=== PATIENT | female | born 1955 | race Caucasian/White ===

== ENCOUNTER → 2017-11-27 11:25 | Outpatient (CLI) | payer MEDICARE, SELFPAY ==
[2017-11-27 13:17] LABS: Absolute Lymphocyte Count 1.69 X10^3/ul (0.83-4.51); Absolute Neutrophil Count 2.4 X10^3/uL (2.0-7.7); Basophil# 0.02 X10^3/uL; Basophil% 0.4 % (0-1); Eosinophil# 0.06 X10^3/uL; Eosinophils% 1.2 % (0-5); Hematocrit 41.3 % (37-47); Hemoglobin 13.3 g/dl (12.0-15.0); Lymphocyte # 1.69 X10^3/ul (4.0); Lymphocyte % 33.7 % (19-41); Mean Corp Hgb Conc 32.2 g/gl (32-36); Mean Corpuscular Hgb 31.9 pg (27.0-32.0); Monocyte# 0.84 X10^3/uL; Monocyte% 16.7 % (0-10); Neutrophil # 2.41 X10^3/uL (2.7-7.7); Platelet Count 119 K/mm3 (150-450); RBC Distribution Width CV 13.4 % (11.6-14.6); RBC Distribution Width SD 48.3 fl (35.1-43.9); Red Blood Count 4.17 M/mm3 (4.2-5.4)
[2017-11-27 13:18] LABS: POSITIVE COUNT NO; POSITIVE DIFFERENTIAL NO; POSITIVE MORPHOLOGY NO
[2017-11-27 13:33] LABS: ALB/GLOB Ratio 0.9 RATIO (0.9-2.4); AST(SGOT) 22 U/L (15-37); Alanine Aminotransfer ALT/SGPT 28 U/L (13-56); Albumin, Serum 3.5 g/dL (3.2-5.0); Alkaline Phosphatase 82 U/L (45-117); Anion Gap 5 (5-15); BUN 20 mg/dL (7-18); BUN/Creat Ratio 24.2 RATIO (10-20); Calcium,Total 8.5 mg/dL (8.5-10.1); Chloride 105 mmol/L (98-107); Cholesterol 139 mg/dL (200); Creatinine, Serum 0.83 mg/dL (0.55-1.02); EST Glomerular Filtration Rate 74 mL/min (>60); Est Glom Filt Rate - Afr Amer 90 mL/min (>60); Globulin 3.9 g/dL (2.2-4.2); Glucose 84 mg/dL (74-106); High Density Lipoprotein 55 mg/dL; Potassium 4.6 mmol/L (3.5-5.1); Protein, Total 7.4 g/dL (6.4-8.2); Sodium Level 142 mmol/L (136-145); Thyroid Stim Hormone (TSH) 0.43 uIU/mL (0.358-3.74); Triglycerides 100 mg/dL; Very Low Density Lipoprotein 20 mg/dL (5-40)
[2017-11-28 09:36] LABS: Hep C Antibodies >11.0 s/co ratio (0.0-0.9)
== END ==
PROVIDERS: Family Provider Family Medicine Geriatric Medicine; PCP Family Medicine Geriatric Medicine; Visit Provider Family Medicine Geriatric Medicine
DX: E78.4 Other hyperlipidemia (principal); I10 Essential (primary) hypertension; Z13.89 Encounter for screening for other disorder
CPT/HCPCS: 36415; 80053; 80061; 84443; 85025; 86803

== ENCOUNTER → 2017-12-11 14:32 | Outpatient (CLI) | payer MEDICARE, SELFPAY ==
--- NOTE | 2017-12-11 14:36 | BI_ITS ---
MAMMOGRAPHY - BILATERAL SCREENING REASON FOR EXAM: Female, 62 years old. Routine annual screening examination. PERTINENT HISTORY: Non-contributory. TECHNIQUE: Digital bilateral breast da (3D mammographic acquisition) in the CC and MLO projections. 2-D mediolateral oblique (MLO) and craniocaudad (CC) views of both breasts were obtained. CAD: Full Field Digital Mammography with Computer Added Detection was performed. COMPARISON: Comparison is made with prior study dated December 02, 2015 and November 04, 2013. FINDINGS: Breast Composition: There are scattered areas of fibroglandular density. There are no dominant masses or suspicious calcifications. There is a 4.6 mm well-defined nodular density in the inferior midportion of the right breast. There is also evidence of a focal 4.1 mm nodular density with central calcification in the inferior anterior medial portion of the right breast. Correlation with ultrasound is recommended. No other significant abnormalities are identified. BI/SCREENING MAMM (CAD), BILAT IMPRESSION: 2 small nodular densities in the right breast as described. Correlation with ultrasound is recommended. ASSESSMENT CATEGORY: BIRADS Category 0: Incomplete. Need additional imaging evaluation. A letter regarding these results will be sent to the patient by the facility within 30 days. Approximately 10% of breast cancers are not detected by mammography. A normal mammogram should not delay biopsy of a clinically suspicious abnormality. [id number] Electronically Signed: Daniel Goodman MD at 16:07 EDT Tel [phone], Service support ,
== END ==
PROVIDERS: Family Provider Family Medicine Geriatric Medicine; PCP Family Medicine Geriatric Medicine; Visit Provider Family Medicine Geriatric Medicine
DX: Z12.31 Encounter for screening mammogram for malignant neoplasm of breast (principal)
CPT/HCPCS: 77063; 77067

== ENCOUNTER → 2017-12-16 10:47 | Outpatient (CLI) | payer MEDICARE, SELFPAY ==
--- NOTE | 2017-12-16 10:48 | US_ITS ---
STUDY: ULTRASOUND BREAST - RIGHT REASON FOR EXAM: Female, 62 years old. Right breast nodules. TECHNIQUE: Axial and longitudinal images of the RIGHT breast were performed with a high resolution ultrasound transducer. COMPARISON: No prior breast ultrasound imaging available. Correlation mammograms 12/11/2017 through 09/12/2011. FINDINGS: RIGHT Breast: There is a lesion in the lower inner quadrant middle third. The lesion measures 3.0 x 3.0 x 4.0 mm. Clock notation: 5:30-6:00 o'clock position. Distance from nipple: 4 cm. Posterior Enhancement: Mild Posterior Shadowing: None Margins: Some margins are indistinct and irregular Echogenicity: Heterogeneous with probably hypoechoic. Lesion appears oblong, possibly dumbbell shaped but appears taller than wide and shows no internal color Doppler signal. There is a second lesion just inferior and lateral to the nipple in the subareolar region. The lesion measures approximately 0.5 x 0.5 x 0.3 cm and shows heterogeneous predominant hypoechoic echogenicity with indistinct margins without internal color Doppler signal identified. US/Breast Limited Unilateral IMPRESSION: Right breast nodules with suspicious ultrasound findings as described, cannot exclude neoplasm. Recommend further evaluation with ultrasound-guided biopsy of each nodule to exclude neoplasm. ASSESSMENT CATEGORY: BIRADS Category 4: Suspicious - Biopsy Should Be Considered. A letter regarding these results will be sent to the patient by the facility within 30 days. Electronically Signed: Timmy Lagos, at 17:22 EDT Tel , Service support ,
== END ==
PROVIDERS: Family Provider Family Medicine Geriatric Medicine; PCP Family Medicine Geriatric Medicine; Visit Provider Family Medicine Geriatric Medicine
DX: N63.10 Unspecified lump in the right breast, unspecified quadrant (principal); R92.8 Other abnormal and inconclusive findings on diagnostic imaging of breast
CPT/HCPCS: 76642

== ENCOUNTER → 2018-05-28 11:50 | Outpatient (CLI) | payer MEDICARE, SELFPAY ==
[2018-05-28 17:27] LABS: Absolute Lymphocyte Count 1.66 X10^3/ul (0.83-4.51); Absolute Neutrophil Count 2.6 X10^3/uL (2.0-7.7); Basophil# 0.04 X10^3/uL; Basophil% 0.8 % (0-1); Eosinophil# 0.06 X10^3/uL; Eosinophils% 1.1 % (0-5); Hematocrit 44.2 % (37-47); Hemoglobin 14.2 g/dl (12.0-15.0); Lymphocyte # 1.66 X10^3/ul (4.0); Lymphocyte % 31.4 % (19-41); Mean Corp Hgb Conc 32.1 g/gl (32-36); Mean Corpuscular Hgb 32.8 pg (27.0-32.0); Mean Corpuscular Volume 102.1 fL (81-99); Mean Platelet Vol. 11.3 fl (6.2-12.0); Monocyte# 0.95 X10^3/uL; Neutrophil # 2.57 X10^3/uL (2.7-7.7); Neutrophil % 48.5 % (47-70); Platelet Count 150 K/mm3 (150-450); RBC Distribution Width CV 13.4 % (11.6-14.6); RBC Distribution Width SD 49.9 fl (35.1-43.9); Red Blood Count 4.33 M/mm3 (4.2-5.4); White Blood Count 5.3 K/mm3 (4.4-11.0)
[2018-05-28 17:40] LABS: ALB/GLOB Ratio 0.9 RATIO (0.9-2.4); AST(SGOT) 30 U/L (15-37); Alanine Aminotransfer ALT/SGPT 41 U/L (13-56); Albumin, Serum 3.7 g/dL (3.2-5.0); Alkaline Phosphatase 74 U/L (45-117); Anion Gap 7 (5-15); BUN 14 mg/dL (7-18); BUN/Creat Ratio 15.3 RATIO (10-20); Calcium,Total 8.8 mg/dL (8.5-10.1); Chloride 105 mmol/L (98-107); Cholesterol 147 mg/dL (200); Creatinine, Serum 0.92 mg/dL (0.55-1.02); EST Glomerular Filtration Rate 66 mL/min (>60); Est Glom Filt Rate - Afr Amer 80 mL/min (>60); Glucose 77 mg/dL (74-106); High Density Lipoprotein 52 mg/dL; Protein, Total 7.7 g/dL (6.4-8.2); Sodium Level 141 mmol/L (136-145); Thyroid Stim Hormone (TSH) 7.92 uIU/mL (0.358-3.74); Triglycerides 63 mg/dL; Very Low Density Lipoprotein 13 mg/dL (5-40)
[2018-05-28 17:46] LABS: POSITIVE COUNT NO; POSITIVE DIFFERENTIAL NO; POSITIVE MORPHOLOGY NO
--- OUTSIDE RECORDS SUMMARY | 2018-08-02 07:56 | XMS RPT_ITS ---
:1955 Author Organization OHIP Care Team Providers Name Role Phone Tim, Campbell Chi Attending Unavailable Tim, Campbell Chi Primary Care Unavailable Tim, Campbell Chi Attending Unavailable Tim, Campbell Chi Referring Unavailable Tim, Campbell Chi Primary Care Unavailable Tim, Campbell Chi Attending Unavailable Tim, Campbell Chi Primary Care Unavailable Tim, Campbell Chi Attending Unavailable Tim, Campbell Chi Primary Care Unavailable Tim, Campbell Chi Attending Unavailable Tim, Campbell Chi Primary Care Unavailable Tim, Campbell Chi Attending Unavailable Tim, Campbell Chi Referring Unavailable Tim, Campbell Chi Primary Care Unavailable PROBLEMS PROBLEMS DATE TYPE CONDITION / CODE ATTENDING STATUS SOURCE 06/05/2018 Unknown R06.02 - Shortness Tim, Campbell Chi Active [place] of breath / Community R06.02(ICD-10) Hospital Repository 06/07/2017 Unknown E87.1 - Tim, Campbell Chi Active [place] [facility]o-osmol[facility] and hyponatremia / Hospital E87.1(ICD-10) Repository PROCEDURES PROCEDURES No Procedure Records FoundRESULTS RESULTS ECHOCARDIOGRAM COMPLETE Observed: 06/05/2018 Status: F Source: HEATERS 4:56 PM [facility] REPOSITORY [facility] [place] [address] Echo Complete 06/05/18 1359 MR#: [id number] Acct: [id number] Name: JANETTE PIZARRO Rep #: [id number] : 1955 62 From: Benoit Roach MD Attending Dr: Campbell Dumont MD, Chi Status: REG CLI Ordering Dr: Campbell Dumont MD Date: 06/05/18 Location: [facility] Sex: F C Admitted: Reason For Study: SOB Procedure This was a 2D Doppler, Color Flow transthoracic echocardiogram. Exam performed in department. Left Ventricle Normal LV size. Left ventricular systolic function is normal. The estimated ejection fraction is 65 %. Stage 1 diastolic dysfunction. No regional wall motion abnormalities noted. Right Ventricle Normal RV size. Normal systolic function. Atria The left atrium is mildly enlarged. Normal right atrium. Mitral Valve There is mild to moderate mitral annular calcification. Trivial eccentric mitral valve insufficiency. Tricuspid Valve Normal tricuspid valve. Mild tricuspid valve insufficiency. Pulmonary artery systolic pressure is 30 mmHg. MMode/2D Measurements AND Calculations LVIDd: 4.8 cm IVSd: 1.1 cm LVOT diam: 1.9 cm LVIDs: 3.1 cm LVPWd: 1.1 cm RVDd: 2.9 cm FS: 35.1 % LVOT area: 2.9 cm2 Ao root diam: 3.4 cm LAV(MOD-bp): 73.7 ml LA A4 area: 22.0 cm2 LAV(MOD-bp) Indexed: 41.3 ml/m2 LAV(MOD-sp2): 72.5 ml LAV(MOD-sp4): 70.5 ml LA dimension(2D): 4.6 cm RA A4 area: 16.9 cm2 Doppler Measurements AND Calculations MV E max taras: 102.6 cm/sec Lat Peak E' Taras: 7.0 cm/sec Med Peak E' Taras: 6.5 cm/sec MV A max taras: 114.0 cm/sec E/E' lat: 14.7 E/E' med: 15.9 MV E/A: 0.90 Ao V2 max: 193.0 cm/sec LV V1 max: 125.8 cm/sec SV(LVOT): 93.8 ml Ao max P.9 mmHg LV V1 max P.3 mmHg Ao V2 mean: 126.4 cm/sec LV V1 mean P.4 mmHg Ao mean P.2 mmHg LV V1 mean: 87.8 cm/sec Ao V2 VTI: 40.1 cm LV V1 VTI: 32.7 cm ANYI(I,D): 2.3 cm2 ANYI(V,D): 1.9 cm2 PA V2 max: 98.4 cm/sec TR max taras: 252.3 cm/sec TR max P.5 mmHg Interpretation Summary Normal LV size. Left ventricular systolic function is normal. The estimated ejection fraction is 65 %. Stage 1 diastolic dysfunction. Structurally normal valves. Ordering Physician: Campbell Dumont Referring Physician: Campbell Dumont Chi Performed By: Chelsea Cam, HOOD, RVT 06/05/181655 Date Benoit Roach MD CC: Campbell Dumont MD Date Dictated: 06/05/18 1359 Date Transcribed: 06/05/181655 Application Programmer Analyst: Signed Observed: 05/28/2018 Status: F Source: HEATERS CULTURE, URINE 3:32 PM [facility] REPOSITORY Urine Culture ORGANISM 1: Presumptive E. coli Kirkman Count >100,000 Presumptive E. coli: REACTION Ampicillin $ <=2 S Ampicillin/Sulbactam $ <=2 S Cefazolin $ <=4 S Cefepime $ <=0.12 S Ceftazidime *NF <=1 S Ceftriaxone $ <=0.25 S Ciprofloxacin $ <=0.25 S Ertapenim $$$ <=0.12 S ESBL NEG Gentamicin $ <=1 S Imipenem *NF <=0.25 S Levofloxacin $ <=0.12 S Nitrofurantoin $ <=16 S Piperacillin/Tazobactam $$ <=4 S Tobramycin $ <=1 S Trimethoprim/Sulfametho $ <=20 S (NF) indicates non-formulary drug at [facility]. Approval by Infectious Disease Specialist required before non-formulary drugs may be ordered and/or dispensed. Performed By: #### M100.0650 #### [facility] [place], [address] COMPREHENSIVE METABOLIC Collected: 05/28/2018 Status: F Source: TEO RODRÍGUEZ 11:52 AM [facility] REPOSITORY TYPE CODE TESTS RESULT OUT OF RANGE REFERENCE UNITS LAB L501.0100 74-106 mg/dL Normal GLU 77 Result Comment: Please note revised GLUCOSE reference range effective 2017. LAB L501.1000 7-18 mg/dL Normal BUN 14 LAB L501.1100 0.55-1.02 mg/dL Normal CREAT,SERUM 0.92 Result Comment: The validity of the calculated GFR AND GFRAA in patients over 70 years has not been determined. Clinical correlation is essential. LAB L501.1110 >60 mL/min Normal EST GFR 66 Result Comment: Non- GFR Calc LAB L501.1115 >60 mL/min Normal EST GFR - AA 80 Result Comment: GFR Calc LAB L501.1300 10-20 RATIO Normal BUN/CRE 15.3 LAB L501.1500 6.4-8.2 g/dL T Normal PROT 7.7 LAB L501.1800 3.2-5.0 g/dL Normal ALB 3.7 LAB L501.1950 2.2-4.2 g/dL Normal GLOB 4.0 LAB L501.2000 0.9-2.4 RATIO Normal A/G 0.9 LAB L501.2200 8.5-10.1 mg/dL CA Normal 8.8 LAB L501.4100 15-37 U/L Normal AST 30 LAB L501.4305 45-117 U/L Normal ALK P 74 LAB L501.4405 13-56 U/L Normal ALT 41 LAB L501.4600 0.20-1.00 mg/dL T Normal BILI 0.90 LAB L501.5300 136-145 mmol/L NA Normal 141 LAB L501.5600 3.5-5.1 mmol/L K Normal 4.0 LAB L501.5900 98-107 mmol/L CL Normal 105 LAB L501.6100 21.0-32.0 mmol/L Normal CO2 29.0 LAB L501.6200 5-15 Normal GAP 7 Performed By: #### L500.4050, L500.4100, L501.9520 #### [facility] [address] [place], [place], [address] LIPID PROFILE Collected: 05/28/2018 Status: F Source: TEO 11:52 AM [facility] REPOSITORY TYPE CODE TESTS RESULT OUT OF RANGE REFERENCE UNITS LAB L501.4900 200 mg/dL Normal CHOL 147 Result Comment: <200 mg/dL Desirable 200-240 mg/dL Borderline >240 mg/dL High Risk LAB L501.5000 mg/dL Normal TRIG 63 Result Comment: The drugs N-Acetylcysteine and Metamizole may falsely depress this assay. Serum Triglycerides Reference Interval Normal <150 mg/dL Borderline high 150 - 199 mg/dL High 200 - 499 mg/dL Very High > or = 500 mg/dL LAB L501.6400 mg/dL Normal HDL 52 Result Comment: The drugs N-Acetylcysteine and Metamizole may falsely depress this assay. Reference Range HDL <40 mg/dL Low HDL Cholesterol HDL >or= 60 mg/dL High HDL Cholesterol LAB L501.6500 0-130 mg/dL Normal LDL 82 LAB L501.6600 5-40 mg/dL Normal VLDL 13 Performed By: #### L500.4050, L500.4100, L501.9520 #### [facility] [address] [place], [place], [id number] THYROID STIM HORMONE Collected: 05/28/2018 Status: F Source: TEO (TSH) 11:52 AM [facility] REPOSITORY TYPE CODE TESTS RESULT OUT OF RANGE REFERENCE UNITS LAB L501.9520 0.358-3.74 uIU/mL High TSH 7.92 Performed By: #### L500.4050, L500.4100, L501.9520 #### [facility] [address] [place], [address] CBC W/DIFF, AUTOMATED Collected: 05/28/2018 Status: F Source: TEO 11:52 AM [facility] REPOSITORY TYPE CODE TESTS RESULT OUT OF RANGE REFERENCE UNITS LAB L100.1000 4.4-11.0 K/mm3 Normal WBC 5.3 LAB L100.1200 4.2-5.4 M/mm3 Normal RBC 4.33 LAB L100.1300 12.0-15.0 g/dl Normal HGB 14.2 LAB L100.1400 37-47 % Normal HCT 44.2 LAB L100.1500 81-99 fL High MCV 102.1 LAB L100.1600 27.0-32.0 pg High MCH 32.8 LAB L100.1700 32-36 g/gl Normal MCHC 32.1 LAB L100.1810 11.6-14.6 % Normal RDW CV 13.4 LAB L100.1820 35.1-43.9 fl High RDW SD 49.9 LAB L100.1900 150-450 K/mm3 Normal PLT 150 LAB L100.2000 6.2-12.0 fl Normal MPV 11.3 LAB L100.2100 47-70 % Normal NEUT% 48.5 LAB L100.2200 19-41 % Normal LY% 31.4 LAB L100.2300 0-10 % High MONO% 18.0 LAB L100.2400 0-5 % Normal EO% 1.1 LAB L100.2500 0-1 % Normal BASO% 0.8 LAB L100.2550 0.0-0.9 % Normal IM GRAN % 0.200 Result Comment: IG% - Immature Granulocytes (promyelocytes, myelocytes and metamyelocytes) > 1% indicates that a LEFT SHIFT is Present. LAB L100.2620 2.0-7.7 X10 3/uL Normal Absolute Neut 2.6 LAB L100.2720 0.83-4.51 X10 3/ul Normal Absolute Lymph 1.66 Performed By: #### L100.0100 #### [facility] [address] [facility] [place], [address] BREAST LIMITED Observed: 12/16/2017 Status: F Source: HEATERS UNILATERAL 10:49 AM [facility] REPOSITORY [facility] Imaging Services [address] [place] [address] Breast Limited Unilateral MR#: [id number] Acct: [id number] Name: JANETTE PIZARRO Rep #: [id number] : 1955 F 62 From: Timmy Lagos MD PCP: Campbell Dumont MD, Chi Status: REG CLI Study: Breast Limited Unilateral Date of Exam: 12/16/17 Exam# [id number] Ordering Dr: Campbell Dumont MD STUDY: ULTRASOUND BREAST - RIGHT REASON FOR EXAM: Female, 62 years old. Right breast nodules. TECHNIQUE: Axial and longitudinal images of the RIGHT breast were performed with a high resolution ultrasound transducer. COMPARISON: No prior breast ultrasound imaging available. Correlation mammograms 12/11/2017 through 09/12/2011. FINDINGS: RIGHT Breast: There is a lesion in the lower inner quadrant middle third. The lesion measures 3.0 x 3.0 x 4.0 mm. Clock notation: 5:30-6:00 o'clock position. Distance from nipple: 4 cm. Posterior Enhancement: Mild Posterior Shadowing: None Margins: Some margins are indistinct and irregular Echogenicity: Heterogeneous with probably hypoechoic. Lesion appears oblong, possibly dumbbell shaped but appears taller than wide and shows no internal color Doppler signal. There is a second lesion just inferior and lateral to the nipple in the subareolar region. The lesion measures approximately 0.5 x 0.5 x 0.3 cm and shows heterogeneous predominant hypoechoic echogenicity with indistinct margins without internal color Doppler signal identified. US/Breast Limited Unilateral IMPRESSION: Right breast nodules with suspicious ultrasound findings as described, cannot exclude neoplasm. Recommend further evaluation with ultrasound-guided biopsy of each nodule to exclude neoplasm. ASSESSMENT CATEGORY: BIRADS Category 4: Suspicious - Biopsy Should Be Considered. A letter regarding these results will be sent to the patient by the facility within 30 days. Electronically Signed: Timmy Lagos, at 17:22 EDT Tel , Service support , CC: Campbell Dumont MD Application Programmer Analyst: Signed SCREENING MAMM (CAD), Observed: 12/11/2017 Status: F Source: HEATERS BIL 2:37 PM [facility] REPOSITORY [facility] Imaging Services [address] [place] [address] SCREENING MAMM (CAD), BILAT MR#: [id number] Acct: [id number] Name: JANETTE PIZARRO Rep #: [id number] : 1955 F 62 From: Daniel Goodman MD PCP: Campbell Dumont MD, Chi Status: REG CLI Study: SCREENING MAMM (CAD), BILAT Date of Exam: 12/11/17 Exam# [id number] Ordering Dr: Campbell Dumont MD MAMMOGRAPHY - BILATERAL SCREENING REASON FOR EXAM: Female, 62 years old. Routine annual screening examination. PERTINENT HISTORY: Non-contributory. TECHNIQUE: Digital bilateral breast da (3D mammographic acquisition) in the CC and MLO projections. 2-D mediolateral oblique (MLO) and craniocaudad (CC) views of both breasts were obtained. CAD: Full Field Digital Mammography with Computer Added Detection was performed. COMPARISON: Comparison is made with prior study dated December 02, 2015 and November 04, 2013. FINDINGS: Breast Composition: There are scattered areas of fibroglandular density. There are no dominant masses or suspicious calcifications. There is a 4.6 mm well-defined nodular density in the inferior midportion of the right breast. There is also evidence of a focal 4.1 mm nodular density with central calcification in the inferior anterior medial portion of the right breast. Correlation with ultrasound is recommended. No other significant abnormalities are identified. BI/SCREENING MAMM (CAD), BILAT IMPRESSION: 2 small nodular densities in the right breast as described. Correlation with ultrasound is recommended. ASSESSMENT CATEGORY: BIRADS Category 0: Incomplete. Need additional imaging evaluation. A letter regarding these results will be sent to the patient by the facility within 30 days. Approximately 10% of breast cancers are not detected by mammography. A normal mammogram should not delay biopsy of a clinically suspicious abnormality. [id number] Electronically Signed: Daniel Goodman MD at 16:07 EDT Tel [phone], Service support , CC: Campbell Dumont MD Application Programmer Analyst: Signed CBC W/DIFF, AUTOMATED Collected: 11/27/2017 Status: F Source: TEO 11:26 AM [facility] REPOSITORY TYPE CODE TESTS RESULT OUT OF RANGE REFERENCE UNITS LAB L100.1000 4.4-11.0 K/mm3 Normal WBC 5.0 LAB L100.1200 4.2-5.4 M/mm3 Low RBC 4.17 LAB L100.1300 12.0-15.0 g/dl Normal HGB 13.3 LAB L100.1400 37-47 % Normal HCT 41.3 LAB L100.1500 81-99 fL Normal MCV 99.0 LAB L100.1600 27.0-32.0 pg Normal MCH 31.9 LAB L100.1700 32-36 g/gl Normal MCHC 32.2 LAB L100.1810 11.6-14.6 % Normal RDW CV 13.4 LAB L100.1820 35.1-43.9 fl High RDW SD 48.3 LAB L100.1900 150-450 K/mm3 Low PLT 119 LAB L100.2000 6.2-12.0 fl Normal MPV 11.0 LAB L100.2100 47-70 % Normal NEUT% 48.0 LAB L100.2200 19-41 % Normal LY% 33.7 LAB L100.2300 0-10 % High MONO% 16.7 LAB L100.2400 0-5 % Normal EO% 1.2 LAB L100.2500 0-1 % Normal BASO% 0.4 LAB L100.2550 0.0-0.9 % Normal IM GRAN % 0.000 Result Comment: IG% - Immature Granulocytes (promyelocytes, myelocytes and metamyelocytes) > 1% indicates that a LEFT SHIFT is Present. LAB L100.2620 2.0-7.7 X10 3/uL Normal Absolute Neut 2.4 LAB L100.2720 0.83-4.51 X10 3/ul Normal Absolute Lymph 1.69 Performed By: #### L100.0100 #### [facility] [address] [place], [address] COMPREHENSIVE METABOLIC Collected: 11/27/2017 Status: F Source: TEO RODRÍGUEZ 11:26 AM [facility] REPOSITORY TYPE CODE TESTS RESULT OUT OF RANGE REFERENCE UNITS LAB L501.0100 74-106 mg/dL Normal GLU 84 Result Comment: Please note revised GLUCOSE reference range effective 2017. LAB L501.1000 7-18 mg/dL High BUN 20 LAB L501.1100 0.55-1.02 mg/dL Normal CREAT,SERUM 0.83 Result Comment: The validity of the calculated GFR AND GFRAA in patients over 70 years has not been determined. Clinical correlation is essential. LAB L501.1110 >60 mL/min Normal EST GFR 74 Result Comment: Non- GFR Calc LAB L501.1115 >60 mL/min Normal EST GFR - AA 90 Result Comment: GFR Calc LAB L501.1300 10-20 RATIO High BUN/CRE 24.2 LAB L501.1500 6.4-8.2 g/dL T Normal PROT 7.4 LAB L501.1800 3.2-5.0 g/dL Normal ALB 3.5 LAB L501.1950 2.2-4.2 g/dL Normal GLOB 3.9 LAB L501.2000 0.9-2.4 RATIO Normal A/G 0.9 LAB L501.2200 8.5-10.1 mg/dL CA Normal 8.5 LAB L501.4100 15-37 U/L Normal AST 22 LAB L501.4305 45-117 U/L Normal ALK P 82 LAB L501.4405 13-56 U/L Normal ALT 28 LAB L501.4600 0.20-1.00 mg/dL T Normal BILI 0.50 LAB L501.5300 136-145 mmol/L NA Normal 142 LAB L501.5600 3.5-5.1 mmol/L K Normal 4.6 LAB L501.5900 98-107 mmol/L CL Normal 105 LAB L501.6100 21.0-32.0 mmol/L Normal CO2 32.0 LAB L501.6200 5-15 Normal GAP 5 Performed By: #### L500.4050, L500.4100, L501.9520 #### [facility] [address] [place], [place], [address] LIPID PROFILE Collected: 11/27/2017 Status: F Source: TEO 11:26 AM [facility] REPOSITORY TYPE CODE TESTS RESULT OUT OF RANGE REFERENCE UNITS LAB L501.4900 200 mg/dL Normal CHOL 139 Result Comment: <200 mg/dL Desirable 200-240 mg/dL Borderline >240 mg/dL High Risk LAB L501.5000 mg/dL Normal TRIG 100 Result Comment: The drugs N-Acetylcysteine and Metamizole may falsely depress this assay. Serum Triglycerides Reference Interval Normal <150 mg/dL Borderline high 150 - 199 mg/dL High 200 - 499 mg/dL Very High > or = 500 mg/dL LAB L501.6400 mg/dL Normal HDL 55 Result Comment: The drugs N-Acetylcysteine and Metamizole may falsely depress this assay. Reference Range HDL <40 mg/dL Low HDL Cholesterol HDL >or= 60 mg/dL High HDL Cholesterol LAB L501.6500 0-130 mg/dL Normal LDL 64 LAB L501.6600 5-40 mg/dL Normal VLDL 20 Performed By: #### L500.4050, L500.4100, L501.9520 #### [facility] [address] [facility]. [place], [place], [address] THYROID STIM HORMONE Collected: 11/27/2017 Status: F Source: TEO (TSH) 11:26 AM [facility] REPOSITORY TYPE CODE TESTS RESULT OUT OF RANGE REFERENCE UNITS LAB L501.9520 0.358-3.74 uIU/mL Normal TSH 0.43 Performed By: #### L500.4050, L500.4100, L501.9520 #### [facility] [address] [place], [place], [address] HEPATITIS C ANTIBODIES Collected: 11/27/2017 Status: F Source: TEO 11:26 AM [facility] REPOSITORY TYPE CODE TESTS RESULT OUT OF RANGE REFERENCE UNITS LAB L3100.0650 0.0-0.9 s/co ratio High HEP C AB >11.0 Result Comment: Negative: < 0.8 Indeterminate: 0.8 - 0.9 Positive: > 0.9 The CDC recommends that a positive HCV antibody result be followed up with a HCV Nucleic Acid Amplification test (023027). Performed at: [facility] [id number] Aerodynamics Engineer: Maxime Ramírez PhD, Phone: [phone] Performed By: #### L3100.0625 #### [facility] (refer to report for specific site) refer to report for address and phone number ALLERGIES ALLERGIES DATE TYPE / CODE NAME / CODE REACTION SEVERITY SOURCE 07/06/2014 Drug No Known Unknown [facility] Allergy/4160 Allergies/F00 Hospital 91817(SNOMED [id number](RXNOR Repository CT) M) ENCOUNTERS ENCOUNTERS ADMIT/DISCHARGE ACCOUNT ADMITTING ENCOUNTER LOCATION SOURCE NUMBER CLASS 06/05/2018 [id number] Ambulatory [place] 6 [facility] ing:[facility] Repository 05/28/2018 [id number] Ambulatory [place] 2 [facility] ing:POLAB3 Repository 12/16/2017 [id number] Ambulatory [place] 9 [facility] ing:OPUS Repository 12/11/2017 [id number] Ambulatory [place] 8 [facility] ing:OPBI Repository 11/27/2017 [id number] Ambulatory [place] 6 [facility] ing:POLAB3 Repository 06/21/2017 [id number] Ambulatory [place] 0 [facility] ing:LAB.FUTUR Repository E PAYERS PAYERS ENCOUNTER GUARANTOR PAYER SUBSCRIBER SOURCE 06/05/2018 JANETTE TUCKER7 Primary JANETTE A [place] 1/2 [address] [place] Insurance:HUMANA [place]OB[place] PPOPolicy [id number] Hospital [address]Waa: [phone]) Number: Repository [phone] ) [id number] Date:[id number] [address]XM: 06/05/2018 Secondary NOT GIVENUNK [place] Insurance:SELF PAY [facility] Number: Effective Repository Date:2018-05-28 05/28/2018 Janette A [id number] Primary Janette A [place] 1/[address] Insurance:HUMANA AngleDOB: [place] PPOPolicy [id number] Hospital [address]Ayy: [phone]) Number: Repository [phone] () [id number] Date:[id number] [place] [address]WP: 05/28/2018 Secondary NOT GIVENUNK [place] Insurance:SELF PAY [facility] Hospital Number: Effective Repository Date:2018-05-28 12/16/2017 Janette A [id number] Primary Janette A [place] 1/2 [address] Insurance:HUMANA AngleDOB: [place] PPOPolicy [id number] Hospital [address]Vuc: [phone] Number: Repository [phone] () [id number] Date:0196-09-23PA [place] [address]WP: 12/16/2017 Secondary NOT GIVENUNK [place] Insurance:SELF PAY [facility] Hospital Number: Effective Repository Date:2017-12-12 12/11/2017 Janette A [id number] Primary Janette A [place] 1/[address] Insurance:HUMANA AngleDOB: [place], [place] MEDICARE [facility] [id number] Hospital [address]Qyt: [phone]) Number: Repository [phone] () [id number] Date:8601-07-10TI [address]WP: 12/11/2017 Secondary NOT GIVENUNK [place] Insurance:SELF PAY [facility] Hospital Number: Effective Repository Date:2017-11-28 11/27/2017 Janette A [id number] Primary Janette A [place] [address] Insurance:HUMANA AngleDOB: [address] [facility] [id number] [facility] [address]Whz: [phone]) Number: Repository [phone] () [id number] Date:[id number] [address] [place] [address]VP: 11/27/2017 Secondary NOT GIVENUNK [place] Insurance:SELF PAY [facility] Number: Effective Repository Date:2017-11-27 06/21/2017 Janette [id number] Primary Janette Mullins [address] Insurance:HUMANA AngleDOB: [facility] [place] MEDIC[place] PPOPolicy [id number] Hospital [address]Iii: [phone]) Number: Repository [phone] () [id number] Date:[id number] [address] [address]PL: 06/21/2017 Secondary NOT GIVENUNK [place] Insurance:SELF PAY [facility] Number: Effective Repository Date:2017-06-07
== END ==
PROVIDERS: Family Provider Family Medicine Geriatric Medicine; PCP Family Medicine Geriatric Medicine; Visit Provider Family Medicine Geriatric Medicine
DX: I10 Essential (primary) hypertension (principal); E78.5 Hyperlipidemia, unspecified; N39.0 Urinary tract infection, site not specified
CPT/HCPCS: 36415; 80053; 80061; 84443; 85025; 87086; 87088; 87186

== ENCOUNTER → 2018-06-05 13:41 | Outpatient (CLI) | payer MEDICARE, SELFPAY ==
--- NOTE | 2018-06-05 13:47 | ECHOD_ITS ---
Reason For Study: SOB Procedure This was a 2D Doppler, Color Flow transthoracic echocardiogram. Exam performed in department. Left Ventricle Normal LV size. Left ventricular systolic function is normal. The estimated ejection fraction is 65 %. Stage 1 diastolic dysfunction. No regional wall motion abnormalities noted. Right Ventricle Normal RV size. Normal systolic function. Atria The left atrium is mildly enlarged. Normal right atrium. Mitral Valve There is mild to moderate mitral annular calcification. Trivial eccentric mitral valve insufficiency. Tricuspid Valve Normal tricuspid valve. Mild tricuspid valve insufficiency. Pulmonary artery systolic pressure is 30 mmHg. MMode/2D Measurements & Calculations LVIDd: 4.8 cm IVSd: 1.1 cm LVOT diam: 1.9 cm LVIDs: 3.1 cm LVPWd: 1.1 cm RVDd: 2.9 cm FS: 35.1 % LVOT area: 2.9 cm2 Ao root diam: 3.4 cm LAV(MOD-bp): 73.7 ml LA A4 area: 22.0 cm2 LAV(MOD-bp) Indexed: 41.3 ml/m2 LAV(MOD-sp2): 72.5 ml LAV(MOD-sp4): 70.5 ml LA dimension(2D): 4.6 cm RA A4 area: 16.9 cm2 Doppler Measurements & Calculations MV E max taras: 102.6 cm/sec Lat Peak E' Taras: 7.0 cm/sec Med Peak E' Taras: 6.5 cm/sec MV A max taras: 114.0 cm/sec E/E' lat: 14.7 E/E' med: 15.9 MV E/A: 0.90 Ao V2 max: 193.0 cm/sec LV V1 max: 125.8 cm/sec SV(LVOT): 93.8 ml Ao max P.9 mmHg LV V1 max P.3 mmHg Ao V2 mean: 126.4 cm/sec LV V1 mean P.4 mmHg Ao mean P.2 mmHg LV V1 mean: 87.8 cm/sec Ao V2 VTI: 40.1 cm LV V1 VTI: 32.7 cm ANYI(I,D): 2.3 cm2 ANYI(V,D): 1.9 cm2 PA V2 max: 98.4 cm/sec TR max taras: 252.3 cm/sec TR max P.5 mmHg Interpretation Summary Normal LV size. Left ventricular systolic function is normal. The estimated ejection fraction is 65 %. Stage 1 diastolic dysfunction. Structurally normal valves. Ordering Physician: Campbell Dumont Referring Physician: Campbell Dumont Chi Performed By: Chelsea Cam RDCS, RVT
== END ==
PROVIDERS: Family Provider Family Medicine Geriatric Medicine; PCP Family Medicine Geriatric Medicine; Referring Provider Family Medicine Geriatric Medicine; Visit Provider Family Medicine Geriatric Medicine
DX: R06.02 Shortness of breath (principal)
CPT/HCPCS: 93306

== ENCOUNTER → 2018-07-31 09:56 | Outpatient (CLI) | payer MEDICARE, SELFPAY ==
[2018-07-31 12:51] LABS: Thyroid Stim Hormone (TSH) 4.73 uIU/mL (0.358-3.74)
== END ==
PROVIDERS: Family Provider Family Medicine Geriatric Medicine; PCP Family Medicine Geriatric Medicine; Visit Provider Family Medicine Geriatric Medicine
DX: E03.9 Hypothyroidism, unspecified (principal)
CPT/HCPCS: 36415; 84443

== ENCOUNTER → 2018-10-10 11:53 | Outpatient (CLI) | payer MEDICARE, SELFPAY ==
[2018-10-10 13:19] LABS: Absolute Lymphocyte Count 1.62 X10^3/ul (0.83-4.51); Absolute Neutrophil Count 2.5 X10^3/uL (2.0-7.7); Basophil# 0.03 X10^3/uL; Basophil% 0.6 % (0-1); Eosinophil# 0.09 X10^3/uL; Eosinophils% 1.7 % (0-5); Hemoglobin 13.2 g/dl (12.0-15.0); Lymphocyte # 1.62 X10^3/ul (4.0); Lymphocyte % 31.2 % (19-41); Mean Corpuscular Volume 97.1 fL (81-99); Monocyte# 0.95 X10^3/uL; Monocyte% 18.3 % (0-10); Neutrophil # 2.49 X10^3/uL (2.7-7.7); Platelet Count 112 K/mm3 (150-450); RBC Distribution Width CV 13.2 % (11.6-14.6); RBC Distribution Width SD 46.8 fl (35.1-43.9); Red Blood Count 4.12 M/mm3 (4.2-5.4); White Blood Count 5.2 K/mm3 (4.4-11.0)
[2018-10-10 13:26] LABS: POSITIVE COUNT NO; POSITIVE DIFFERENTIAL NO; POSITIVE MORPHOLOGY NO
[2018-10-10 13:43] LABS: Anion Gap 4 (5-15); BUN 17 mg/dL (7-18); BUN/Creat Ratio 20.2 RATIO (10-20); Calcium,Total 8.4 mg/dL (8.5-10.1); Chloride 107 mmol/L (98-107); Creatinine, Serum 0.84 mg/dL (0.55-1.02); EST Glomerular Filtration Rate 73 mL/min (>60); Est Glom Filt Rate - Afr Amer 88 mL/min (>60); Glucose 86 mg/dL (74-106); Sodium Level 142 mmol/L (136-145)
--- NOTE | 2018-10-10 13:57 | VDLE_ITS ---
Reason For Study: Edema RIGHT LEFT GSV is normal. GSV is normal. CFV is compressible, spontaneous, phasic, CFV is compressible, spontaneous, phasic, competent and demonstrates normal competent, and demonstrates normal augmentation. augmentation. FV is compressible, spontaneous, phasic, FV is compressible, spontaneous, phasic, competent and demonstrates normal competent and demonstrates normal augmentation. augmentation. POP V is compressible, spontaneous, phasic, POP V is compressible, spontaneous, phasic, competent and demonstrates normal competent and demonstrates normal augmentation. augmentation. T/P Trunk is compressible. T/P Trunk is compressible. PTV is compressible. PTV is compressible. RT PerV is compressible. LT PerV is compressible. Procedure Exam performed in department. A preliminary report was called and/or faxed to Tim. Interpretation Summary No evidence for acute deep venous thrombosis bilateral lower extremities with patent and compressible bilateral great saphenous veins. Ordering Physician: Campbell Dumont Referring Physician: Campbell Dumont Chi Performed By: Milagro Lewis RVT
== END ==
PROVIDERS: Family Provider Family Medicine Geriatric Medicine; PCP Family Medicine Geriatric Medicine; Referring Provider Family Medicine Geriatric Medicine; Visit Provider Family Medicine Geriatric Medicine
DX: I10 Essential (primary) hypertension (principal); R60.0 Localized edema
CPT/HCPCS: 36415; 80048; 85025; 93970

== ENCOUNTER → 2018-12-01 08:54 | Outpatient (CLI) | payer MEDICARE, SELFPAY ==
[2018-12-01 12:25] LABS: Absolute Lymphocyte Count 1.56 X10^3/uL (0.83-4.51); Absolute Neutrophil Count 3.5 X10^3/uL (2.0-7.7); Basophil# 0.04 X10^3/uL; Basophil% 0.7 % (0-1); Eosinophil# 0.07 X10^3/uL; Eosinophils% 1.2 % (0-5); Hemoglobin 13.8 g/dL (12.0-15.0); Lymphocyte # 1.56 X10^3/ul (4.0); Lymphocyte % 26.1 % (19-41); Mean Corp Hgb Conc 32.9 g/dL (32-36); Mean Corpuscular Hgb 32.5 pg (27.0-32.0); Mean Corpuscular Volume 99.1 fL (81-99); Mean Platelet Vol. 11.4 fl (6.2-12.0); Monocyte# 0.77 X10^3/uL; Monocyte% 12.9 % (0-10); NRBC Flagged by Analyzer 0 % (0-5); Neutrophil # 3.52 X10^3/uL (2.7-7.7); Neutrophil % 58.8 % (47-70); Platelet Count 138 K/mm3 (150-450); RBC Distribution Width CV 12.9 % (11.6-14.6); RBC Distribution Width SD 46.7 fl (35.1-43.9); Red Blood Count 4.24 M/mm3 (4.2-5.4)
[2018-12-01 13:30] LABS: ALB/GLOB Ratio 0.8 RATIO (0.9-2.4); AST(SGOT) 24 U/L (15-37); Alanine Aminotransfer ALT/SGPT 22 U/L (13-56); Albumin, Serum 3.4 g/dL (3.2-5.0); Alkaline Phosphatase 73 U/L (45-117); Anion Gap 9 (5-15); BUN 14 mg/dL (7-18); BUN/Creat Ratio 15.6 RATIO (10-20); Chloride 104 mmol/L (98-107); Cholesterol 129 mg/dL (200); EST Glomerular Filtration Rate 67 mL/min (>60); Est Glom Filt Rate - Afr Amer 82 mL/min (>60); Globulin 4.2 g/dL (2.2-4.2); Glucose 102 mg/dL (74-106); High Density Lipoprotein 42 mg/dL; Potassium 3.9 mmol/L (3.5-5.1); Protein, Total 7.6 g/dL (6.4-8.2); Sodium Level 141 mmol/L (136-145); Thyroid Stim Hormone (TSH) 1.32 uIU/mL (0.358-3.74); Triglycerides 75 mg/dL; Very Low Density Lipoprotein 15 mg/dL (5-40)
== END ==
PROVIDERS: Family Provider Family Medicine Geriatric Medicine; PCP Family Medicine Geriatric Medicine; Visit Provider Family Medicine Geriatric Medicine
DX: E78.5 Hyperlipidemia, unspecified (principal); I10 Essential (primary) hypertension
CPT/HCPCS: 36415; 80053; 80061; 84443; 85025

== ENCOUNTER → 2019-06-01 12:24 | Outpatient (CLI) | payer MEDICARE, SELFPAY ==
[2019-06-01 14:04] LABS: Absolute Lymphocyte Count 1.23 X10^3/uL (0.83-4.51); Absolute Neutrophil Count 1.3 X10^3/uL (2.0-7.7); Basophil# 0.03 X10^3/uL; Basophil% 0.9 % (0-1); Eosinophil# 0.04 X10^3/uL; Eosinophils% 1.2 % (0-5); Hematocrit 42.5 % (37-47); Hemoglobin 13.6 g/dL (12.0-15.0); Lymphocyte # 1.23 X10^3/ul (4.0); Lymphocyte % 36.5 % (19-41); Mean Corpuscular Hgb 31.6 pg (27.0-32.0); Mean Corpuscular Volume 98.6 fL (81-99); Mean Platelet Vol. 11.7 fl (6.2-12.0); Monocyte# 0.73 X10^3/uL; Monocyte% 21.7 % (0-10); NRBC Flagged by Analyzer 0 % (0-5); Neutrophil # 1.33 X10^3/uL (2.7-7.7); Neutrophil % 39.4 % (47-70); Platelet Count 117 K/mm3 (150-450); RBC Distribution Width CV 13.2 % (11.6-14.6); Red Blood Count 4.31 M/mm3 (4.2-5.4); White Blood Count 3.4 K/mm3 (4.4-11.0)
[2019-06-01 14:37] LABS: ALB/GLOB Ratio 0.8 RATIO (0.9-2.4); AST(SGOT) 28 U/L (15-37); Alanine Aminotransfer ALT/SGPT 32 U/L (13-56); Albumin, Serum 3.4 g/dL (3.2-5.0); Alkaline Phosphatase 71 U/L (45-117); Anion Gap 6 (5-15); BUN 15 mg/dL (7-18); BUN/Creat Ratio 18.1 RATIO (10-20); Calcium,Total 8.8 mg/dL (8.5-10.1); Chloride 105 mmol/L (98-107); Cholesterol 135 mg/dL (200); Creatinine, Serum 0.83 mg/dL (0.55-1.02); EST Glomerular Filtration Rate 74 mL/min (>60); Est Glom Filt Rate - Afr Amer 90 mL/min (>60); Glucose 120 mg/dL (74-106); High Density Lipoprotein 39 mg/dL; Potassium 3.3 mmol/L (3.5-5.1); Protein, Total 7.4 g/dL (6.4-8.2); Sodium Level 141 mmol/L (136-145); Thyroid Stim Hormone (TSH) 0.18 uIU/mL (0.358-3.74); Triglycerides 96 mg/dL; Very Low Density Lipoprotein 19 mg/dL (5-40)
== END ==
PROVIDERS: PCP Family Medicine Geriatric Medicine; Visit Provider Family Medicine Geriatric Medicine
DX: E78.5 Hyperlipidemia, unspecified (principal); I10 Essential (primary) hypertension
CPT/HCPCS: 36415; 80053; 80061; 84443; 85025

== ENCOUNTER → 2019-06-15 09:38 | Outpatient (CLI) | payer MEDICARE, SELFPAY ==
[2019-06-15 12:41] LABS: Anion Gap 3 (5-15); BUN 17 mg/dL (7-18); BUN/Creat Ratio 21.3 RATIO (10-20); Calcium,Total 8.9 mg/dL (8.5-10.1); Chloride 108 mmol/L (98-107); EST Glomerular Filtration Rate 77 mL/min (>60); Est Glom Filt Rate - Afr Amer 93 mL/min (>60); Glucose 89 mg/dL (74-106); Sodium Level 141 mmol/L (136-145)
== END ==
PROVIDERS: PCP Family Medicine Geriatric Medicine; Visit Provider Family Medicine Geriatric Medicine
DX: I10 Essential (primary) hypertension (principal)
CPT/HCPCS: 36415; 80048

== ENCOUNTER → 2019-07-15 10:45 | Outpatient (CLI) | payer MEDICARE, SELFPAY ==
[2019-07-15 13:28] LABS: Thyroid Stim Hormone (TSH) 0.28 uIU/mL (0.358-3.74)
== END ==
PROVIDERS: PCP Family Medicine Geriatric Medicine; Visit Provider Family Medicine Geriatric Medicine
DX: E03.9 Hypothyroidism, unspecified (principal)
CPT/HCPCS: 36415; 84443

== ENCOUNTER → 2019-08-28 10:55 | Outpatient (CLI) | payer MEDICARE, SELFPAY ==
[2019-08-28 12:15] LABS: Thyroid Stim Hormone (TSH) 1.27 uIU/mL (0.358-3.74)
== END ==
PROVIDERS: PCP Family Medicine Geriatric Medicine; Visit Provider Family Medicine Geriatric Medicine
DX: E03.9 Hypothyroidism, unspecified (principal)
CPT/HCPCS: 36415; 84443

== ENCOUNTER → 2019-12-03 10:53 | Outpatient (CLI) | payer MEDICARE, SELFPAY ==
[2019-12-03 12:33] LABS: Absolute Lymphocyte Count 1.63 X10^3/uL (0.83-4.51); Absolute Neutrophil Count 1.9 X10^3/uL (2.0-7.7); Basophil# 0.03 X10^3/uL; Basophil% 0.7 % (0-1); Eosinophil# 0.05 X10^3/uL; Eosinophils% 1.1 % (0-5); Hematocrit 43.7 % (37-47); Hemoglobin 14.1 g/dL (12.0-15.0); Lymphocyte # 1.63 X10^3/ul (4.0); Lymphocyte % 37.3 % (19-41); Mean Corp Hgb Conc 32.3 g/dL (32-36); Mean Corpuscular Hgb 32.2 pg (27.0-32.0); Mean Corpuscular Volume 99.8 fL (81-99); Mean Platelet Vol. 11.1 fl (6.2-12.0); Monocyte# 0.79 X10^3/uL; Monocyte% 18.1 % (0-10); NRBC Flagged by Analyzer 0 % (0-5); Neutrophil # 1.86 X10^3/uL (2.7-7.7); Neutrophil % 42.6 % (47-70); Platelet Count 150 K/mm3 (150-450); RBC Distribution Width CV 12.8 % (11.6-14.6); Red Blood Count 4.38 M/mm3 (4.2-5.4); White Blood Count 4.4 K/mm3 (4.4-11.0)
[2019-12-03 13:04] LABS: ALB/GLOB Ratio 0.8 RATIO (0.9-2.4); AST(SGOT) 21 U/L (15-37); Alanine Aminotransfer ALT/SGPT 23 U/L (13-56); Albumin, Serum 3.4 g/dL (3.2-5.0); Alkaline Phosphatase 72 U/L (45-117); Anion Gap 0 (5-15); BUN 13 mg/dL (7-18); BUN/Creat Ratio 15.9 RATIO (10-20); Calcium,Total 8.9 mg/dL (8.5-10.1); Chloride 107 mmol/L (98-107); Cholesterol 143 mg/dL (200); Creatinine, Serum 0.82 mg/dL (0.55-1.02); EST Glomerular Filtration Rate 75 mL/min (>60); Est Glom Filt Rate - Afr Amer 91 mL/min (>60); Glucose 76 mg/dL (74-106); High Density Lipoprotein 49 mg/dL; Potassium 4.1 mmol/L (3.5-5.1); Protein, Total 7.4 g/dL (6.4-8.2); Sodium Level 139 mmol/L (136-145); Thyroid Stim Hormone (TSH) 3.23 uIU/mL (0.358-3.74); Triglycerides 70 mg/dL; Very Low Density Lipoprotein 14 mg/dL (5-40)
== END ==
PROVIDERS: PCP Family Medicine Geriatric Medicine; Visit Provider Family Medicine Geriatric Medicine
DX: E78.5 Hyperlipidemia, unspecified (principal); I10 Essential (primary) hypertension
CPT/HCPCS: 36415; 80053; 80061; 84443; 85025

== ENCOUNTER 2019-12-10 10:47 | Emergency (ER) | payer MEDICARE, SELFPAY ==
[2019-12-10 10:49] VITALS: BP 93/69; PULSE 61; RESP 15; TEMP 36.4; O2SAT 94; BMI 35.7
--- NOTE | 2019-12-10 11:13 | RAD_ITS ---
STUDY: X-RAY - LEFT KNEE REASON FOR EXAM: Female, 64 years old. FALL, PAIN DISTAL KNEE TECHNIQUE: 3 view(s) of the knee. COMPARISON: None. FINDINGS: Normal visualized distal femur. There is evidence of a comminuted nondisplaced fracture of the lateral tibial plateau. Nondisplaced, fracture of the proximal fibula. Normal medial femorotibial compartment. Normal lateral femorotibial compartment. Normal patellofemoral articulation. Joint effusion with a fat fluid level. RAD/Knee 1 or 2 Views IMPRESSION: Comminuted nondisplaced fracture of the lateral tibial plateau as well as a nondisplaced fracture of the proximal fibula with evidence of a knee joint effusion. Electronically Signed: Daniel Goodman, at 12:18 EDT , Service support ,
--- NOTE | 2019-12-10 11:17 | ED.DCSUM_ITS ---
- ER Visit Summary Date of Service: 12/10/19 Chief Complaint: Fall History of Present Illness: The patient is a 64 F who presents after a fall that occurred today. Patient states she lost her balance while she was taking out the garbage. Patient states she injured her left knee. Patient states she is having difficulty ambulating due to the pain. Patient admits to hitting her head but denies any loss of consciousness. Patient denies any headaches. Patient denies any paresthesias or weakness. Patient states her pain is sharp and is worse with any movement. Physical Examination: Vital signs are stable. Patient is afebrile. Patient is in no acute distress. Musculoskeletal exam reveals tenderness over the left knee. There is no effusion. There is no bony crepitance or step-off. There is no ecchymosis noted. Range of motion was limited in all motions of the left kne e secondary to pain. Extensor mechanism is intact. Pedal pulses are equal bilaterally. Sensation was intact light touch in all digits. Capillary refill was less than 2 seconds in all digits. Patient was guarding on examination but there was no ligamentous laxity noted. Test Results: X-rays of the left knee were obtained. There is a nondisplaced lateral tibial plateau fracture along with a nondisplaced fracture of the proximal fibula. This was interpreted by the radiologist and reviewed by myself. Emergency Department Course and Treatment: Patient was given a dose of [place] here. Patient was placed in a knee immobilizer. Case was discussed with Dr. Weston. He agrees with knee immobilizer and nonweightbearing. He will follow- up with the patient in his office. Patient was given a prescription for [place]. Patient was instructed to ice and elevate the left knee. She states she has a walker and crutches at home. Patient was instructed to remain nonweightbearing. Patient was instructed to follow-up with Dr. Weston in 3-5 days. Patient understood and was agreeable with the plan. All questions were answered. Disposition: Discharge home Impression: 1. Left tibial plateau fracture 2. Left proximal fibula fracture This note was generated with [employer]ation software. It may contain incorrect words, spelling, and punctuation that were not noted in review of the chart prior to signing ED Disposition - Plan for ED Patient: Disposition: Home or Assisted Living Diagnosis: Closed nondisplaced fracture of left tibial plateau, Fracture of left proximal fibula Instructions: ED Fracture Lower Extremity Prescriptions: Hydrocodone Bitart/Apap 5-325 [[place] 5MG-325MG] 1 tab PO Q6H PRN PRN 3 Days #10 tab PRN Reason: Pain Prescription Printed Referrals: Jesus Weston DO [STAFF PHYSICIAN] - 3-5 Days Campbell Dumont Chi, MD [Primary Care Provider] - 3-5 Days Additional Instructions: Do not bear any weight on your left leg
[2019-12-10] MEDS: HYDROcodone Bitartrate/Apap 5/325 Tablet PO (11:51)
--- NOTE | 2019-12-10 13:11 | ED.RN ---
DR JOE PAGED FOR DR KELLEY
[2019-12-10 15:53] VITALS: BP 148/82; PULSE 65; RESP 17; O2SAT 95
== END 2019-12-10 15:54 | disposition home or self-care (01) ==
PROVIDERS: Emergency Provider Emergency Medicine; PCP Family Medicine Geriatric Medicine
DX: S82.145A Nondisplaced bicondylar fracture of left tibia, initial encounter for closed fracture (principal); S82.832A Other fracture of upper and lower end of left fibula, initial encounter for closed fracture; W19.XXXA Unspecified fall, initial encounter; F17.210 Nicotine dependence, cigarettes, uncomplicated; E66.9 Obesity, unspecified; Z85.850 Personal history of malignant neoplasm of thyroid; Z86.19 Personal history of other infectious and parasitic diseases
CPT/HCPCS: 73560; 99285

== ENCOUNTER → 2020-04-26 15:01 | Outpatient (CLI) | payer MEDICARE, SELFPAY ==
--- NOTE | 2020-04-26 15:03 | BI_ITS ---
MAMMOGRAPHY - BILATERAL SCREENING REASON FOR EXAM: Female, 64 years old. Routine annual screening examination. PERTINENT HISTORY: Non-contributory. TECHNIQUE: Digital bilateral breast chi (3D mammographic acquisition) in the CC and MLO projections. 2-D mediolateral oblique (MLO) and craniocaudad (CC) views of both breasts were obtained. CAD: Full Field Digital Mammography with Computer Added Detection was performed. COMPARISON: Comparison is made with prior study dated 12/11/2017 and 12/02/2015. FINDINGS: Breast Composition: There are scattered areas of fibroglandular density. There are no dominant masses or suspicious calcifications. Stable scattered small well-defined nodules in the right breast. A calcification is seen within a 5 mm nodule in the inferior medial portion of the breast. No other significant abnormalities are identified. There has been no significant change since the prior study. BI/SCREEN MAMM (CAD) W/CHI BILAT IMPRESSION: Stable bilateral screening mammogram. Yearly follow-up mammogram recommended. (A) ASSESSMENT CATEGORY: BIRADS Category 2: Benign. A letter regarding these results will be sent to the patient by the facility within 30 days. Approximately 10% of breast cancers are not detected by mammography. A normal mammogram should not delay biopsy of a clinically suspicious abnormality. [id number] Electronically Signed: Daniel Goodman, at 15:45 EST , Service support ,
== END ==
PROVIDERS: PCP Family Medicine Geriatric Medicine; Referring Provider Family Medicine Geriatric Medicine; Visit Provider Family Medicine Geriatric Medicine
DX: Z12.31 Encounter for screening mammogram for malignant neoplasm of breast (principal)
CPT/HCPCS: 77063; 77067

== ENCOUNTER → 2020-06-07 09:40 | Outpatient (CLI) | payer MEDICARE, SELFPAY ==
[2020-06-07 12:15] LABS: Absolute Lymphocyte Count 2.01 X10^3/uL (0.83-4.51); Absolute Neutrophil Count 2.5 X10^3/uL (2.0-7.7); Basophil# 0.04 X10^3/uL; Basophil% 0.7 % (0-1); Eosinophil# 0.07 X10^3/uL; Eosinophils% 1.3 % (0-5); Hematocrit 44.3 % (37-47); Hemoglobin 14.1 g/dL (12.0-15.0); Lymphocyte # 2.01 X10^3/ul (4.0); Lymphocyte % 36.8 % (19-41); Mean Corp Hgb Conc 31.8 g/dL (32-36); Mean Corpuscular Hgb 31.5 pg (27.0-32.0); Mean Corpuscular Volume 98.9 fL (81-99); Mean Platelet Vol. 11.4 fl (6.2-12.0); Monocyte# 0.82 X10^3/uL; NRBC Flagged by Analyzer 0 % (0-5); Neutrophil # 2.51 X10^3/uL (2.7-7.7); Platelet Count 154 K/mm3 (150-450); RBC Distribution Width SD 47.4 fl (35.1-43.9); Red Blood Count 4.48 M/mm3 (4.2-5.4); White Blood Count 5.5 K/mm3 (4.4-11.0)
[2020-06-07 12:54] LABS: ALB/GLOB Ratio 0.8 RATIO (0.9-2.4); AST(SGOT) 29 U/L (15-37); Alanine Aminotransfer ALT/SGPT 29 U/L (13-56); Albumin, Serum 3.1 g/dL (3.2-5.0); Alkaline Phosphatase 103 U/L (45-117); Anion Gap 4 (5-15); BUN 11 mg/dL (7-18); BUN/Creat Ratio 15.1 RATIO (10-20); Calcium,Total 8.7 mg/dL (8.5-10.1); Chloride 103 mmol/L (98-107); Cholesterol 120 mg/dL (200); Creatinine, Serum 0.73 mg/dL (0.55-1.02); EST Glomerular Filtration Rate 86 mL/min (>60); Est Glom Filt Rate - Afr Amer 104 mL/min (>60); Globulin 3.9 g/dL (2.2-4.2); Glucose 77 mg/dL (74-106); High Density Lipoprotein 41 mg/dL; Potassium 4.6 mmol/L (3.5-5.1); Sodium Level 138 mmol/L (136-145); Thyroid Stim Hormone (TSH) 7.89 uIU/mL (0.358-3.74); Triglycerides 89 mg/dL; Very Low Density Lipoprotein 18 mg/dL (5-40)
== END ==
PROVIDERS: PCP Family Medicine Geriatric Medicine; Visit Provider Family Medicine Geriatric Medicine
DX: E78.5 Hyperlipidemia, unspecified (principal); I10 Essential (primary) hypertension
CPT/HCPCS: 36415; 80053; 80061; 84443; 85025

== ENCOUNTER → 2020-07-21 09:35 | Outpatient (CLI) | payer MEDICARE, SELFPAY ==
[2020-07-21 13:23] LABS: Thyroid Stim Hormone (TSH) 0.35 uIU/mL (0.358-3.74)
== END ==
PROVIDERS: PCP Family Medicine Geriatric Medicine; Visit Provider Family Medicine Geriatric Medicine
DX: E03.9 Hypothyroidism, unspecified (principal)
CPT/HCPCS: 36415; 84443

== ENCOUNTER → 2020-08-25 11:39 | Outpatient (CLI) | payer MEDICARE, SELFPAY ==
[2020-08-25 15:46] LABS: Absolute Lymphocyte Count 1.37 X10^3/uL (0.83-4.51); Absolute Neutrophil Count 2.7 X10^3/uL (2.0-7.7); Basophil# 0.03 X10^3/uL; Basophil% 0.6 % (0-1); Eosinophil# 0.09 X10^3/uL; Eosinophils% 1.8 % (0-5); Hematocrit 42.6 % (37-47); Hemoglobin 13.6 g/dL (12.0-15.0); Lymphocyte # 1.37 X10^3/ul (0.83-4.51); Lymphocyte % 27.1 % (19-41); Mean Corp Hgb Conc 31.9 g/dL (32-36); Mean Corpuscular Hgb 31.9 pg (27.0-32.0); Mean Corpuscular Volume 99.8 fL (81-99); Mean Platelet Vol. 11.5 fl (6.2-12.0); Monocyte# 0.91 X10^3/uL; NRBC Flagged by Analyzer 0 % (0-5); Neutrophil # 2.65 X10^3/uL (2.7-7.7); Neutrophil % 52.5 % (47-70); Platelet Count 141 K/mm3 (150-450); RBC Distribution Width CV 12.3 % (11.6-14.6); RBC Distribution Width SD 45.5 fl (35.1-43.9); Red Blood Count 4.27 M/mm3 (4.2-5.4); White Blood Count 5.1 K/mm3 (4.4-11.0)
[2020-08-25 16:19] LABS: ALB/GLOB Ratio 0.8 RATIO (0.9-2.4); AST(SGOT) 24 U/L (15-37); Alanine Aminotransfer ALT/SGPT 21 U/L (13-56); Alkaline Phosphatase 82 U/L (45-117); Anion Gap 0 (5-15); BUN 12 mg/dL (7-18); BUN/Creat Ratio 16.9 RATIO (10-20); Calcium,Total 8.7 mg/dL (8.5-10.1); Chloride 105 mmol/L (98-107); Creatinine, Serum 0.71 mg/dL (0.55-1.02); EST Glomerular Filtration Rate 88 mL/min (>60); Est Glom Filt Rate - Afr Amer 106 mL/min (>60); Globulin 3.9 g/dL (2.2-4.2); Glucose 90 mg/dL (74-106); Potassium 4.4 mmol/L (3.5-5.1); Protein, Total 6.9 g/dL (6.4-8.2); Sodium Level 137 mmol/L (136-145); Thyroid Stim Hormone (TSH) 0.08 uIU/mL (0.358-3.74)
== END ==
PROVIDERS: PCP Family Medicine Geriatric Medicine; Visit Provider Family Medicine Geriatric Medicine
DX: R60.9 Edema, unspecified (principal)
CPT/HCPCS: 36415; 80053; 84443; 85025

== ENCOUNTER → 2020-08-25 14:20 | Outpatient (CLI) | payer MEDICARE, SELFPAY ==
--- NOTE | 2020-08-25 14:26 | VDLE_ITS ---
Reason For Study: Localized edema RIGHT LEFT GSV is normal. GSV is normal. CFV is compressible, spontaneous, phasic, CFV is compressible, spontaneous, phasic, competent and demonstrates normal competent, and demonstrates normal augmentation. augmentation. FV is compressible, spontaneous, phasic, FV is compressible, spontaneous, phasic, competent and demonstrates normal competent and demonstrates normal augmentation. augmentation. POP V is compressible, spontaneous, phasic, POP V is compressible, spontaneous, phasic, competent and demonstrates normal competent and demonstrates normal augmentation. augmentation. T/P Trunk is compressible. T/P Trunk is compressible. PTV is compressible. PTV is compressible. RT PerV is compressible. LT PerV is compressible. Procedure This is a venous duplex using B-mode, color flow and spectral Doppler. Exam performed in department. A preliminary report was called and/or faxed to Tim. VL/Venous Duplex US - Will Extrem Interpretation Summary Deep veins of the lower extremities are bilaterally patent and compressible seg mentally. There is no evidence of deep vein thrombosis on either side. Valvular competence appears in tact within the proximal deep venous systems bilaterally. The great saphenous veins appear bila terally patent and compressible segmentally. Ordering Physician: Campbell Dumont Referring Physician: Campbell Dumont Chi Performed By: Milagro Lewis RVT
== END ==
PROVIDERS: PCP Family Medicine Geriatric Medicine; Referring Provider Family Medicine Geriatric Medicine; Visit Provider Family Medicine Geriatric Medicine
DX: R60.0 Localized edema (principal)
CPT/HCPCS: 36415; 80053; 84443; 85025; 93970

== ENCOUNTER → 2020-08-26 12:15 | Outpatient (CLI) | payer MEDICARE, SELFPAY ==
--- NOTE | 2020-08-26 12:19 | US_ITS ---
STUDY: SUPERFICIAL ULTRASOUND - POPLITEAL REGION AND UPPER LEFT LEG REASON FOR EXAM: Female, 65 years old. NODULE TECHNIQUE: A superficial ultrasound was performed with real-time and static perdomo-scale imaging. COMPARISON: None. FINDINGS: The region of the popliteal fossa and proximal left leg was examined by ultrasound. No sonographic abnormality is seen. US/Ext Non Vasc Limited/Soft Tiss IMPRESSION: No sonographic abnormality is seen. Electronically Signed: Daniel Goodman MD at 14:07 EDT , Service support , Fax
== END ==
PROVIDERS: PCP Family Medicine Geriatric Medicine; Referring Provider Family Medicine Geriatric Medicine; Visit Provider Family Medicine Geriatric Medicine
DX: R22.9 Localized swelling, mass and lump, unspecified (principal)
CPT/HCPCS: 76882

== ENCOUNTER → 2020-09-12 09:51 | Outpatient (CLI) | payer MEDICARE, SELFPAY ==
[2020-09-12 11:55] LABS: Anion Gap 5 (5-15); BUN 23 mg/dL (7-18); BUN/Creat Ratio 23.2 RATIO (10-20); Calcium,Total 8.6 mg/dL (8.5-10.1); Chloride 103 mmol/L (98-107); Creatinine, Serum 0.99 mg/dL (0.55-1.02); EST Glomerular Filtration Rate 60 mL/min (>60); Est Glom Filt Rate - Afr Amer 72 mL/min (>60); Glucose 132 mg/dL (74-106); Potassium 4.3 mmol/L (3.5-5.1); Sodium Level 140 mmol/L (136-145)
== END ==
PROVIDERS: PCP Family Medicine Geriatric Medicine; Visit Provider Family Medicine Geriatric Medicine
DX: E87.6 Hypokalemia (principal)
CPT/HCPCS: 36415; 80048

== ENCOUNTER → 2020-12-08 09:58 | Outpatient (CLI) | payer MEDICARE, SELFPAY ==
[2020-12-08 10:50] LABS: Absolute Lymphocyte Count 1.67 X10^3/uL (0.83-4.51); Absolute Neutrophil Count 2.6 X10^3/uL (2.0-7.7); Basophil# 0.04 X10^3/uL; Basophil% 0.7 % (0-1); Eosinophil# 0.08 X10^3/uL; Eosinophils% 1.5 % (0-5); Hematocrit 44.5 % (37-47); Hemoglobin 14.9 g/dL (12.0-15.0); Lymphocyte # 1.67 X10^3/ul (0.83-4.51); Lymphocyte % 31.2 % (19-41); Mean Corp Hgb Conc 33.5 g/dL (32-36); Mean Corpuscular Hgb 32.3 pg (27.0-32.0); Mean Corpuscular Volume 96.3 fL (81-99); Mean Platelet Vol. 10.8 fl (6.2-12.0); Monocyte% 18.7 % (0-10); NRBC Flagged by Analyzer 0 % (0-5); Neutrophil # 2.55 X10^3/uL (2.7-7.7); Neutrophil % 47.7 % (47-70); Platelet Count 154 K/mm3 (150-450); RBC Distribution Width CV 13.6 % (11.6-14.6); RBC Distribution Width SD 48.5 fl (35.1-43.9); Red Blood Count 4.62 M/mm3 (4.2-5.4); White Blood Count 5.4 K/mm3 (4.4-11.0)
[2020-12-08 11:25] LABS: Vitamin D,25 Hydroxy 38.6 ng/mL
[2020-12-08 11:28] LABS: ALB/GLOB Ratio 0.7 RATIO (0.9-2.4); AST(SGOT) 25 U/L (15-37); Alanine Aminotransfer ALT/SGPT 24 U/L (13-56); Albumin, Serum 3.1 g/dL (3.2-5.0); Alkaline Phosphatase 78 U/L (45-117); Anion Gap 7 (5-15); BUN 12 mg/dL (7-18); BUN/Creat Ratio 19.2 RATIO (10-20); Calcium,Total 8.6 mg/dL (8.5-10.1); Chloride 105 mmol/L (98-107); Cholesterol 136 mg/dL (200); Creatinine, Serum 0.62 mg/dL (0.55-1.02); EST Glomerular Filtration Rate 102 mL/min (>60); Est Glom Filt Rate - Afr Amer 123 mL/min (>60); Globulin 4.4 g/dL (2.2-4.2); Glucose 115 mg/dL (74-106); High Density Lipoprotein 44 mg/dL; Potassium 3.8 mmol/L (3.5-5.1); Protein, Total 7.5 g/dL (6.4-8.2); Sodium Level 138 mmol/L (136-145); Thyroid Stim Hormone (TSH) 4.27 uIU/mL (0.358-3.74); Triglycerides 98 mg/dL; Very Low Density Lipoprotein 20 mg/dL (5-40)
== END ==
PROVIDERS: PCP Family Medicine Geriatric Medicine; Visit Provider Family Medicine Geriatric Medicine
DX: E78.5 Hyperlipidemia, unspecified (principal); E55.9 Vitamin D deficiency, unspecified; I10 Essential (primary) hypertension
CPT/HCPCS: 36415; 80053; 80061; 82306; 84443; 85025

== ENCOUNTER → 2021-01-26 09:18 | Outpatient (CLI) | payer MEDICARE, SELFPAY ==
[2021-01-26 11:47] LABS: Thyroid Stim Hormone (TSH) 3.12 uIU/mL (0.358-3.74)
== END ==
PROVIDERS: PCP Family Medicine Geriatric Medicine; Visit Provider Family Medicine Geriatric Medicine
DX: E03.9 Hypothyroidism, unspecified (principal)
CPT/HCPCS: 36415; 84443

== ENCOUNTER 2021-06-08 10:31 | Outpatient (CLI) | payer MEDICARE, SELFPAY ==
[2021-06-08 12:18] LABS: Absolute Neutrophil Count 2.3 X10^3/uL (2.0-7.7); Basophil# 0.04 X10^3/uL; Basophil% 0.9 % (0-1); Eosinophil# 0.05 X10^3/uL; Eosinophils% 1.1 % (0-5); Hematocrit 43.4 % (37-47); Hemoglobin 14.5 g/dL (12.0-15.0); Lymphocyte % 32.1 % (19-41); Mean Corp Hgb Conc 33.4 g/dL (32-36); Mean Corpuscular Hgb 32.4 pg (27.0-32.0); Mean Corpuscular Volume 97.1 fL (81-99); Mean Platelet Vol. 11.5 fl (6.2-12.0); Monocyte# 0.55 X10^3/uL; Monocyte% 12.6 % (0-10); NRBC Flagged by Analyzer 0 % (0-5); Neutrophil # 2.32 X10^3/uL (2.7-7.7); Neutrophil % 53.3 % (47-70); Platelet Count 159 K/mm3 (150-450); RBC Distribution Width CV 13.2 % (11.6-14.6); RBC Distribution Width SD 46.8 fl (35.1-43.9); Red Blood Count 4.47 M/mm3 (4.2-5.4); White Blood Count 4.4 K/mm3 (4.4-11.0)
[2021-06-08 12:49] LABS: Vitamin D,25 Hydroxy 48.9 ng/mL
[2021-06-08 12:57] LABS: ALB/GLOB Ratio 0.7 RATIO (0.9-2.4); AST(SGOT) 24 U/L (15-37); Alanine Aminotransfer ALT/SGPT 26 U/L (13-56); Alkaline Phosphatase 74 U/L (45-117); Anion Gap 7 (5-15); BUN 12 mg/dL (7-18); BUN/Creat Ratio 15.8 RATIO (10-20); Calcium,Total 8.6 mg/dL (8.5-10.1); Chloride 105 mmol/L (98-107); Cholesterol 130 mg/dL (200); Creatinine, Serum 0.76 mg/dL (0.55-1.02); EST Glomerular Filtration Rate 81 mL/min (>60); Est Glom Filt Rate - Afr Amer 99 mL/min (>60); Globulin 4.1 g/dL (2.2-4.2); Glucose 169 mg/dL (74-106); High Density Lipoprotein 42 mg/dL; Protein, Total 7.1 g/dL (6.4-8.2); Sodium Level 138 mmol/L (136-145); Thyroid Stim Hormone (TSH) 3.66 uIU/mL (0.358-3.74); Triglycerides 60 mg/dL; Very Low Density Lipoprotein 12 mg/dL (5-40)
== END 2021-06-08 23:59 | disposition short-term general hospital (02) ==
LOC: POLAB3 10:33
PROVIDERS: PCP Family Medicine Geriatric Medicine; Visit Provider Family Medicine Geriatric Medicine
DX: E55.9 Vitamin D deficiency, unspecified (principal); E78.5 Hyperlipidemia, unspecified; I10 Essential (primary) hypertension
CPT/HCPCS: 36415; 80053; 80061; 82306; 84443; 85025

== ENCOUNTER 2021-08-08 11:13 | Outpatient (CLI) | payer MEDICARE, SELFPAY | END 2021-08-08 23:59 | disposition home or self-care (01) | PROVIDERS: PCP Family Medicine Geriatric Medicine; Referring Provider Family Medicine Geriatric Medicine; Visit Provider Family Medicine Geriatric Medicine | DX: R68.83 Chills (without fever) (principal) | CPT/HCPCS: 87635; 87804; 87807; C9803; U0003; U0005 ==

== ENCOUNTER 2021-12-11 09:12 | Outpatient (CLI) | payer MEDICARE, SELFPAY ==
[2021-12-11 10:31] LABS: Absolute Lymphocyte Count 1.64 X10^3/uL (0.83-4.51); Absolute Neutrophil Count 3.1 X10^3/uL (2.0-7.7); Basophil# 0.04 X10^3/uL; Basophil% 0.7 % (0-1); Eosinophil# 0.08 X10^3/uL; Eosinophils% 1.4 % (0-5); Hematocrit 43.4 % (37-47); Hemoglobin 13.9 g/dL (12.0-15.0); Lymphocyte # 1.64 X10^3/ul (0.83-4.51); Lymphocyte % 29.2 % (19-41); Mean Corpuscular Hgb 31.7 pg (27.0-32.0); Mean Corpuscular Volume 98.9 fL (81-99); Mean Platelet Vol. 10.7 fl (6.2-12.0); Monocyte# 0.73 X10^3/uL; NRBC Flagged by Analyzer 0 % (0-5); Neutrophil # 3.11 X10^3/uL (2.7-7.7); Neutrophil % 55.5 % (47-70); Platelet Count 158 K/mm3 (150-450); RBC Distribution Width CV 13.2 % (11.6-14.6); RBC Distribution Width SD 47.5 fl (35.1-43.9); Red Blood Count 4.39 M/mm3 (4.2-5.4); White Blood Count 5.6 K/mm3 (4.4-11.0)
[2021-12-11 10:48] LABS: Vitamin D,25 Hydroxy 46.9 ng/mL
[2021-12-11 10:54] LABS: ALB/GLOB Ratio 0.7 RATIO (0.9-2.4); AST(SGOT) 23 U/L (15-37); Alanine Aminotransfer ALT/SGPT 28 U/L (13-56); Albumin, Serum 2.8 g/dL (3.2-5.0); Alkaline Phosphatase 84 U/L (45-117); Anion Gap 3 (5-15); BUN 13 mg/dL (7-18); BUN/Creat Ratio 17.5 RATIO (10-20); Calcium,Total 8.8 mg/dL (8.5-10.1); Chloride 102 mmol/L (98-107); Creatinine, Serum 0.74 mg/dL (0.55-1.02); EST Glomerular Filtration Rate 83 mL/min (>60); Est Glom Filt Rate - Afr Amer 101 mL/min (>60); Globulin 3.9 g/dL (2.2-4.2); Glucose 162 mg/dL (74-106); Potassium 3.9 mmol/L (3.5-5.1); Protein, Total 6.7 g/dL (6.4-8.2); Sodium Level 136 mmol/L (136-145); Thyroid Stim Hormone (TSH) 2.46 uIU/mL (0.358-3.74)
== END 2021-12-11 23:59 | disposition home or self-care (01) ==
LOC: POLAB3 09:12
PROVIDERS: PCP Family Medicine Geriatric Medicine; Visit Provider Family Medicine Geriatric Medicine
DX: E11.9 Type 2 diabetes mellitus without complications (principal); I10 Essential (primary) hypertension; E55.9 Vitamin D deficiency, unspecified; E78.5 Hyperlipidemia, unspecified
CPT/HCPCS: 36415; 80053; 82306; 83036; 84443; 85025

== ENCOUNTER → 2022-03-12 | Outpatient (CLI) | payer MEDICARE, SELFPAY ==
--- NOTE | 2022-03-12 15:00 | RAD_ITS ---
INDICATION: SOB EXAMINATION: Frontal and lateral views of the chest. COMPARISON: CTA of the chest from the same day. FINDINGS: Frontal and lateral views of the chest were obtained. The cardiac silhouette is not enlarged. No confluent airspace disease. Bilateral pulmonary nodules are better demonstrated on the CT from the same day. No pleural effusion or pneumothorax. RAD/Chest PA and Lateral IMPRESSION: No confluent airspace disease. Bilateral pulmonary nodules are better demonstrated on the CTA from same day. Electronically Signed: Elio Barney MD at 5:38 EDT ,
[2022-03-12 15:15] LABS: Absolute Lymphocyte Count 1.81 X10^3/uL (0.83-4.51); Absolute Neutrophil Count 1.9 X10^3/uL (2.0-7.7); Basophil# 0.03 X10^3/uL; Basophil% 0.6 % (0-1); Eosinophils% 2.1 % (0-5); Hematocrit 42.9 % (37-47); Hemoglobin 14.2 g/dL (12.0-15.0); Lymphocyte # 1.81 X10^3/ul (0.83-4.51); Lymphocyte % 38.4 % (19-41); Mean Corp Hgb Conc 33.1 g/dL (32-36); Mean Corpuscular Hgb 32.5 pg (27.0-32.0); Mean Corpuscular Volume 98.2 fL (81-99); Monocyte# 0.87 X10^3/uL; Monocyte% 18.5 % (0-10); NRBC Flagged by Analyzer 0 % (0-5); Neutrophil # 1.89 X10^3/uL (2.7-7.7); Neutrophil % 40.2 % (47-70); Platelet Count 137 K/mm3 (150-450); RBC Distribution Width CV 13.6 % (11.6-14.6); RBC Distribution Width SD 49.9 fl (35.1-43.9); Red Blood Count 4.37 M/mm3 (4.2-5.4); White Blood Count 4.7 K/mm3 (4.4-11.0)
[2022-03-12 15:29] LABS: ALB/GLOB Ratio 0.7 RATIO (0.9-2.4); AST(SGOT) 28 U/L (15-37); Alanine Aminotransfer ALT/SGPT 25 U/L (13-56); Albumin, Serum 2.9 g/dL (3.2-5.0); Alkaline Phosphatase 92 U/L (45-117); Anion Gap 4 (5-15); BUN 12 mg/dL (7-18); BUN/Creat Ratio 18.1 RATIO (10-20); CPK Total, Creatine Kinase 87 U/L (26-192); Chloride 105 mmol/L (98-107); Creatinine, Serum 0.66 mg/dL (0.55-1.02); EST Glomerular Filtration Rate 95 mL/min (>60); Est Glom Filt Rate - Afr Amer 115 mL/min (>60); Globulin 3.9 g/dL (2.2-4.2); Glucose 88 mg/dL (74-106); Protein, Total 6.8 g/dL (6.4-8.2); Sodium Level 140 mmol/L (136-145); Troponin-I HS 8 pg/mL (3.0-54.0)
[2022-03-12 15:52] LABS: D-Dimer Quantitative (DVT/PE) 2.02 FEU/ug/m (0.27-0.49)
--- NOTE | 2022-03-12 17:02 | CT_ITS ---
STUDY: CTA CHEST REASON FOR EXAM: Female, 66 years old. SOB RADIATION DOSAGE (If Supplied By Facility): CTDIvol = ( 12.65 ) mGy, DLP = ( 393.88 ) mGycm TECHNIQUE: The examination was performed with the intravenous administration of IV 100mL Isovue-370. Post-processing of the angiographic images was performed, with multiplanar reformation and 3D reconstruction. Individualized dose optimization techniques were used for this CT. COMPARISON: None. FINDINGS: Normal enhancement of the main pulmonary artery and right and left pulmonary arteries. Normal enhancement of the bilateral peripheral pulmonary arteries. There is no demonstrated pulmonary embolism. Normal thoracic aorta and visualized great vessels. There is no demonstrated aortic dissection. Heart size is normal. There is dense calcification of mitral annulus.. There are enlarged nodes in the anterior superior mediastinum largest measuring 2.9 x 2.2 and 2.1 x 1.8 cm Smaller nodes in the mediastinum. Normal visualized trachea and bronchi. The lungs are well expanded. Noncalcified nodule in left upper lobe measuring approximately 1.25 x 1.5. There is a larger left suprahilar mass measuring approximately 2.7 x 1.5 cm which appears to be extending into the left hilum and encasing the proximal pulmonary arteries to the left upper lobe There are multiple tiny subcentimeter nodules in the upper and lower lobes bilaterally. Minor subsegmental atelectasis in right lower lobe Normal pleura. Normal chest wall structures. Dorsal spine demonstrates degenerative change. Normal visualized upper abdomen. CT/CTA Chest W/WO Contrast IMPRESSION: Infiltrating left suprahilar mass extending into the hilum encasing vessels to the left upper lobe possibly representing primary lung neoplasm. There are scattered bilateral nodules likely metastatic and mediastinal adenopathy. No evidence for pulmonary embolus Electronically Signed: Thee Faria MD at 18:23 EDT ,
[2022-03-12 19:47] LABS: BNP,B-Type NATRIURETIC PEPTIDE 58.8 pg/mL (0-100)
[2022-03-15 15:56] LABS: Myoglobin, Serum < 21 ng/mL (25-58)
== END | disposition home or self-care (01) ==
LOC: POLAB3 14:33 → RAD 14:51
PROVIDERS: PCP Family Medicine Geriatric Medicine; Referring Provider Family Medicine Geriatric Medicine; Visit Provider Family Medicine Geriatric Medicine
DX: R06.02 Shortness of breath (principal); R07.9 Chest pain, unspecified
CPT/HCPCS: 36415; 71046; 71275; 80053; 82550; 83874; 83880; 84484; 85025; 85379; Q9967

== ENCOUNTER → 2022-04-19 | Outpatient (CLI) | payer MEDICARE, SELFPAY ==
--- NOTE | 2022-04-19 06:31 | MRI_ITS ---
EXAM: MR HEAD WITHOUT AND WITH INTRAVENOUS CONTRAST CLINICAL INDICATION: ABNORMAL PET SCAN TECHNIQUE: Multiplanar and multisequence MR images of the brain were obtained without and with intravenous contrast. This report was created using [employer] report generation technology. CONTRAST: 24ML IV CLARISCAN COMPARISON: None. FINDINGS: BRAIN AND EXTRA-AXIAL SPACES: Normal. No intra- or extra-axial hemorrhage. No evidence of acute infarct. No intracranial mass or mass effect. There is preservation of the perdomo/white matter interface. Posterior fossa structures are unremarkable. Ventricles are appropriate for age. No hydrocephalus. Basal cisterns are patent. No abnormal contrast enhancement. SELLA: Normal. Normal sella turcica, pituitary gland, infundibular stalk, optic chiasm and hypothalamus. AUDITORY SYSTEM: Normal. The internal auditory canals are patent. BONES/JOINTS: Intact calvarium. SINUSES: Prominent mucosal thickening of the left maxillary sinus. MASTOID AIR CELLS: Unremarkable as visualized. Clear. ORBITS: Unremarkable as visualized. Both globes, extraocular muscles, optic nerves and retrobulbar fat appear unremarkable. VASCULATURE: Unremarkable as visualized. Normal flow voids in the major intracranial circulation. MRI/Brain W/WO Contrast IMPRESSION: 1. No intracranial abnormality. 2. Left maxillary sinusitis. Electronically Signed: Ernesto Quijano MD at 10:41 EST ,
== END | disposition home or self-care (01) ==
PROVIDERS: PCP Family Medicine Geriatric Medicine; Referring Provider Internal Medicine Medical Oncology; Visit Provider Internal Medicine Medical Oncology
DX: R91.8 Other nonspecific abnormal finding of lung field (principal)
CPT/HCPCS: 70553; A9575; A4216

== ENCOUNTER → 2022-05-15 | Outpatient (CLI) | payer MEDICARE, SELFPAY ==
--- NOTE | 2022-05-15 09:26 | BI_ITS ---
MAMMOGRAPHY - BILATERAL DIAGNOSTIC REASON FOR EXAM: Female, 66 years old. History of left breast nodules on recent CT scan of the thorax. PERTINENT HISTORY: Non-contributory. History of lung cancer and thyroid cancer. TECHNIQUE: Digital bilateral breast da (3D mammographic acquisition) in the CC and MLO projections. 2-D mediolateral oblique (MLO) and craniocaudad (CC) views of both breasts were obtained. CAD: Full Field Digital Mammography with Computer Added Detection was performed. COMPARISON: Comparison is made with prior study 04/26/2020 and 12/11/2017. FINDINGS: Breast Composition: There are scattered areas of fibroglandular density. There are no dominant masses or suspicious calcifications. Stable scattered small well-defined nodules in the right breast. No other significant abnormalities are identified. There has been no significant change since the prior study. BI/DIAG MAMM W/CAD, BILAT IMPRESSION: Stable bilateral diagnostic mammogram. Correlation with ultrasound of the left breast is recommended. ASSESSMENT CATEGORY: BIRADS Category 0: Incomplete. Need additional imaging evaluation. A letter regarding these results will be sent to the patient by the facility within 30 days. Approximately 10% of breast cancers are not detected by mammography. A normal mammogram should not delay biopsy of a clinically suspicious abnormality. Electronically Signed: Daniel Goodman MD at 12:32 EST ,
== END | disposition home or self-care (01) ==
LOC: OPBI 09:24
PROVIDERS: PCP Family Medicine Geriatric Medicine; Referring Provider Internal Medicine Endocrinology, Diabetes & Metabolism; Visit Provider Internal Medicine Endocrinology, Diabetes & Metabolism
DX: R92.2 Inconclusive mammogram (principal); N63.20 Unspecified lump in the left breast, unspecified quadrant
CPT/HCPCS: 77062; 77066; G0279

== ENCOUNTER → 2022-05-16 | Outpatient (CLI) | payer MEDICARE, SELFPAY | END | disposition home or self-care (01) | PROVIDERS: PCP Family Medicine Geriatric Medicine; Referring Provider Internal Medicine Endocrinology, Diabetes & Metabolism; Visit Provider Internal Medicine Endocrinology, Diabetes & Metabolism | DX: I20.9 Angina pectoris, unspecified (principal) ==

== ENCOUNTER 2022-06-08 15:12 | Outpatient (CLI) | payer MEDICARE, SELFPAY ==
--- NOTE | 2022-06-08 15:22 | US_ITS ---
STUDY: ULTRASOUND BREAST - LEFT REASON FOR EXAM: Female, 67 years old. Palpable lump left breast. TECHNIQUE: Axial and longitudinal images of the LEFT breast were performed with a high resolution ultrasound transducer. # OF IMAGES: 26 COMPARISON: Comparison is made with prior mammogram dated 05/15/2022. FINDINGS: LEFT Breast: The lateral half of the left breast was examined with ultrasound. There is evidence of fibroglandular tissue. No sonographic abnormality is seen. US/Breast Limited Unilateral IMPRESSION: No sonographic abnormality is seen. ASSESSMENT CATEGORY: BIRADS Category 1: Negative. A letter regarding these results will be sent to the patient by the facility within 30 days. Electronically Signed: Daniel Goodman MD at 8:27 EST ,
== END 2022-06-08 23:59 | disposition home or self-care (01) ==
LOC: OPUS 15:21
PROVIDERS: PCP Family Medicine Geriatric Medicine; Visit Provider Internal Medicine Endocrinology, Diabetes & Metabolism
DX: N63.20 Unspecified lump in the left breast, unspecified quadrant (principal)
CPT/HCPCS: 76642

== ENCOUNTER → 2022-06-18 | Outpatient (CLI) | payer MEDICARE, SELFPAY ==
--- NOTE | 2022-06-18 10:42 | NM_ITS ---
CLINICAL: 67-year-old female with history of thyroid carcinoma status post total thyroidectomy presenting for diagnostic dose I-131 whole body scintigraphy. I-131 WHOLE BODY SCINTIGRAPHY COMPARISON: None available FINDINGS: Following the oral administration of 4.1 mCi of I-131, whole body images obtained at 48 hours post radiopharmaceutical administration reveal: 1. There is no scintigraphic evidence of abnormal radiopharmaceutical concentration defined in the anterior-lateral neck, thyroid bed, distant viscera. 2. Normal physiologic distribution of the radiopharmaceutical is identified in the oral cavity, right submandibular region, stomach and gastrointestinal tract, the urinary bladder and both knee articulations. NM/Thyroid Whole Body I-131 Scan IMPRESSION: 1. NEGATIVE EXAMINATION. There is no scintigraphic evidence of IODINE avid local regional and/or distant metastatic disease on the current evaluation. Electronically Signed: Hilario Skelton, at 22:14 EST ,
== END | disposition home or self-care (01) ==
LOC: NM 10:39
PROVIDERS: PCP Family Medicine Geriatric Medicine; Visit Provider Internal Medicine Endocrinology, Diabetes & Metabolism
DX: C73 Malignant neoplasm of thyroid gland (principal)
CPT/HCPCS: 78018; A9528

== ENCOUNTER → 2022-06-20 | Outpatient (CLI) | payer MEDICARE, SELFPAY ==
--- NOTE | 2022-06-20 16:00 | RAD_ITS ---
STUDY: X-RAY - LUMBAR SPINE REASON FOR EXAM: Female, 67 years old. Lower back pain. TECHNIQUE: 5 view(s) of the lumbar spine were obtained. COMPARISON: None FINDINGS: Normal lumbar lordosis. There is no substantial scoliosis. There is a normal alignment of the vertebrae. There is multilevel endplate spondylosis of the lumbar vertebrae. There is multi-level degenerative disc disease with multi-level disc space narrowing. There is no evidence of acute fracture or loss of vertebral axial height. There is no demonstrated spondylolysis of the pars interarticulares. There is atherosclerotic calcification of the abdominal aorta without a demonstrated aneurysm. RAD/L/S Spine Min 4 Views IMPRESSION: Degenerative changes of the spine, as detailed above. Electronically Signed: Enzo House DO at 20:15 EST ,
[2022-06-20 17:17] LABS: Absolute Lymphocyte Count 1.67 X10^3/uL (0.83-4.51); Absolute Neutrophil Count 3.5 X10^3/uL (2.0-7.7); Basophil# 0.05 X10^3/uL; Basophil% 0.8 % (0-1); Eosinophil# 0.08 X10^3/uL; Eosinophils% 1.3 % (0-5); Hematocrit 49.5 % (37-47); Hemoglobin 16.2 g/dL (12.0-15.0); Lymphocyte # 1.67 X10^3/ul (0.83-4.51); Mean Corp Hgb Conc 32.7 g/dL (32-36); Mean Corpuscular Hgb 31.5 pg (27.0-32.0); Mean Corpuscular Volume 96.1 fL (81-99); Mean Platelet Vol. 12.8 fl (6.2-12.0); Monocyte# 0.88 X10^3/uL; Monocyte% 14.2 % (0-10); NRBC Flagged by Analyzer 0 % (0-5); Neutrophil # 3.47 X10^3/uL (2.7-7.7); Neutrophil % 56.1 % (47-70); POSITIVE COUNT YES; Platelet Count 94 K/mm3 (150-450); RBC Distribution Width CV 15.2 % (11.6-14.6); RBC Distribution Width SD 53.1 fl (35.1-43.9); Red Blood Count 5.15 M/mm3 (4.2-5.4); White Blood Count 6.2 K/mm3 (4.4-11.0)
[2022-06-20 17:30] LABS: Vitamin D,25 Hydroxy 49.9 ng/mL
[2022-06-20 17:42] LABS: ALB/GLOB Ratio 0.6 RATIO (0.9-2.4); AST(SGOT) 151 U/L (15-37); Alanine Aminotransfer ALT/SGPT 65 U/L (13-56); Albumin, Serum 2.6 g/dL (3.2-5.0); Alkaline Phosphatase 237 U/L (45-117); Anion Gap 8 (5-15); BUN 19 mg/dL (7-18); BUN/Creat Ratio 18.8 RATIO (10-20); Calcium,Total 9.4 mg/dL (8.5-10.1); Chloride 99 mmol/L (98-107); Cholesterol 234 mg/dL (200); Creatinine, Serum 1.01 mg/dL (0.55-1.02); EST Glomerular Filtration Rate 58 mL/min (>60); Est Glom Filt Rate - Afr Amer 71 mL/min (>60); Globulin 4.6 g/dL (2.2-4.2); Glucose 70 mg/dL (74-106); High Density Lipoprotein 25 mg/dL; Potassium 4.3 mmol/L (3.5-5.1); Protein, Total 7.2 g/dL (6.4-8.2); Sodium Level 139 mmol/L (136-145); Triglycerides 101 mg/dL; Very Low Density Lipoprotein 20 mg/dL (5-40)
[2022-06-20 18:01] LABS: Differential Indicated SCAN CRITERIA MET
[2022-06-20 18:20] LABS: Differential Comment SCANNED
== END | disposition home or self-care (01) ==
PROVIDERS: PCP Family Medicine Geriatric Medicine; Referring Provider Family Medicine Geriatric Medicine; Visit Provider Family Medicine Geriatric Medicine
DX: M54.50 Low back pain, unspecified (principal); E55.9 Vitamin D deficiency, unspecified; I10 Essential (primary) hypertension
CPT/HCPCS: 36415; 72110; 80053; 80061; 82306; 84443; 85025

== ENCOUNTER 2022-06-21 19:19 | Inpatient (IN) | payer MEDICARE, SELFPAY ==
[2022-06-21 19:23] VITALS: BP 129/119; PULSE 58; RESP 18; TEMP 36; O2SAT 97; BMI 41.5
[2022-06-21 19:42] VITALS: BP 95/58; PULSE 58; RESP 14; O2SAT 94
--- NOTE | 2022-06-21 20:04 | CT_ITS ---
STUDY: CT BRAIN WITHOUT CONTRAST REASON FOR EXAM: Female, 67 years old. Confusion. Question metastases. RADIATION DOSAGE (If Supplied By Facility): CTDIvol = ( 44.99 ) mGy, DLP = ( 779.24 ) mGycm TECHNIQUE: Transaxial CT imaging of the brain was performed without administration of intravenous contrast material. Individualized dose optimization techniques were used for this CT. COMPARISON: MRI of the brain, April 19, 2022. FINDINGS: Normal soft tissue structures. Normal calvarium. Normal size ventricles and extra-axial spaces for the patient''s age. Normal white matter tracts of the cerebral hemispheres. There are small punctate calcifications of the basal ganglia which are seen in the aging brain as a normal variant. Normal brainstem. Normal cerebellum. There is no intracranial hemorrhage. There are no findings of an acute ischemic infarction. Stable left maxillary sinusitis. CT/Brain/Head without Contrast IMPRESSION: No acute intracranial or calvarial abnormality. There is no major interval change. If there is continued concern for metastatic disease, MRI is offered. Electronically Signed: Enzo House DO at 21:31 EST Reading Location ID and State: [address] [place] [address] Tel [phone], Service support ,
--- NOTE | 2022-06-21 20:05 | EKG12_ITS ---
Test Reason : DYSRHYTHMIA Blood Pressure : / mmHG Vent. Rate : 056 BPM Atrial Rate : 056 BPM P-R Int : 146 ms QRS Dur : 088 ms QT Int : 476 ms P-R-T Axes : 018 009 030 degrees QTc Int : 459 ms Sinus bradycardia Nonspecific T wave abnormality Abnormal ECG Confirmed by KAYODE BORJAS, SHO ([id number]), features editor TJ ONEAL ([id number]) on 06/22/2022 10:02:46 AM Referred By: MARBELLA Confirmed By:SHO HEADLEY MD
--- NOTE | 2022-06-21 20:18 | EX.ED.DYSGE1 ---
HPI History of Present Illness Chief Complaint: Confusion Informant: patient and family Narrative Narrative: Most of the history is through the patient's daughter. Patient does not always answer questions clearly. It sometimes hard to tell if she is hard of hearing or just does not answer correctly. Her daughter states normally she would hear fine and answer fine. This patient does have a history of metastatic thyroid cancer. She had partial thyroidectomy about 16 years ago. This was cancer. She had recurrence that was found in February or March 2022. She has spread to the lungs known. Patient is on radioactive iodine therapy. Daughter states for the last 2 or 3 weeks she has just been getting weaker and weaker. This week she is not eating or drinking much at all. The daughter can get her to grab a few bites of food only. She was brought in today because she was too weak to get up or walk around and she does live alone at home even though the family checks on her frequently. Daughter states that she did not know what day it was recently and that is not typical. No reported fevers. Patient has been complaining of back pain but that is not new. She did just have x-rays of that. She saw her private physician and her oncologist this week already. I reviewed prior outpatient MRI from April 2022 that showed no intracranial lesions. [facility] Medical History Thyroid cancer Home Medications calcium polycarbophil 625 mg tablet (Fiber Therapy (ca polycarbophil)) 625 mg PO DAILY 07/06/14 [History Last Taken 12/10/19] furosemide 40 mg tablet 40 mg PO DAILY 07/06/14 [History Last Taken 12/10/19] multivitamin,zu-fzdw-djrzterc 27 mg-0.4 mg tablet (Therems-M) 1 tab PO DAILY 07/06/14 [History Last Taken 12/10/19] nadolol 40 mg tablet 40 mg PO DAILY 07/06/14 [History Last Taken 12/10/19] pantoprazole 40 mg tablet,delayed release 40 mg PO DAILY 07/06/14 [History Last Taken 12/10/19] spironolactone 50 mg tablet 50 mg PO BID 07/06/14 [History Last Taken 12/10/19] calcium carbonate 600 mg calcium (1,500 mg) tablet (Calcium) 600 mg PO DAILY 03/20/22 [History Last Taken Unknown] cyanocobalamin (vitamin B-12) 500 mcg chewable tablet 500 mcg PO DAILY 03/20/22 [History Last Taken Unknown] Allergy/AdvReac Type Severity Reaction Status Date / Time No Known Allergies Allergy Verified 06/21/22 19:23 Family History Grandfather Cancer unknow Daughter Diabetes Hypertension Thyroid disorder Grandmother Diabetes Father Myocardial infarction Mother Hypertension Sister Hypertension Other Heart disease Surgical History S/P removal of thyroid nodule Social History Smoking Status: Current every day smoker tobacco type: cigarettes ROS ROS ED Constitutional Constitutional ED: Denies chills or fever(s) ENT ENT ED: Denies rhinorrhea Cardiovascular Cardiovascular: Denies chest pain or palpitations Respiratory/Chest Respiratory/Chest: Denies cough Gastrointestinal Gastrointestinal: Reports other Details: Creased p.o. intake but denies nausea vomiting diarrhea or pain. ; Denies abdominal pain, diarrhea, nausea or vomiting Genitourinary Genitourinary ED: Denies dysuria Musculoskeletal Musculoskeletal: Reports back pain Integumentary Denies rash Neurologic Neurologic: Denies headache(s) Endocrine Endocrinology: Denies polydipsia or polyuria Hematologic/Lymphatic Hematologic/Lymphatic: Denies easy bleeding or easy bruising Allergic/Immunologic Allergic/Immunologic ED: Denies urticaria EXAM Physical Exam Narrative Exam Narrative: Patient is sitting quietly in bed. She does not appear to be in any distress. However, she does not really pay attention much to the conversation in the room. She does not volunteer any information. HEENT: No sign of trauma. She does have very dry mucous membranes. Eyes show normal pupillary response. I am suspicious there may be a little bit of icterus although my eyes do not usually see this color easily. No JVD in the neck Lungs are clear bilaterally. Her saturations are normal at 96 to 97% on room air. Heart is regular but bradycardic at about 55. I do note that she is on nadolol. Abdomen is soft nontender and does appear to have normal bowel sounds. Extremities are not small but do not have pitting. Neurologically the patient is awake and alert to name. She states she is at the doctor's office. She cannot answer what year it is or who the president is. I cannot get her to even give an attempt at an answer. Const Vital Signs: 06/21/22 19:23 06/21/22 19:42 06/21/22 19:49 Temperature 96.8 F L Temperature Source Temporal Pulse Rate 58 L 58 L Respiratory Rate 18 14 Respiratory Effort Normal Blood Pressure 129/119 H 95/58 L Blood Pressure Mean 122 70 Pulse Ox 97 94 Oxygen Delivery Method Room Air Room Air 06/21/22 20:25 06/21/22 20:49 06/21/22 22:50 Temperature 96.8 F L 97.0 F L Temperature Source Temporal Temporal Pulse Rate 53 L 55 L 56 L Respiratory Rate 14 18 15 Respiratory Effort Blood Pressure 95/71 95/61 93/67 Blood Pressure Mean 79 72 75 Pulse Ox 92 92 93 Oxygen Delivery Method Room Air Room Air Room Air MDM MDM MDM Narrative Medical decision making narrative: After some IV fluids the patient was little bit more alert. She knew she was in [facility] but cannot tell me the year. Her blood pressures been hanging with a mean of about 75. She has been given IV fluids with her dehydration and slightly lower blood pressure. Blood work shows white count of 13.3. Although this is not significantly high her normal runs about 4-6 of this is arise for her. She is a rise of her creatinine from a baseline of about 1.6 or 0.7 up to one-point 3/6 showing an acute kidney injury. Lactate is 3.4. She is given IV fluids. She has a rise of her liver function test. They are not significantly changed from yesterday but they are slowly increasing over the last months. IV iodine therapy could contribute to this. Metastatic disease could also contribute. But the patient is not having vomiting or abdominal pain. A CT scan was not done at this time. It certainly possible she have metastatic disease and there may be further studies added. Urine did not show sign of infection. My independent interpretation of her chest x-ray does show a left-sided either infiltrate or effusion that is a change from a prior chest x-ray that I reviewed from April 12, 2022. Similar reading by radiology but they also noted mild cardiomegaly. CT scan of the head showed no acute process. With the patient living at home, confusion, she will be admitted. I did initiate antibiotics with her white count, saturations about 92%, lactate and chest x-ray findings. I have also added ammonia level now that her liver function tests are up to make sure hormone he is not not elevated causing further symptoms. I discussed case with hospitalist and she will be admitted. Lab Data Attestation: I reviewed the patient's lab results. Labs: Laboratory Results - last 24 hr 06/21/22 06/21/22 06/21/22 20:30 20:30 20:30 WBC 13.3 H RBC 4.88 Hgb 15.7 H Hct 47.6 H MCV 97.5 MCH 32.2 H MCHC 33.0 RDW Std Deviation 53.1 H RDW Coeff of Anyi 15.0 H Plt Count 94 L MPV 12.1 H Immature Gran % (Auto) 0.400 Neut % (Auto) 83.3 H Lymph % (Auto) 10.5 L [place] % (Auto) 5.6 Eos % (Auto) 0.0 Baso % (Auto) 0.2 Absolute Neuts (auto) 11.1 H Absolute Lymphs (auto) 1.40 Nucleated RBC % 0 Sodium 140 Potassium 4.7 Chloride 102 Carbon Dioxide 29.0 Anion Gap 9 BUN 22 H Creatinine 1.36 H Estim Creat Clear Calc 36.61 Est GFR (MDRD) Af Amer 50 L Est GFR (MDRD) Non-Af 41 L BUN/Creatinine Ratio 16.2 Glucose 99 Lactic Acid 3.4 H* Calcium 10.1 Total Bilirubin 3.20 H AST 148 H ALT 64 H Alkaline Phosphatase 233 H Ammonia Total Protein 7.0 Albumin 2.6 L Globulin 4.4 H Albumin/Globulin Ratio 0.6 L Urine Color Urine Clarity Urine pH Ur Specific Henry Urine Protein Urine Glucose (UA) Urine Ketones Urine Occult Blood Urine Nitrite Urine Bilirubin Urine Urobilinogen Ur Leukocyte Esterase Urine RBC Urine WBC Ur Squamous Epith Cells Calcium Oxalate Crystal Urine Bacteria Urine Mucus 06/21/22 06/22/22 22:10 00:10 WBC RBC Hgb Hct MCV MCH MCHC RDW Std Deviation RDW Coeff of Anyi Plt Count MPV Immature Gran % (Auto) Neut % (Auto) Lymph % (Auto) [place] % (Auto) Eos % (Auto) Baso % (Auto) Absolute Neuts (auto) Absolute Lymphs (auto) Nucleated RBC % Sodium Potassium Chloride Carbon Dioxide Anion Gap BUN Creatinine Estim Creat Clear Calc Est GFR (MDRD) Af Amer Est GFR (MDRD) Non-Af BUN/Creatinine Ratio Glucose Lactic Acid Calcium Total Bilirubin AST ALT Alkaline Phosphatase Ammonia 65.0 H Total Protein Albumin Globulin Albumin/Globulin Ratio Urine Color Yellow Urine Clarity Sl. Cloudy Urine pH 6.0 Ur Specific Henry 1.015 Urine Protein 15 H Urine Glucose (UA) Normal Urine Ketones 5 H Urine Occult Blood Negative Urine Nitrite Negative Urine Bilirubin 1 H Urine Urobilinogen 8 H Ur Leukocyte Esterase Negative Urine RBC 0 SEEN Urine WBC 0 SEEN Ur Squamous Epith Cells 5-10 SEEN Calcium Oxalate Crystal RARE Urine Bacteria RARE Urine Mucus 0 SEEN Radiography Diagnostic Testing: Clinical Impression(s) from Imaging Studies Brain CT 06/21/22 20:04 IMPRESSION: No acute intracranial or calvarial abnormality. There is no major interval change. If there is continued concern for metastatic disease, MRI is offered. Electronically Signed: Enzo House DO at 21:31 EST Reading Location ID and State: [address] [place] [address] Tel [phone], Service support , Chest X-Ray 06/21/22 21:00 IMPRESSION: 1. Left pleural effusion versus left basilar infiltrate. 2. Mild cardiomegaly. Electronically Signed: Enzo House DO at 21:20 EST Reading Location ID and State: [employer] / [place] Tel [phone], Service support , Discharge Plan Triage Chief Complaint: Confusion Other Complaint: Constipation Weakness ED Provider: Karsten Gardner Dx/Rx/DC Orders Clinical Impression: Acute alteration in mental status, Pneumonia, Acute kidney injury, Dehydration, Bradycardia Prescriptions: No Action calcium carbonate [Calcium 600] 600 mg calcium (1,500 mg) tablet 600 mg PO DAILY cyanocobalamin (vitamin B-12) 500 mcg tablet,chewable 500 mcg PO DAILY furosemide 40 MG tablet 40 mg PO DAILY levothyroxine 88 MCG tablet 88 mcg PO DAILY pantoprazole 40 MG tablet 40 mg PO DAILY calcium polycarbophil [Fiber Therapy (ca polycarboph)] 625 MG tablet 625 mg PO DAILY nadolol 40 MG tablet 40 mg PO DAILY spironolactone 50 MG tablet 50 mg PO BID multivitamin,sj-irby-uqewdnlb [Therems-M] 1 TABLET tablet 1 tab PO DAILY Primary Care Provider: Campbell Dumont Chi Referrals: Campbell Dumont Chi, MD [Primary Care Provider] - Disposition Disposition: Acute Care Hospital [facility]
[2022-06-21 20:25] VITALS: BP 95/71; PULSE 53; RESP 14; O2SAT 92
[2022-06-21] MEDS: 0.9% Normal Saline 1,000 ML 1000 ML IV (20:26)
[2022-06-21 20:49] VITALS: BP 95/61; PULSE 55; RESP 18; TEMP 36; O2SAT 92
[2022-06-21 20:50] LABS: Absolute Neutrophil Count 11.1 X10^3/uL (2.0-7.7); Basophil# 0.02 X10^3/uL; Basophil% 0.2 % (0-1); Hematocrit 47.6 % (37-47); Hemoglobin 15.7 g/dL (12.0-15.0); Lymphocyte % 10.5 % (19-41); Mean Corpuscular Hgb 32.2 pg (27.0-32.0); Mean Corpuscular Volume 97.5 fL (81-99); Mean Platelet Vol. 12.1 fl (6.2-12.0); Monocyte# 0.75 X10^3/uL; Monocyte% 5.6 % (0-10); NRBC Flagged by Analyzer 0 % (0-5); Neutrophil # 11.06 X10^3/uL (2.7-7.7); Neutrophil % 83.3 % (47-70); POSITIVE COUNT YES; Platelet Count 94 K/mm3 (150-450); RBC Distribution Width SD 53.1 fl (35.1-43.9); Red Blood Count 4.88 M/mm3 (4.2-5.4); White Blood Count 13.3 K/mm3 (4.4-11.0)
--- NOTE | 2022-06-21 21:00 | RAD_ITS ---
STUDY: X-RAY CHEST REASON FOR EXAM: Female, 67 years old. Metastases. TECHNIQUE: Single AP portable view of the chest. COMPARISON: CT of the chest, March 12, 2022. At CT scan, March 28, 2020. FINDINGS: Soft tissue density at the left lung base suggesting pleural effusion. The lungs are clear. Mild cardiomegaly. Normal mediastinum and edith. Normal visualized pulmonary arteries. There is atherosclerotic calcification of the aortic arch with tortuosity. Normal visualized thoracic spine. Normal visualized ribs, clavicles, and shoulders. There is no demonstrated abnormality of the visualized soft tissue structures of the upper abdomen. RAD/Chest 1 View (Portable) IMPRESSION: 1. Left pleural effusion versus left basilar infiltrate. 2. Mild cardiomegaly. Electronically Signed: Enzo House DO at 21:20 EST ,
[2022-06-21 21:07] LABS: ALB/GLOB Ratio 0.6 RATIO (0.9-2.4); AST(SGOT) 148 U/L (15-37); Alanine Aminotransfer ALT/SGPT 64 U/L (13-56); Albumin, Serum 2.6 g/dL (3.2-5.0); Alkaline Phosphatase 233 U/L (45-117); Anion Gap 9 (5-15); BUN 22 mg/dL (7-18); BUN/Creat Ratio 16.2 RATIO (10-20); Calcium,Total 10.1 mg/dL (8.5-10.1); Chloride 102 mmol/L (98-107); Creatinine, Serum 1.36 mg/dL (0.55-1.02); EST Glomerular Filtration Rate 41 mL/min (>60); Est Glom Filt Rate - Afr Amer 50 mL/min (>60); Estimated Creatinine Clearance 36.61 ml/min; Globulin 4.4 g/dL (2.2-4.2); Glucose 99 mg/dL (74-106); Potassium 4.7 mmol/L (3.5-5.1); Sodium Level 140 mmol/L (136-145)
[2022-06-21 21:30] LABS: Lactic Acid 3.4 mmol/L (0.4-1.9)
[2022-06-21 22:19] LABS: Mucous, Urine 0 SEEN /hpf (<or=2+); Red Blood Cells-Urine 0 SEEN /hpf (0-5); White Blood Cells 0 SEEN /hpf (0-5)
[2022-06-21 22:29] LABS: Color, Urine Yellow (Yellow); Glucose, Dipstick Normal (Normal); Ketone-Dipstick 5 mg/dl (Negative); Leukocyte Esterase-Dipstick Negative /ul (Negative); Nitrite-Dipstick Negative (Negative); Occult Blood-Urine Negative /ul (Negative); Protein-Dipstick 15 mg/dl (Negative); Specific Gravity, Urine 1.015 (1.002-1.030); Urine Clarity Sl. Cloudy (Clear); Urine Urobilinogen 8 mg/dl (Normal)
[2022-06-21 22:34] LABS: Urine Bilirubin Dipstick 1 mg/dL (Negative)
[2022-06-21] MEDS: 0.9% Normal Saline 1,000 ML 999 ML IV (22:42)
[2022-06-21 22:43] LABS: Bacteria RARE /hpf (None Seen); Calcium Oxalate Crystals Ur RARE /hpf (<or=2+); Squamous Epithelial Cells - UA 5-10 SEEN /hpf (5-10)
[2022-06-21 22:50] VITALS: BP 93/67; PULSE 56; RESP 15; TEMP 36.1; O2SAT 93
[2022-06-21] MEDS: Ceftriaxone 1 GM/50 ML BAG IV (23:21)
--- NOTE | 2022-06-22 00:11 | HP.PCM.HOS_ITS ---
HPI - General General Date of Admission: 06/22/22 Date of Service: 06/22/22 Chief Complaint: lethargy HPI Narrative CHARMAINE GOEL, is a 67 F with a significant history of thyroid cancer status post partial resection who presented to the emergency department with lethargy. Reportedly 16 years ago patient had partial thyroidectomy. Total thyroidectomy could not be done since her thyroid was wrapped around her vocal cord. In February 2022 patient was diagnosed with metastatic thyroid cancer to the lungs. Two weeks before presentation patient has been progressively weak. Previously she could drive but now she is unable to drive. Now her family has to help her to bed. Also patient is not eating or drinking. PCP thinks that patient's may be depressed. Patient lives at home by herself and is unable to care for self at this time. Further, patient has been confused. On Saturday, June 18, 2022 patient had radioactive iodine therapy for metastatic lung cancer. She is scheduled for another radioactive iodine therapy on 06/22/2022. Patient was mildly contributory to history because of confusion. History was predominantly taken and from patient's family who was at bedside. PENDING SALE TO [facility] Medical History Thyroid cancer Home Medications calcium polycarbophil 625 mg tablet (Fiber Therapy (ca polycarbophil)) 625 mg PO DAILY 07/06/14 [History Last Taken 12/10/19] furosemide 40 mg tablet 40 mg PO DAILY 07/06/14 [History Last Taken 12/10/19] multivitamin,au-cdfw-exwyufky 27 mg-0.4 mg tablet (Therems-M) 1 tab PO DAILY 07/06/14 [History Last Taken 12/10/19] nadolol 40 mg tablet 40 mg PO DAILY 07/06/14 [History Last Taken 12/10/19] pantoprazole 40 mg tablet,delayed release 40 mg PO DAILY 07/06/14 [History Last Taken 12/10/19] spironolactone 50 mg tablet 50 mg PO BID 07/06/14 [History Last Taken 12/10/19] calcium carbonate 600 mg calcium (1,500 mg) tablet (Calcium) 600 mg PO DAILY 03/20/22 [History Last Taken Unknown] cyanocobalamin (vitamin B-12) 500 mcg chewable tablet 500 mcg PO DAILY 11/08/22 [History Last Taken Unknown] Allergy/AdvReac Type Severity Reaction Status Date / Time No Known Allergies Allergy Verified 06/21/22 19:23 Family History Grandfather Cancer unknow Daughter Diabetes Hypertension Thyroid disorder Grandmother Diabetes Father Myocardial infarction Mother Hypertension Sister Hypertension Other Heart disease Surgical History S/P removal of thyroid nodule Social History Smoking Status: Current every day smoker tobacco type: cigarettes ROS ROS Narrative Pertinent positives and pertinent negatives as noted in HPI. All other systems were reviewed and are negative Review of Systems ROS Unobtainable: other Details: Pertinent positives and pertinent negatives that could be provided by patient's family is as noted in HPI. All other systems were reviewed patient's family did not know or they were negative. Vital Signs Vital Signs Vital Signs: 06/21/22 19:23 06/21/22 19:42 06/21/22 19:49 Temperature 96.8 F L Temperature Source Temporal Pulse Rate 58 L 58 L Respiratory Rate 18 14 Respiratory Effort Normal Blood Pressure 129/119 H 95/58 L Blood Pressure Mean 122 70 Pulse Ox 97 94 Oxygen Delivery Method Room Air Room Air 06/21/22 20:25 06/21/22 20:49 06/21/22 22:50 Temperature 96.8 F L 97.0 F L Temperature Source Temporal Temporal Pulse Rate 53 L 55 L 56 L Respiratory Rate 14 18 15 Respiratory Effort Blood Pressure 95/71 95/61 93/67 Blood Pressure Mean 79 72 75 Pulse Ox 92 92 93 Oxygen Delivery Method Room Air Room Air Room Air Weight Weight: 113.398 kg Body Mass Index (BMI) 41.5 Physical Exam Narrative Physical exam: General: Lethargic and laying in bed. Head: Normocephalic, atraumatic, no tenderness Eyes: Vision is grossly intact. EOMI ENT, no trauma, dry mucous membranes, no rhinorrhea Neck: Nontender, No thyromegaly. CVS: Bradycardia. S1-S2 present. No murmur, gallop or rub. Respiratory : Diminished, chest wall nontender, no wheezing Abdomen: Soft, nontender, nondistended, normal bowel sounds, no masses : Deferred Back: Nontender, no CVA tenderness. Extremities: Nontender full range of motion, no trauma Skin: Normal color, no trauma, abrasions Neuro: Lethargic, knows where she is. Does not know the year or the month Psychiatry: Normal mood. Normal affect. Not depressed. Not anxious. Results Lab / Micro Data Result Diagrams: 06/21/22 20:30 06/21/22 20:30 Labs: Laboratory Results - last 24 hr 06/21/22 20:30: WBC 13.3 H, RBC 4.88, Hgb 15.7 H, Hct 47.6 H, MCV 97.5, MCH 32.2 H, MCHC 33.0, RDW Std Deviation 53.1 H, RDW Coeff of Anyi 15.0 H, Plt Count 94 L, MPV 12.1 H, Immature Gran % (Auto) 0.400, Neut % (Auto) 83.3 H, Lymph % (Auto) 10.5 L, Yell % (Auto) 5.6, Eos % (Auto) 0.0, Baso % (Auto) 0.2, Absolute Neuts (auto) 11.1 H, Absolute Lymphs (auto) 1.40, Nucleated RBC % 0 06/21/22 20:30: Sodium 140, Potassium 4.7, Chloride 102, Carbon Dioxide 29.0, Anion Gap 9, BUN 22 H, Creatinine 1.36 H, Estim Creat Clear Calc 36.61, Est GFR (MDRD) Af Amer 50 L, Est GFR (MDRD) Non-Af 41 L, BUN/Creatinine Ratio 16.2, Glucose 99, Calcium 10.1, Total Bilirubin 3.20 H, AST 148 H, ALT 64 H, Alkaline Phosphatase 233 H, Total Protein 7.0, Albumin 2.6 L, Globulin 4.4 H, Albumin/Globulin Ratio 0.6 L 06/21/22 20:30: Lactic Acid 3.4 H* 06/21/22 22:10: Urine Color Yellow, Urine Clarity Sl. Cloudy, Urine pH 6.0, Ur Specific [place] 1.015, Urine Protein 15 H, Urine Glucose (UA) Normal, Urine Ketones 5 H, Urine Occult Blood Negative, Urine Nitrite Negative, Urine Bilir ubin 1 H, Urine Urobilinogen 8 H, Ur Leukocyte Esterase Negative, Urine RBC 0 SEEN, Urine WBC 0 SEEN, Ur Squamous Epith Cells 5-10 SEEN, Calcium Oxalate Crystal RARE, Urine Bacteria RARE, Urine Mucus 0 SEEN Micro: Microbiology 06/21/22 20:30 Nasal Secretion SARS-CoV-2 & FLU Antigen (Rapid) - Final Radiology Impression Brain CT 06/21/22 20:04 IMPRESSION: No acute intracranial or calvarial abnormality. There is no major interval change. If there is continued concern for metastatic disease, MRI is offered. Electronically Signed: Enzo HarshDO at 21:31 EST Reading Location ID and State: [facility] / [place] Tel [phone], Service support , Chest X-Ray 06/21/22 21:00 IMPRESSION: 1. Left pleural effusion versus left basilar infiltrate. 2. Mild cardiomegaly. Electronically Signed: Enzo House DO at 21:20 EST Reading Location ID and State: [employer] / [place] Tel [phone], Service support , Assessment & Plan Assessment/Plan (1) Encephalopathy acute: (2) Metastasis from thyroid cancer: (3) Acute kidney injury: (4) Pleural effusion: PLAN: Plan Metastatic from thyroid cancer Patient with known metastatic to lungs. Chest x-ray was visualized and independently interpreted. I agree with the interpretation of left pleural effusion versus left basilar infiltrate. Mild c ardiomegaly. White count is mildly elevated at 13,000 with neutrophilic predominance. There is no fever. With patient's symptoms going on for about 2 weeks dialysis when this is pneumonia. However will empirically cover with ceftriaxone and azithromycin the patient was started at the emergency department. Thoracentesis with pleural fluid studies including cytology ordered. Acute metabolic encephalopathy Ammonia level on presentation was 65. Trend. Lactulose rectal x1 ordered. Also we will check a TSH. Keep patient NPO. Patient is at home vitamin B12. Check vitamin B12 level. Lactic acidosis: Lactic acid of 3.4 on presentation. Likely secondary to hypoxia. Trend. JORDAN Creatinine of 1.01 on presentation which increased to 1.36. Baseline creatinine of less than 1 Gentle IV hydration. Hold home Lasix and spironolactone. Gentle IV hydration. Trend BMP. Liver cirrhosis/metastatic cancer to liver Bilirubin of 3.2. AST of 148. ALT of 64. Alkaline phosphatase of 233. Trend CMP. Hold Nodol since patient been placed on n.p.o. status. Gastroenterology consulted Debility from counseled PT and OT to evaluate and treat. Case management consult DVT prophylaxis: SCDs. No chemical thromboprophylaxis at this time as patient is a candidate for thoracentesis. Charges/Coding Visit Charges Inpatient E&M: 84646 Init Hosp L3
[2022-06-22 00:43] VITALS: BP 92/82; PULSE 55; RESP 14; TEMP 36.4; O2SAT 93
[2022-06-22 00:43] LABS: Reflex Lactate? Y
[2022-06-22] MEDS: Lactulose 20 GM/30 ML UDC PO ×5 (01:41→21:51)
[2022-06-22 01:48] LABS: International Normalized Ratio 1.9; Prothrombin Time (Protime)PT. 21.3 SECONDS (11.7-14.9)
[2022-06-22 01:49] LABS: Partial Thromboplast Time 30.5 Seconds (24.1-36.2)
--- NOTE | 2022-06-22 01:55 | US_ITS ---
STUDY: SUPERFICIAL ULTRASOUND - ASSESSMENT OF THE LEFT PLEURAL EFFUSION. REASON FOR EXAM: Female, 67 years old. Left Pleural Effusion TECHNIQUE: A superficial ultrasound was performed with real-time and static perdomo-scale imaging. COMPARISON: None. FINDINGS: No significant pleural effusion is seen. Not enough for safe thoracentesis. US/Chest IMPRESSION: Not enough fluid for safe thoracentesis. Electronically Signed: Daniel Goodman MD at 10:36 EST ,
[2022-06-22 02:05] LABS: Lactic Acid 2.8 mmol/L (0.4-1.9)
[2022-06-22 02:06] LABS: Glucose, Body Fluid 101 mg/dL (40-70); LDH,Body Fluid 558 Units/l (Not Establ.); Protein, Body Fluid 6.3 g/dL (Not Establ.)
[2022-06-22 02:24] VITALS: BMI 41.7
[2022-06-22 02:25] VITALS: BP 99/52; PULSE 56; RESP 18; TEMP 36.7; O2SAT 96
[2022-06-22] MEDS: 0.9% Normal Saline 1,000 ML 75 ML IV ×2 (02:44→15:17)
[2022-06-22] MEDS: Lactulose 20 GM/30 ML UDC 200 GM RC (03:26)
[2022-06-22 05:38] LABS: Absolute Lymphocyte Count 1.15 X10^3/uL (0.83-4.51); Absolute Neutrophil Count 8.6 X10^3/uL (2.0-7.7); Basophil# 0.01 X10^3/uL; Basophil% 0.1 % (0-1); Eosinophil# 0.01 X10^3/uL; Eosinophils% 0.1 % (0-5); Hemoglobin 13.8 g/dL (12.0-15.0); Lymphocyte # 1.15 X10^3/ul (0.83-4.51); Lymphocyte % 10.7 % (19-41); Mean Corp Hgb Conc 32.9 g/dL (32-36); Mean Corpuscular Hgb 31.7 pg (27.0-32.0); Mean Corpuscular Volume 96.6 fL (81-99); Mean Platelet Vol. 12.1 fl (6.2-12.0); Monocyte# 0.89 X10^3/uL; Monocyte% 8.3 % (0-10); NRBC Flagged by Analyzer 0 % (0-5); Neutrophil # 8.62 X10^3/uL (2.7-7.7); Neutrophil % 80.4 % (47-70); POSITIVE COUNT YES; Platelet Count 83 K/mm3 (150-450); RBC Distribution Width SD 51.9 fl (35.1-43.9); Red Blood Count 4.35 M/mm3 (4.2-5.4); White Blood Count 10.7 K/mm3 (4.4-11.0)
[2022-06-22 06:24] LABS: ALB/GLOB Ratio 0.6 RATIO (0.9-2.4); AST(SGOT) 121 U/L (15-37); Alanine Aminotransfer ALT/SGPT 55 U/L (13-56); Albumin, Serum 2.1 g/dL (3.2-5.0); Alkaline Phosphatase 189 U/L (45-117); Anion Gap 9 (5-15); BUN 25 mg/dL (7-18); BUN/Creat Ratio 20.3 RATIO (10-20); Calcium,Total 8.8 mg/dL (8.5-10.1); Chloride 107 mmol/L (98-107); Creatinine, Serum 1.23 mg/dL (0.55-1.02); EST Glomerular Filtration Rate 46 mL/min (>60); Est Glom Filt Rate - Afr Amer 56 mL/min (>60); Estimated Creatinine Clearance 40.48 ml/min; Globulin 3.7 g/dL (2.2-4.2); Glucose 105 mg/dL (74-106); LDH 505 U/L (84-246); Protein, Total 5.8 g/dL (6.4-8.2); Sodium Level 142 mmol/L (136-145)
--- NOTE | 2022-06-22 07:21 | PN.HOSP_ITS ---
Hospitalist Note Ms. Pizarro is a 67-year-old white female who presented to the emergency department [facility] late last evening and was admitted earlier this morning for confusion. The history was given through her daughter. The patient evidently has a history of metastatic thyroid cancer and had a partial thyroidectomy about 16 years ago. Recurrence was found in either February or March 2022. She has metastatic disease to the lungs and is currently on radioactive iodine therapy. The daughter reported that over the last 2 to 3 weeks she has been getting weaker and not taking in much orally with diet or liquids and her daughter reported she can only get her to take a few bites of food. She is brought into the emergency department on the day of presentation because she was too weak to get up and walk around. The patient lives alone although the family checks on her frequently. Daughter reported that typically she is alert and oriented x3. There is no reported fevers on presentation but the patient had been complaining of back pain that was worsening but not new. The patient had already seen her primary care physician and her oncologist this week already. 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 Her primary elementary principal is Dr. Tommy Sinclair at [facility] and she follows here with Dr. Humphrey oncology. She evidently has a history of hepatitis C for which she was treated by Dr. García but ended up with resultant cirrhosis. Abnormal liver ultrasound is back as far as 2013 as noted on our system with cirrhosis at that time. Her CBC at the time of admission showed mild leukocytosis but overall she looked hemoconcentrated with an elevated hemoglobin and on the a.m. of 06/22/2021 her counts are all improved other than chronic thrombocytopenia likely related to her cirrhosis. She had JORDAN on presentation with a serum creatinine of 1.36 (baseline 0.6-0.8) renal function this morning is better and down to 1.23. Her lactic acid on presentation was 3.4 and has trended down to 2.8 with hydration. She had hyperbilirubinemia with transaminitis on presentation as well. This is all improving. Her ammonia level on admission was 65 and is up to 103 today. I suspect her hyperammonemia is likely the etiology for her confusion. I lactulose 3 times daily orally 20 g and asked nursing to place an NG tube if she is not able to take this orally. I also added rifaximin. I will assess an AFP and check a liver ultrasound with duplex to rule out portal vein thrombosis with decompensated liver disease. It sounds as if her overall nutritional status is an issue and this may be complicating clearance of ammonia along with her JORDAN. Continue IV fluids at 75 cc/h with normal saline. Discontinue antibiotics as this does not appear to be infectious. Blood cultures are pending. Diagnoses: Acute metabolic/toxic encephalopathy likely related to hepatic encephalopathy Leukocytosis-resolved Erythrocytosis-resolved Dehydration JORDAN-resolving Hyperammonemia History of hepatitis C with cirrhosis Metastatic papillary thyroid cancer Asymptomatic bradycardia Gastric varices GERD/gastritis
--- NOTE | 2022-06-22 07:29 | US_ITS ---
STUDY: ABDOMINAL ULTRASOUND - RIGHT UPPER QUADRANT REASON FOR VISIT: Female, 67 years old decompensated cirrhosis -- please obtain duplex to assess for thrombosis TECHNIQUE: Ultrasound evaluation of the right upper quadrant was performed with real-time and static perdomo-scale imaging. TECHNICAL QUALITY: Limited. Examination limited due to the patient?s condition and body habitus. COMPARISON: None. FINDINGS: Liver: The liver measures 13.2 cm. There is a heterogeneous echogenicity of the liver. The bile ducts are within normal limits. There is hepatic color flow. The direction of portal flow is hepatopetal. There is no demonstrated mass lesion. Small amount of perihepatic fluid. Gallbladder: The patient is status post cholecystectomy. Common Bile Duct (C.B.D.): The common bile duct measures 4. mm. Pancreas: There is nonvisualization of the pancreas due to overlying bowel gas. Right Kidney: Normal size of the right kidney. The right kidney measures 9.3 cm x 5.3 cm x 4.5 cm. Normal renal cortex. The right cortex measures 1.2 cm. There is no demonstrated renal mass or cyst. There is no right hydronephrosis. US/Abdomen Limited IMPRESSION: Limited examination due to the patient''s condition and body habitus. Status post cholecystectomy. Heterogeneous echotexture of the liver. Small amount of perihepatic fluid. Electronically Signed: Daniel Goodman MD at 14:45 EST ,
[2022-06-22 07:46] LABS: Vitamin B12 > 2000 pg/mL (211-911)
[2022-06-22 08:15] VITALS: O2SAT 88
[2022-06-22 08:25] VITALS: BP 98/59; PULSE 60; RESP 17; TEMP 36.7; O2SAT 98
[2022-06-22] MEDS: rifAXIMin 550 MG Tablet PO ×2 (11:06→21:51)
[2022-06-22 14:00] VITALS: BP 99/60; PULSE 70; RESP 19; TEMP 36.7; O2SAT 98
--- NOTE | 2022-06-22 15:45 | CASEMGMT ---
EDISON HUNTER DC Planning Assessment: Face to Face with patient and pt's daughter Valentine for initial transition planning/care coordination assessment. Pt resting with her eyes closed and moaning respirations. Noted documentation of pt having been confused since admission. EDISON HUNTER introduced self and role at [facility], pt's daughter voices understanding and is agreeable to participating in assessment.? Care providers, pharmacy,?and demographics verified. ? Admitting Dx: encephalopathy PCP: Tim Specialists: Yahir (oncology at [facility]), has been receiving radioactive iodine tx at [facility] Preferred Pharmacy: [facility] Insurance: [employer] Prescription Benefit:?yes Living Will/HPOA: no living will, has HPOA-Daughter Valentine, Asked Valentine to bring this in for inclusion in her EMR LNOK: daughter Valentine, son Isma Living Arrangements: Pt has lived alone in a mobile home with a ramp entrance. Pt had been independent up until the past month. Pt's daughter states pt has progressively declined over the past month and has required more and more assistance. Pt's daughter has been assisting pt to get into the shower (pt then able to wash herself), assist pt with dressing, all meals, all household tasks, and began to assist pt to get into bed each evening. Transportation: Pt had been driving a month ago but daughter now providing transportation DME: shower chair but does not always use, grab bar, cane HHC: previously had home PT from [facility]: denies. ? Plan: TBD Discussed with pt's daughter pt's progressive weakness and concern with returning home at discharge. Pt's daughter states she has considered bringing pt to her home at discharge but states she works and there would not be anyone home during the day. Discussed potential need for a HH versus SNF at discharge. Pt's daughter states she would like to think about these options over the weekend. Discussed concerns for possible SNF need at discharge with MARY Irvin. Will continue to follow, re-access pt's discharge needs, and assist with facilitation of final determination. Jayden Sher RN CM
--- NOTE | 2022-06-22 16:22 | CASEMGMT ---
Social Work Per RNCM, pt dgt to consider discharge options over the weekend. SW met with pt dgt and introduced self and role of SW. A list of SNF providers including quality and resource use data and consistent with the patient?s preferred geographic region, medical needs, and insurance network were provided from the [employer] Guide. Dgt also inquiring about home health aids to be with pt while she is at work. SW provided list of private duty aids. Pt dgt to consider options and SW will follow up on Saturday. MARY Herr
--- NOTE | 2022-06-22 16:44 | CON.PCM.GI_ITS ---
HPI Consult Data Date of Consult: 06/22/22 HPI Narrative Reason for Consultation: Altered mental status HPI Narrative: CHARMAINE GOEL, is a 67 F who presents with altered mental status. She has a past medical history of chronic hepatitis C status posttreatment with cirrhosis. As per her daughter who is at the bedside and given all the history she has not had any episodes of GI bleeding, encephalopathy or ascites since her diagnosis. Ho wever recently she has been coming more more lethargic to the point where she was sleeping almost 24 hours a day. She became incoherent at home and became nonresponsive so she was brought to the hospital for further evaluation. She has a past medical history of thyroid cancer diagnosed 17yrs ago. She had Thyroid surgery in [facility].? Had CTA done on 03/12/2022 and found to have lung nodules and L hilar mass so referred for further evaluation. She had Hepatitis C, treated by Dr. Ubaldo García, also diagnosed with cirrhosis of the liver afterwards. PET/CT on 03/28/2022 showed activities in L lobe of thyroid, Bilateral lung nodules, L hilar and L paratracheal nodes suggestive of malignanc y. She was seen at [facility], had FOB/EBUS done on 04/12/2022. 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 I was asked to see her for management of her hepatic encephalopathy. [facility] Medical History (Updated 06/22/22 @ 16:[address] Crabtree Friend, DO) Liver failure Smoker Thyroid cancer Home Medications calcium polycarbophil 625 mg tablet (Fiber Therapy (ca polycarbophil)) 625 mg PO DAILY Check with primary doctor 07/06/14 [History Last Taken 12/10/19] furosemide 40 mg tablet 20 mg PO DAILY Check with primary doctor 07/06/14 [History Last Taken 12/10/19] multivitamin,wy-sfum-shzcrvkv 27 mg-0.4 mg tablet (Therems-M) 1 tab PO DAILY Check with primary doctor 07/06/14 [History Last Taken 12/10/19] nadolol 40 mg tablet 40 mg PO DAILY Check with primary doctor 07/06/14 [History Last Taken 12/10/19] pantoprazole 40 mg tablet,delayed release 40 mg PO DAILY Check with primary doctor 07/06/14 [History Last Taken 07/30/20] spironolactone 50 mg tablet 25 mg PO DAILY Check with primary doctor 07/06/14 [History Last Taken 12/10/19] calcium carbonate 600 mg calcium (1,500 mg) tablet (Calcium) 600 mg PO DAILY Check with primary doctor 03/20/22 [History Last Taken Unknown] cyanocobalamin (vitamin B-12) 500 mcg chewable tablet 500 mcg PO DAILY Check with primary doctor 03/20/22 [History Last Taken Unknown] bupropion HCl 150 mg tablet,12 hr sustained-release 150 mg PO BID Check with primary doctor 06/22/22 [History Last Taken Unknown] citalopram 20 mg tablet 20 mg DAILY Check with primary doctor 06/22/22 [History Last Taken Unknown] oxybutynin chloride 15 mg tablet,extended release 24 hr 15 mg PO DAILY Check with primary doctor 06/22/22 [History Last Taken Unknown] potassium chloride 20 mEq tablet,extended release(part/cryst) 20 meq PO DAILY Check with primary doctor 06/22/22 [History Last Taken Unknown] Allergy/AdvReac Type Severity Reaction Status Date / Time No Known Allergies Allergy Verified 06/21/22 19:23 Family History Grandfather Cancer unknow Daughter Diabetes Hypertension Thyroid disorder Grandmother Diabetes Father Myocardial infarction Mother Hypertension Sister Hypertension Other Heart disease Surgical History (Updated 06/22/22 @ 02:14 by Liobrio Montalvo) Hx laparoscopic cholecystectomy S/P removal of thyroid nodule Social History Smoking Status: Light Smoker (<10/day) ROS ROS Narrative Pertinent positives and pertinent negatives as noted in HPI. All other systems were reviewed and are negative Review of Systems ROS Unobtainable: other Details: Pertinent positives and pertinent negatives that could be provided by patient's family is as noted in HPI. All other systems were reviewed patient's family did not know or they were negative. Physical Exam Narrative Physical exam: General: Lethargic and laying in bed. Head: Normocephalic, atraumatic, no tenderness Eyes: Vision is grossly intact. EOMI ENT, no trauma, dry mucous membranes, no rhinorrhea Neck: Nontender, No thyromegaly. CVS: Bradycardia. S1-S2 present. No murmur, gallop or rub. Respiratory : Diminished, chest wall nontender, no wheezing Abdomen: Soft, nontender, nondistended, normal bowel sounds, no masses : Deferred Back: Nontender, no CVA tenderness. Extremities: Nontender full range of motion, no trauma Skin: Normal color, no trauma, abrasions Neuro: Lethargic, knows where she is. Does not know the year or the month Psychiatry: Normal mood. Normal affect. Not depressed. Not anxious. Lab / Micro Data Result Diagrams: 06/22/22 05:26 06/22/22 05:26 Labs: Laboratory Results - last 24 hr 06/21/22 20:30: WBC 13.3 H, RBC 4.88, Hgb 15.7 H, Hct 47.6 H, MCV 97.5, MCH 32.2 H, MCHC 33.0, RDW Std Deviation 53.1 H, RDW Coeff of Anyi 15.0 H, Plt Count 94 L, MPV 12.1 H, Immature Gran % (Auto) 0.400, Neut % (Auto) 83.3 H, Lymph % (Auto) 10.5 L, [place] % (Auto) 5.6, Eos % (Auto) 0.0, Baso % (Auto) 0.2, Absolute Neuts (auto) 11.1 H, Absolute Lymphs (auto) 1.40, Nucleated RBC % 0 06/21/22 20:30: Sodium 140, Potassium 4.7, Chloride 102, Carbon Dioxide 29.0, Anion Gap 9, BUN 22 H, Creatinine 1.36 H, Estim Creat Clear Calc 36.61, Est GFR (MDRD) Af Amer 50 L, Est GFR (MDRD) Non-Af 41 L, BUN/Creatinine Ratio 16.2, Glucose 99, Calcium 10.1, Total Bilirubin 3.20 H, AST 148 H, ALT 64 H, Alkaline Phosphatase 233 H, Total Protein 7.0, Albumin 2.6 L, Globulin 4.4 H, Albumin/Globulin Ratio 0.6 L 06/21/22 20:30: Lactic Acid 3.4 H* 06/21/22 22:10: Urine Color Yellow, Urine Clarity Sl. Cloudy, Urine pH 6.0, Ur Specific [place] 1.015, Urine Protein 15 H, Urine Glucose (UA) Normal, Urine K etones 5 H, Urine Occult Blood Negative, Urine Nitrite Negative, Urine Bilirubin 1 H, Urine Urobilinogen 8 H, Ur Leukocyte Esterase Negative, Urine RBC 0 SEEN, Urine WBC 0 SEEN, Ur Squamous Epith Cells 5-10 SEEN, Calcium Oxalate Crystal RARE, Urine Bacteria RARE, Urine Mucus 0 SEEN 06/22/22 00:10: Ammonia 65.0 H 06/22/22 00:50: Fluid Glucose 101 H, Fluid Total Protein 6.3, Fluid LDH 558 06/22/22 00:50: PT 21.3 H, INR 1.9, APTT 30.5 06/22/22 00:50: Lactic Acid 2.8 H* 06/22/22 05:26: Vitamin B12 > 2000 H 06/22/22 05:26: Sodium 142, Potassium 4.0, Chloride 107, Carbon Dioxide 26.0, Anion Gap 9, BUN 25 H, Creatinine 1.23 H, Estim Creat Clear Calc 40.48, Est GFR (MDRD) Af Amer 56 L, Est GFR (MDRD) Non-Af 46 L, BUN/Creatinine Ratio 20.3 H, Glucose 105, Calcium 8.8, Total Bilirubin 2.30 H, AST 121 H, ALT 55, Alkaline Phosphatase 189 H, Lactate Dehydrogenase 505 H, Total Protein 5.8 L, Albumin 2.1 L, Globulin 3.7, Albumin/Globulin Ratio 0.6 L, TSH 49.20 H 06/22/22 05:26: WBC 10.7, RBC 4.35, Hgb 13.8, Hct 42.0, MCV 96.6, MCH 31.7, MCHC 32.9, RDW Std Deviation 51.9 H, RDW Coeff of Anyi 15.0 H, Plt Count 83 L, MPV 12.1 H, Immature Gran % (Auto) 0.400, Neut % (Auto) 80.4 H, Lymph % (Auto) 10.7 L, [place] % (Auto) 8.3, Eos % (Auto) 0.1, Baso % (Auto) 0.1, Absolute Neuts (auto) 8.6 H, Absolute Lymphs (auto) 1.15, Nucleated RBC % 0 06/22/22 05:26: Ammonia 103.0 H Micro: Microbiology 06/21/22 20:30 Nasal Secretion SARS-CoV-2 & FLU Antigen (Rapid) - Final Radiology Impression Brain CT 06/21/22 20:04 IMPRESSION: No acute intracranial or calvarial abnormality. There is no major interval change. If there is continued concern for metastatic disease, MRI is offered. Electronically Signed: Enzo GenoaDO arti at 21:31 EST , Chest X-Ray 06/21/22 21:00 IMPRESSION: 1. Left pleural effusion versus left basilar infiltrate. 2. Mild cardiomegaly. Electronically Signed: Enzo House DO at 21:20 EST , Chest Ultrasound 06/22/22 01:55 IMPRESSION: Not enough fluid for safe thoracentesis. Electronically Signed: Daniel Goodman MD at 10:36 EST , Abdomen Ultrasound 06/22/22 07:29 IMPRESSION: Limited examination due to the patient''s condition and body habitus. Status post cholecystectomy. Heterogeneous echotexture of the liver. Small amount of perihepatic fluid. Electronically Signed: Daniel Goodman MD at 14:45 EST , Assessment & Plan Assessment/Plan (1) Encephalopathy acute: (2) Cirrhosis: PLAN: Plan Decompensated cirrhosis with hepatic encephalopathy. At this time she has a grade 4 hepatic encephalopathy. Recommend NG tube placement with lactulose administration of 20 cc every 4 hours for the next 24 hours. Also recommending neomycin 500 mg p.o. twice daily, Flagyl 500 mg p.o. 3 times daily and Xifaxan 550 mg twice daily. There was no sign of malignancy on her recent imaging of her liver. However she needs to get an alpha-fetoprotein checked to see if there is any signs of occult malignancy from cirrhosis causing decompensated liver disease. Continue nadolol therapy. I will get an ultrasound of the abdomen to see if she needs a diag nostic paracentesis. Acute on chronic renal failure without any signs or symptoms of hepatorenal sy ndrome at this time. Charges/Coding Visit Charges Inpatient E&M: 25839 Init Hosp L3
[2022-06-22] MEDS: Azithromycin 250 MG Tablet 500 MG PO (17:19)
[2022-06-22] MEDS: metroNIDAZOLE 500 MG Tablet PO (17:19)
[2022-06-22 20:00] VITALS: BP 95/63; PULSE 62; RESP 20; TEMP 36.8; O2SAT 95
[2022-06-23] MEDS: Lactulose 20 GM/30 ML UDC PO ×2 (03:02→04:23)
[2022-06-23 03:03] VITALS: BP 93/67; PULSE 58; RESP 20; TEMP 36.8; O2SAT 93
[2022-06-23] MEDS: 0.9% Normal Saline 1,000 ML 75 ML IV (04:23)
[2022-06-23 07:49] LABS: Absolute Lymphocyte Count 1.05 X10^3/uL (0.83-4.51); Basophil# 0.03 X10^3/uL; Basophil% 0.3 % (0-1); Hematocrit 46.2 % (37-47); Hemoglobin 14.9 g/dL (12.0-15.0); Lymphocyte # 1.05 X10^3/ul (0.83-4.51); Mean Corp Hgb Conc 32.3 g/dL (32-36); Mean Corpuscular Hgb 31.2 pg (27.0-32.0); Mean Corpuscular Volume 96.7 fL (81-99); Mean Platelet Vol. 12.5 fl (6.2-12.0); Monocyte# 1.42 X10^3/uL; Monocyte% 14.9 % (0-10); NRBC Flagged by Analyzer 0.2 % (0-5); Neutrophil % 73.5 % (47-70); POSITIVE COUNT YES; Platelet Count 69 K/mm3 (150-450); RBC Distribution Width CV 15.7 % (11.6-14.6); RBC Distribution Width SD 54.2 fl (35.1-43.9); Red Blood Count 4.78 M/mm3 (4.2-5.4); White Blood Count 9.5 K/mm3 (4.4-11.0)
--- NOTE | 2022-06-23 07:51 | PN.HOSP_ITS ---
Reason for Visit Reason for Visit: Diagnoses Malignant neoplasm of thyroid gland (06/22/22) Secondary malignant neoplasm of unspecified site (06/22/22) Encephalopathy, unspecified (06/22/22) Pleural effusion, not elsewhere classified (06/22/22) Unspecified cirrhosis of liver (06/22/22) Acute kidney failure, unspecified (06/22/22) Subjective Subjective Follow-up for confusion and disorientation, encephalopathy. Patient has chronic liver disease, etiology unclear Objective Data Objective Data Vital Signs: Vital Signs Temp Pulse Resp BP Pulse Ox O2 Del Method O2 Flow Rate 98.3 F 58 L 20 H 93/67 93 Room Air 2 06/23/22 03:03 06/23/22 03:03 06/23/22 03:03 06/23/22 03:03 06/23/22 03:03 06/23/22 07:30 06/22/22 16:16 Oxygen Flow Rate (L/min) 2 Oxygen Delivery Method Room Air Weight: 250 lb 14.177 oz Body Mass Index (BMI) 41.7 Intake & Output: Intake and Output for Last 24 Hours 06/21/22 06/22/22 06/23/22 23:59 23:59 23:59 Intake Total 1000 / 1000 982.5 / 982.5 Balance 1000 / 1000 982.5 / 982.5 Lab / Micro Data Result Diagrams: 06/23/22 07:27 06/23/22 07:27 Micro: Microbiology 06/21/22 20:30 Nasal Secretion SARS-CoV-2 & FLU Antigen (Rapid) - Final Radiography Diagnostic Testing: Radiology Impression Chest Ultrasound 06/22/22 01:55 IMPRESSION: Not enough fluid for safe thoracentesis. Abdomen Ultrasound 06/22/22 07:29 IMPRESSION: Limited examination due to the patient''s condition and body habitus. Status post cholecystectomy. Heterogeneous echotexture of the liver. Small amount of perihepatic fluid. Physical Exam Narrative History alertable patient very drowsy lethargic, hardly opens eyes on verbal command. Noncommunicative/nonverbal. Physical exam General: Lethargic, obtunded, closed eyes. Disoriented HEENT: Atraumatic, PERRLA, Normocephalic Oral: Oral mucosa dry. NG tube. Neck: Supple, No JVD, Negative Carotid Bruits Lungs: Air entry diminished in bilateral lung bases. No crepitation/rhonchi Cardiovascular: Regular rate, bradycardia, Normal S1, Normal S2, systolic murmur Abdomen: Bowel Sounds Present, Soft, Non Tender, Non-Distended : No renal angle tenderness. No suprapubic tenderness. Extremities: No edema, Capillary Refill Less than 3 Seconds Skin: No rashes, No breakdown Musculoskeletal: Bilateral valgus deformity of knee, degenerative arthritis. Passive ROM restricted Neurological: Complete neuro exam unobtainable, patient nonverbal, confused encephalopathic. Psych/Mental Status: Lethargic, sleeping Assessment & Plan Assessment/Plan (1) Encephalopathy acute: (2) Metastasis from thyroid cancer: (3) Acute kidney injury: (4) Pleural effusion: PLAN: Plan 67-year-old female who was admitted with lethargy in the obtunded condition. Patient progressively getting worse, weak for past 2 weeks. Clearly she was able to drive as per her daughter. 1. Metastatic from thyroid cancer: On June 18, 2022 patient had radioactive iodine therapy for metastatic lung cancer from thyroid. Next schedule LOUIS therapy was on 06/22/2022 Patient with known metastatic to lungs. Chest x-ray was was a lesion and showed left pleural effusion versus left basilar infiltrate. Mild cardiomegaly. On lung ultrasound, there was not enough fluid for safe thoracocentesis. Fluid glucose 101, total protein 6.3, LDH 558. Serum protein 5.8 therefore fluid is of exudate type. Patient has no fever but leukocytosis with neutrophilic predominance which got normalized today. Patient empirically on IV ceftriaxone and azithromycin. White count is mildly elevated at 13,000 with neutrophilic predominance. There is no fever. Patient empirically on IV ceftriaxone and azithromycin based on the chest x-ray finding concerning for pneumonia. 2. 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 Has NG tube with lactulose, metronidazole and neomycin as per GI recommendation. Serum ammonia level was significantly high 103. LDH elevated. B12 more than 2000. TSH 49.2. Lactic acidosis: Lactic acid of 3.4 on presentation. Repeat 2.8. JORDAN probably due to diuretic Creatinine of 1.01 on presentation which increased to 1.87, BUN 32. IV fluid resuscitation Baseline creatinine of less than 1 Gentle IV hydration. Hold home Lasix and spironolactone. Chronic liver disease, possible small biliary duct cholestatic disease, exact etiology unclear: Patient's daughter denies chronic alcohol use. It was being managed by Dr. Fernandes. Unclear whether patient has cirrhosis but 2/10 liver imaging shows heterogeneous echogenicity. Bile duct within normal limit with hepatopetal portal flow. No demonstrated mass lesion. Small amount of perihepatic fluid. Alpha-fetoprotein normal. Total bilirubin Baritop 4.4, direct 2.5 mainly direct hyperbilirubinemia, GGT 290, AST and ALT elevated. Alkaline phosphatase elevated. LDH elevated. Autoimmune ordered. Gastroenterology consulted and discussed Acute debility as per daughter: PT and OT to evaluate and treat. Case management consult DVT prophylaxis: SCDs. No chemical thromboprophylaxis at this time as patient is a candidate for thoracentesis. 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
[2022-06-23 08:07] VITALS: BP 90/52; PULSE 66; RESP 18; TEMP 36.8; O2SAT 98
[2022-06-23 08:39] LABS: ALB/GLOB Ratio 0.6 RATIO (0.9-2.4); AST(SGOT) 169 U/L (15-37); Alanine Aminotransfer ALT/SGPT 74 U/L (13-56); Albumin, Serum 2.1 g/dL (3.2-5.0); Alkaline Phosphatase 175 U/L (45-117); Anion Gap 10 (5-15); BUN 32 mg/dL (7-18); BUN/Creat Ratio 17.1 RATIO (10-20); Calcium,Total 8.9 mg/dL (8.5-10.1); Chloride 106 mmol/L (98-107); Creatinine, Serum 1.87 mg/dL (0.55-1.02); EST Glomerular Filtration Rate 29 mL/min (>60); Est Glom Filt Rate - Afr Amer 35 mL/min (>60); Estimated Creatinine Clearance 26.63 ml/min; Globulin 3.8 g/dL (2.2-4.2); Glucose 77 mg/dL (74-106); Magnesium 2.3 mg/dL (1.6-2.6); Phosphorus 4.2 mg/dL (2.5-4.9); Potassium 4.5 mmol/L (3.5-5.1); Protein, Total 5.9 g/dL (6.4-8.2); Sodium Level 142 mmol/L (136-145)
--- NOTE | 2022-06-23 08:54 | RAD_ITS ---
EXAM: XR ABDOMEN, 1 VIEW CLINICAL INDICATION: ng tube placement TECHNIQUE: Frontal supine view of the abdomen/pelvis. This report was created using [employer] report generation technology. COMPARISON: None. FINDINGS: LOWER THORAX: See below. GASTROINTESTINAL TRACT: Unremarkable. Non-obstructive. No bowel or stomach distention. ORGANS: Unremarkable as visualized. No organomegaly. No abnormal calcifications. BONES/JOINTS: No acute pathology. SOFT TISSUES: No acute pathology. TUBES, LINES AND DEVICES: NG tube tip and sidehole inside the left gastric cavity and effacing the left hemidiaphragm. RAD/Abdomen Single View (Portable) IMPRESSION: NG tube tip and sidehole are inside the left gastric cavity facing the left hemidiaphragm. Electronically Signed: Carlos A Guillen MD at 11:43 EST ,
--- NOTE | 2022-06-23 10:18 | PN_ITS ---
Subjective Subjective Patient is a little bit more alert today. Daughter at her bedside. She did have multiple bowel movements. Objective Data Objective Data Vital Signs: Vital Signs Temp Pulse Resp BP Pulse Ox O2 Del Method O2 Flow Rate 98.2 F 66 18 90/52 L 98 Room Air 2 06/23/22 08:07 06/23/22 08:07 06/23/22 08:07 06/23/22 08:07 06/23/22 08:07 06/23/22 08:28 06/22/22 16:16 Oxygen Flow Rate (L/min) 2 Oxygen Delivery Method Room Air Weight: 250 lb 14.177 oz Body Mass Index (BMI) 41.7 Intake & Output: Intake and Output for Last 24 Hours 06/21/22 06/22/22 06/23/22 23:59 23:59 23:59 Intake Total 1000 / 1000 982.5 / 982.5 Balance 1000 / 1000 982.5 / 982.5 Lab / Micro Data Result Diagrams: 06/23/22 07:27 06/23/22 07:27 Labs: Laboratory Results - last 24 hr 06/23/22 07:27: Ammonia 68.0 H 06/23/22 07:27: WBC 9.5, RBC 4.78, Hgb 14.9, Hct 46.2, MCV 96.7, MCH 31.2, MCHC 32.3, RDW Std Deviation 54.2 H, RDW Coeff of Anyi 15.7 H, Plt Count 69 L, MPV 12.5 H, Immature Gran % (Auto) 0.300, Neut % (Auto) 73.5 H, Lymph % (Auto) 11.0 L, [place] % (Auto) 14.9 H, Eos % (Auto) 0.0, Baso % (Auto) 0.3, Absolute Neuts (auto) 7.0, Absolute Lymphs (auto) 1.05, Nucleated RBC % 0.2 06/23/22 07:27: Sodium 142, Potassium 4.5, Chloride 106, Carbon Dioxide 26.0, Anion Gap 10, BUN 32 H, Creatinine 1.87 H, Estim Creat Clear Calc 26.63, Est GFR (MDRD) Af Amer 35 L, Est GFR (MDRD) Non-Af 29 L, BUN/Creatinine Ratio 17.1, Glucose 77, Calcium 8.9, Phosphorus 4.2, Magnesium 2.3, Total Bilirubin 4.40 H, AST 169 H, ALT 74 H, Alkaline Phosphatase 175 H, Total Protein 5.9 L, Albumin 2.1 L, Globulin 3.8, Albumin/Globulin Ratio 0.6 L, TSH 45.20 H Micro: Microbiology 06/21/22 20:30 Nasal Secretion SARS-CoV-2 & FLU Antigen (Rapid) - Final Radiography Diagnostic Testing: Radiology Impression Chest Ultrasound 06/22/22 01:55 IMPRESSION: Not enough fluid for safe thoracentesis. Electronically Signed: Daniel Goodman MD at 10:36 EST , Abdomen Ultrasound 06/22/22 07:29 IMPRESSION: Limited examination due to the patient''s condition and body habitus. Status post cholecystectomy. Heterogeneous echotexture of the liver. Small amount of perihepatic fluid. Electronically Signed: Daniel Goodman MD at 14:45 EST , Physical Exam Narrative Physical exam: General: Lethargic and laying in bed. Head: Normocephalic, atraumatic, no tenderness Eyes: Vision is grossly intact. EOMI ENT, no trauma, dry mucous membranes, no rhinorrhea Neck: Nontender, No thyromegaly. CVS: Bradycardia. S1-S2 present. No murmur, gallop or rub. Respiratory : Diminished, chest wall nontender, no wheezing Abdomen: Soft, nontender, nondistended, normal bowel sounds, no masses : Deferred Back: Nontender, no CVA tenderness. Extremities: Nontender full range of motion, no trauma Skin: Normal color, no trauma, abrasions Neuro: Lethargic, knows where she is. Does not know the year or the month Psychiatry: Normal mood. Normal affect. Not depressed. Not anxious. Assessment & Plan Assessment/Plan (1) Encephalopathy acute: (2) Cirrhosis: PLAN: Plan Decompensated cirrhosis with hepatic encephalopathy. At this time she has a grade 3 hepatic encephalopathy. This is improved from yesterday when she was a grade 4-5 hepatic encephalopathy. Continue lactulose administration of 20 cc every 4 hours for the next 24 hours. Also will continue neomycin 500 mg p.o. twice daily, Flagyl 500 mg p.o. 3 times daily and Xifaxan 550 mg twice daily. There was no sign of malignancy on her recent imaging of her liver. However she needs to get an alpha-fetoprotein checked to see if there is any signs of occult malignancy from cirrhosis causing decompensated liver disease. Continue nadolol therapy. I will get an ultrasound of the abdomen to see if she needs a diagnostic paracentesis. Acute on chronic renal failure without any signs or symptoms of hepatorenal syndrome at this time. Charges/Coding Visit Charges Inpatient E&M: 57770 [facility] Hosp L3
[2022-06-23 11:10] VITALS: BP 87/58; PULSE 58; RESP 18; TEMP 36.8; O2SAT 95
[2022-06-23 11:31] LABS: Bilirubin, Direct 2.53 mg/dL (0.00-0.30); GGTP 290 U/L (5-55)
--- NOTE | 2022-06-23 12:38 | NURSING ---
staff to call nuclear medicine the day the patient is discharged so they can give her dose of radioactive iodine before discharging since she missed appointment on 06/22/22
[2022-06-23] MEDS: Lactulose 20 GM/30 ML UDC NG ×3 (12:41→21:43)
[2022-06-23] MEDS: rifAXIMin 550 MG Tablet NG ×2 (12:41→21:44)
[2022-06-23] MEDS: metroNIDAZOLE 500 MG Tablet NG ×2 (12:41→21:43)
[2022-06-23] MEDS: Azithromycin 250 MG Tablet 500 MG NG (12:41)
[2022-06-23 13:00] VITALS: BP 93/62; PULSE 57; RESP 18; TEMP 36.6; O2SAT 94
[2022-06-23 13:23] LABS: AFP, Tumor Marker 2.3 ng/mL (0.0-9.2)
[2022-06-23] MEDS: 0.45% Normal Saline 1,000 ML 100 ML IV (16:17)
[2022-06-23] MEDS: Ceftriaxone 1 GM/50 ML BAG IV (16:18)
[2022-06-23 18:00] VITALS: BP 104/66; PULSE 61; RESP 18; TEMP 36.7; O2SAT 95
[2022-06-23 21:00] VITALS: BP 115/85; PULSE 80; RESP 20; TEMP 36.6; O2SAT 93
[2022-06-24] MEDS: 0.45% Normal Saline 1,000 ML 100 ML IV (02:24)
[2022-06-24] MEDS: Lactulose 20 GM/30 ML UDC NG ×6 (02:25→22:23)
[2022-06-24 04:33] VITALS: BP 86/56; PULSE 60; RESP 19; TEMP 36.7; O2SAT 92
[2022-06-24 05:43] LABS: Ammonia < 10.0 umol/L (11-32)
[2022-06-24 05:55] LABS: AST(SGOT) 202 U/L (15-37); Alanine Aminotransfer ALT/SGPT 83 U/L (13-56); Albumin, Serum 2.1 g/dL (3.2-5.0); Alkaline Phosphatase 188 U/L (45-117); Bilirubin, Direct 3.39 mg/dL (0.00-0.30); Globulin 3.5 g/dL (2.2-4.2); Protein, Total 5.6 g/dL (6.4-8.2); T4 Free Direct 0.15 ng/dL (0.76-1.46)
[2022-06-24 06:41] VITALS: BP 117/66; PULSE 66; RESP 19; TEMP 36.8; O2SAT 93
--- NOTE | 2022-06-24 08:14 | PCM.PN.HOSP ---
Reason for Visit Reason for Visit: Diagnoses Malignant neoplasm of thyroid gland (06/22/22) Secondary malignant neoplasm of unspecified site (06/22/22) Encephalopathy, unspecified (06/22/22) Pleural effusion, not elsewhere classified (06/22/22) Unspecified cirrhosis of liver (06/22/22) Acute kidney failure, unspecified (06/22/22) Subjective Subjective Follow-up for acute encephalopathy with chronic liver disease. Objective Data Objective Data Vital Signs: Vital Signs Temp Pulse Resp BP Pulse Ox O2 Del Method O2 Flow Rate 98.2 F 66 19 H 117/66 93 Room Air 2 06/24/22 06:41 06/24/22 06:41 06/24/22 06:41 06/24/22 06:41 06/24/22 06:41 06/24/22 07:57 06/22/22 16:16 Oxygen Flow Rate (L/min) 2 Oxygen Delivery Method Room Air Weight: 250 lb 14.177 oz Body Mass Index (BMI) 41.7 Intake & Output: Intake and Output for Last 24 Hours 06/22/22 06/23/22 06/24/22 23:59 23:59 23:59 Intake Total 1915.0 / 1945.0 1090 / 1090 Balance 191.0 / 1945.0 1090 / 1090 Lab / Micro Data Result Diagrams: 06/24/22 09:15 06/24/22 09:15 Labs: Laboratory Results - last 24 hr 06/22/22 05:16: Tumor Marker AFP 2.3 06/23/22 07:27: Ammonia 68.0 H 06/23/22 07:27: Sodium 142, Potassium 4.5, Chloride 106, Carbon Dioxide 26.0, Anion Gap 10, BUN 32 H, Creatinine 1.87 H, Estim Creat Clear Calc 26.63, Est GFR (MDRD) Af Amer 35 L, Est GFR (MDRD) Non-Af 29 L, BUN/Creatinine Ratio 17.1, Glucose 77, Calcium 8.9, Phosphorus 4.2, Magnesium 2.3, Total Bilirubin 4.40 H, AST 169 H, ALT 74 H, Alkaline Phosphatase 175 H, Total Protein 5.9 L, Albumin 2.1 L, Globulin 3.8, Albumin/Globulin Ratio 0.6 L, TSH 45.20 H 06/23/22 07:27: Direct Bilirubin 2.53 H, GGT 290 H 06/24/22 04:54: Ammonia < 10.0 L 06/24/22 04:54: Total Bilirubin 5.30 H, Direct Bilirubin 3.39 H, AST 202 H, ALT 83 H, Alkaline Phosphatase 188 H, Total Protein 5.6 L, Albumin 2.1 L, Globulin 3.5, Free T4 0.15 L Micro: Microbiology 06/21/22 20:30 Blood Culture (Wb) - Anticubital Right Blood Culture - Preliminary 06/21/22 20:30 Nasal Secretion SARS-CoV-2 & FLU Antigen (Rapid) - Final Radiography Diagnostic Testing: Radiology Impression KUB X-Ray 06/23/22 08:54 IMPRESSION: NG tube tip and sidehole are inside the left gastric cavity facing the left hemidiaphragm. Electronically Signed: Carlos A Guillen MD at 11:43 EST , Physical Exam Narrative Seen and examined. Patient very drowsy lethargic, hardly opens eyes on verbal command. Noncommunicative/nonverbal. No change from yesterday Physical exam General: Lethargic, obtunded, closed eyes. Disoriented HEENT: Atraumatic, PERRLA, Normocephalic Oral: Oral mucosa dry. NG tube. Neck: Supple, No JVD, Negative Carotid Bruits Lungs: Air entry diminished in bilateral lung bases. No crepitation/rhonchi Cardiovascular: Regular rate, bradycardia, Normal S1, Normal S2, systolic murmur Abdomen: Bowel Sounds Present, Soft, Non Tender, Non-Distended : No renal angle tenderness. No suprapubic tenderness. Extremities: No edema, Capillary Refill Less than 3 Seconds Skin: No rashes, No breakdown Musculoskeletal: Bilateral valgus deformity of knee, degenerative arthritis. Passive ROM restricted Neurological: Complete neuro exam unobtainable, patient nonverbal, confused encephalopathic. Psych/Mental Status: Lethargic, sleeping Assessment & Plan Assessment/Plan (1) Encephalopathy acute: (2) Metastasis from thyroid cancer: (3) Acute kidney injury: (4) Pleural effusion: PLAN: Plan Metastatic from thyroid cancer Patient with known metastatic to lungs. Chest x-ray was visualized and independently interpreted. I agree with the interpretation of left pleural effusion versus left basilar infiltrate. Mild cardiomegaly. White count is mildly elevated at 13,000 with neutrophilic predominance. There is no fever. With patient's symptoms going on for about 2 weeks, less likely pneumonia. However will empirically cover with ceftriaxone and azithromycin the patient was started at the emergency department. 06/24: Leukocytosis resolved. Acute metabolic encephalopathy, exact etiology unclear possible liver disease/hepatic encephalopathy Ammonia level on presentation was 65. Trend. Lactulose rectal x1 ordered. Also we will check a TSH. Keep patient NPO. Patient is at home vitamin B12. B12 more than 2000. B12 not given during hospital stay. 06/24: Even though sodium level is normal less than 10 patient is still encephalopathy grade 3, no further improvement since yesterday. Patient not opening eyes, noncommunicative lethargic and obtunded. Continue lactulose through NG tube every 4 hourly. Free water 300 mL every 4 hourly and D5 half NS 75 mill per hour. Patient is very dehydrated and had 4 bowel movement yesterday. Lactic acidosis: Lactic acid of 3.4 on presentation. Likely secondary to hypoxia. Trend. JORDAN Creatinine of 1.01 on presentation which increased to 1.36. Baseline creatinine of less than 1 Gentle IV hydration. Hold home Lasix and spironolactone. Gentle IV hydration. Trend BMP. Chronic liver disease exact etiology unclear, possibility of mets: Bilirubin of 3.2. AST of 148. ALT of 64. Alkaline phosphatase of 233. Trend CMP. Hold Nodol since patient been placed on n.p.o. status. 06/24: Medical Billing Representative consulted in the beginning and discussed with him yesterday and today. CT abdomen and pelvis with IV contrast ordered. Patient has obstructive jaundice pattern, worsening. Debility from counseled PT and OT to evaluate and treat. Case management consult DVT prophylaxis: SCDs. No chemical thromboprophylaxis at this time as patient is a candidate for thoracentesis. Charges/Coding Visit Charges Inpatient E&M: 22092 [facility] L3
[2022-06-24 09:42] LABS: Absolute Lymphocyte Count 1.44 X10^3/uL (0.83-4.51); Absolute Neutrophil Count 4.6 X10^3/uL (2.0-7.7); Basophil# 0.04 X10^3/uL; Basophil% 0.6 % (0-1); Eosinophils% 1.4 % (0-5); Hematocrit 46.1 % (37-47); Lymphocyte # 1.44 X10^3/ul (0.83-4.51); Lymphocyte % 19.8 % (19-41); Mean Corp Hgb Conc 32.5 g/dL (32-36); Mean Corpuscular Hgb 31.3 pg (27.0-32.0); Mean Corpuscular Volume 96.2 fL (81-99); Mean Platelet Vol. 12.6 fl (6.2-12.0); Monocyte# 1.01 X10^3/uL; Monocyte% 13.9 % (0-10); NRBC Flagged by Analyzer 0.6 % (0-5); Neutrophil # 4.57 X10^3/uL (2.7-7.7); Neutrophil % 62.8 % (47-70); POSITIVE COUNT YES; Platelet Count 76 K/mm3 (150-450); RBC Distribution Width CV 15.9 % (11.6-14.6); RBC Distribution Width SD 54.4 fl (35.1-43.9); Red Blood Count 4.79 M/mm3 (4.2-5.4); White Blood Count 7.3 K/mm3 (4.4-11.0)
[2022-06-24] MEDS: Ceftriaxone 1 GM/50 ML BAG IV (10:15)
[2022-06-24 10:16] LABS: Anion Gap 8 (5-15); BUN 29 mg/dL (7-18); BUN/Creat Ratio 21.3 RATIO (10-20); Calcium,Total 8.9 mg/dL (8.5-10.1); Chloride 109 mmol/L (98-107); Creatinine, Serum 1.36 mg/dL (0.55-1.02); EST Glomerular Filtration Rate 41 mL/min (>60); Est Glom Filt Rate - Afr Amer 50 mL/min (>60); Estimated Creatinine Clearance 36.61 ml/min; Glucose 98 mg/dL (74-106); Potassium 3.7 mmol/L (3.5-5.1); Sodium Level 144 mmol/L (136-145)
[2022-06-24] MEDS: rifAXIMin 550 MG Tablet NG ×2 (10:17→22:24)
[2022-06-24] MEDS: metroNIDAZOLE 500 MG Tablet NG ×2 (10:17→22:24)
[2022-06-24] MEDS: Azithromycin 250 MG Tablet 500 MG NG (10:18)
--- NOTE | 2022-06-24 10:21 | PN_ITS ---
Subjective Subjective Patient's ammonia level is down but she still very encephalopathic. She answers questions to her name but cannot tell me where she is at currently. Objective Data Objective Data Vital Signs: Vital Signs Temp Pulse Resp BP Pulse Ox O2 Del Method O2 Flow Rate 98.2 F 66 19 H 117/66 93 Room Air 2 06/24/22 06:41 06/24/22 06:41 06/24/22 06:41 06/24/22 06:41 06/24/22 06:41 06/24/22 07:57 06/22/22 16:16 Oxygen Flow Rate (L/min) 2 Oxygen Delivery Method Room Air Weight: 250 lb 14.177 oz Body Mass Index (BMI) 41.7 Intake & Output: Intake and Output for Last 24 Hours 06/22/22 06/23/22 06/24/22 23:59 23:59 23:59 Intake Total 1915.0 / 1945.0 1090 / 1090 Balance 1915.0 / 1945.0 1090 / 1090 Lab / Micro Data Result Diagrams: 06/24/22 09:15 06/24/22 09:15 Labs: Laboratory Results - last 24 hr 06/22/22 05:16: Tumor Marker AFP 2.3 06/23/22 07:27: Direct Bilirubin 2.53 H, GGT 290 H 06/24/22 04:54: Ammonia < 10.0 L 06/24/22 04:54: Total Bilirubin 5.30 H, Direct Bilirubin 3.39 H, AST 202 H, ALT 83 H, Alkaline Phosphatase 188 H, Total Protein 5.6 L, Albumin 2.1 L, Globulin 3.5, Free T4 0.15 L 06/24/22 09:15: WBC 7.3, RBC 4.79, Hgb 15.0, Hct 46.1, MCV 96.2, MCH 31.3, MCHC 32.5, RDW Std Deviation 54.4 H, RDW Coeff of Anyi 15.9 H, Plt Count 76 L, MPV 12.6 H, Immature Gran % (Auto) 1.500 H, Neut % (Auto) 62.8, Lymph % (Auto) 19.8, [place] % (Auto) 13.9 H, Eos % (Auto) 1.4, Baso % (Auto) 0.6, Absolute Neuts (auto) 4.6, Absolute Lymphs (auto) 1.44, Nucleated RBC % 0.6 06/24/22 09:15: Sodium 144, Potassium 3.7, Chloride 109 H, Carbon Dioxide 27.0, Anion Gap 8, BUN 29 H, Creatinine 1.36 H, Estim Creat Clear Calc 36.61, Est GFR (MDRD) Af Amer 50 L, Est GFR (MDRD) Non-Af 41 L, BUN/Creatinine Ratio 21.3 H, Glucose 98, Calcium 8.9 Micro: Microbiology 06/21/22 20:30 Blood Culture (Wb) - Anticubital Right Blood Culture - Preliminary 06/21/22 20:30 Nasal Secretion SARS-CoV-2 & FLU Antigen (Rapid) - Final Radiography Diagnostic Testing: Radiology Impression KUB X-Ray 06/23/22 08:54 IMPRESSION: NG tube tip and sidehole are inside the left gastric cavity facing the left hemidiaphragm. Electronically Signed: Carlos A Guillen MD at 11:43 EST , Physical Exam Narrative History alertable patient very drowsy lethargic, hardly opens eyes on verbal command. Noncommunicative/nonverbal. Physical exam General: Lethargic, obtunded, closed eyes. Disoriented HEENT: Atraumatic, PERRLA, Normocephalic Oral: Oral mucosa dry. NG tube. Neck: Supple, No JVD, Negative Carotid Bruits Lungs: Air entry diminished in bilateral lung bases. No crepitation/rhonchi Cardiovascular: Regular rate, bradycardia, Normal S1, Normal S2, systolic murmur Abdomen: Bowel Sounds Present, Soft, Non Tender, Non-Distended : No renal angle tenderness. No suprapubic tenderness. Extremities: No edema, Capillary Refill Less than 3 Seconds Skin: No rashes, No breakdown Musculoskeletal: Bilateral valgus deformity of knee, degenerative arthritis. Passive ROM restricted Neurological: Complete neuro exam unobtainable, patient nonverbal, confused encephalopathic. Psych/Mental Status: Lethargic, sleeping Assessment & Plan Assessment/Plan (1) Encephalopathy acute: (2) Cirrhosis: PLAN: Plan She needs a CT scan of the abdomen pelvis to see if she has metastatic disease to the liver, pseudocirrhosis or actual cirrhosis causing her increase liver function test and liver enzymes. Her ammonia level decreased nicely with the administration of lactulose, neomycin, Flagyl and Xifaxan. However she is still very encephalopathic. Continue lactulose administration of 20 cc every 4 hours for the next 24 hours. Also will continue neomycin 500 mg p.o. twice daily, Flagyl 500 mg p.o. 3 times daily and Xifaxan 550 mg twice daily. There was no sign of malignancy on her recent imaging of her liver. alpha- fetoprotein is pending to see if there is any signs of occult malignancy from cirrhosis causing decompensated liver disease. Continue nadolol therapy. I will get an ultrasound of the abdomen to see if she needs a diagnostic p aracentesis. Charges/Coding Visit Charges Inpatient E&M: 11389 Subs Hosp L3
[2022-06-24 10:38] VITALS: BP 97/74; PULSE 59; RESP 18; TEMP 36.5; O2SAT 95
[2022-06-24 10:45] VITALS: O2SAT 95
[2022-06-24] MEDS: Dext 5%-0.45% NS 1,000 ML 75 ML IV (13:03)
[2022-06-24 16:00] VITALS: BP 98/63; PULSE 60; RESP 18; TEMP 37.1; O2SAT 95
[2022-06-24] MEDS: Acetaminophen 650 MG/20 ML UDC NG (17:46)
[2022-06-24 22:21] VITALS: BP 121/78; PULSE 59; RESP 19; TEMP 36.6; O2SAT 94
[2022-06-25] VITALS (7 sets, daily range): BP systolic 109–153; BP diastolic 76–88; PULSE 51–71; RESP 18; TEMP 36.1–36.8; O2SAT 92–100
[2022-06-25] MEDS: Lactulose 20 GM/30 ML UDC NG ×6 (02:36→21:36)
[2022-06-25] MEDS: Dext 5%-0.45% NS 1,000 ML 75 ML IV ×2 (02:36→15:56)
--- NOTE | 2022-06-25 05:55 | CT_ITS ---
STUDY: CT ABDOMEN AND PELVIS WITH CONTRAST REASON FOR EXAM: Female, 67 years old. LIVER disease with obstructive jaundice RADIATION DOSAGE (If Supplied By Facility): CTDIvol = ( 2.55 ) mGy, DLP = ( 2321.55 ) mGycm TECHNIQUE: Transaxial images were obtained from the dome of the diaphragm to the symphysis pubis with oral contrast. Oral and amp;amp; IV Gastrografin and amp;amp; 100mL Isovue-300 was administered. Sagittal and coronal images were reconstructed. Individualized dose optimization techniques were used for this CT. COMPARISON: None. FINDINGS: An orogastric tube is seen within the esophagus. There is evidence of a soft tissue mass in the left upper lobe extending into the mediastinum. A left hilar mass with mediastinal adenopathy should be ruled out. A dedicated CT scan of the chest is recommended for further evaluation. Small left pleural effusion. Increased markings are also seen in the anterior aspect of the right upper lobe. Consolidation in the left lower lobe with increased markings in the right lung base is coronary artery calcification. There is a diffuse contour abnormality of the liver consistent with cirrhotic changes. There is evidence of heterogeneous density of the liver. Small amount of perihepatic fluid is seen overlying the inferior aspect of the right lobe of the liver. The patient is status post cholecystectomy. There is mild splenomegaly. There is evidence of varices in the region of the splenic hilum. This prominence of the left gonadal vein. Normal pancreas. Normal bilateral adrenal glands. Normal right kidney. Normal left kidney. Normal visualized stomach. Normal small intestine. Soft tissue density is seen in the region of the cecum. There is appearance of possible apple core lesion suggestive of carcinoma. Further evaluation is recommended. There is also evidence of diffuse circumferential wall thickening of the sigmoid colon with mild increased markings in the surrounding peritoneal fat with diverticulosis. This is suggestive of sigmoid diverticulitis. The appendix is visualized and appears normal. There is diffuse atherosclerotic calcification of the abdominal aorta, without a demonstrated aneurysm. Normal inferior vena cava. Normal retroperitoneum. Normal urinary bladder. Normal abdominal wall. There are diffuse degenerative changes of the visualized lumbar spine. There is a 1.3 cm lucency in the body of the L2 vertebrae. CT/Abdomen/Pelvis WITH Contrast IMPRESSION: Left upper lobe mass with a soft tissue density in the mediastinum infiltration in the left lower lobe and small left pleural effusion. Mild increased markings in the right lung. Findings suggestive of cirrhotic changes of the liver with the splenomegaly and varices in the splenic hilum. Questionable apple core lesion in the cecum. Findings suggestive of mild sigmoid diverticulitis. Electronically Signed: Daniel Goodman MD at 10:48 EST ,
[2022-06-25 07:01] LABS: AST(SGOT) 267 U/L (15-37); Alanine Aminotransfer ALT/SGPT 102 U/L (13-56); Albumin, Serum 2.2 g/dL (3.2-5.0); Alkaline Phosphatase 211 U/L (45-117); Anion Gap 4 (5-15); BUN 19 mg/dL (7-18); Bilirubin, Direct 2.33 mg/dL (0.00-0.30); Calcium,Total 8.6 mg/dL (8.5-10.1); Chloride 109 mmol/L (98-107); Creatinine, Serum 1.12 mg/dL (0.55-1.02); EST Glomerular Filtration Rate 52 mL/min (>60); Est Glom Filt Rate - Afr Amer 63 mL/min (>60); Estimated Creatinine Clearance 44.46 ml/min; Globulin 3.8 g/dL (2.2-4.2); Glucose 123 mg/dL (74-106); Potassium 3.8 mmol/L (3.5-5.1); Sodium Level 141 mmol/L (136-145)
[2022-06-25] MEDS: rifAXIMin 550 MG Tablet NG ×2 (09:53→21:36)
[2022-06-25] MEDS: 0.9% Saline Lock 10 ML Syringe IV (09:53)
[2022-06-25] MEDS: metroNIDAZOLE 500 MG Tablet NG ×2 (09:53→21:36)
[2022-06-25] MEDS: Azithromycin 250 MG Tablet 500 MG NG (09:53)
--- NOTE | 2022-06-25 10:02 | CASEMGMT ---
Social Work? Per weekend report pt and family making decisions on if pt will go to SNF or not. SW attempted to meet with pt in room to follow up. Pt nurse informed pt not feeling well and best to call pt daughter, Valentine. SW was approached by pt's 4 sisters outside room. Sisters informed family wanting TCU. SW shared daughter, Valentine, would be decision maker and this information would have to come from Valentine. Sisters understanding, all know Valentine is pt's HCPOA. SW called Valentine, pt dtg., to discuss discharge plan. Valentine stated family has decided SNF would be best. Choices in order of preference are: [facility], [facility], [place], [place] [facility] [place]. SW sent referral to [facility] at [facility]. Will await determination. PLAN: TCU, pending acceptance and precert. MARY Taylor
[2022-06-25] MEDS: Ceftriaxone 1 GM/50 ML BAG IV (10:16)
--- NOTE | 2022-06-25 13:10 | CASEMGMT ---
Addendum entered by Elena Coto 06/25/22 15:47: Per Verónica, pt is accepted but precert cannot be started until therapy notes are in where pt has participated. Pt had PEG placed over weekend and did not feel up to therapy. This SW checked with therapist Bozena, who stated Physical Therapy was sending Kaiden over to work with this pt. SW updated Verónica at [facility] to look for this note later this day or tomorrow morning. MARY Taylor Original Note: Social work SW followed up on referral to TCU. [facility] stated waiting on pharmacy to approve. Will continue to await determination. PLAN: TCU, pending acceptance and precert MARY Taylor
--- NOTE | 2022-06-25 15:44 | PN.HOSP_ITS ---
Reason for Visit Reason for Visit: Diagnoses Malignant neoplasm of thyroid gland (06/22/22) Secondary malignant neoplasm of unspecified site (06/22/22) Encephalopathy, unspecified (06/22/22) Pleural effusion, not elsewhere classified (06/22/22) Unspecified cirrhosis of liver (06/22/22) Acute kidney failure, unspecified (06/22/22) Subjective Subjective Follow-up for acute encephalopathy. Objective Data Objective Data Vital Signs: Vital Signs Temp Pulse Resp BP Pulse Ox O2 Del Method O2 Flow Rate 97.5 F L 55 L 18 125/82 H 92 Room Air 2 06/25/22 14:40 06/25/22 14:40 06/25/22 14:40 06/25/22 14:40 06/25/22 14:40 06/25/22 14:40 06/22/22 16:16 Oxygen Flow Rate (L/min) 2 Oxygen Delivery Method Room Air Weight: 250 lb 14.177 oz Body Mass Index (BMI) 41.7 Intake & Output: Intake and Output for Last 24 Hours 06/23/22 06/24/22 06/25/22 23:59 23:59 23:59 Intake Total 1915.0 / 1945.0 3490 / 3490 1949 / 1950 Balance 1915.0 / 1945.0 3490 / 3490 1949 Lab / Micro Data Result Diagrams: 06/24/22 09:15 06/25/22 06:10 Labs: Laboratory Results - last 24 hr 06/25/22 06:10: Sodium 141, Potassium 3.8, Chloride 109 H, Carbon Dioxide 28.0, Anion Gap 4 L, BUN 19 H, Creatinine 1.12 H, Estim Creat Clear Calc 44.46, Est GFR (MDRD) Af Amer 63, Est GFR (MDRD) Non-Af 52 L, BUN/Creatinine Ratio 17.0, G lucose 123 H, Calcium 8.6, Total Bilirubin 5.40 H, Direct Bilirubin 2.33 H, AST 267 H, ALT 102 H, Alkaline Phosphatase 211 H, Total Protein 6.0 L, Albumin 2.2 L , Globulin 3.8 Micro: Microbiology 06/21/22 20:30 Blood Culture (Wb) - Anticubital Right Blood Culture - Preliminary Staphylococcus species 06/21/22 23:15 Blood Culture (Wb) - Anticubital Left Blood Culture - Preliminary No growth in 48 hours. 06/21/22 20:30 Nasal Secretion SARS-CoV-2 & FLU Antigen (Rapid) - Final Radiography Diagnostic Testing: Radiology Impression Abdomen/Pelvis CT 06/25/22 05:55 IMPRESSION: Left upper lobe mass with a soft tissue density in the mediastinum infiltration in the left lower lobe and small left pleural effusion. Mild increased markings in the right lung. Findings suggestive of cirrhotic changes of the liver with the splenomegaly and varices in the splenic hilum. Questionable apple core lesion in the cecum. Findings suggestive of mild sigmoid diverticulitis. Electronically Signed: Daniel Goodman MD at 10:48 EST , Physical Exam Narrative Seen and examined. Patient is sitting on the chair. More awake and eyes are open. Physical exam General: Awake, eyes open. Patient still not coherent with his speech, speaks few words. HEENT: Atraumatic, PERRLA, Normocephalic Oral: Oral mucosa moist. NG tube. Neck: Supple, No JVD, Negative Carotid Bruits Lungs: Air entry diminished in bilateral lung bases. No crepitation/rhonchi Cardiovascular: Regular rate, bradycardia, Normal S1, Normal S2, systolic murmur Abdomen: Bowel Sounds Present, Soft, Non Tender, Non-Distended : No renal angle tenderness. No suprapubic tenderness. Extremities: No edema, Capillary Refill Less than 3 Seconds Skin: No rashes, No breakdown Musculoskeletal: Bilateral valgus deformity of knee, degenerative arthritis. Passive ROM restricted Neurological: No acute deficit. Complete neuro exam unobtainable at this patien t does not follow command appropriately Psych/Mental Status: Awake. Assessment & Plan Assessment/Plan (1) Encephalopathy acute: (2) Metastasis from thyroid cancer: (3) Acute kidney injury: (4) Pleural effusion: PLAN: Plan Metastatic from thyroid cancer Patient with known metastatic to lungs. Chest x-ray was visualized and independently interpreted. I agree with the interpretation of left pleural effusion versus left basilar infiltrate. Mild cardiomegaly. White count is mildly elevated at 13,000 with neutrophilic predominance. There is no fever. With patient's symptoms going on for about 2 weeks, less likely pneumonia. However will empirically cover with ceftriaxone and azithromycin the patient was started at the emergency department. 06/24: Leukocytosis resolved. Acute hepatic encephalopathy with decompensated cirrhosis with splenomegaly, small perihepatic ascites and portal hypertensive changes Ammonia level on presentation was 65. Trend. Lactulose rectal x1 ordered. Also we will check a TSH. Keep patient NPO. Patient is at home vitamin B12. B12 more than 2000. B12 not given during hospital stay. 06/24: Even though sodium level is normal less than 10 patient is still encephalopathy grade 3, no further improvement since yesterday. Patient not opening eyes, noncommunicative lethargic and obtunded. Continue lactulose through NG tube every 4 hourly. Free water 300 mL every 4 hourly and D5 half NS 75 mill per hour. Patient is very dehydrated and had 4 bowel movement yesterday. 06/25: CT abdomen shows diffuse contour abnormality of liver consistent with cirrhotic changes with small perihepatic fluid suggestive of ascites. Mild splenomegaly and evidence of varices in the region of the splenic hilum. Overall suggestive of cirrhosis Lactic acidosis: Lactic acid of 3.4 on presentation. Likely secondary to hypoxia. Trend. JORDAN Creatinine of 1.01 on presentation which increased to 1.36. Baseline creatinine of less than 1 Gentle IV hydration. Hold home Lasix and spironolactone. Gentle IV hydration. Trend BMP. 06/25: Creatinine 1.12 Decompensated cirrhosis: Bilirubin of 3.2. AST of 148. ALT of 64. Alkaline phosphatase of 233. Trend CMP. Hold Nodol since patient been placed on n.p.o. status. 06/24: Professional Architect consulted in the beginning and discussed with him yesterday and today. CT abdomen and pelvis with IV contrast ordered. Patient has obstructive jaundice pattern, worsening. 06/25: Worsening of liver transaminases, total bilirubin and alkaline phosphatase. Debility from counseled PT and OT to evaluate and treat. Case management consult Abnormal CT abdomen findin/13: CT abdomen shows soft tissue mass in the left upper lobe extending to mediastinum, small left pleural effusion and soft tissue density in the cecum, possible apple core lesion suggestive of colon carcinoma. Diffuse circumferential wall thickening of sigmoid colon with increased marking and peritoneal fat suggestive of diverticulitis. Patient is on IV ceftriaxone and Flagyl. CT chest without ordered. DVT prophylaxis: SCDs. No chemical thromboprophylaxis at this time as patient is a candidate for thoracentesis. Charges/Coding Visit Charges Inpatient E&M: 25526 Subs Hosp L2
--- NOTE | 2022-06-25 17:09 | PN_ITS ---
Subjective Subjective Patient had a CT scan abdomen pelvis. She is more alert today. She still has NG tube in. She is still getting lactulose previously ordered. Objective Data Objective Data Vital Signs: Vital Signs Temp Pulse Resp BP Pulse Ox O2 Del Method O2 Flow Rate 97.5 F L 55 L 18 125/82 H 92 Room Air 2 06/25/22 14:40 06/25/22 14:40 06/25/22 14:40 06/25/22 14:40 06/25/22 14:40 06/25/22 16:00 06/22/22 16:16 Oxygen Flow Rate (L/min) 2 Oxygen Delivery Method Room Air Weight: 250 lb 14.177 oz Body Mass Index (BMI) 41.7 Intake & Output: Intake and Output for Last 24 Hours 06/23/22 06/24/22 06/25/22 23:59 23:59 23:59 Intake Total 1915.0 / 1945.0 3490 / 3490 3250 / 3250 Balance 1915.0 / 1945.0 3490 / 3490 3250 / 3250 Lab / Micro Data Result Diagrams: 06/24/22 09:15 06/25/22 06:10 Labs: Laboratory Results - last 24 hr 06/25/22 06:10: Sodium 141, Potassium 3.8, Chloride 109 H, Carbon Dioxide 28.0, Anion Gap 4 L, BUN 19 H, Creatinine 1.12 H, Estim Creat Clear Calc 44.46, Est GFR (MDRD) Af Amer 63, Est GFR (MDRD) Non-Af 52 L, BUN/Creatinine Ratio 17.0, Glucose 123 H, Calcium 8.6, Total Bilirubin 5.40 H, Direct Bilirubin 2.33 H, AST 267 H, ALT 102 H, Alkaline Phosphatase 211 H, Total Protein 6.0 L, Albumin 2.2 L , Globulin 3.8 Micro: Microbiology 06/21/22 20:30 Blood Culture (Wb) - Anticubital Right Blood Culture - Preliminary Staphylococcus species 06/21/22 23:15 Blood Culture (Wb) - Anticubital Left Blood Culture - Preliminary No growth in 48 hours. 06/21/22 20:30 Nasal Secretion SARS-CoV-2 & FLU Antigen (Rapid) - Final Radiography Diagnostic Testing: Radiology Impression Abdomen/Pelvis CT 06/25/22 05:55 IMPRESSION: Left upper lobe mass with a soft tissue density in the mediastinum infiltration in the left lower lobe and small left pleural effusion. Mild increased markings in the right lung. Findings suggestive of cirrhotic changes of the liver with the splenomegaly and varices in the splenic hilum. Questionable apple core lesion in the cecum. Findings suggestive of mild sigmoid diverticulitis. Electronically Signed: Daniel Goodman MD at 10:48 EST , Physical Exam Narrative Seen and examined. Patient is sitting on the chair. More awake and eyes are open. Physical exam General: Awake, eyes open. Patient still not coherent with his speech, speaks f ew words. HEENT: Atraumatic, PERRLA, Normocephalic Oral: Oral mucosa moist. NG tube. Neck: Supple, No JVD, Negative Carotid Bruits Lungs: Air entry diminished in bilateral lung bases. No crepitation/rhonchi Cardiovascular: Regular rate, bradycardia, Normal S1, Normal S2, systolic murmur Abdomen: Bowel Sounds Present, Soft, Non Tender, Non-Distended : No renal angle tenderness. No suprapubic tenderness. Extremities: No edema, Capillary Refill Less than 3 Seconds Skin: No rashes, No breakdown Musculoskeletal: Bilateral valgus deformity of knee, degenerative arthritis. Passive ROM restricted Neurological: No acute deficit. Complete neuro exam unobtainable at this patient does not follow command appropriately Psych/Mental Status: Awake. Assessment & Plan Assessment/Plan (1) Encephalopathy acute: PLAN: Continue lactulose as previously ordered. She still has a grade 1-2 hepatic encephalopathy. She may need imaging of her brain to make sure there is no metastatic lesions in the brain. (2) Cirrhosis: PLAN: CT scan abdomen pelvis does show that she has cirrhosis without any lesio ns seen in the liver. Awaiting alpha-fetoprotein. Poor prognosis due to the fact she has cirrhosis and recurrent thyroid cancer. PLAN: Plan CT scan abdomen pelvis also shows possible lesion in her colon which could explain possible lung metastasis. She will need an upper and lower endoscopy to look for varices of the upper GI tract and she will need a colonoscopy to evaluate the possible apple core lesion seen on CT scan abdomen pelvis. Charges/Coding Visit Charges Inpatient E&M: 21021 Subs Hosp L3
[2022-06-25] MEDS: Bisacodyl 5 MG Tablet 20 MG PO (18:24)
[2022-06-25] MEDS: Polyethylene Glycol 3350 BOWEL PREP PO (18:24)
[2022-06-25] MEDS: Ondansetron 4 MG/2 ML Vial IV (19:05)
[2022-06-26] VITALS (27 sets, daily range): BP systolic 102–173; BP diastolic 71–159; PULSE 64–115; RESP 12–20; TEMP 36–37.3; O2SAT 37–100; BMI 41.7
[2022-06-26] MEDS: Lactulose 20 GM/30 ML UDC NG ×2 (02:05→09:45)
[2022-06-26] MEDS: Dext 5%-0.45% NS 1,000 ML 75 ML IV (07:08)
[2022-06-26 08:00] LABS: AST(SGOT) 244 U/L (15-37); Alanine Aminotransfer ALT/SGPT 107 U/L (13-56); Albumin, Serum 2.1 g/dL (3.2-5.0); Alkaline Phosphatase 229 U/L (45-117); Anion Gap 3 (5-15); BUN 13 mg/dL (7-18); BUN/Creat Ratio 14.9 RATIO (10-20); Bilirubin, Direct 3.55 mg/dL (0.00-0.30); Calcium,Total 8.6 mg/dL (8.5-10.1); Chloride 106 mmol/L (98-107); Creatinine, Serum 0.87 mg/dL (0.55-1.02); EST Glomerular Filtration Rate 69 mL/min (>60); Est Glom Filt Rate - Afr Amer 84 mL/min (>60); Estimated Creatinine Clearance 57.24 ml/min; Globulin 3.9 g/dL (2.2-4.2); Glucose 126 mg/dL (74-106); Potassium 3.7 mmol/L (3.5-5.1); Sodium Level 137 mmol/L (136-145)
[2022-06-26] MEDS: Ondansetron 4 MG/2 ML Vial IV (08:04)
--- NOTE | 2022-06-26 08:10 | RAD_ITS ---
STUDY: X-RAY CHEST REASON FOR EXAM: Female, 67 years old. Sob TECHNIQUE: Single AP portable view of the chest. COMPARISON: Comparison is made with prior study dated 06/21/2022. FINDINGS: A nasogastric tube is seen with the tip in the fundal portion of the stomach. There is evidence of vascular congestion and mild CHF with left basilar atelectasis and/or infiltrate and small left pleural effusion. Normal size heart. Normal mediastinum and edith. Normal visualized pulmonary arteries. There is atherosclerotic tortuosity of the aortic arch and descending thoracic aorta. Normal visualized thoracic spine. There is degenerative osteoarthritis of the bilateral shoulders. There is no demonstrated abnormality of the visualized soft tissue structures of the upper abdomen. RAD/Chest 1 View (Portable) IMPRESSION: Findings suggestive of CHF with superimposed left basilar atelectasis and/or infiltrate and small left pleural effusion. Electronically Signed: Daniel Goodman MD at 9:43 EST ,
[2022-06-26 08:15] LABS: Allen Test Positive; Base Excess -1 mmol/L (-2 to +2); Bicarbonate 25.6 mmol/L (22-26); Blood Gas Specimen Type ART; O2 Delivery Device Cannula; PO2 74 mmHG (75-100); SITE L Radial; SO2 92 % (95-99); Total Carbon Dioxide 27 mmol/L; pCO2 55.9 mmHg (35-45); pH 7.27 (7.35-7.45)
--- NOTE | 2022-06-26 08:16 | CASEMGMT ---
Social Work? ELENA called pt daughter to verify advance directives. Daughter confirmed has AD and named?self, Valentine Charles, pt daughter, as agent. SW made pt aware documents are not on file and if pt would like to bring these documents in the documents can be dropped off at the Medical Records department. Pt voiced understanding.?? ? MARY Taylor?
--- NOTE | 2022-06-26 08:23 | PCM.PN.HOSP ---
Reason for Visit Reason for Visit: Diagnoses Malignant neoplasm of thyroid gland (06/22/22) Secondary malignant neoplasm of unspecified site (06/22/22) Encephalopathy, unspecified (06/22/22) Pleural effusion, not elsewhere classified (06/22/22) Unspecified cirrhosis of liver (06/22/22) Acute kidney failure, unspecified (06/22/22) Objective Data Objective Data Vital Signs: Vital Signs Temp Pulse Resp BP Pulse Ox O2 Del Method O2 Flow Rate 97.4 F L 64 16 147/92 H 91 Nasal Cannula 3 06/26/22 07:49 06/26/22 07:49 06/26/22 07:49 06/26/22 07:49 06/26/22 07:49 06/26/22 07:49 06/26/22 07:49 Oxygen Flow Rate (L/min) 3 Oxygen Delivery Method Nasal Cannula Weight: 250 lb 14.177 oz Body Mass Index (BMI) 41.7 Intake & Output: Intake and Output for Last 24 Hours 06/24/22 06/25/22 06/26/22 23:59 23:59 23:59 Intake Total 3490 / 3490 5450 / 5450 1600 / 1600 Output Total 250 / 250 Balance 3490 / 3490 5200 / 5200 1600 / 1600 Lab / Micro Data Result Diagrams: 06/24/22 09:15 06/26/22 07:30 Labs: Laboratory Results - last 24 hr 06/26/22 07:30: Sodium 137, Potassium 3.7, Chloride 106, Carbon Dioxide 28.0, Anion Gap 3 L, BUN 13, Creatinine 0.87, Estim Creat Clear Calc 57.24, Est GFR (MDRD) Af Amer 84, Est GFR (MDRD) Non-Af 69, BUN/Creatinine Ratio 14.9, Glucose 126 H, Calcium 8.6, Total Bilirubin 6.10 H, Direct Bilirubin 3.55 H, AST 244 H, ALT 107 H, Alkaline Phosphatase 229 H, Total Protein 6.0 L, Albumin 2.1 L, Globulin 3.9 Micro: Microbiology 06/21/22 20:30 Blood Culture (Wb) - Anticubital Right Blood Culture - Preliminary Staphylococcus hominis 06/21/22 23:15 Blood Culture (Wb) - Anticubital Left Blood Culture - Preliminary No growth in 48 hours. 06/21/22 20:30 Nasal Secretion SARS-CoV-2 & FLU Antigen (Rapid) - Final ABG Data ABG results: ABG 06/26/22 08:11 Specimen Type ART Sample Site L Radial pH 7.27 L Bicarbonate Actual 25.6 Total CO2 27 Base Excess -1 O2 Saturation 92 L ABG pCO2 55.9 H ABG pO2 74 L Carrington Test Positive O2 Delivery Device Cannula Liter Flow 2.0 Radiography Diagnostic Testing: Radiology Impression Abdomen/Pelvis CT 06/25/22 05:55 IMPRESSION: Left upper lobe mass with a soft tissue density in the mediastinum infiltration in the left lower lobe and small left pleural effusion. Mild increased markings in the right lung. Findings suggestive of cirrhotic changes of the liver with the splenomegaly and varices in the splenic hilum. Questionable apple core lesion in the cecum. Findings suggestive of mild sigmoid diverticulitis. Electronically Signed: Daniel Goodman MD at 10:48 EST , Physical Exam Narrative Seen and examined. Patient more drowsy and lethargic and obtunded today. Her eyes are closed. Patient is moaning. ABG stat was ordered. Physical exam General: Eyes closed, lethargic, obtunded. Disoriented to time and person HEENT: Atraumatic, PERRLA, Normocephalic Oral: Oral mucosa moist. NG tube. Neck: Supple, No JVD, Negative Carotid Bruits Lungs: Air entry diminished in bilateral lung bases. No crepitation/rhonchi Cardiovascular: Regular rate, bradycardia, Normal S1, Normal S2, systolic murmur Abdomen: Bowel Sounds Present, Soft, Non Tender, Non-Distended : No renal angle tenderness. No suprapubic tenderness. Extremities: No edema, Capillary Refill Less than 3 Seconds Skin: No rashes, No breakdown Musculoskeletal: Bilateral valgus deformity of knee, degenerative arthritis. Passive ROM restricted Neurological: No acute deficit. Complete neuro exam unobtainable at this patient does not follow command appropriately Psych/Mental Status: Lethargic Assessment & Plan Assessment/Plan (1) Encephalopathy acute: (2) Metastasis from thyroid cancer: (3) Acute kidney injury: (4) Pleural effusion: PLAN: Plan Metastatic from thyroid cancer Patient with known metastatic to lungs. Chest x-ray was visualized and independently interpreted. I agree with the interpretation of left pleural effusion versus left basilar infiltrate. Mild cardiomegaly. White count is mildly elevated at 13,000 with neutrophilic predominance. There is no fever. With patient's symptoms going on for about 2 weeks, less likely pneumonia. However will empirically cover with ceftriaxone and azithromycin the patient was started at the emergency department. 06/24: Leukocytosis resolved. Acute hepatic encephalopathy with decompensated cirrhosis with splenomegaly, small perihepatic ascites and portal hypertensive changes Ammonia level on presentation was 65. Trend. Lactulose rectal x1 ordered. Also we will check a TSH. Keep patient NPO. Patient is at home vitamin B12. B12 more than 2000. B12 not given during hospital stay. 06/24: Even though sodium level is normal less than 10 patient is still encephalopathy grade 3, no further improvement since yesterday. Patient not opening eyes, noncommunicative lethargic and obtunded. Continue lactulose through NG tube every 4 hourly. Free water 300 mL every 4 hourly and D5 half NS 75 mill per hour. Patient is very dehydrated and had 4 bowel movement yesterday. 06/25: CT abdomen shows diffuse contour abnormality of liver consistent with cirrhotic changes with small perihepatic fluid suggestive of ascites. Mild splenomegaly and evidence of varices in the region of the splenic hilum. Overall suggestive of cirrhosis Lactic acidosis: Lactic acid of 3.4 on presentation. Likely secondary to hypoxia. Trend. 06/26: ABG was done 7.268/55/73 on 2 L of oxygen. Bicarb 28. ABG does not follow internal consistency rule therefore ABG is not valid. Chest x-ray mutilative reviewed and is under ventilated and congested. Lasix 40 mg IV 1 dose ordered. JORDAN Creatinine of 1.01 on presentation which increased to 1.36. Baseline creatinine of less than 1 Gentle IV hydration. Hold home Lasix and spironolactone. Gentle IV hydration. Trend BMP. 06/25: Creatinine 1.12 06/26: Creatinine 2.87. JORDAN resolved. Discontinue IV fluid. Decompensated cirrhosis: Bilirubin of 3.2. AST of 148. ALT of 64. Alkaline phosphatase of 233. Trend CMP. Hold Nodol since patient been placed on n.p.o. status. 06/24: Bobbin Dumper consulted in the beginning and discussed with him yesterday and today. CT abdomen and pelvis with IV contrast ordered. Patient has obstructive jaundice pattern, worsening. 06/25: Worsening of liver transaminases, total bilirubin and alkaline phosphatase. 06/27:Worsening of liver chemistry with total bilirubin, alkaline phosphatase increasing. Mainly direct hyperbilirubinemia. AST ALT ratio 2 : 1 PT and OT to evaluate and treat. Case management consult Abnormal CT abdomen findin/13: CT abdomen shows soft tissue mass in the left upper lobe extending to mediastinum, small left pleural effusion and soft tissue density in the cecum, possible apple core lesion suggestive of colon carcinoma. Diffuse circumferential wall thickening of sigmoid colon with increased marking and peritoneal fat suggestive of diverticulitis. Patient is on IV ceftriaxone and Flagyl. CT chest without ordered. DVT prophylaxis: SCDs. No chemical thromboprophylaxis at this time as patient is a candidate for thoracentesis. Total time of the visit including total time spent in counseling or coordination of care, (more than 50% of the total time, spent in obtaining medical information from nurses and other ancillary care providers,explaining to the patient about labs, imaging, diagnosis and management of active complex medical conditions), taking care of acute shortness of breath, encephalopathy clinical update given to patient's daughter near bedside, discussion with GI, review of labs and imaging is 60 minutes Charges/Coding Multi Select Codes Visit Charges Visit Charges: 50248 [facility] Hosp L3
[2022-06-26] MEDS: Furosemide 40 MG/4 ML Vial IV (08:35)
[2022-06-26] MEDS: 0.9% Saline Lock 10 ML Syringe IV (08:36)
[2022-06-26] MEDS: Azithromycin 250 MG Tablet 500 MG NG (09:39)
[2022-06-26] MEDS: rifAXIMin 550 MG Tablet NG (09:40)
[2022-06-26] MEDS: metroNIDAZOLE 500 MG Tablet NG (09:40)
--- NOTE | 2022-06-26 09:41 | CASEMGMT ---
Social Work SW in to speak with pt daughter, Valentine, this morning. SW discussed concern with pt being able to participate in 1.5 hour therapy regimen at [facility], which was brought to this SW attention by Ver[facility] at [facility]. SW addressed with pt daughter an discussed alternatives, with focus on other SNFs were therapy regimen would be less overwhelming for pt current condition. Daughter became emotional, struggled to talk about situation. SW attempted to console daughter. After validating daughter's feelings SW encourage daughter to take some time to review thoughts and plans for future with pt. Pt has pending scope procedure with MD Friend this afternoon. SW will check in with family following results of this, as it may impact discharge plans. PLAN: Possible TCU MARY Taylor
[2022-06-26] MEDS: Ceftriaxone 1 GM/50 ML BAG IV (10:17)
[2022-06-26] MEDS: Ipratropium/Albuterol Sulfate 3 ML AMPUL.NEB INHALATION (11:42)
--- NOTE | 2022-06-26 15:04 | NURSING ---
pt to endo
[2022-06-26] MEDS: Lactated Ringers 1,000 ML 15 ML IV (15:15)
--- NOTE | 2022-06-26 15:15 | COLBX_PTH ---
PATIENT: CHARMAINE GOEL LOC: [facility] U#:[id number] AGE/SX: 67/F ROOM: ICU01 RE06/22/[address]: Dr. Roberta Banda DO : 1955 BED: 1 DIS: 07/05/2022 SPEC #: [id number] RECD: 06/26/22 16:40 STATUS: NATY REQ #: [id number] LEANDRO: 06/26/22 15:[address]: Bro Moss DEPT: SURGICAL PATHOLOGY RECD BY: Jackie Hansen ENTERED: 06/27/22 09:53 SP TYPE: COLON BX OTHR DR: MD Dr. Woodrow Nath, MD Dr. Roberta Clements Dr., MD Dr. Babak Hough Dr., MD Dr. Rahsaan Friend, DO MD Dr. Jaya Felton Chi, MD Christina Muller, ENGINEERING SURVEYOR-C Tissues: Transverse colon Procedures: Surgery Specimen Level IV Comments: @ Ordering doctor for SUIV edited from to @ by MAGO at 06/27/22 1507 @ Submitting doctor edited from to @ by MAGO at 06/27/22 1507 HEADER OPERATION: Colonoscopy with biopsies, EGD (MAC) PRE-OP DIAGNOSIS: Encephalopathy acute, cirrhosis TISSUE SUBMITTED: Transverse colon biopsy MICROSCOPIC DIAGNOSIS Transverse colon, biopsy: Fragments of colonic mucosa with changes consistent with ischemic colitis. SANTIAGO:nils 06/28/2022 MICROSCOPIC DESCRIPTION Slides are reviewed. GROSS DESCRIPTION Received in fixative is one container labeled with the patient's name and designated transverse colon biopsy. The specimen consists of multiple irregular fragments of light molina soft tissue that in aggregate measure 0.6 x 0.2 x 0.1 cm. The specimen is totally submitted in one cassette. / SANTIAGO:nils 06/27/2022 TC:5 CPT: 44339 x2
[2022-06-26 16:09] LABS: ANTINUCLEAR ANTIBODIES DIRECT Positive (Negative); Anti-Centromere B Ab <0.2 AI (0.0-0.9); Anti-Chromatin <0.2 AI (0.0-0.9); Anti-Jo <0.2 AI (0.0-0.9); Anti-Scleroderma-70 AB <0.2 AI (0.0-0.9); RNP Ab 1.1 AI (0.0-0.9); SJOGREN'S Anti-SS-A test < 0.2 AI (0.0-0.9); SJOGREN'S Anti-SS-B test < 0.2 AI (0.0-0.9); Smith Ab <0.2 AI (0.0-0.9)
--- NOTE | 2022-06-26 16:27 | OP.EGD_ITS ---
Patient Name: Beatriz Pizaror Procedure Date: 06/26/2022 3:40 PM Date of : 1955 Age: 67 Procedure: Upper GI endoscopy Indications: Iron deficiency anemia, Cirrhosis with UGI bleeding suspected esophageal varices Providers: Bro Moss DO Medicines: Monitored Anesthesia Care Patient Profile: This is a 67 year old female. Refer to note in patient chart for documentation of history and physical. Patient has symptoms of acute vomiting. Complications: No immediate complications. Procedure: Pre-Anesthesia Assessment: - Prior to the procedure, a History and Physical was performed, and patient medications and allergies were reviewed. The patient is competent. The risks and benefits of the procedure and the sedation options and risks were discussed with the patient. All questions were answered and informed consent was obtained. Patient identification and proposed procedure were verified by the physician in the pre-procedure area. Mental Status Examination: alert and oriented. Airway Examination: normal oropharyngeal airway and neck mobility. Respiratory Examination: clear to auscultation. CV Examination: normal. Prophylactic Antibiotics: The patient does not require prophylactic antibiotics. Prior Anticoagulants: The patient has taken no previous anticoagulant or antiplatelet agents. ASA Grade Assessment: II - A patient with mild systemic disease. After reviewing the risks and benefits, the patient was deemed in satisfactory condition to undergo the procedure. The anesthesia plan was to use monitored anesthesia care (MAC). Immediately prior to administration of medications, the patient was re-assessed for adequacy to receive sedatives. The heart rate, respiratory rate, oxygen saturations, blood pressure, adequacy of pulmonary ventilation, and response to care were monitored throughout the procedure. The physical status of the patient was re-assessed after the procedure. After obtaining informed consent, the endoscope was passed under direct vision. Throughout the procedure, the patient's blood pressure, pulse, and oxygen saturations were monitored continuously. The pediatric colonoscope was introduced through the mouth, and advanced to the second part of duodenum. The upper GI endoscopy was accomplished without difficulty. The patient tolerated the procedure well. Scope In: 3:55:43 PM Scope Out: 3:59:34 PM Total Procedure Duration Time 0 hours 3 minutes 51 seconds Findings: No gross lesions were noted in the entire esophagus. Type 1 isolated gastric varices (IGV1, varices located in the fundus) with no bleeding were found in the gastric fundus. There were no stigmata of recent bleeding. They were 5 mm in largest diameter. One oozing cratered gastric ulcer with a visible vessel was found in the gastric body. The lesion was 6 mm in largest dimension. Coagulation for hemostasis using heater probe was successful. Estimated blood loss was minimal. Moderate portal hypertensive gastropathy was found in the entire examined stomach. No gross lesions were noted in the first portion of the duodenum. Impression: - No gross lesions in esophagus. - Type 1 isolated gastric varices (IGV1, varices located in the fundus), without bleeding. - Oozing gastric ulcer with a visible vessel. Treated with a heater probe. - Portal hypertensive gastropathy. - No gross lesions in the first portion of the duodenum. - No specimens collected. Recommendation: - Return patient to [facility] for ongoing care. - Resume previous diet. - Continue present medications. Procedure Code(s): --- Professional --- 45913, Esophagogastroduodenoscopy, flexible, transoral; with control of bleeding, any method CPT copyright 2017 [employer]. All rights reserved. The codes documented in this report are preliminary and upon quarry manager review may be revised to meet current compliance requirements. Bro Moss DO 06/26/2022 4:26:34 PM This report has been signed electronically. Number of Addenda: 0 Note Initiated On: 06/26/2022 3:40 PM
--- NOTE | 2022-06-26 16:28 | OP.CCLET_ITS ---
06/26/2022 Campbell Dumont MD [address] [place] [address] Re : Upper GI endoscopy procedure for Beatriz Angle Dear Dr. Dumont This procedure was performed on Sunday, June 26, 2022. My impressions and recommendations are as follows: Impressions : - No gross lesions in esophagus. - Type 1 isolated gastric varices (IGV1, varices located in the fundus), without bleeding. - Oozing gastric ulcer with a visible vessel. Treated with a heater probe. - Portal hypertensive gastropathy. - No gross lesions in the first portion of the duodenum. - No specimens collected. Recommendations : - Return patient to hospital [facility] for ongoing care. - Resume previous diet. - Continue present medications. My findings are described in the full procedure note, which is enclosed. If I can be of further assistance, please feel free to contact me at . Sincerely, Bro Moss, 06/26/2022 4:26:34 PM This report has been signed electronically.
--- NOTE | 2022-06-26 16:41 | OP.COLON_ITS ---
Patient Name: Beatriz Pizarro Procedure Date: 06/26/2022 4:03 PM Date of : 1955 Age: 67 Procedure: Colonoscopy Indications: Diarrhea, Hematochezia, Abnormal CT of the GI tract Providers: Bro Moss DO Medicines: Monitored Anesthesia Care Patient Profile: This is a 67 year old female. Refer to note in patient chart for documentation of history and physical. Patient has symptoms of acute vomiting. Last Colonoscopy: date unknown. Complications: No immediate complications. Procedure: Pre-Anesthesia Assessment: - Prior to the procedure, a History and Physical was performed, and patient medications and allergies were reviewed. The patient is competent. The risks and benefits of the procedure and the sedation options and risks were discussed with the patient. All questions were answered and informed consent was obtained. Patient identification and proposed procedure were verified by the physician in the pre-procedure area. Mental Status Examination: alert and oriented. Airway Examination: normal oropharyngeal airway and neck mobility. Respiratory Examination: clear to auscultation. CV Examination: normal. Prophylactic Antibiotics: The patient does not require prophylactic antibiotics. Prior Anticoagulants: The patient has taken no previous anticoagulant or antiplatelet agents. ASA Grade Assessment: II - A patient with mild systemic disease. After reviewing the risks and benefits, the patient was deemed in satisfactory condition to undergo the procedure. The anesthesia plan was to use monitored anesthesia care (MAC). Immediately prior to administration of medications, the patient was re-assessed for adequacy to receive sedatives. The heart rate, respiratory rate, oxygen saturations, blood pressure, adequacy of pulmonary ventilation, and response to care were monitored throughout the procedure. The physical status of the patient was re-assessed after the procedure. After I obtained informed consent, the scope was passed under direct vision. Throughout the procedure, the patient's blood pressure, pulse, and oxygen saturations were monitored continuously. The pediatric colonoscope was introduced through the anus and advanced to the cecum, identified by appendiceal orifice and ileocecal valve. The colonoscopy was performed without difficulty. The patient tolerated the procedure well. The quality of the bowel preparation was fair. Scope In: 4:04:20 PM Scope Out: 4:15:39 PM Total Procedure Duration Time 0 hours 11 minutes 19 seconds Findings: Diffuse inflammation characterized by adherent blood, altered vascularity, erosions, erythema, friability, granularity, linear erosions, loss of vascularity, mucus and deep ulcerations was found in the entire colon. Biopsies were taken with a cold forceps for histology. Verification of patient identification for the specimen was done. Estimated blood loss was minimal. Impression: - Preparation of the colon was fair. - Diffuse inflammation was found in the entire examined colon secondary to ischemic colitis. Biopsied. - mStool cultures and C. difficile was sent from the specimen to see if his ischemic colitis was from an infectious etiology. - The disturbance in the anticoagulant and procoagulant reactions in liver cirrhosis triggers clot formation or excessive bleeding. The portal hypertensive colopathy manifests with rectal varices, colonic vascular ectasias, non-specific inflammatory changes, and hemorrhoids . The other manifestations include mild chronic inflammatory infiltrates, edema of lamina propria, and irregular thickening in dilated tortuous mucosal capillaries. There is a higher mortality rate (i.e.,10.7%), increased total hospital charge and longer length of stay in patients with ischemic colitis and history of cirrhosis. - In rare scenarios, ischemic colitis possibly develops due to gaseous distension triggered by lactulose fermentation via colonic bacteria .The lactulose-induced intestinal ischemia probably develops after a decline in intestinal blood flow due to intraluminal pressure elevation. To the best of our knowledge, the case study by Stevo et al. is the only evidence that clinically correlates ischemic colitis with lactulose therapy and is the only laxative mentioned in the literature that might contribute to the development of the disease . Recommendation: - Return patient to [facility] for ongoing care. - Resume previous diet. - Continue present medications. -Start levofloxacin 500 mg IV daily and Flagyl 500 mg IV twice daily. -Hold lactulose - No repeat colonoscopy. Procedure Code(s): --- Professional --- 36402, Colonoscopy, flexible; with biopsy, single or multiple CPT copyright 2017 [employer]. All rights reserved. The codes documented in this report are preliminary and upon communications engineering technician review may be revised to meet current compliance requirements. Bro Moss DO 06/26/2022 4:41:00 PM This report has been signed electronically. Number of Addenda: 0 Note Initiated On: 06/26/2022 4:03 PM
--- NOTE | 2022-06-26 16:42 | OP.CCLET_ITS ---
06/26/2022 Campbell Dumont MD [address] [place] [address] Re : Colonoscopy procedure for Beatriz Angle Dear Dr. Dumont This procedure was performed on Sunday, June 26, 2022. My impressions and recommendations are as follows: Impressions : - Preparation of the colon was fair. - Diffuse inflammation was found in the entire examined colon secondary to ischemic colitis. Biopsied. - mStool cultures and C. difficile was sent from the specimen to see if his ischemic colitis was from an infectious etiology. - The disturbance in the anticoagulant and procoagulant reactions in liver cirrhosis triggers clot formation or excessive bleeding. The portal hypertensive colopathy manifests with rectal varices, colonic vascular ectasias, non-specific inflammatory changes, and hemorrhoids . The other manifestations include mild chronic inflammatory infiltrates, edema of lamina propria, and irregular thickening in dilated tortuous mucosal capillaries. There is a higher mortality rate (i.e.,10.7%), increased total hospital charge and longer length of stay in patients with ischemic colitis and history of cirrhosis. - In rare scenarios, ischemic colitis possibly develops due to gaseous distension triggered by lactulose fermentation via colonic bacteria .The lactulose-induced intestinal ischemia probably develops after a decline in intestinal blood flow due to intraluminal pressure elevation. To the best of our knowledge, the case study by Stevo et al. is the only evidence that clinically correlates ischemic colitis with lactulose therapy and is the only laxative mentioned in the literature that might contribute to the development of the disease . Recommendations : - Return patient to hospital [facility] for ongoing care. - Resume previous diet. - Continue present medications. -Start levofloxacin 500 mg IV daily and Flagyl 500 mg IV twice daily. -Hold lactulose - No repeat colonoscopy. My findings are described in the full procedure note, which is enclosed. If I can be of further assistance, please feel free to contact me at . Sincerely, Bro Friend, 06/26/2022 4:41:00 PM This report has been signed electronically.
--- NOTE | 2022-06-26 16:50 | RAD_ITS ---
EXAM: XR CHEST, 1 VIEW CLINICAL INDICATION: desat TECHNIQUE: Frontal view of the chest. This report was created using Log[employer] report generation technology. COMPARISON: 06/26/2022 at 0805 hours FINDINGS: LUNGS AND PLEURAL SPACES: There is vascular congestion. HEART: Cardiac silhouette is enlarged in size. MEDIASTINUM: Central airways and mediastinal contour are unremarkable. BONES/JOINTS: There is a left-sided effusion with left lower lobe airspace disease. SOFT TISSUES: Unremarkable. TUBES, LINES AND DEVICES: Nasogastric tube is in stable position. RAD/Chest 1 View (Portable) IMPRESSION: No significant change in the appearance of the chest from the reference exam. Nasogastric tube in stable position. Electronically Signed: Gilmer Bishop MD at 17:48 EST ,
[2022-06-26 17:05] LABS: Allen Test Positive; Base Excess 1 mmol/L (-2 to +2); Bicarbonate 31.3 mmol/L (22-26); Blood Gas Specimen Type ART; FI02 100; O2 Delivery Device NRB; PO2 75 mmHG (75-100); SITE L Radial; SO2 86 % (95-99); Total Carbon Dioxide 35 mmol/L; pCO2 109.3 mmHg (35-45); pH 7.06 (7.35-7.45)
[2022-06-26] MEDS: Furosemide 20 MG/2 ML VIAL IV (17:06)
--- NOTE | 2022-06-26 17:13 | SUR.PHASEI ---
PATIENT ARRIVED TO PACU WITH DUSKY COLOR, GASPING FOR AIR. PER ENDO AND ANESTESIA STAFF, PATIENT WAS ON OXYGEN PREOP. UNABLE TO OBTAIN PULSE OXYGEN SATURATION, OXYGEN GIVEN VIA AMBU BAG, DR CANTU CALLED TO BED SIDE. SMALL AMOUNT SUCTIONED FROM MOUTH. LIMITED AIR MOVEMENT NOTED ANTERIORALLY ON THE LEFT AND CRACKLES THROUGHOUT ON THE RIGHT ANTERIORALLY. RESPIRATORY THERAPY AT BEDSIDE TO ASSIST. ABG AND CHEST XRAY OBTAINED. DR CANTU SPOKE WITH HOSPITALIST REGARDING INPATIENT STATUS, WILL GO TO ICU FROM PACU.
--- NOTE | 2022-06-26 17:46 | NURSING ---
called report to icu
[2022-06-26 17:55] LABS: Allen Test Positive; Base Excess 2 mmol/L (-2 to +2); Blood Gas Specimen Type ART; FI02 80; O2 Delivery Device BiPAP; PO2 100 mmHG (75-100); RR 12; SITE R Brach; SO2 95 % (95-99); Total Carbon Dioxide 34 mmol/L; pCO2 88.3 mmHg (35-45); pH 7.15 (7.35-7.45)
[2022-06-26 18:26] LABS: Anti-Smooth Muscle ABS 18 Units (0-19)
[2022-06-26 18:36] LABS: Anti-Mitochondrial AB <20.0 Units (0.0-20.0); Anti-dsDNA Ab 1 IU/mL (0-9)
[2022-06-26] MEDS: levoFLOXacin IV 500 MG/100 ML BAG 100 MG IV (23:32)
[2022-06-27] VITALS (20 sets, daily range): BP systolic 97–123; BP diastolic 60–100; PULSE 85–99; RESP 12–27; TEMP 36.1–37.6; O2SAT 74–100
[2022-06-27 00:42] LABS: Absolute Lymphocyte Count 0.91 X10^3/uL (0.83-4.51); Absolute Neutrophil Count 5.6 X10^3/uL (2.0-7.7); Basophil# 0.07 X10^3/uL; Basophil% 0.9 % (0-1); Eosinophil# 0.07 X10^3/uL; Eosinophils% 0.9 % (0-5); Hematocrit 46.4 % (37-47); Hemoglobin 14.6 g/dL (12.0-15.0); Lymphocyte # 0.91 X10^3/ul (0.83-4.51); Lymphocyte % 11.7 % (19-41); Mean Corp Hgb Conc 31.5 g/dL (32-36); Mean Corpuscular Volume 98.5 fL (81-99); Mean Platelet Vol. 11.7 fl (6.2-12.0); Monocyte# 0.84 X10^3/uL; Monocyte% 10.8 % (0-10); NRBC Flagged by Analyzer 0.5 % (0-5); Neutrophil # 5.64 X10^3/uL (2.7-7.7); Neutrophil % 72.9 % (47-70); POSITIVE COUNT YES; Platelet Count 67 K/mm3 (150-450); RBC Distribution Width SD 57.2 fl (35.1-43.9); Red Blood Count 4.71 M/mm3 (4.2-5.4); White Blood Count 7.8 K/mm3 (4.4-11.0)
[2022-06-27 00:46] LABS: Blood Gas Specimen Type VEN; O2 Delivery Device BiPAP; PEEP 10; PS 8; RR 12; VBG BASE EXCESS 3 mmol/L (-1.0-3.5); VBG Bicarbonate 30 mmol/L (22-26); VBG PO2 32 mmHg (25-40); VBG SO2 53 % (50-70); VBG TCO2 32 mmol/L (23-33); VBG pCO2 62.6 mmHg (41-51); VBG pH 7.29 (7.32-7.42)
[2022-06-27 01:00] LABS: Ammonia < 10.0 umol/L (11-32)
[2022-06-27 01:01] LABS: ALB/GLOB Ratio 0.6 RATIO (0.9-2.4); AST(SGOT) 238 U/L (15-37); Alanine Aminotransfer ALT/SGPT 103 U/L (13-56); Albumin, Serum 2.3 g/dL (3.2-5.0); Alkaline Phosphatase 223 U/L (45-117); Anion Gap 7 (5-15); BUN 15 mg/dL (7-18); BUN/Creat Ratio 11.8 RATIO (10-20); Calcium,Total 8.7 mg/dL (8.5-10.1); Chloride 102 mmol/L (98-107); Creatinine, Serum 1.27 mg/dL (0.55-1.02); EST Glomerular Filtration Rate 45 mL/min (>60); Est Glom Filt Rate - Afr Amer 54 mL/min (>60); Estimated Creatinine Clearance 39.21 ml/min; Globulin 3.7 g/dL (2.2-4.2); Glucose 103 mg/dL (74-106); Potassium 3.9 mmol/L (3.5-5.1); Sodium Level 142 mmol/L (136-145)
[2022-06-27] MEDS: metroNIDAZOLE 500 MG/100 ML BAG 100 MG IV ×3 (01:04→21:53)
[2022-06-27 04:48] LABS: Absolute Lymphocyte Count 1.11 X10^3/uL (0.83-4.51); Absolute Neutrophil Count 5.3 X10^3/uL (2.0-7.7); Basophil# 0.05 X10^3/uL; Basophil% 0.6 % (0-1); Eosinophil# 0.05 X10^3/uL; Eosinophils% 0.6 % (0-5); Hematocrit 42.7 % (37-47); Hemoglobin 13.6 g/dL (12.0-15.0); Lymphocyte # 1.11 X10^3/ul (0.83-4.51); Lymphocyte % 14.2 % (19-41); Mean Corp Hgb Conc 31.9 g/dL (32-36); Mean Corpuscular Hgb 30.6 pg (27.0-32.0); Mean Corpuscular Volume 96.2 fL (81-99); Mean Platelet Vol. 11.6 fl (6.2-12.0); Monocyte# 1.17 X10^3/uL; Monocyte% 14.9 % (0-10); NRBC Flagged by Analyzer 0.4 % (0-5); Neutrophil # 5.28 X10^3/uL (2.7-7.7); Neutrophil % 67.4 % (47-70); POSITIVE COUNT YES; Platelet Count 61 K/mm3 (150-450); RBC Distribution Width CV 15.8 % (11.6-14.6); RBC Distribution Width SD 55.1 fl (35.1-43.9); Red Blood Count 4.44 M/mm3 (4.2-5.4); White Blood Count 7.8 K/mm3 (4.4-11.0)
[2022-06-27 05:05] LABS: AST(SGOT) 212 U/L (15-37); Alanine Aminotransfer ALT/SGPT 94 U/L (13-56); Albumin, Serum 1.9 g/dL (3.2-5.0); Alkaline Phosphatase 209 U/L (45-117); Anion Gap 9 (5-15); BUN 16 mg/dL (7-18); BUN/Creat Ratio 14.3 RATIO (10-20); Bilirubin, Direct 4.28 mg/dL (0.00-0.30); Calcium,Total 8.4 mg/dL (8.5-10.1); Chloride 106 mmol/L (98-107); Creatinine, Serum 1.12 mg/dL (0.55-1.02); EST Glomerular Filtration Rate 52 mL/min (>60); Est Glom Filt Rate - Afr Amer 63 mL/min (>60); Estimated Creatinine Clearance 44.46 ml/min; Globulin 3.5 g/dL (2.2-4.2); Glucose 83 mg/dL (74-106); Potassium 3.7 mmol/L (3.5-5.1); Protein, Total 5.4 g/dL (6.4-8.2); Sodium Level 142 mmol/L (136-145)
[2022-06-27 05:25] LABS: CPK Total, Creatine Kinase 351 U/L (26-192)
--- NOTE | 2022-06-27 07:33 | CON.PCM.CC_ITS ---
Assessment & Plan Assessment/Plan (1) Respiratory failure: PLAN: Plan RECOMMENDATIONS: 1. Continue empiric BiPAP with sleep 2. Defer to GI on further work-up 3. Keep saturations between 90 and 94% 4. Increase activity as tolerated 5. Okay to leave the intensive care unit IMPRESSIONS: 1. Acute on chronic combined respiratory failure following anesthesia Patient appears to have an element of CO2 retention at baseline despite lack of reported respiratory disease. Patient does have a body habitus suggestive of sleep apnea, but obesity hypoventilation syndrome would be a consideration. Patient did have an increased AA gradient, but was under anesthesia at the time of the ABG. A room air ABG following cessation of medication effects would be helpful in making this diagnosis. Given CO2 retention, patient's oxygen saturation should be maintained between 90 and 94%. Patient would also benefit from empiric BiPAP therapy with sleep. Cannot exclude an element of metabolic encephalopathy on presentation secondary to hypercarbia. 2. Acute hepatic encephalopathy with decompensated cirrhosis/colitis Gastroenterology is following. Patient did have a colonoscopy yesterday. Some immune markers are positive. Patient is also undergoing chemotherapy. Patient likely benefit from continued diuresis as tolerated. 3. Cirrhosis/thyroid cancer with metastasis/morbid obesity Complicates care, management, recovery and prognosis. Patient would benefit from an outpatient evaluation for sleep apnea. Defer to oncology on further work-up and recommendations. HPI Consult Data Date of Consult: 06/27/22 HPI Narrative Reason for Consultation: Respiratory failure HPI Narrative: CHARMAINE GOEL is a 67 F, with past medical history listed below, who presented to [facility] on 06/21/2022 secondary to confusion. Patient reportedly has a history of metastatic thyroid cancer and had a partial thyroidectomy 16 years ago. Patient reportedly had recurrence in February and March 2022 with spread to the lungs. Patient has been given radioactive iodine therapy, but over the last 2 to 3 weeks had reportedly gotten weaker and weaker to the point that she was not eating or drinking much at all. Patient was subsequently admitted to the floor and initiated on therapy for hepatic encephalopathy. Yesterday, patient had an endoscopy completed and postoperatively was noted to have decreased responsiveness. An ABG at that time showed a pH of 7.06, CO2 of 109, PO2 of 75 and a saturation of 86%. Patient was initiated on BiPAP therapy and admitted to the intensive care unit for further evaluation. Overnight, patient has done relatively well. Patient is alert and oriented this morning and is aware that she is at [facility]. Patient is somewhat fuzzy on presentation. Patient was taken off of BiPAP this morning and initially was on nasal cannula. This too has improved. Patient is unaware of any previous lung issues outside of her lung metastasis. Patient does receive therapy for cirrhosis and has had some diuretics. Patient currently is not reporting any nausea, vomiting or diarrhea. Patient does not feel short of breath, but does have intermittent coughing. Patient did get somewhat irritated with me with questioning, so the was not able to complete a review of systems at this time. [facility] Medical History Liver failure Smoker Thyroid cancer Home Medications calcium polycarbophil 625 mg tablet (Fiber Therapy (ca polycarbophil)) 625 mg PO DAILY Check with primary doctor 07/06/14 [History Last Taken 12/10/19] furosemide 40 mg tablet 20 mg PO DAILY Check with primary doctor 07/06/14 [History Last Taken 12/10/19] multivitamin,kg-flcv-jnndogtq 27 mg-0.4 mg tablet (Therems-M) 1 tab PO DAILY Check with primary doctor 07/06/14 [History Last Taken 12/10/19] nadolol 40 mg tablet 40 mg PO DAILY Check with primary doctor 07/06/14 [History Last Taken 12/10/19] pantoprazole 40 mg tablet,delayed release 40 mg PO DAILY Check with primary doctor 07/06/14 [History Last Taken 12/10/19] spironolactone 50 mg tablet 25 mg PO DAILY Check with primary doctor 07/06/14 [History Last Taken 12/10/19] calcium carbonate 600 mg calcium (1,500 mg) tablet (Calcium) 600 mg PO DAILY Check with primary doctor 03/20/22 [History Last Taken Unknown] cyanocobalamin (vitamin B-12) 500 mcg chewable tablet 500 mcg PO DAILY Check with primary doctor 03/20/22 [History Last Taken Unknown] bupropion HCl 150 mg tablet,12 hr sustained-release 150 mg PO BID Check with primary doctor 06/22/22 [History Last Taken Unknown] citalopram 20 mg tablet 20 mg DAILY Check with primary doctor 06/22/22 [History Last Taken Unknown] oxybutynin chloride 15 mg tablet,extended release 24 hr 15 mg PO DAILY Check wi th primary doctor 06/22/22 [History Last Taken Unknown] potassium chloride 20 mEq tablet,extended release(part/cryst) 20 meq PO DAILY Check with primary doctor 06/22/22 [History Last Taken Unknown] levothyroxine 112 mcg tablet 112 mcg PO DAILY Check with primary doctor 06/25/22 [History Last Taken Unknown] Allergy/AdvReac Type Severity Reaction Status Date / Time No Known Allergies Allergy Verified 06/21/22 19:23 Family History Grandfather Cancer unknow Daughter Diabetes Hypertension Thyroid disorder Grandmother Diabetes Father Myocardial infarction Mother Hypertension Sister Hypertension Other Heart disease Surgical History Hx laparoscopic cholecystectomy S/P removal of thyroid nodule Social History Smoking Status: Light Smoker (<10/day) ROS ROS Narrative Unable to obtain secondary to patient cooperation Physical Exam Const alert, oriented x3 and no apparent distress Constitutional Narrative: Somewhat slow to respond, but response is appropriate HEENT normocephalic and head/scalp atraumatic Eyes PERRL, EOMs intact bilaterally and conjunctivae normal Eyes Narrative: Scleral icterus noted Neck full ROM and no lymphadenopathy Resp normal respiratory effort Effort and Inspection: able to speak in complete sentences Auscultation: diminished lung sounds; Negative for rales, rhonchi or wheezes Cardio regular rate, regular rhythm, S1 normal heart sound, S2 normal heart sound, no murmurs, no rub and no gallops GI normal to inspection, nondistended, normoactive bowel sounds Extremity General Extremity: edema; Negative for clubbing Skin no rashes or lesions noted Neuro CN's II-XII intact bilaterally and moves all extremities Psych Mood & Affect: labile affect Medical Records Data Attestation: I reviewed the patient's medical records Lab / Micro Data Attestation: I reviewed the patient's lab results. Result Diagrams: 06/27/22 04:40 06/27/22 04:40 Labs: Laboratory Results - last 24 hr 06/24/22 04:54: URSULA Screen Positive H, CHARLIE-1 Antibody <0.2, SS-A/Ro IgG Antibody < 0.2, SS-B/La IgG Antibody < 0.2, Sm (Shin) Antibody <0.2, CIGAR HEAD PUNCHER Antibody 1.1 H, Scl-70 Scleroderma Ab <0.2, Double Strand DNA Ab 1, Centromere B Antibody <0.2, Anti-Mitochondrial Ab <20.0 06/24/22 04:54: Anti-Smooth Muscle Ab 18 06/26/22 07:30: Sodium 137, Potassium 3.7, Chloride 106, Carbon Dioxide 28.0, Anion Gap 3 L, BUN 13, Creatinine 0.87, Estim Creat Clear Calc 57.24, Est GFR (MDRD) Af Amer 84, Est GFR (MDRD) Non-Af 69, BUN/Creatinine Ratio 14.9, Glucose 126 H, Calcium 8.6, Total Bilirubin 6.10 H, Direct Bilirubin 3.55 H, AST 244 H, ALT 107 H, Alkaline Phosphatase 229 H, Total Protein 6.0 L, Albumin 2.1 L, Globulin 3.9 06/27/22 00:25: Ammonia < 10.0 L 06/27/22 00:25: WBC 7.8, RBC 4.71, Hgb 14.6, Hct 46.4, MCV 98.5, MCH 31.0, MCHC 31.5 L, RDW Std Deviation 57.2 H, RDW Coeff of Anyi 16.0 H, Plt Count 67 L, MPV 11.7, Immature Gran % (Auto) 2.800 H, Neut % (Auto) 72.9 H, Lymph % (Auto) 11.7 L, [place] % (Auto) 10.8 H, Eos % (Auto) 0.9, Baso % (Auto) 0.9, Absolute Neuts (auto) 5.6, Absolute Lymphs (auto) 0.91, Nucleated RBC % 0.5 06/27/22 00:25: Sodium 142, Potassium 3.9, Chloride 102, Carbon Dioxide 33.0 H, Anion Gap 7, BUN 15, Creatinine 1.27 H, Estim Creat Clear Calc 39.21, Est GFR (MDRD) Af Amer 54 L, Est GFR (MDRD) Non-Af 45 L, BUN/Creatinine Ratio 11.8, Glucose 103, Calcium 8.7, Total Bilirubin 7.50 H, AST 238 H, ALT 103 H, Alkaline Phosphatase 223 H, Total Protein 6.0 L, Albumin 2.3 L, Globulin 3.7, Albumin/Globulin Ratio 0.6 L 06/27/22 04:40: WBC 7.8, RBC 4.44, Hgb 13.6, Hct 42.7, MCV 96.2, MCH 30.6, MCHC 31.9 L, RDW Std Deviation 55.1 H, RDW Coeff of Anyi 15.8 H, Plt Count 61 L, MPV 11.6, Immature Gran % (Auto) 2.300 H, Neut % (Auto) 67.4, Lymph % (Auto) 14.2 L, [place] % (Auto) 14.9 H, Eos % (Auto) 0.6, Baso % (Auto) 0.6, Absolute Neuts (auto) 5.3, Absolute Lymphs (auto) 1.11, Nucleated RBC % 0.4 06/27/22 04:40: Sodium 142, Potassium 3.7, Chloride 106, Carbon Dioxide 27.0, Anion Gap 9, BUN 16, Creatinine 1.12 H, Estim Creat Clear Calc 44.46, Est GFR (MDRD) Af Amer 63, Est GFR (MDRD) Non-Af 52 L, BUN/Creatinine Ratio 14.3, Glucose 83, Calcium 8.4 L, Total Bilirubin 6.60 H, Direct Bilirubin 4.28 H, AST 212 H, ALT 94 H, Alkaline Phosphatase 209 H, Total Protein 5.4 L, Albumin 1.9 L, Globulin 3.5 06/27/22 04:40: Total Creatine Kinase 351 H Micro: Microbiology 06/26/22 15:15 Stool C. difficile DNA Amplification - Final 06/26/22 20:05 Urine Catheter - Catheter Legionella Antigen - Final 06/26/22 20:05 Urine Catheter - Catheter Streptococcus pneumoniae Antigen (M - Final 06/21/22 20:30 Blood Culture (Wb) - Anticubital Right Blood Culture - Preliminary Staphylococcus hominis ABG Data ABG results: ABG 06/26/22 06/26/22 06/26/22 08:11 16:57 17:48 Specimen Type ART ART ART Sample Site L Radial L Radial R Brach pH 7.27 L 7.06 L* 7.15 L* Bicarbonate Actual 25.6 31.3 H 31.0 H Total CO2 27 35 34 Base Excess -1 1 2 O2 Saturation 92 L 86 L 95 O2 % 100 80 ABG pCO2 55.9 H 109.3 H* 88.3 H* ABG pO2 74 L 75 100 Carrington Test Positive Positive Positive VBG pH VBG pO2 VBG HCO3 VBG Total CO2 VBG O2 Sat (Calc) VBG Base Excess POC Mix VBG pCO2 Pt Tmp Respiration Rate 12 O2 Delivery Device Cannula NRB BiPAP Liter Flow 2.0 POC PEEP POC Pressure Suppt Crit Call To/Read Back Yes Yes Blood Gas Notified Whom shaker shaker 06/27/22 00:38 Specimen Type KRISTIAN Sample Site pH Bicarbonate Actual Total CO2 Base Excess O2 Saturation O2 % ABG pCO2 ABG pO2 Carrington Test VBG pH 7.29 L VBG pO2 32 VBG HCO3 30 H VBG Total CO2 32 VBG O2 Sat (Calc) 53 VBG Base Excess 3 POC Mix VBG pCO2 Pt Tmp 62.6 H Respiration Rate 12 O2 Delivery Device BiPAP Liter Flow POC PEEP 10 POC Pressure Suppt 8 Crit Call To/Read Back Blood Gas Notified Whom Attestation: I personally reviewed and interpreted this ABG as follows: (Acute on chronic respiratory acidosis with increased AA gradient) Radiology Impression Chest X-Ray 06/26/22 08:10 IMPRESSION: Findings suggestive of CHF with superimposed left basilar atelectasis and/or infiltrate and small left pleural effusion. Electronically Signed: Daniel Goodman MD at 9:43 EST , Chest X-Ray 06/26/22 16:50 IMPRESSION: No significant change in the appearance of the chest from the reference exam. Nasogastric tube in stable position. Electronically Signed: Gilmer Bishop MD at 17:48 EST , Charges/Coding Visit Charges Inpatient E&M: 61522 Init Hosp L3
--- NOTE | 2022-06-27 07:41 | PN.HOSP_ITS ---
Reason for Visit Reason for Visit: Diagnoses Malignant neoplasm of thyroid gland (06/22/22) Secondary malignant neoplasm of unspecified site (06/22/22) Encephalopathy, unspecified (06/22/22) Pleural effusion, not elsewhere classified (06/22/22) Unspecified cirrhosis of liver (06/22/22) Acute kidney failure, unspecified (06/22/22) Subjective Subjective Follow-up for acute combined respiratory failure after EGD/colonoscopy, hepatic encephalopathy, decompensated cirrhosis. EGD and colonoscopy findings reviewed with patient's daughter over the phone and son present in the room Patient is more awake but still sometimes gets drowsy. Objective Data Objective Data Vital Signs: Vital Signs Temp Pulse Resp BP Pulse Ox O2 Del Method O2 Flow Rate 99.3 F H 89 20 H 100/70 92 Room Air 5 06/27/22 07:00 06/27/22 07:00 06/27/22 07:00 06/27/22 07:00 06/27/22 07:00 06/27/22 07:00 06/27/22 06:00 FiO2 50 06/27/22 03:00 Oxygen Flow Rate (L/min) 5 Oxygen Delivery Method Room Air Weight: 273 lb 5.971 oz Body Mass Index (BMI) 41.7 Intake & Output: Intake and Output for Last 24 Hours 06/25/22 06/26/22 06/27/22 23:59 23:59 23:59 Intake Total 5450 / 5450 1802.5 / 1802.5 200 / 200 Output Total 250 / 250 800 / 800 200 / 200 Balance 5200 / 5200 1002.5 / 1002.5 0 / 0 Lab / Micro Data Result Diagrams: 06/27/22 04:40 06/27/22 04:40 Labs: Laboratory Results - last 24 hr 06/24/22 04:54: URSULA Screen Positive H, CHARLIE-1 Antibody <0.2, SS-A/Ro IgG Antibody < 0.2, SS-B/La IgG Antibody < 0.2, Sm (Shin) Antibody <0.2, ICE CREAM DIPPER Antibody 1.1 H, Scl-70 Scleroderma Ab <0.2, Double Strand DNA Ab 1, Centromere B Antibody <0.2, Anti-Mitochondrial Ab <20.0 06/24/22 04:54: Anti-Smooth Muscle Ab 18 06/26/22 07:30: Sodium 137, Potassium 3.7, Chloride 106, Carbon Dioxide 28.0, Anion Gap 3 L, BUN 13, Creatinine 0.87, Estim Creat Clear Calc 57.24, Est GFR (MDRD) Af Amer 84, Est GFR (MDRD) Non-Af 69, BUN/Creatinine Ratio 14.9, Glucose 126 H, Calcium 8.6, Total Bilirubin 6.10 H, Direct Bilirubin 3.55 H, AST 244 H, ALT 107 H, Alkaline Phosphatase 229 H, Total Protein 6.0 L, Albumin 2.1 L, Globulin 3.9 06/27/22 00:25: Ammonia < 10.0 L 06/27/22 00:25: WBC 7.8, RBC 4.71, Hgb 14.6, Hct 46.4, MCV 98.5, MCH 31.0, MCHC 31.5 L, RDW Std Deviation 57.2 H, RDW Coeff of Anyi 16.0 H, Plt Count 67 L, MPV 11.7, Immature Gran % (Auto) 2.800 H, Neut % (Auto) 72.9 H, Lymph % (Auto) 11.7 L, [place] % (Auto) 10.8 H, Eos % (Auto) 0.9, Baso % (Auto) 0.9, Absolute Neuts (auto) 5.6, Absolute Lymphs (auto) 0.91, Nucleated RBC % 0.5 06/27/22 00:25: Sodium 142, Potassium 3.9, Chloride 102, Carbon Dioxide 33.0 H, Anion Gap 7, BUN 15, Creatinine 1.27 H, Estim Creat Clear Calc 39.21, Est GFR (MDRD) Af Amer 54 L, Est GFR (MDRD) Non-Af 45 L, BUN/Creatinine Ratio 11.8, Glucose 103, Calcium 8.7, Total Bilirubin 7.50 H, AST 238 H, ALT 103 H, Alkaline Phosphatase 223 H, Total Protein 6.0 L, Albumin 2.3 L, Globulin 3.7, Albumin/Globulin Ratio 0.6 L 06/27/22 04:40: WBC 7.8, RBC 4.44, Hgb 13.6, Hct 42.7, MCV 96.2, MCH 30.6, MCHC 31.9 L, RDW Std Deviation 55.1 H, RDW Coeff of Anyi 15.8 H, Plt Count 61 L, MPV 11.6, Immature Gran % (Auto) 2.300 H, Neut % (Auto) 67.4, Lymph % (Auto) 14.2 L, [place] % (Auto) 14.9 H, Eos % (Auto) 0.6, Baso % (Auto) 0.6, Absolute Neuts (auto) 5.3, Absolute Lymphs (auto) 1.11, Nucleated RBC % 0.4 06/27/22 04:40: Sodium 142, Potassium 3.7, Chloride 106, Carbon Dioxide 27.0, Anion Gap 9, BUN 16, Creatinine 1.12 H, Estim Creat Clear Calc 44.46, Est GFR (MDRD) Af Amer 63, Est GFR (MDRD) Non-Af 52 L, BUN/Creatinine Ratio 14.3, Glucose 83, Calcium 8.4 L, Total Bilirubin 6.60 H, Direct Bilirubin 4.28 H, AST 212 H, ALT 94 H, Alkaline Phosphatase 209 H, Total Protein 5.4 L, Albumin 1.9 L, Globulin 3.5 06/27/22 04:40: Total Creatine Kinase 351 H Micro: Microbiology 06/26/22 15:15 Stool C. difficile DNA Amplification - Final 06/26/22 20:05 Urine Catheter - Catheter Legionella Antigen - Final 06/26/22 20:05 Urine Catheter - Catheter Streptococcus pneumoniae Antigen (M - Final 06/21/22 20:30 Blood Culture (Wb) - Anticubital Right Blood Culture - Preliminary Staphylococcus hominis 06/21/22 23:15 Blood Culture (Wb) - Anticubital Left Blood Culture - Preliminary No growth in 48 hours. 06/21/22 20:30 Nasal Secretion SARS-CoV-2 & FLU Antigen (Rapid) - Final ABG Data ABG results: ABG 06/26/22 06/26/22 06/26/22 08:11 16:57 17:48 Specimen Type ART ART ART Sample Site L Radial L Radial R Brach pH 7.27 L 7.06 L* 7.15 L* Bicarbonate Actual 25.6 31.3 H 31.0 H Total CO2 27 35 34 Base Excess -1 1 2 O2 Saturation 92 L 86 L 95 O2 % 100 80 ABG pCO2 55.9 H 109.3 H* 88.3 H* ABG pO2 74 L 75 100 Carrington Test Positive Positive Positive VBG pH VBG pO2 VBG HCO3 VBG Total CO2 VBG O2 Sat (Calc) VBG Base Excess POC Mix VBG pCO2 Pt Tmp Respiration Rate 12 O2 Delivery Device Cannula NRB BiPAP Liter Flow 2.0 POC PEEP POC Pressure Suppt Crit Call To/Read Back Yes Yes Blood Gas Notified Whom [employer] shaker 06/27/22 00:38 Specimen Type KRISTIAN Sample Site pH Bicarbonate Actual Total CO2 Base Excess O2 Saturation O2 % ABG pCO2 ABG pO2 Carrington Test VBG pH 7.29 L VBG pO2 32 VBG HCO3 30 H VBG Total CO2 32 VBG O2 Sat (Calc) 53 VBG Base Excess 3 POC Mix VBG pCO2 Pt Tmp 62.6 H Respiration Rate 12 O2 Delivery Device BiPAP Liter Flow POC PEEP 10 POC Pressure Suppt 8 Crit Call To/Read Back Blood Gas Notified Whom Radiography Diagnostic Testing: Radiology Impression Chest X-Ray 06/26/22 08:10 IMPRESSION: Findings suggestive of CHF with superimposed left basilar atelectasis and/or infiltrate and small left pleural effusion. Electronically Signed: Daniel Goodman MD at 9:43 EST , Chest X-Ray 06/26/22 16:50 IMPRESSION: No significant change in the appearance of the chest from the reference exam. Nasogastric tube in stable position. Electronically Signed: Gilmer Bishop MD at 17:48 EST , Physical Exam Narrative Seen and examined. Patient more awake and answer name of her daughter and son. Physical exam General: Awake, at times drowsy. Oriented to place and person. Intermittent confusion HEENT: Atraumatic, PERRLA, Normocephalic Oral: Oral mucosa moist. NG tube. Neck: Supple, No JVD, Negative Carotid Bruits Lungs: Air entry diminished in bilateral lung bases. No crepitation/rhonchi Cardiovascular: Regular rate, bradycardia, Normal S1, Normal S2, systolic murmur Abdomen: Bowel Sounds Present, Soft, Non Tender, Non-Distended : No renal angle tenderness. No suprapubic tenderness. Extremities: No edema, Capillary Refill Less than 3 Seconds Skin: Mild ecchymosis and thrombocytopenia Musculoskeletal: Bilateral valgus deformity of knee, degenerative arthritis. Passive ROM restricted Neurological: No acute deficit. DTR 2+. Psych/Mental Status: Flat affect awake Assessment & Plan Assessment/Plan (1) Encephalopathy acute: (2) Metastasis from thyroid cancer: (3) Acute kidney injury: (4) Pleural effusion: PLAN: Plan Metastatic from thyroid cancer Patient with known metastatic to lungs. Chest x-ray was visualized and independently interpreted. I agree with the interpretation of left pleural effusion versus left basilar infiltrate. Mild cardiomegaly. White count is mildly elevated at 13,000 with neutrophilic predominance. There is no fever. With patient's symptoms going on for about 2 weeks, less likely pneumonia. However will empirically cover with ceftriaxone and azithromycin the patient was started at the emergency department. 06/24: Leukocytosis resolved. Acute on chronic combined respiratory failure following anesthesia: 06/27: Yesterday evening I was called by anesthesiologist the patient pulse ox was in 40% and not increasing on nasal cannula therefore put on BiPAP. Yesterday, ABG after procedure was 7.06/109/75 on nonrebreather. Patient was put on BiPAP and transferred to ICU from PACU. ABG 7.15/88.3/100 On 80% FiO2 BiPAP. Pulmonary consult reviewed and appreciated. Advised to continue BiPAP as needed and during sleep. Patient is transferred from ICU to PCU. Acute hepatic encephalopathy with decompensated cirrhosis with splenomegaly, small perihepatic ascites and portal hypertensive changes Ammonia level on presentation was 65. Trend. Lactulose rectal x1 ordered. Also we will check a TSH. Keep patient NPO. Patient is at home vitamin B12. B12 more than 2000. B12 not given during hospital stay. 06/24: Even though sodium level is normal less than 10 patient is still encephalopathy grade 3, no further improvement since yesterday. Patient not opening eyes, noncommunicative lethargic and obtunded. Continue lactulose through NG tube every 4 hourly. Free water 300 mL every 4 hourly and D5 half NS 75 mill per hour. Patient is very dehydrated and had 4 bowel movement yesterday. 06/25: CT abdomen shows diffuse contour abnormality of liver consistent with cirrhotic changes with small perihepatic fluid suggestive of ascites. Mild splenomegaly and evidence of varices in the region of the splenic hilum. Overall suggestive of cirrhosis Lactic acidosis: Lactic acid of 3.4 on presentation. Likely secondary to hypoxia. Trend. 06/26: Lactulose was stopped yesterday. C. difficile is negative. Tube feed is started. JORDAN Creatinine of 1.01 on presentation which increased to 1.36. Baseline creatinine of less than 1 Gentle IV hydration. Hold home Lasix and spironolactone. Gentle IV hydration. Trend BMP. 06/27 creatinine 1.12. JORDAN resolved. Decompensated cirrhosis: Bilirubin of 3.2. AST of 148. ALT of 64. Alkaline phosphatase of 233. Trend CMP. Hold Nodol since patient been placed on n.p.o. status. 06/24: Shelver consulted in the beginning and discussed with him yesterday and today. CT abdomen and pelvis with IV contrast ordered. Patient has obstructive jaundice pattern, worsening. 06/25: Worsening of liver transaminases, total bilirubin and alkaline phos phatase. 06/26:Worsening of liver chemistry with total bilirubin, alkaline phosphatase increasing. Mainly direct hyperbilirubinemia. AST ALT ratio 2 : 1 06/27: Colonoscopy showed diffuse portal colopathy, ischemic colitis exact etiology unclear. Possibilities are possible portal hypertensive colopathy, infectious causes are in rare instances lactulose causing gaseous distention triggered by lactulose fermentation by colonic bacteria. 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 I also called Dr. Sinclair who is patient's oncologist at patient's daughter request and left a voicemail to call back. PT and OT to evaluate and treat. Case management consult Abnormal CT abdomen findin/13: CT abdomen shows soft tissue mass in the left upper lobe extending to mediastinum, small left pleural effusion and soft tissue density in the cecum, possible apple core lesion suggestive of colon carcinoma. Diffuse circumferential wall thickening of sigmoid colon with increased marking and peritoneal fat suggestive of diverticulitis. Patient is on IV ceftriaxone and Flagyl. CT chest without ordered. DVT prophylaxis: SCDs. No chemical thromboprophylaxis at this time as patient is a candidate for thoracentesis. Poor prognosis explained in view of decompensated cirrhosis, EGD and colonoscopy findings. Patient's daughter will discuss with her sibling regarding the CODE STATUS. Total time of the visit including total time spent in counseling or coordination of care, (more than 50% of the total time, spent in obtaining medical information from nurses and other ancillary care providers,explaining to the patient about labs, imaging, diagnosis and management of active complex medical conditions), taking care of acute shortness of breath, encephalopathy clinical update given to patient's daughter and son, discussion with GI, review of labs and imaging is 60 minutes Charges/Coding Visit Charges Inpatient E&M: 75059 Subs Hosp L3
[2022-06-27] MEDS: Ondansetron 4 MG/2 ML Vial IV (09:34)
[2022-06-27] MEDS: rifAXIMin 550 MG Tablet NG ×2 (10:12→21:54)
[2022-06-27] MEDS: Vital High Protein 1,000 ML 20 ML NG (11:29)
--- NOTE | 2022-06-27 12:52 | CASEMGMT ---
Social work Per MD Yo pt has made some improvements overnight and MD Yo suspects recent complications were due to anesthesia. Srinath informed that pt will likely go to PCU status later this day. ELENA updated Verónica at TCU that pt still likely to come to TCU when medically ready. MARY Taylor
[2022-06-27] MEDS: Levothyroxine 112 MCG Tablet NG (15:16)
[2022-06-27] MEDS: Spironolactone 50 MG Tablet NG (15:16)
--- NOTE | 2022-06-27 19:10 | PCM.PROGNOTE ---
Subjective Subjective Patient is doing a lot better today. She had respiratory failure after undergoing her EGD and colonoscopy yesterday. She is only on 2 L of supplemental oxygen. She still has NG tube in place. She is a lot more alert and awake today. This is the first time that I have seen her on this admission be alert. As per nursing she was up and out of bed into the chair. Objective Data Objective Data Vital Signs: Vital Signs Temp Pulse Resp BP Pulse Ox O2 Del Method O2 Flow Rate 98.5 F 92 20 H 114/81 H 96 Nasal Cannula 1 06/27/22 15:39 06/27/22 15:39 06/27/22 15:39 06/27/22 15:39 06/27/22 15:39 06/27/22 15:39 06/27/22 15:39 FiO2 50 06/27/22 03:00 Oxygen Flow Rate (L/min) 1 Oxygen Delivery Method Nasal Cannula Weight: 273 lb 5.971 oz Body Mass Index (BMI) 41.7 Intake & Output: Intake and Output for Last 24 Hours 06/25/22 06/26/22 06/27/22 23:59 23:59 23:59 Intake Total 5450 / 5450 1802.5 / 1802.5 2163 / 2163 Output Total 250 / 250 800 / 800 450 / 450 Balance 5200 / 5200 1002.5 / 1002.5 1713 / 1713 Lab / Micro Data Result Diagrams: 06/27/22 04:40 06/27/22 04:40 Labs: Laboratory Results - last 24 hr 06/27/22 00:25: Ammonia < 10.0 L 06/27/22 00:25: WBC 7.8, RBC 4.71, Hgb 14.6, Hct 46.4, MCV 98.5, MCH 31.0, MCHC 31.5 L, RDW Std Deviation 57.2 H, RDW Coeff of Anyi 16.0 H, Plt Count 67 L, MPV 11.7, Immature Gran % (Auto) 2.800 H, Neut % (Auto) 72.9 H, Lymph % (Auto) 11.7 L, [place] % (Auto) 10.8 H, Eos % (Auto) 0.9, Baso % (Auto) 0.9, Absolute Neuts (auto) 5.6, Absolute Lymphs (auto) 0.91, Nucleated RBC % 0.5 06/27/22 00:25: Sodium 142, Potassium 3.9, Chloride 102, Carbon Dioxide 33.0 H, Anion Gap 7, BUN 15, Creatinine 1.27 H, Estim Creat Clear Calc 39.21, Est GFR (MDRD) Af Amer 54 L, Est GFR (MDRD) Non-Af 45 L, BUN/Creatinine Ratio 11.8, Glucose 103, Calcium 8.7, Total Bilirubin 7.50 H, AST 238 H, ALT 103 H, Alkaline Phosphatase 223 H, Total Protein 6.0 L, Albumin 2.3 L, Globulin 3.7, Albumin/Globulin Ratio 0.6 L 06/27/22 04:40: WBC 7.8, RBC 4.44, Hgb 13.6, Hct 42.7, MCV 96.2, MCH 30.6, MCHC 31.9 L, RDW Std Deviation 55.1 H, RDW Coeff of Anyi 15.8 H, Plt Count 61 L, MPV 11.6, Immature Gran % (Auto) 2.300 H, Neut % (Auto) 67.4, Lymph % (Auto) 14.2 L, [place] % (Auto) 14.9 H, Eos % (Auto) 0.6, Baso % (Auto) 0.6, Absolute Neuts (auto) 5.3, Absolute Lymphs (auto) 1.11, Nucleated RBC % 0.4 06/27/22 04:40: Sodium 142, Potassium 3.7, Chloride 106, Carbon Dioxide 27.0, Anion Gap 9, BUN 16, Creatinine 1.12 H, Estim Creat Clear Calc 44.46, Est GFR (MDRD) Af Amer 63, Est GFR (MDRD) Non-Af 52 L, BUN/Creatinine Ratio 14.3, Glucose 83, Calcium 8.4 L, Total Bilirubin 6.60 H, Direct Bilirubin 4.28 H, AST 212 H, ALT 94 H, Alkaline Phosphatase 209 H, Total Protein 5.4 L, Albumin 1.9 L, Globulin 3.5 06/27/22 04:40: Total Creatine Kinase 351 H Micro: Microbiology 06/26/22 15:15 Interface Orders Enteric Bacteriology - Final 06/21/22 20:30 Blood Culture (Wb) - Anticubital Right Blood Culture - Final Staphylococcus hominis 06/21/22 23:15 Blood Culture (Wb) - Anticubital Left Blood Culture - Final No growth in 5 days. 06/26/22 15:15 Stool C. difficile DNA Amplification - Final 06/26/22 20:05 Urine Catheter - Catheter Legionella Antigen - Final 06/26/22 20:05 Urine Catheter - Catheter Streptococcus pneumoniae Antigen (M - Final 06/21/22 20:30 Nasal Secretion SARS-CoV-2 & FLU Antigen (Rapid) - Final ABG Data ABG results: ABG 06/27/22 00:38 Specimen Type KRISTIAN VBG pH 7.29 L VBG pO2 32 VBG HCO3 30 H VBG Total CO2 32 VBG O2 Sat (Calc) 53 VBG Base Excess 3 POC Mix VBG pCO2 Pt Tmp 62.6 H Respiration Rate 12 O2 Delivery Device BiPAP POC PEEP 10 POC Pressure Suppt 8 Physical Exam Narrative Seen and examined. Patient more awake. Physical exam General: Awake, at times drowsy. Oriented to place and person. Intermittent confusion HEENT: Atraumatic, PERRLA, Normocephalic Oral: Oral mucosa moist. NG tube. Neck: Supple, No JVD, Negative Carotid Bruits Lungs: Air entry diminished in bilateral lung bases. No crepitation/rhonchi Cardiovascular: Regular rate, bradycardia, Normal S1, Normal S2, systolic murmur Abdomen: Bowel Sounds Present, Soft, Non Tender, Non-Distended : No renal angle tenderness. No suprapubic tenderness. Extremities: No edema, Capillary Refill Less than 3 Seconds Skin: Mild ecchymosis and thrombocytopenia Musculoskeletal: Bilateral valgus deformity of knee, degenerative arthritis. Passive ROM restricted Neurological: No acute deficit. DTR 2+. Psych/Mental Status: Flat affect awake Assessment & Plan Assessment/Plan (1) Encephalopathy acute: PLAN: Lactulose has been stopped. We will continue Xifaxan. There is no more neomycin. We will substitute that with Flagyl 500 mg p.o. 3 times daily. She still has a grade 1-2 hepatic encephalopathy. (2) Metastasis from thyroid cancer: (3) Acute kidney injury: (4) Pleural effusion: (5) Cirrhosis: PLAN: CT scan abdomen pelvis does show that she has cirrhosis without any lesions seen in the liver. . She currently is a child Dominguez class C with a meld of 26. She has decompensated liver disease secondary to encephalopathy, with recent lower GI bleed secondary to ischemic colitis secondary to lactulose. Enteric pathogens and C. difficile were negative from cultures taken from a colonoscopy specimen. Biopsies are pending. She was also discovered to have a large gastric varices without stigmata of bleeding. Recommend maintaining a systolic blood pressure less than 110 and a diastolic blood pressure less than 60 if possible. Recommend nadolol 10 mg p.o. twice daily. Also recommending NG tube removal in the morning and introduction of p.o. diet with clear liquids. Charges/Coding Visit Charges Inpatient E&M: 91035 Subs Hosp L3
[2022-06-27] MEDS: levoFLOXacin IV 500 MG/100 ML BAG 100 MG IV (21:52)
[2022-06-28] VITALS (21 sets, daily range): BP systolic 95–134; BP diastolic 61–107; PULSE 76–93; RESP 12–17; TEMP 36.6–37.1; O2SAT 92–100
[2022-06-28] MEDS: Levothyroxine 112 MCG Tablet NG (04:51)
--- NOTE | 2022-06-28 08:20 | PCM.PN.HOSP ---
Reason for Visit Reason for Visit: Diagnoses Malignant neoplasm of thyroid gland (06/22/22) Secondary malignant neoplasm of unspecified site (06/22/22) Encephalopathy, unspecified (06/22/22) Pleural effusion, not elsewhere classified (06/22/22) Respiratory failure, unspecified, unspecified whether with hypoxia or hypercapnia (06/22/22) Unspecified cirrhosis of liver (06/22/22) Acute kidney failure, unspecified (06/22/22) Subjective Subjective Follow-up for acute hepatic encephalopathy due to decompensated cirrhosis, portal hypertension, ischemic colitis, lung mass. Objective Data Objective Data Vital Signs: Vital Signs Temp Pulse Resp BP Pulse Ox O2 Del Method O2 Flow Rate 97.9 F 93 13 134/92 H 94 Nasal Cannula 2 06/28/22 08:00 06/28/22 08:00 06/28/22 08:00 06/28/22 08:00 06/28/22 08:00 06/28/22 08:00 06/28/22 08:00 FiO2 50 06/27/22 03:00 Oxygen Flow Rate (L/min) 2 Oxygen Delivery Method Nasal Cannula Weight: 274 lb 11.135 oz Body Mass Index (BMI) 41.7 Intake & Output: Intake and Output for Last 24 Hours 06/26/22 06/27/22 06/28/22 23:59 23:59 23:59 Intake Total 1802.5 / 1802.5 2613 / 2913 830 / 830 Output Total 800 / 800 450 / 700 400 / 400 Balance 1002.5 / 1002.5 2163 / 2213 430 / 430 Lab / Micro Data Result Diagrams: 06/27/22 04:40 06/27/22 04:40 Micro: Microbiology 06/26/22 15:15 Interface Orders Enteric Bacteriology - Final 06/21/22 20:30 Blood Culture (Wb) - Anticubital Right Blood Culture - Final Staphylococcus hominis 06/21/22 23:15 Blood Culture (Wb) - Anticubital Left Blood Culture - Final No growth in 5 days. 06/26/22 15:15 Stool C. difficile DNA Amplification - Final 06/26/22 20:05 Urine Catheter - Catheter Legionella Antigen - Final 06/26/22 20:05 Urine Catheter - Catheter Streptococcus pneumoniae Antigen (M - Final 06/21/22 20:30 Nasal Secretion SARS-CoV-2 & FLU Antigen (Rapid) - Final Physical Exam Narrative Seen and examined. Patient more awake and answer simple question all the morning. She was out of bed in the chair yesterday. Physical exam General: Awake. Oriented to place and person. Still sometimes gets lethargic and confused. HEENT: Atraumatic, PERRLA, Normocephalic Oral: Oral mucosa moist. NG tube removed. Neck: Supple, No JVD, Negative Carotid Bruits Lungs: Air entry diminished in bilateral lung bases. No crepitation/rhonchi Cardiovascular: Regular rate, sinus rhythm, Normal S1, Normal S2, systolic murmur Abdomen: Bowel Sounds Present, Soft, Non Tender, Non-Distended : No renal angle tenderness. No suprapubic tenderness. Extremities: No appreciable edema, Capillary Refill Less than 3 Seconds Skin: Mild ecchymosis due to thrombocytopenia Musculoskeletal: Bilateral valgus deformity of knee, degenerative arthritis. Passive ROM restricted Neurological: No acute neurological deficit. DTR 2+. Psych/Mental Status: Flat affect awake Assessment & Plan Assessment/Plan (1) Encephalopathy acute: (2) Metastasis from thyroid cancer: (3) Acute kidney injury: (4) Pleural effusion: PLAN: Plan Metastatic from thyroid cancer Patient with known metastatic to lungs. Chest x-ray was visualized and independently interpreted. I agree with the interpretation of left pleural effusion versus left basilar infiltrate. Mild cardiomegaly. White count is mildly elevated at 13,000 with neutrophilic predominance. There is no fever. With patient's symptoms going on for about 2 weeks, less likely pneumonia. However will empirically cover with ceftriaxone and azithromycin the patient was started at the emergency department. 06/24: Leukocytosis resolved. 06/27: I talked to the patient's alarm field technician Dr. Sinclair.? He has been seeing patient for last few months for thyroid cancer.? Patient had thyroidectomy, exact type and nature of surgery unclear many years ago.? She has a history of thyroid cancer with metastasis to left upper lobe and mediastinum.? 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 After that levothyroxine was held for radioactive iodine tracer dose.? Radioactive iodine tracer dose was given but did not go to any metastatic site or lung metastasis.? Therefore it is ineffective and not candidate for LOUIS therapy.? 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 Acute on chronic combined respiratory failure following anesthesia: 06/27: Yesterday evening I was called by anesthesiologist the patient pulse ox was in 40% and not increasing on nasal cannula therefore put on BiPAP. Yesterday, ABG after procedure was 7.06/109/75 on nonrebreather. Patient was put on BiPAP and transferred to ICU from PACU. ABG 7.15/88.3/100 On 80% FiO2 BiPAP. Pulmonary consult reviewed and appreciated. Advised to continue BiPAP as needed and during sleep. Patient is transferred from ICU to PCU. 06/28: Patient breathing is better. Microbiology Past 72 Hours 06/26/22 15:15 Interface Orders Enteric Bacteriology - Final 06/21/22 20:30 Blood Culture (Wb) - Anticubital Right Blood Culture - Final Staphylococcus hominis 06/21/22 23:15 Blood Culture (Wb) - Anticubital Left Blood Culture - Final No growth in 5 days. 06/26/22 15:15 Stool C. difficile DNA Amplification - Final 06/26/22 20:05 Urine Catheter - Catheter Legionella Antigen - Final 06/26/22 20:05 Urine Catheter - Catheter Streptococcus pneumoniae Antigen (M - Final Acute hepatic encephalopathy with decompensated cirrhosis with splenomegaly, small perihepatic ascites and portal hypertensive changes Ammonia level on presentation was 65. Trend. Lactulose rectal x1 ordered. Also we will check a TSH. Keep patient NPO. Patient is at home vitamin B12. B12 more than 2000. B12 not given during hospital stay. 06/24: Even though sodium level is normal less than 10 patient is still encephalopathy grade 3, no further improvement since yesterday. Patient not opening eyes, noncommunicative lethargic and obtunded. Continue lactulose through NG tube every 4 hourly. Free water 300 mL every 4 hourly and D5 half NS 75 mill per hour. Patient is very dehydrated and had 4 bowel movement yesterday. 06/25: CT abdomen shows diffuse contour abnormality of liver consistent with cirrhotic changes with small perihepatic fluid suggestive of ascites. Mild splenomegaly and evidence of varices in the region of the splenic hilum. Overall suggestive of cirrhosis Lactic acidosis: Lactic acid of 3.4 on presentation. Likely secondary to hypoxia. Trend. 06/26: Lactulose was stopped yesterday. C. difficile is negative. Tube feed is started. 06/28: Acute encephalopathy confusion intermittent and responsiveness is better. JORDAN Creatinine of 1.01 on presentation which increased to 1.36. Baseline creatinine of less than 1 Gentle IV hydration. Hold home Lasix and spironolactone. Gentle IV hydration. Trend BMP. 06/27 creatinine 1.12. JORDAN resolved. Decompensated cirrhosis: Bilirubin of 3.2. AST of 148. ALT of 64. Alkaline phosphatase of 233. Trend CMP. Hold Nodol since patient been placed on n.p.o. status. 06/24: Global Climate Change Researcher consulted in the beginning and discussed with him yesterday and today. CT abdomen and pelvis with IV contrast ordered. Patient has obstructive jaundice pattern, worsening. 06/25: Worsening of liver transaminases, total bilirubin and alkaline phosphatase. 06/26:Worsening of liver chemistry with total bilirubin, alkaline phosphatase increasing. Mainly direct hyperbilirubinemia. AST ALT ratio 2 : 1 06/27: Colonoscopy showed diffuse portal colopathy, ischemic colitis exact etiology unclear. Possibilities are possible portal hypertensive colopathy, infectious causes are in rare instances lactulose causing gaseous distention triggered by lactulose fermentation by colonic bacteria. 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 I also called Dr. Sinclair who is patient's oncologist at patient's daughter request and left a voicemail to call back. 06/28: Colonoscopy sample for C. difficile and. 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 Lactulose was stopped PT and OT to evaluate and treat. Case management consult Abnormal CT abdomen findin/13: CT abdomen shows soft tissue mass in the left upper lobe extending to mediastinum, small left pleural effusion and soft tissue density in the cecum, possible apple core lesion suggestive of colon carcinoma. Diffuse circumferential wall thickening of sigmoid colon with increased marking and peritoneal fat suggestive of diverticulitis. Patient is on IV ceftriaxone and Flagyl. Antibiotic was changed to Levaquin and Flagyl DVT prophylaxis: SCDs. No chemical thromboprophylaxis at this time. Patient not had enough pleural fluid for thoracocentesis Poor prognosis explained in view of decompensated cirrhosis, EGD and colonoscopy findings. Patient's daughter will discuss with her sibling regarding the CODE STATUS. Total time of the visit including total time spent in counseling or coordination of care, (more than 50% of the total time, spent in obtaining medical information from nurses and other ancillary care providers,explaining to the patient about labs, imaging, diagnosis and management of active complex medical conditions), taking care of acute shortness of breath, encephalopathy clinical update given to patient's daughter and son, discussion with GI, review of labs and imaging is 60 minutes Charges/Coding Visit Charges Inpatient E&M: 25082 Subs Hosp L3
[2022-06-28] MEDS: metroNIDAZOLE 500 MG/100 ML BAG 100 MG IV ×2 (08:36→21:42)
[2022-06-28 08:56] LABS: Color, Urine Amber (Yellow); Glucose, Dipstick Normal (Normal); Ketone-Dipstick 5 mg/dl (Negative); Leukocyte Esterase-Dipstick 100 /ul (Negative); Mucous, Urine 0 SEEN /hpf (<or=2+); Nitrite-Dipstick Positive (Negative); Occult Blood-Urine 250 /ul (Negative); Protein-Dipstick 100 mg/dl (Negative); Specific Gravity, Urine 1.015 (1.002-1.030); Squamous Epithelial Cells - UA 0 SEEN /hpf (5-10); Urine Clarity Cloudy (Clear); Urine Urobilinogen 1 mg/dl (Normal); Urine pH 6.5 (5.0 - 8.0)
[2022-06-28 08:57] LABS: Urine Bilirubin Dipstick 3 mg/dL (Negative)
[2022-06-28 09:04] LABS: Bacteria 1+ /hpf (None Seen); Red Blood Cells-Urine 25-50 SEEN /hpf (0-5); White Blood Cells 10-25 SEEN /hpf (0-5)
--- NOTE | 2022-06-28 10:39 | PCM.PN.INT ---
Assessment & Plan Assessment/Plan (1) Respiratory failure: PLAN: Plan RECOMMENDATIONS: 1. Continue empiric BiPAP with sleep 2. Defer to GI on further work-up 3. Keep saturations between 90 and 94% 4. Increase activity as tolerated 5. Await morning labs IMPRESSIONS: 1. Acute on chronic combined respiratory failure following anesthesia Patient appears to have an element of CO2 retention at baseline despite lack of reported respiratory disease. Patient does have a body habitus suggestive of sleep apnea, but obesity hypoventilation syndrome would be a consideration. Patient did have an increased AA gradient, but was under anesthesia at the time of the ABG. A room air ABG following cessation of medication effects would be helpful in making this diagnosis. Given CO2 retention, patient's oxygen saturation should be maintained between 90 and 94%. Unclear etiology for change in mental status at this time. ABG appears to be appropriate. Patient may have an elevation of ammonia given discontinuation of lactulose. 2. Acute hepatic encephalopathy with decompensated cirrhosis/colitis Gastroenterology is following. Patient did have a colonoscopy yesterday. Some immune markers are positive. Patient is also undergoing chemotherapy. Patient likely benefit from continued diuresis as tolerated. 3. Cirrhosis/thyroid cancer with metastasis/morbid obesity Complicates care, management, recovery and prognosis. Patient would benefit from an outpatient evaluation for sleep apnea. Defer to oncology on further work-up and recommendations. Subjective Subjective Patient did okay overnight. Patient was on minimal nasal cannula oxygen this morning. Patient was able to open her eyes and interact. Through the morning, patient has become less responsive and was placed on BiPAP therapy. Patient did have her NG taken out overnight. Objective Data Objective Data Vital Signs: Vital Signs Temp Pulse Resp BP Pulse Ox O2 Del Method O2 Flow Rate 36.8 C 92 13 105/69 97 Bi-pap 2 06/28/22 10:00 06/28/22 10:14 06/28/22 10:14 06/28/22 10:00 06/28/22 10:14 06/28/22 10:00 06/28/22 08:00 FiO2 50 06/28/22 10:14 Oxygen Flow Rate (L/min) 2 Oxygen Delivery Method Bi-pap Weight: 124.6 kg Body Mass Index (BMI) 41.7 Intake & Output: Intake and Output for Last 24 Hours 02/14/23 02/15/23 02/16/23 23:59 23:59 23:59 Intake Total 1802.5 / 1802.5 2613 / 2913 1566.25 / 1566.25 Output Total 800 / 800 450 / 700 400 / 400 Balance 1002.5 / 1002.5 2163 / 2213 1166.25 / 1166.25 Lab / Micro Data Attestation: I reviewed the patient's lab results. Result Diagrams: 06/27/22 04:40 06/27/22 04:40 Labs: Laboratory Results - last 24 hr 06/28/22 08:50: Urine Color Elena, Urine Clarity Cloudy, Urine pH 6.5, Ur Specific [place] 1.015, Urine Protein 100 H, Urine Glucose (UA) Normal, Urine Ketones 5 H, Urine Occult Blood 250 H, Urine Nitrite Positive H, Urine Bilirubin 3 H, Urine Urobilinogen 1 H, Ur Leukocyte Esterase 100 H, Urine RBC 25-50 SEEN, Urine WBC 10-25 SEEN, Ur Squamous Epith Cells 0 SEEN, Urine Bacteria 1+, Urine Mucus 0 SEEN Micro: Microbiology 06/26/22 15:15 Interface Orders Enteric Bacteriology - Final 06/21/22 20:30 Blood Culture (Wb) - Anticubital Right Blood Culture - Final Staphylococcus hominis 06/21/22 23:15 Blood Culture (Wb) - Anticubital Left Blood Culture - Final No growth in 5 days. 06/26/22 15:15 Stool C. difficile DNA Amplification - Final 06/26/22 20:05 Urine Catheter - Catheter Legionella Antigen - Final 06/26/22 20:05 Urine Catheter - Catheter Streptococcus pneumoniae Antigen (M - Final 06/21/22 20:30 Nasal Secretion SARS-CoV-2 & FLU Antigen (Rapid) - Final ABG Data Interpretation: ABG was obtained on BiPAP showing no CO2 retention and increased PO2. Oxygen subsequently decreased Physical Exam Const no apparent distress Constitutional Narrative: Somewhat slow to respond, but response is appropriate this morning HEENT normocephalic and head/scalp atraumatic Eyes PERRL, EOMs intact bilaterally and conjunctivae normal Eyes Narrative: Scleral icterus noted Neck full ROM and no lymphadenopathy Resp normal respiratory effort Effort and Inspection: able to speak in complete sentences Auscultation: diminished lung sounds; Negative for rales, rhonchi or wheezes Cardio regular rate, regular rhythm, S1 normal heart sound, S2 normal heart sound, no murmurs, no rub and no gallops GI normal to inspection, nondistended, normoactive bowel sounds Extremity General Extremity: edema; Negative for clubbing Skin no rashes or lesions noted Neuro CN's II-XII intact bilaterally and moves all extremities Psych Mood & Affect: labile affect Charges/Coding Visit Charges Inpatient E&M: 34832 Subs Hosp L3
[2022-06-28 10:56] LABS: Hematocrit 45.1 % (37-47); Hemoglobin 14.4 g/dL (12.0-15.0); Mean Corp Hgb Conc 31.9 g/dL (32-36); Mean Corpuscular Hgb 31.6 pg (27.0-32.0); Mean Corpuscular Volume 99.1 fL (81-99); Mean Platelet Vol. 11.2 fl (6.2-12.0); POSITIVE COUNT YES; POSITIVE MORPHOLOGY YES; Platelet Count 51 K/mm3 (150-450); RBC Distribution Width CV 15.9 % (11.6-14.6); Red Blood Count 4.55 M/mm3 (4.2-5.4); White Blood Count 7.1 K/mm3 (4.4-11.0)
[2022-06-28 11:00] LABS: Differential Indicated MANUAL DIFF
[2022-06-28 11:26] LABS: AST(SGOT) 282 U/L (15-37); Alanine Aminotransfer ALT/SGPT 111 U/L (13-56); Albumin, Serum 2.5 g/dL (3.2-5.0); Alkaline Phosphatase 252 U/L (45-117); Anion Gap 8 (5-15); BUN 22 mg/dL (7-18); BUN/Creat Ratio 21.2 RATIO (10-20); Bilirubin, Direct 4.97 mg/dL (0.00-0.30); Calcium,Total 9.3 mg/dL (8.5-10.1); Chloride 105 mmol/L (98-107); Creatinine, Serum 1.04 mg/dL (0.55-1.02); EST Glomerular Filtration Rate 56 mL/min (>60); Est Glom Filt Rate - Afr Amer 68 mL/min (>60); Estimated Creatinine Clearance 47.88 ml/min; Globulin 3.9 g/dL (2.2-4.2); Glucose 103 mg/dL (74-106); Potassium 5.6 mmol/L (3.5-5.1); Protein, Total 6.4 g/dL (6.4-8.2); Sodium Level 139 mmol/L (136-145)
[2022-06-28 11:26] LABS: Ammonia < 10.0 umol/L (11-32)
[2022-06-28 11:29] LABS: CPK Total, Creatine Kinase 394 U/L (26-192)
[2022-06-28 11:31] LABS: Eosinophil 2 % (0-5); Lymphocyte 9 % (19-41); Metamyelocyte 2 % (0-1); Monocyte 10 % (0-10); Neutrophil-Band 8 % (0-5); Neutrophil-Segmented 69 % (47-70); Total Cells Counted 100 (MANUAL DIFF)
[2022-06-28 11:32] LABS: Platelet Estimate MOD DEC (ADEQ); Red Cell Morphology NORM C+C NORMAL (NORM C&C)
[2022-06-28 11:33] LABS: Absolute Lymphocyte Count 0.64 X10^3/uL (0.83-4.51); Absolute Neutrophil Count 5.5 X10^3/uL (2.0-7.7)
[2022-06-28 12:49] LABS: Base Excess 4 mmol/L (-2 to +2); Bicarbonate 27.7 mmol/L (22-26); Blood Gas Specimen Type ART; FI02 50; O2 Delivery Device BiPAP; PEEP 10; PO2 186 mmHG (75-100); SITE L Radial; SO2 100 % (95-99); Total Carbon Dioxide 29 mmol/L; pCO2 39.3 mmHg (35-45); pH 7.46 (7.35-7.45)
--- NOTE | 2022-06-28 13:58 | MRI_ITS ---
STUDY: MRI BRAIN WITH AND WITHOUT CONTRAST REASON FOR EXAM: Female, 67 years old. altered mental status TECHNIQUE: Standardized multiplanar fat and water weighted pulse sequences were obtained. 25CC IV CLARISCAN was administered for the contrast portion of the examination. COMPARISON: CT of the brain June 21, 2022. FINDINGS: Normal size of the ventricles and extra-axial spaces for the patient''s age. Mild periventricular white matter ischemic change without mass effect or restricted diffusion. Normal bilateral basal ganglia. Normal thalami. There is no extra-axial fluid accumulation. Normal flow voids within the major intracranial circulation suggesting patency by spin echo criteria. Normal venous enhancement. There is no enhancing intra-axial or extra-axial abnormality given the limited quality of the study due to extensive motion artifact. Normal sella turcica, pituitary gland, infundibular stalk, optic chiasm and hypothalamus. Normal tectal plate and pineal gland. Normal midbrain, nadira and medulla. Normal cerebellum. Normal basal cisterns. Normal bilateral temporal bones. Normal bilateral internal auditory canals. No demonstrated orbital abnormality, within the constraints of a routine brain study. Mucosal thickening of the left maxillary sinus. Normal calvarium and skull base. Normal visualized soft tissue structures. Normal visualized upper cervical spine. MRI/Brain W/WO Contrast IMPRESSION: Mild periventricular white matter ischemic changes without evidence for acute infarct. No definitive evidence for focal enhancing lesions following contrast administration Electronically Signed: Thee Faria MD at 16:27 EST ,
[2022-06-28] MEDS: Furosemide 40 MG/4 ML Vial IV (14:47)
--- NOTE | 2022-06-28 14:50 | NURSING ---
patient off floor for MRI at this time
--- NOTE | 2022-06-28 18:44 | PCM.PROGNOTE ---
Subjective Subjective Patient was doing a lot better last night and. However this morning her NG tube was removed and she got really lethargic and had to go back on BiPAP. Her ammonia level has been within normal limits. She has not been getting any narcotics. I ordered an MRI of the brain. Objective Data Objective Data Vital Signs: Vital Signs Temp Pulse Resp BP Pulse Ox O2 Del Method O2 Flow Rate 98.2 F 85 16 103/73 97 Bi-pap 2 06/28/22 18:00 06/28/22 18:00 06/28/22 18:00 06/28/22 18:00 06/28/22 18:00 06/28/22 18:00 06/28/22 17:00 FiO2 30 06/28/22 18:00 Oxygen Flow Rate (L/min) 2 Oxygen Delivery Method Bi-pap Weight: 274 lb 11.135 oz Body Mass Index (BMI) 41.7 Intake & Output: Intake and Output for Last 24 Hours 06/26/22 06/27/22 06/28/22 23:59 23:59 23:59 Intake Total 1802.5 / 1802.5 2613 / 2913 1566.25 / 1566.25 Output Total 800 / 800 450 / 700 1375 / 1375 Balance 1002.5 / 1002.5 2163 / 2213 191.25 / 191.25 Lab / Micro Data Result Diagrams: 06/28/22 10:44 06/28/22 10:44 Labs: Laboratory Results - last 24 hr 06/28/22 08:50: Urine Color Elena, Urine Clarity Cloudy, Urine pH 6.5, Ur Specific [place] 1.015, Urine Protein 100 H, Urine Glucose (UA) Normal, Urine Ketones 5 H, Urine Occult Blood 250 H, Urine Nitrite Positive H, Urine Bilirubin 3 H, Urine Urobilinogen 1 H, Ur Leukocyte Esterase 100 H, Urine RBC 25-50 SEEN, Urine WBC 10-25 SEEN, Ur Squamous Epith Cells 0 SEEN, Urine Bacteria 1+, Urine Mucus 0 SEEN 06/28/22 10:36: Ammonia < 10.0 L 06/28/22 10:44: WBC 7.1, RBC 4.55, Hgb 14.4, Hct 45.1, MCV 99.1 H, MCH 31.6, MCHC 31.9 L, RDW Std Deviation 57.0 H, RDW Coeff of Anyi 15.9 H, Plt Count 51 L, MPV 11.2, Neut % (Auto) Not Reportable, Absolute Neuts (auto) 5.5, Absolute Lymphs (auto) 0.64 L, Total Counted 100, Neutrophils % (Manual) 69, Band Neutrophils % 8 H, Lymphocytes % (Manual) 9 L, Monocytes % (Manual) 10, Eosinophils % (Manual) 2, Metamyelocytes % 2 H, Diff Path Review September, Platelet Estimate MOD DEC, RBC Morphology NORM C+C 06/28/22 10:44: Sodium 139, Potassium 5.6 H, Chloride 105, Carbon Dioxide 26.0, Anion Gap 8, BUN 22 H, Creatinine 1.04 H, Estim Creat Clear Calc 47.88, Est GFR (MDRD) Af Amer 68, Est GFR (MDRD) Non-Af 56 L, BUN/Creatinine Ratio 21.2 H, Glucose 103, Calcium 9.3, Total Bilirubin 8.50 H, Direct Bilirubin 4.97 H, AST 282 H, ALT 111 H, Alkaline Phosphatase 252 H, Total Creatine Kinase Cancelled, Total Protein 6.4, Albumin 2.5 L, Globulin 3.9 06/28/22 10:44: Total Creatine Kinase 394 H Micro: Microbiology 06/26/22 15:15 Interface Orders Enteric Bacteriology - Final 06/21/22 20:30 Blood Culture (Wb) - Anticubital Right Blood Culture - Final Staphylococcus hominis 06/21/22 23:15 Blood Culture (Wb) - Anticubital Left Blood Culture - Final No growth in 5 days. 06/26/22 15:15 Stool C. difficile DNA Amplification - Final 06/26/22 20:05 Urine Catheter - Catheter Legionella Antigen - Final 06/26/22 20:05 Urine Catheter - Catheter Streptococcus pneumoniae Antigen (M - Final 06/21/22 20:30 Nasal Secretion SARS-CoV-2 & FLU Antigen (Rapid) - Final ABG Data ABG results: ABG 06/28/22 10:17 Specimen Type ART Sample Site L Radial pH 7.46 H Bicarbonate Actual 27.7 H Total CO2 29 Base Excess 4 H O2 Saturation 100 H O2 % 50 ABG pCO2 39.3 ABG pO2 186 H O2 Delivery Device BiPAP POC PEEP 10 Radiography Diagnostic Testing: Radiology Impression Brain MRI 06/28/22 13:58 IMPRESSION: Mild periventricular white matter ischemic changes without evidence for acute infarct. No definitive evidence for focal enhancing lesions following contrast administration Electronically Signed: Thee Faria MD at 16:27 EST , Physical Exam Const no apparent distress Constitutional Narrative: Somewhat slow to respond, but response is appropriate this morning HEENT normocephalic and head/scalp atraumatic Eyes PERRL, EOMs intact bilaterally and conjunctivae normal Eyes Narrative: Scleral icterus noted Neck full ROM and no lymphadenopathy Resp normal respiratory effort Effort and Inspection: able to speak in complete sentences Auscultation: diminished lung sounds; Negative for rales, rhonchi or wheezes Cardio regular rate, regular rhythm, S1 normal heart sound, S2 normal heart sound, no murmurs, no rub and no gallops GI normal to inspection, nondistended, normoactive bowel sounds Extremity General Extremity: edema; Negative for clubbing Skin no rashes or lesions noted Neuro CN's II-XII intact bilaterally and moves all extremities Psych Mood & Affect: labile affect Assessment & Plan Assessment/Plan (1) Encephalopathy acute: PLAN: Lactulose has been stopped. We will continue Xifaxan. There is no more neomycin. We will substitute that with Flagyl 500 mg p.o. 3 times daily. She is back to grade 3 grade 4 hepatic encephalopathy. This is despite normal ammonia level. Await the results from the MRI of the brain. (2) Metastasis from thyroid cancer: (3) Acute kidney injury: (4) Pleural effusion: (5) Cirrhosis: PLAN: CT scan abdomen pelvis does show that she has cirrhosis without any lesions seen in the liver. . She currently is a child Dominguez class C with a meld of 26. She has decompensated liver disease secondary to encephalopathy, with recent lower GI bleed secondary to ischemic colitis secondary to lactulose. Enteric pathogens and C. difficile were negative from cultures taken from a colonoscopy specimen. Biopsies are pending. She was also discovered to have a large gastric varices without stigmata of bleeding. Recommend maintaining a systolic blood pressure less than 110 and a diastolic blood pressure less than 60 if possible. Recommend nadolol 10 mg p.o. twice daily. Also recommending NG tube removal in the morning and introduction of p.o. diet with clear liquids.
[2022-06-28 19:16] LABS: Amphetamine Urine VISTA NEGATIVE (<1000 ng/mL); Barbiturate Urine VISTA NEGATIVE (< 200 ng/mL); Benzodiazepine Urine VISTA NEGATIVE (< 200 ng/mL); Cocaine Urine VISTA NEGATIVE (< 300 ng/mL); Ecstacy Urine VISTA POSITIVE (< 500 ng/mL); Methadone Urine VISTA NEGATIVE (< 300 ng/mL); PCP Urine VISTA NEGATIVE (< 25 ng/mL); THC Urine VISTA NEGATIVE (< 50 ng/mL); Vista UDS pH Range 6
[2022-06-28] MEDS: levoFLOXacin IV 500 MG/100 ML BAG 100 MG IV (22:49)
[2022-06-29] VITALS (15 sets, daily range): BP systolic 92–127; BP diastolic 68–104; PULSE 72–97; RESP 12–20; TEMP 36.6–37.1; O2SAT 92–100
[2022-06-29 05:15] LABS: Differential Indicated MANUAL DIFF; Hematocrit 42.9 % (37-47); Hemoglobin 13.7 g/dL (12.0-15.0); Mean Corp Hgb Conc 31.9 g/dL (32-36); Mean Corpuscular Hgb 30.8 pg (27.0-32.0); Mean Corpuscular Volume 96.4 fL (81-99); POSITIVE COUNT YES; POSITIVE MORPHOLOGY YES; Platelet Count 54 K/mm3 (150-450); RBC Distribution Width CV 15.9 % (11.6-14.6); RBC Distribution Width SD 55.1 fl (35.1-43.9); Red Blood Count 4.45 M/mm3 (4.2-5.4); White Blood Count 6.5 K/mm3 (4.4-11.0)
[2022-06-29 05:33] LABS: Anion Gap 6 (5-15); BUN 21 mg/dL (7-18); CPK Total, Creatine Kinase 168 U/L (26-192); Calcium,Total 9.1 mg/dL (8.5-10.1); Chloride 101 mmol/L (98-107); Creatinine, Serum 1.05 mg/dL (0.55-1.02); EST Glomerular Filtration Rate 56 mL/min (>60); Est Glom Filt Rate - Afr Amer 67 mL/min (>60); Estimated Creatinine Clearance 47.42 ml/min; Glucose 93 mg/dL (74-106); Potassium 3.9 mmol/L (3.5-5.1); Sodium Level 141 mmol/L (136-145)
[2022-06-29 05:35] LABS: AST(SGOT) 239 U/L (15-37); Alanine Aminotransfer ALT/SGPT 95 U/L (13-56); Albumin, Serum 2.1 g/dL (3.2-5.0); Alkaline Phosphatase 240 U/L (45-117); Globulin 3.7 g/dL (2.2-4.2); Protein, Total 5.8 g/dL (6.4-8.2)
[2022-06-29 05:42] LABS: Lymphocyte 11 % (19-41); Monocyte 12 % (0-10); Myelocyte 1 % (0-0); Neutrophil-Segmented 76 % (47-70); Platelet Estimate MKD DEC (ADEQ); Total Cells Counted 100 (MANUAL DIFF)
[2022-06-29 05:43] LABS: Absolute Lymphocyte Count 0.71 X10^3/uL (0.83-4.51); Absolute Neutrophil Count 4.9 X10^3/uL (2.0-7.7); Lymphocyte # 0.71 X10^3/ul (0.83-4.51); Red Cell Morphology NORM C+C NORMAL (NORM C&C)
--- NOTE | 2022-06-29 07:06 | PN.CC_ITS ---
Assessment & Plan Assessment/Plan (1) Respiratory failure: PLAN: Plan RECOMMENDATIONS: 1. Continue empiric BiPAP with sleep 2. Defer to GI on further work-up 3. Keep saturations between 90 and 94% 4. Increase activity as tolerated 5. Await swallow evaluation IMPRESSIONS: 1. Acute on chronic combined respiratory failure following anesthesia Patient appears to have an element of CO2 retention at baseline despite lack of reported respiratory disease. Patient does have a body habitus suggestive of sleep apnea, but obesity hypoventilation syndrome would be a consideration. Patient did have an increased AA gradient, but was under anesthesia at the time of the ABG. A room air ABG following cessation of medication effects would be helpful in making this diagnosis. Given CO2 retention, patient's oxygen saturation should be maintained between 90 and 94%. Unclear etiology for change in mental status at this time. ABG appears to be appropriate. Laboratory work-up has been relatively unremarkable. 2. Acute hepatic encephalopathy with decompensated cirrhosis/colitis Gastroenterology is following. Patient did have a colonoscopy previously, noting colitis, so bloody bowel movement is not as concerning. H&H has remained stable. Some immune markers are positive. Patient is also undergoing chemotherapy. Patient likely benefit from continued diuresis as tolerated. 3. Cirrhosis/thyroid cancer with metastasis/morbid obesity Complicates care, management, recovery and prognosis. Patient would benefit from an outpatient evaluation for sleep apnea. Defer to oncology on further work-up and recommendations. Subjective Subjective Patient did okay overnight. Patient was on BiPAP for most of the day yesterday secondary to mental status. Patient was confused overnight, but this morning is alert and oriented. Patient asking for p.o. intake, but nursing had noted coughing with drinking water overnight. Speech evaluation has been ordered. Nursing also reported patient had a large bowel movement overnight with some evidence of bleeding. Objective Data Objective Data Vital Signs: Vital Signs Temp Pulse Resp BP Pulse Ox O2 Del Method O2 Flow Rate 37.0 C 95 16 127/104 H 96 Nasal Cannula 3 06/29/22 06:00 06/29/22 06:00 06/29/22 06:00 06/29/22 06:00 06/29/22 06:00 06/29/22 06:00 06/29/22 06:00 FiO2 30 06/29/22 01:30 Oxygen Flow Rate (L/min) 3 Oxygen Delivery Method Nasal Cannula Weight: 122.5 kg Body Mass Index (BMI) 41.7 Intake & Output: Intake and Output for Last 24 Hours 06/27/22 06/28/22 06/29/22 23:59 23:59 23:59 Intake Total 2613 / 2913 2314.58 / 2314.58 100 / 100 Output Total 450 / 700 1775 / 1775 250 / 250 Balance 2163 / 2213 539.58 / 539.58 -150 / -150 Lab / Micro Data Attestation: I reviewed the patient's lab results. Result Diagrams: 06/29/22 05:05 06/29/22 05:05 Labs: Laboratory Results - last 24 hr 06/28/22 08:50: Urine Color Elena, Urine Clarity Cloudy, Urine pH 6.5, Ur Specific [place] 1.015, Urine Protein 100 H, Urine Glucose (UA) Normal, Urine Ketones 5 H, Urine Occult Blood 250 H, Urine Nitrite Positive H, Urine Bilirubin 3 H, Urine Urobilinogen 1 H, Ur Leukocyte Esterase 100 H, Urine RBC 25-50 SEEN, Urine WBC 10-25 SEEN, Ur Squamous Epith Cells 0 SEEN, Urine Bacteria 1+, Urine Mucus 0 SEEN 06/28/22 08:50: Urine Opiates Screen POSITIVE H, Urine Methadone Screen NEGATIVE, Ur Barbiturates Screen NEGATIVE, Ur Phencyclidine Scrn NEGATIVE, Ur Amphetamines Screen NEGATIVE, MDMA (Ecstasy) Screen POSITIVE H, U Benzodi azepines Scrn NEGATIVE, Urine Cocaine Screen NEGATIVE, U Cannabinoids Screen NEGATIVE, Ur Drug Screen Comment 06/28/22 10:36: Ammonia < 10.0 L 06/28/22 10:44: WBC 7.1, RBC 4.55, Hgb 14.4, Hct 45.1, MCV 99.1 H, MCH 31.6, MCHC 31.9 L, RDW Std Deviation 57.0 H, RDW Coeff of Anyi 15.9 H, Plt Count 51 L, MPV 11.2, Neut % (Auto) Not Reportable, Absolute Neuts (auto) 5.5, Absolute Lymphs (auto) 0.64 L, Total Counted 100, Neutrophils % (Manual) 69, Band Neutrophils % 8 H, Lymphocytes % (Manual) 9 L, Monocytes % (Manual) 10, Eosinophils % (Manual) 2, Metamyelocytes % 2 H, Diff Path Review May foll, Platelet Estimate MOD DEC, RBC Morphology NORM C+C 06/28/22 10:44: Sodium 139, Potassium 5.6 H, Chloride 105, Carbon Dioxide 26.0, Anion Gap 8, BUN 22 H, Creatinine 1.04 H, Estim Creat Clear Calc 47.88, Est GFR (MDRD) Af Amer 68, Est GFR (MDRD) Non-Af 56 L, BUN/Creatinine Ratio 21.2 H, Glucose 103, Calcium 9.3, Total Bilirubin 8.50 H, Direct Bilirubin 4.97 H, AST 282 H, ALT 111 H, Alkaline Phosphatase 252 H, Total Creatine Kinase Cancelled, Total Protein 6.4, Albumin 2.5 L, Globulin 3.9 06/28/22 10:44: Total Creatine Kinase 394 H 06/29/22 05:05: Total Bilirubin 6.70 H, Direct Bilirubin 4.90 H, AST 239 H, ALT 95 H, Alkaline Phosphatase 240 H, Total Protein 5.8 L, Albumin 2.1 L, Globulin 3.7 06/29/22 05:05: Sodium 141, Potassium 3.9, Chloride 101, Carbon Dioxide 34.0 H, Anion Gap 6, BUN 21 H, Creatinine 1.05 H, Estim Creat Clear Calc 47.42, Est GFR (MDRD) Af Amer 67, Est GFR (MDRD) Non-Af 56 L, BUN/Creatinine Ratio 20.0, Glucose 93, Calcium 9.1, Total Creatine Kinase 168 06/29/22 05:05: WBC 6.5, RBC 4.45, Hgb 13.7, Hct 42.9, MCV 96.4, MCH 30.8, MCHC 31.9 L, RDW Std Deviation 55.1 H, RDW Coeff of Anyi 15.9 H, Plt Count 54 L, MPV 11.0, Neut % (Auto) Not Reportable, Absolute Neuts (auto) 4.9, Absolute Lymphs (auto) 0.71 L, Total Counted 100, Neutrophils % (Manual) 76 H, Lymphocytes % (Manual) 11 L, Monocytes % (Manual) 12 H, Myelocytes % 1 H, Diff Path Review May arden, Platelet Estimate MKD DEC, RBC Morphology NORM C+C Micro: Microbiology 06/26/22 15:15 Interface Orders Enteric Bacteriology - Final 06/21/22 20:30 Blood Culture (Wb) - Anticubital Right Blood Culture - Final Staphylococcus hominis 06/21/22 23:15 Blood Culture (Wb) - Anticubital Left Blood Culture - Final No growth in 5 days. 06/26/22 15:15 Stool C. difficile DNA Amplification - Final 06/26/22 20:05 Urine Catheter - Catheter Legionella Antigen - Final 06/26/22 20:05 Urine Catheter - Catheter Streptococcus pneumoniae Antigen (M - Final 06/21/22 20:30 Nasal Secretion SARS-CoV-2 & FLU Antigen (Rapid) - Final ABG Data ABG results: ABG 06/28/22 10:17 Specimen Type ART Sample Site L Radial pH 7.46 H Bicarbonate Actual 27.7 H Total CO2 29 Base Excess 4 H O2 Saturation 100 H O2 % 50 ABG pCO2 39.3 ABG pO2 186 H O2 Delivery Device BiPAP POC PEEP 10 Attestation: I personally reviewed and interpreted this ABG as follows: (Chronic metabolic alkalosis with increased AA gradient) Radiography Diagnostic Testing: Radiology Impression Brain MRI 06/28/22 13:58 IMPRESSION: Mild periventricular white matter ischemic changes without evidence for acute infarct. No definitive evidence for focal enhancing lesions following contrast administration Electronically Signed: Thee Faria MD at 16:27 EST Reading Location ID and State: [facility] / [place] , Service support , Physical Exam Const alert, oriented x3 and no apparent distress Constitutional Narrative: Patient interacting more appropriately this morning HEENT normocephalic and head/scalp atraumatic Eyes PERRL, EOMs intact bilaterally and conjunctivae normal Eyes Narrative: Scleral icterus noted Neck full ROM and no lymphadenopathy Resp normal respiratory effort Effort and Inspection: able to speak in complete sentences Auscultation: diminished lung sounds; Negative for rales, rhonchi or wheezes Cardio regular rate, regular rhythm, S1 normal heart sound, S2 normal heart sound, no murmurs, no rub and no gallops GI normal to inspection, nondistended, normoactive bowel sounds Extremity General Extremity: Negative for clubbing or edema Skin no rashes or lesions noted Neuro CN's II-XII intact bilaterally and moves all extremities Psych Mood & Affect: flat affect Charges/Coding Visit Charges Inpatient E&M: 15171 Subs Hosp L2
[2022-06-29 09:47] LABS: Pathologist Review Reviewed
--- NOTE | 2022-06-29 10:07 | SP.MBSS_ITS ---
Modified Barium Swallow - Patient Information Study Date: 06/29/22 Study Time: 10:30 Direct Billable Minutes: 95 Total Minutes procedure & reportin Diagnosis: Respiratory failure (J96.90), PNA (J18.9) Referring Physician: Babak Jones Reason for Referral: Objectively assess swallow function, risk for aspiration, and determine recommendations for least restrictive diet textures and compensatory strategies to improve safety of swallow. Medical History: Beatriz Pizarro is a 67-year-old female with a significant history of thyroid cancer status post partial resection. Pt presented to the emergency department with lethargy. Reportedly 16 years ago patient had partial thyroidectomy. Total thyroidectomy could not be done since her thyroid was wrapped around her vocal cord. In February 2022 patient was diagnosed with metastatic thyroid cancer to the lungs. Two weeks before presentation patient has been progressively weak. Previously pt could drive but now she is unable to drive. Patient had radioactive iodine therapy for metastatic lung cancer. She was scheduled for another radioactive iodine therapy on 06/22/2022. History was pr edominantly taken and from patient's family who was at bedside. During hospitalization, pt had EGD done on 06/26/22, and a gastric ulcer was treated. See impression for full details. Pt made full liquids only, since EGD, per Dr. Moss. Pt had NG tube which was removed yesterday, 06/28/22. Pt was requiring bipap yesterday, but was able to be on nasal cannula today, 06/29/22. Chest x-ray from 06/26/22 revealed findings suggestive of CHF with superimposed left basilar atelectasis and/or infiltrate and small left pleural effusion. See chest x-ray from 06/26/22 for full report. Pt referred to speech due to coughing on thin liquids. During BSE 06/29/2022, pt presented with weak coughing and wet breath sounds following trials of both thin and nectar thickened liquids via cup. Recommended MBSS prior to diet advancement. RADIOLOGIC TECHNOLOGIST paged Dr. Moss to ask if the patient is okay to trial pudding and/or cookie during MBSS and, if appropriate from results of MBSS, advance past full liquids. Dr. Moss stated pt is clear for pudding and/or cookie trials, as well as diet advancement past full liquids if appropriate. Current Diet Ordered: NPO with ice chips after oral care Dentition: Edentulous, Upper Dentures Mental Status: Impaired - confusion Respiratory Status: Oxygenating on 2L/M nasal cannula - Penetration-Aspiration Scale Penetration-Aspiration Scale: OBJECTIVE ASSESSMENT OF SWALLOW FUNCTION (QUANTITATIVE ? PER TRIAL): PENETRATION / ASPIRATION SCALE ([place]): 1 = does not enter airway 2 = enters airway/above vocal folds/ejected 3 = enters airway/above vocal folds/not ejected 4 = enters airway/contacts vocal folds/ejected 5 = enters airway/contacts vocal folds/not ejected 6 = enters airway/below vocal folds/ejected 7 = enters airway/below vocal folds/not ejected despite effort 8 = enters airway/below vocal folds/no effort VIDEOFLOROSCOPIC SCALE SCORE ([place]): Grade I = aspiration of material that has penetrated into the laryngeal vestibule, intact cough reflex Grade II = aspiration < 10 % of the bolus, intact cough reflex Grade III = aspiration of < 10 % of the bolus, reduced cough reflex or aspiration of > 10 % of the bolus, intact cough reflex Grade IV = aspiration of > 10 % of the bolus, reduced cough reflex - Penetration-Aspiration Scale Score Thin Liquid via teaspoon Result: 1= does not enter airway Thin Liquid via teaspoon Trial 2 Result: 1= does not enter airway Thin Liquid via small single sip from cup Result: 1= does not enter airway Thin Liquid via small single sip from cup Trial 2 Result: 1= does not enter airway Gideon Thick Liquid via small single sip from cup Result: 1= does not enter airway Pudding via teaspoon Result: 1= does not enter airway 1/4 Cookie with barium pudding coating Result: 1= does not enter airway - PAS score is for barium pudding coating - Pt was unable to chew 1/4 Irma Doone cookie and cookie was manually cleared from oral cavity. Comment: Cough observed during trial - laryngeal vestibule appeared clear throughout the trial. Thin Liquid via single sip from straw Result: 1= does not enter airway Thin Liquid via sequential sips from straw Result: 7= enters airways/below vocal folds/not ejected despite effort - Oral Phase Labial Seal: Interlabial escape, no progression to anterior lip Tongue Control During Bolus Hold: Posterior escape of less than half of bolus Bolus Preparation/Mastication: Minimal chewing/mashing with majority of bolus unchewed Bolus Transport/Lingual Motion: Slowed tongue motion Oral Residue: Minimal to no clearance - cookie - Pharyngeal Phase Initiation of Pharyngeal Swallow: Bolus head in pyriforms Soft Palate Elevation: Trace column of contrast/air between soft palate and phar yngeal wall Laryngeal Elevation: Partial superior movement thyroid cart/partial apprx aryt- epig petiole Anterior Hyoid Excursion: Partial anterior movement Epiglottic Movement: Complete inversion Laryngeal Vestibule Closure at Height of Swallow: Incomplete; narrow column of air/contrast in laryngeal vestibule Pharyngeal Stripping Wave: Present - complete Pharyngoesophageal Segment Opening: Parital distension and partial duration; parital obstruction of flow Tongue Base Retraction: Narrow column of contrast between tongue base & post. pharyngeal wall Pharyngeal Residue: Collection of residue within or on pharyngeal structures - Diagnosis/Impression Diagnosis: Moderate oropharyngeal phase dysphagia (R13.12) Impression: Cannot definitively rule out aspiration for the above mentioned trials due to pt's body habitus. The pt's vocal folds and upper trachea were only visible during the swallow. Pt required max verbal cues throughout study to maintain neutral head position during the study for optimal imaging. The oral phase is primarily marked by... -Decreased bolus control with <1/2 of the bolus spilling posteriorly to the pyriforms prior to swallow onset observed with thin liquids especially. -Slowed tongue motion for A-P transport -Decreased mastication abilities with majority of 1/4 cookie un-chewed. RADIOLOGIC TECHNOLOGIST student manually cleared cookie from the oral cavity as pt could not chew to safely swallow. The pharyngeal phase is primarily marked by... -Decreased airway closure during the swallow due to decreased anterior hyoid excursion and laryngeal elevation. -Mild-moderately decreased tongue base retraction and pharyngeal stripping wave with resulting mild pharyngeal residues in the vallecula after the swallow. -Aspiration of thin liquids via sequential straw sip with weak, ineffective cough reflex. PATIENT IS IMPULSIVE AND WILL CONSUME SEQUENTIAL SIPS IF NOT ASSISTED. - Recommendations Diet: Puree Textures, Thin Liquids Compensatory Strategies: Small Bites, Small Sips, No Straws, Slow Rate - Sips one at a time, Feed only when alert, Sitting upright, Remain sitting upright for 30 minutes after PO intake Supervision: Total Feed - DUE TO IMPULSIVITY Recommend Repeat Modified Barium Swallow: TBD Need for Skilled Speech Therapy Services: Yes Comment: Will recommend the patient for continued dysphagia therapy to address deficits in oropharyngeal swallow function. As confusion decreases and pt is able to more reliably follow commands, will recommend the patient for oropharyngeal strengthening to improve lingual control, laryngeal elevation, hyoid excursion, and tongue base retraction (lingual resistance exercises, Lupis, effortful, CTAR). The patient would benefit from thorough education regarding diet recomme ndations and recommended compensatory strategies as she is currently impulsive consuming thin liquids. Education Completed: 1. Described result of evaluation. - RADIOLOGIC TECHNOLOGIST educated RN in results of study and recommendations, wrote recommendations on communication board in room, and placed nursing communication note emphasizing aspiration of sequential sips and pt's need for TOTAL FEEDING ASSISTANCE due to impulsivity. - Status Active ST Patient: Active - Contact Information [facility] Speech Therapy:: Mine Wolfe M.A. [facility]-RADIOLOGIC TECHNOLOGIST Speech-Language Pathologist [facility] [address] [place] [address] [email or web address] [phone] 06/29/22 10:12
--- NOTE | 2022-06-29 10:31 | CASEMGMT ---
Social Work SW met w/pt and daughter Cherie in room. SW reviewed prior level of function and anticipated discharge plan. PCP: Dr. Centeno Specialists: Dr. Talley--podiatry. Dr. Palmer--pt states this is a [facility] supersonic engineer she sees. Pharmacy: [facility] in [place] Insurance: Medicaid LW/POA: Pt has not completed the documents, but states daughter Cherie is the one who helps. Pt interested in completing the document while here. LNOK: Pt has three children, and an exhusband. Living arrangements: Pt rents a two story house, lives w/her son Rigoberto. Pt explains has lived there for 20 years. She states the home has black mold so she has to stay upstairs. She crawls up the steps as she cannot walk. She states the landlord won't do anything about it. Pt explains every time she tries to move the landlord sabotages it as he thinks she needs to be in a prison, and he doesn't like her son. Prior level of function: Pt's son helps pt with most ADLs, including dressing, getting into the tub to shower, cooking, laundry, cleaning. At times she can get to the toilet on her own, pt's son does need to help her at times. As per pt and daughter son is not very good at cooking and cleaning. Pt organizes her own medication. Pt's son drives pt when needed. DME: Pt primarily uses a wheelchair to get around. She has two rollators, grab bars, shower chair, bedside commode. SNF/HHC: Pt does not have a history of SNF, had HHC at one time. Pt does have [employer], Wendi Andujar is her CM. Pt does get home delivered meals. She does not have an aide as there are no aides willing to come to the home due to both black mold and bed bugs. SW spoke w/pt and daughter about the home issues. They state they have called [facility] and they will not help. They have spoken w/Wendi at [employer] also who has not helped. Daughter states the only thing they can do is call the Department of Health, but they have not done this yet. SW spoke w/pt and daughter about discharge plan. SW provided to daughter(as pt is visually impaired) a list of chcf facilities via [employer], in their preferred geographic area, complete with quality and resource use data, that takes pt's insurance. Pt immediately stated she can't go to a prison as there will be nobody to take care of Rigoberto(her son). SW explained we are talking about short term, not manager long term care. Pt still focused on concern over son. soda fountain manager came in to care for pt's legs. SW left list w/daughter, explained will come back. SW will also assist w/LW and POA if time allows today. ELENA called Wendi Andujar at [facility] and left a message to call SW. ELENA will continue to follow. SAMANTHA Nolan
[2022-06-29] MEDS: metroNIDAZOLE 500 MG/100 ML BAG 100 MG IV ×2 (11:44→23:33)
[2022-06-29] MEDS: Furosemide 20 MG Tablet NG (11:45)
[2022-06-29] MEDS: Spironolactone 50 MG Tablet NG (11:45)
[2022-06-29] MEDS: Cyanocobalamin 500 MCG Tablet NG (11:45)
[2022-06-29] MEDS: Pantoprazole Sodium 40 MG Tablet PO (11:45)
[2022-06-29] MEDS: Nadolol 40 MG Tablet 20 MG NG (11:45)
[2022-06-29] MEDS: rifAXIMin 550 MG Tablet NG (11:45)
[2022-06-29 12:44] LABS: Pathologist Review Reviewed
[2022-06-29] MEDS: Ensure Plus High Protein 120 ML LIQUID PO (14:30)
--- NOTE | 2022-06-29 15:11 | PCM.PN.HOSP ---
Reason for Visit Reason for Visit: Diagnoses Malignant neoplasm of thyroid gland (06/22/22) Secondary malignant neoplasm of unspecified site (06/22/22) Encephalopathy, unspecified (06/22/22) Pleural effusion, not elsewhere classified (06/22/22) Respiratory failure, unspecified, unspecified whether with hypoxia or hypercapnia (06/22/22) Unspecified cirrhosis of liver (06/22/22) Acute kidney failure, unspecified (06/22/22) Subjective Subjective Follow-up for hepatic encephalopathy, ischemic colitis, decompensated cirrhosis multiple other comorbidities. Objective Data Objective Data Vital Signs: Vital Signs Temp Pulse Resp BP Pulse Ox O2 Del Method O2 Flow Rate 98.5 F 94 14 112/79 95 Nasal Cannula 3 06/29/22 12:00 06/29/22 12:00 06/29/22 12:00 06/29/22 12:00 06/29/22 12:00 06/29/22 12:00 06/29/22 12:00 FiO2 30 06/29/22 01:30 Oxygen Flow Rate (L/min) 3 Oxygen Delivery Method Nasal Cannula Weight: 270 lb 1.06 oz Body Mass Index (BMI) 41.7 Intake & Output: Intake and Output for Last 24 Hours 06/27/22 06/28/22 06/29/22 23:59 23:59 23:59 Intake Total 2613 / 2913 2314.58 / 2314.58 200 / 200 Output Total 450 / 700 1775 / 1775 400 / 400 Balance 2163 / 2213 539.58 / 539.58 -200 / -200 Lab / Micro Data Result Diagrams: 06/29/22 05:05 06/29/22 05:05 Labs: Laboratory Results - last 24 hr 06/28/22 08:50: Urine Opiates Screen POSITIVE H, Urine Methadone Screen NEGATIVE, Ur Barbiturates Screen NEGATIVE, Ur Phencyclidine Scrn NEGATIVE, Ur Amphetamines Screen NEGATIVE, MDMA (Ecstasy) Screen POSITIVE H, U Benzodiazepines Scrn NEGATIVE, Urine Cocaine Screen NEGATIVE, U Cannabinoids Screen NEGATIVE, Ur Drug Screen Comment 06/28/22 10:44: Diff Path Review Reviewed 06/29/22 05:05: Total Bilirubin 6.70 H, Direct Bilirubin 4.90 H, AST 239 H, ALT 95 H, Alkaline Phosphatase 240 H, Total Protein 5.8 L, Albumin 2.1 L, Globulin 3.7 06/29/22 05:05: Sodium 141, Potassium 3.9, Chloride 101, Carbon Dioxide 34.0 H, Anion Gap 6, BUN 21 H, Creatinine 1.05 H, Estim Creat Clear Calc 47.42, Est GFR (MDRD) Af Amer 67, Est GFR (MDRD) Non-Af 56 L, BUN/Creatinine Ratio 20.0, Glucose 93, Calcium 9.1, Total Creatine Kinase 168 06/29/22 05:05: WBC 6.5, RBC 4.45, Hgb 13.7, Hct 42.9, MCV 96.4, MCH 30.8, MCHC 31.9 L, RDW Std Deviation 55.1 H, RDW Coeff of Anyi 15.9 H, Plt Count 54 L, MPV 11.0, Neut % (Auto) Not Reportable, Absolute Neuts (auto) 4.9, Absolute Lymphs (auto) 0.71 L, Total Counted 100, Neutrophils % (Manual) 76 H, Lymphocytes % (Manual) 11 L, Monocytes % (Manual) 12 H, Myelocytes % 1 H, Diff Path Review Reviewed, Platelet Estimate MKD DEC, RBC Morphology NORM C+C Micro: Microbiology 06/27/22 00:25 Blood Culture (Wb) - Anticubital Right Blood Culture - Preliminary No growth in 48 hours. 06/26/22 20:25 Blood Culture (Wb) - Anticubital Left Blood Culture - Preliminary No growth in 48 hours. 06/26/22 15:15 Interface Orders Enteric Bacteriology - Final 06/21/22 20:30 Blood Culture (Wb) - Anticubital Right Blood Culture - Final Staphylococcus hominis 06/21/22 23:15 Blood Culture (Wb) - Anticubital Left Blood Culture - Final No growth in 5 days. 06/26/22 15:15 Stool C. difficile DNA Amplification - Final 06/26/22 20:05 Urine Catheter - Catheter Legionella Antigen - Final 06/26/22 20:05 Urine Catheter - Catheter Streptococcus pneumoniae Antigen (M - Final 06/21/22 20:30 Nasal Secretion SARS-CoV-2 & FLU Antigen (Rapid) - Final Radiography Diagnostic Testing: Radiology Impression Brain MRI 06/28/22 13:58 IMPRESSION: Mild periventricular white matter ischemic changes without evidence for acute infarct. No definitive evidence for focal enhancing lesions following contrast administration Electronically Signed: Thee Faria MD at 16:27 EST Reading Location ID and State: [facility] / [place] , Service support , Physical Exam Narrative Seen and examined. Patient awake and answer all questions. No fever. On 3 L of oxygen. Physical exam General: Awake. Oriented to place and person. Coherent speech. HEENT: Atraumatic, PERRLA, Normocephalic Oral: Oral mucosa moist. NG tube removed. Neck: Supple, No JVD, Negative Carotid Bruits Lungs: Air entry diminished in bilateral lung bases. No crepitation/rhonchi Cardiovascular: Regular rate, sinus rhythm, Normal S1, Normal S2, systolic murmur Abdomen: Bowel Sounds Present, Soft, Non Tender, Non-Distended : No renal angle tenderness. No suprapubic tenderness. Extremities: No appreciable edema, Capillary Refill Less than 3 Seconds Skin: Mild ecchymosis due to thrombocytopenia Musculoskeletal: Bilateral valgus deformity of knee, degenerative arthritis. Passive ROM restricted Neurological: No acute neurological deficit. DTR 2+. Psych/Mental Status: Flat affect awake Assessment & Plan Assessment/Plan (1) Encephalopathy acute: (2) Metastasis from thyroid cancer: (3) Acute kidney injury: (4) Pleural effusion: PLAN: Plan Metastatic from thyroid cancer Patient with known metastatic to lungs. Chest x-ray was visualized and independently interpreted. I agree with the interpretation of left pleural effusion versus left basilar infiltrate. Mild cardiomegaly. White count is mildly elevated at 13,000 with neutrophilic predominance. There is no fever. With patient's symptoms going on for about 2 weeks, less likely pneumonia. However will empirically cover with ceftriaxone and azithromycin the patient was started at the emergency department. 06/24: Leukocytosis resolved. 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 Sinclair.? He has been seeing patient for last few months for thyroid cancer.? Patient had thyroidectomy, exact type and nature of surgery unclear many years ago.? She has a history of thyroid cancer with metastasis to left upper lobe and mediastinum.? 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 After that levothyroxine was held for radioactive iodine tracer dose.? Radioactive iodine tracer dose was given but did not go to any metastatic site or lung metastasis.? Therefore it is ineffective and not candidate for LOUIS therapy.? 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 Acute on chronic combined respiratory failure following anesthesia: 06/27: Yesterday evening I was called by anesthesiologist the patient pulse ox was in 40% and not increasing on nasal cannula therefore put on BiPAP. Yesterday, ABG after procedure was 7.06/109/75 on nonrebreather. Patient was put on BiPAP and transferred to ICU from PACU. ABG 7.15/88.3/100 On 80% FiO2 BiPAP. Pulmonary consult reviewed and appreciated. Advised to continue BiPAP as needed and during sleep. Patient is transferred from ICU to PCU. 06/28: Patient breathing is better. 06/29: Speech therapy is following her.Empiric BiPAP. Acute hepatic encephalopathy with decompensated cirrhosis with splenomegaly, small perihepatic ascites and portal hypertensive changes Ammonia level on presentation was 65. Trend. Lactulose rectal x1 ordered. Also we will check a TSH. Keep patient NPO. Patient is at home vitamin B12. B12 more than 2000. B12 not given during hospital stay. 06/24: Even though sodium level is normal less than 10 patient is still encephalopathy grade 3, no further improvement since yesterday. Patient not opening eyes, noncommunicative lethargic and obtunded. Continue lactulose through NG tube every 4 hourly. Free water 300 mL every 4 hourly and D5 half NS 75 mill per hour. Patient is very dehydrated and had 4 bowel movement yesterday. 06/25: CT abdomen shows diffuse contour abnormality of liver consistent with cirrhotic changes with small perihepatic fluid suggestive of ascites. Mild splenomegaly and evidence of varices in the region of the splenic hilum. Overall suggestive of cirrhosis Lactic acidosis: Lactic acid of 3.4 on presentation. Likely secondary to hypoxia. Trend. 06/26: Lactulose was stopped yesterday. C. difficile is negative. Tube feed is started. 06/28: Acute encephalopathy confusion intermittent and responsiveness is better. 06/29: Acute hepatic encephalopathy is improving although still fluctuates. JORDAN Creatinine of 1.01 on presentation which increased to 1.36. Baseline creatinine of less than 1 Gentle IV hydration. Hold home Lasix and spironolactone. Gentle IV hydration. Trend BMP. 06/27 creatinine 1.12. JORDAN resolved. Decompensated cirrhosis: Bilirubin of 3.2. AST of 148. ALT of 64. Alkaline phosphatase of 233. Trend CMP. Hold Nodol since patient been placed on n.p.o. status. 06/24: Problem Manager consulted in the beginning and discussed with him yesterday and today. CT abdomen and pelvis with IV contrast ordered. Patient has obstructive jaundice pattern, worsening. 06/25: Worsening of liver transaminases, total bilirubin and alkaline phosphatase. 06/26:Worsening of liver chemistry with total bilirubin, alkaline phosphatase increasing. Mainly direct hyperbilirubinemia. AST ALT ratio 2 : 1 06/27: Colonoscopy showed diffuse portal colopathy, ischemic colitis exact etiology unclear. Possibilities are possible portal hypertensive colopathy, infectious causes are in rare instances lactulose causing gaseous distention triggered by lactulose fermentation by colonic bacteria. 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 I also called Dr. Sinclair who is patient's oncologist at patient's daughter request and left a voicemail to call back. 06/28: Colonoscopy sample for C. difficile and. 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 Lactulose was stopped PT and OT to evaluate and treat. Case management consult Abnormal CT abdomen findin/13: CT abdomen shows soft tissue mass in the left upper lobe extending to mediastinum, small left pleural effusion and soft tissue density in the cecum, possible apple core lesion suggestive of colon carcinoma. Diffuse circumferential wall thickening of sigmoid colon with increased marking and peritoneal fat suggestive of diverticulitis. Patient is on IV ceftriaxone and Flagyl. Antibiotic was changed to Levaquin and Flagyl DVT prophylaxis: SCDs. No chemical thromboprophylaxis at this time. Patient not had enough pleural fluid for thoracocentesis Poor prognosis explained in view of decompensated cirrhosis, EGD and colonoscopy findings. Patient's daughter will discuss with her sibling regarding the CODE STATUS. Total time of the visit including total time spent in counseling or coordination of care, (more than 50% of the total time, spent in obtaining medical information from nurses and other ancillary care providers,explaining to the patient about labs, imaging, diagnosis and management of active complex medical conditions), taking care of acute shortness of breath, encephalopathy clinical update given to patient's daughter and son, discussion with GI, review of labs and imaging is 60 minutes Charges/Coding Visit Charges Inpatient E&M: 58211 Subs Hosp L3
--- NOTE | 2022-06-29 18:47 | PCM.PROGNOTE ---
Subjective Subjective Patient was more awake and alert today. At this time she has BiPAP on and is not able to give review of systems. Her daughter is at the bedside. All questions from the daughter were answered. Objective Data Objective Data Vital Signs: Vital Signs Temp Pulse Resp BP Pulse Ox O2 Del Method O2 Flow Rate 98.5 F 94 14 112/79 95 Nasal Cannula 3 06/29/22 12:00 06/29/22 12:00 06/29/22 12:00 06/29/22 12:00 06/29/22 12:00 06/29/22 14:00 06/29/22 14:00 FiO2 30 06/29/22 02:44 Oxygen Flow Rate (L/min) 3 Oxygen Delivery Method Nasal Cannula Weight: 270 lb 1.06 oz Body Mass Index (BMI) 41.7 Intake & Output: Intake and Output for Last 24 Hours 06/27/22 06/28/22 06/29/22 23:59 23:59 23:59 Intake Total 2613 / 2913 2314.58 / 2314.58 200 / 200 Output Total 450 / 700 1775 / 1775 400 / 400 Balance 2163 / 2213 539.58 / 539.58 -200 / -200 Lab / Micro Data Result Diagrams: 06/29/22 05:05 06/29/22 05:05 Labs: Laboratory Results - last 24 hr 06/28/22 08:50: Urine Opiates Screen POSITIVE H, Urine Methadone Screen NEGATIVE, Ur Barbiturates Screen NEGATIVE, Ur Phencyclidine Scrn NEGATIVE, Ur Amphetamines Screen NEGATIVE, MDMA (Ecstasy) Screen POSITIVE H, U Benzodiazepines Scrn NEGATIVE, Urine Cocaine Screen NEGATIVE, U Cannabinoids Screen NEGATIVE, Ur Drug Screen Comment 06/28/22 10:44: Diff Path Review Reviewed 06/29/22 05:05: Total Bilirubin 6.70 H, Direct Bilirubin 4.90 H, AST 239 H, ALT 95 H, Alkaline Phosphatase 240 H, Total Protein 5.8 L, Albumin 2.1 L, Globulin 3.7 06/29/22 05:05: Sodium 141, Potassium 3.9, Chloride 101, Carbon Dioxide 34.0 H, Anion Gap 6, BUN 21 H, Creatinine 1.05 H, Estim Creat Clear Calc 47.42, Est GFR (MDRD) Af Amer 67, Est GFR (MDRD) Non-Af 56 L, BUN/Creatinine Ratio 20.0, Glucose 93, Calcium 9.1, Total Creatine Kinase 168 06/29/22 05:05: WBC 6.5, RBC 4.45, Hgb 13.7, Hct 42.9, MCV 96.4, MCH 30.8, MCHC 31.9 L, RDW Std Deviation 55.1 H, RDW Coeff of Anyi 15.9 H, Plt Count 54 L, MPV 11.0, Neut % (Auto) Not Reportable, Absolute Neuts (auto) 4.9, Absolute Lymphs (auto) 0.71 L, Total Counted 100, Neutrophils % (Manual) 76 H, Lymphocytes % (Manual) 11 L, Monocytes % (Manual) 12 H, Myelocytes % 1 H, Diff Path Review Reviewed, Platelet Estimate MKD DEC, RBC Morphology NORM C+C Micro: Microbiology 06/27/22 00:25 Blood Culture (Wb) - Anticubital Right Blood Culture - Preliminary No growth in 48 hours. 06/26/22 20:25 Blood Culture (Wb) - Anticubital Left Blood Culture - Preliminary No growth in 48 hours. 06/26/22 15:15 Interface Orders Enteric Bacteriology - Final 06/21/22 20:30 Blood Culture (Wb) - Anticubital Right Blood Culture - Final Staphylococcus hominis 06/21/22 23:15 Blood Culture (Wb) - Anticubital Left Blood Culture - Final No growth in 5 days. 06/26/22 15:15 Stool C. difficile DNA Amplification - Final 06/26/22 20:05 Urine Catheter - Catheter Legionella Antigen - Final 06/26/22 20:05 Urine Catheter - Catheter Streptococcus pneumoniae Antigen (M - Final 06/21/22 20:30 Nasal Secretion SARS-CoV-2 & FLU Antigen (Rapid) - Final Physical Exam Narrative Seen and examined. Patient awake and answer all questions. No fever. On 3 L of oxygen. Physical exam General: Awake. Oriented to place and person. Coherent speech. HEENT: Atraumatic, PERRLA, Normocephalic Oral: Oral mucosa moist. NG tube removed. Neck: Supple, No JVD, Negative Carotid Bruits Lungs: Air entry diminished in bilateral lung bases. No crepitation/rhonchi Cardiovascular: Regular rate, sinus rhythm, Normal S1, Normal S2, systolic murmur Abdomen: Bowel Sounds Present, Soft, Non Tender, Non-Distended : No renal angle tenderness. No suprapubic tenderness. Extremities: No appreciable edema, Capillary Refill Less than 3 Seconds Skin: Mild ecchymosis due to thrombocytopenia Musculoskeletal: Bilateral valgus deformity of knee, degenerative arthritis. Passive ROM restricted Neurological: No acute neurological deficit. DTR 2+. Psych/Mental Status: Flat affect awake Assessment & Plan Assessment/Plan (1) Encephalopathy acute: PLAN: Lactulose has been stopped. We will continue Xifaxan. There is no more neomycin. We will substitute that with Flagyl 500 mg p.o. 3 times daily. She is back to grade 3 grade 4 hepatic encephalopathy. This is despite normal ammonia level. MRI results of the brain did not show any signs of any acute central nervous system problem. She is more awake and alert today as per nursing. I cannot explain her positive urine drug screen at this time. (2) Metastasis from thyroid cancer: (3) Acute kidney injury: (4) Pleural effusion: (5) Cirrhosis: PLAN: CT scan abdomen pelvis does show that she has cirrhosis without any lesions seen in the liver. . She currently is a child Dominguez class C with a meld of 26. She has decompensated liver disease secondary to encephalopathy, with recent lower GI bleed secondary to ischemic colitis secondary to lactulose. Enteric pathogens and C. difficile were negative from cultures taken from a colonoscopy specimen. Biopsies are pending. She was also discovered to have a large gastric varices without stigmata of bleeding. Recommend maintaining a systolic blood pressure less than 110 and a diastolic blood pressure less than 60 if possible. Recommend nadolol 10 mg p.o. twice daily. Also recommending NG tube removal in the morning and introduction of p.o. diet with clear liquids. Charges/Coding Visit Charges Inpatient E&M: 74519 Subs Hosp L3
[2022-06-29] MEDS: levoFLOXacin IV 500 MG/100 ML BAG 100 MG IV (21:54)
[2022-06-30] VITALS (9 sets, daily range): BP systolic 98–110; BP diastolic 56–72; PULSE 69–83; RESP 12–18; TEMP 36.6–36.8; O2SAT 92–98
[2022-06-30 04:05] LABS: Hematocrit 39.6 % (37-47); Hemoglobin 13.4 g/dL (12.0-15.0); Mean Corp Hgb Conc 33.8 g/dL (32-36); Mean Corpuscular Hgb 32.4 pg (27.0-32.0); Mean Corpuscular Volume 95.9 fL (81-99); POSITIVE COUNT YES; POSITIVE MORPHOLOGY YES; RBC Distribution Width CV 15.9 % (11.6-14.6); RBC Distribution Width SD 53.7 fl (35.1-43.9); Red Blood Count 4.13 M/mm3 (4.2-5.4)
[2022-06-30 04:09] LABS: Differential Indicated MANUAL DIFF; Platelet Count 45 K/mm3 (150-450)
[2022-06-30 04:29] LABS: AST(SGOT) 221 U/L (15-37); Alanine Aminotransfer ALT/SGPT 86 U/L (13-56); Albumin, Serum 1.9 g/dL (3.2-5.0); Alkaline Phosphatase 234 U/L (45-117); Anion Gap 4 (5-15); BUN 22 mg/dL (7-18); BUN/Creat Ratio 25.2 RATIO (10-20); Bilirubin, Direct 4.43 mg/dL (0.00-0.30); Calcium,Total 9.3 mg/dL (8.5-10.1); Chloride 103 mmol/L (98-107); Creatinine, Serum 0.87 mg/dL (0.55-1.02); EST Glomerular Filtration Rate 69 mL/min (>60); Est Glom Filt Rate - Afr Amer 84 mL/min (>60); Estimated Creatinine Clearance 57.24 ml/min; Globulin 3.7 g/dL (2.2-4.2); Glucose 92 mg/dL (74-106); Potassium 3.8 mmol/L (3.5-5.1); Protein, Total 5.6 g/dL (6.4-8.2); Sodium Level 140 mmol/L (136-145)
[2022-06-30 06:35] LABS: Metamyelocyte 1 % (0-1); Neutrophil-Band 2 % (0-5); Neutrophil-Segmented 77 % (47-70); Promyelocyte 1 % (0-0); Total Cells Counted 100 (MANUAL DIFF)
[2022-06-30 06:36] LABS: Lymphocyte 9 % (19-41); Monocyte 10 % (0-10); Neutrophil # 4.75 X10^3/uL (2.7-7.7); Nucleated Red Bld Cells,Manual 4 % (0-5); Platelet Estimate MKD DEC (ADEQ); Red Cell Morphology NORM C+C NORMAL (NORM C&C)
[2022-06-30 06:37] LABS: Absolute Lymphocyte Count 0.54 X10^3/uL (0.83-4.51); Absolute Neutrophil Count 4.8 X10^3/uL (2.0-7.7); Lymphocyte # 0.54 X10^3/ul (0.83-4.51)
--- NOTE | 2022-06-30 07:19 | PN.CC_ITS ---
Assessment & Plan Assessment/Plan (1) Respiratory failure: PLAN: Plan RECOMMENDATIONS: 1. Continue empiric BiPAP with sleep 2. Defer to GI on further work-up 3. Keep saturations between 90 and 94% 4. Increase activity as tolerated 5. Hemodynamically stable on minimal nasal cannula oxygen. Will sign off from a pulmonary/critical care perspective IMPRESSIONS: 1. Acute on chronic combined respiratory failure following anesthesia Patient appears to have an element of CO2 retention at baseline despite lack of reported respiratory disease. Patient does have a body habitus suggestive of sleep apnea, but obesity hypoventilation syndrome would be a consideration. Patient did have an increased AA gradient, but was under anesthesia at the time of the ABG. A room air ABG following cessation of medication effects would be helpful in making this diagnosis. Given CO2 retention, patient's oxygen saturation should be maintained between 90 and 94%. Unclear etiology for change in mental status at this time. ABG appears to be appropriate previously when compliant with BiPAP with sleep. Laboratory work-up has been relatively unremarkable. Given continued stability of respiratory status, will sign off from a pulmonary/critical care perspective 2. Acute hepatic encephalopathy with decompensated cirrhosis/colitis Gastroenterology is following. Patient did have a colonoscopy previously, noting colitis, so bloody bowel movement is not as concerning. H&H has remained stable. Some immune markers are positive. Patient is also undergoing chemotherapy. Patient likely benefit from continued diuresis as tolerated. 3. Cirrhosis/thyroid cancer with metastasis/morbid obesity Complicates care, management, recovery and prognosis. Patient would bene fit from an outpatient evaluation for sleep apnea. Defer to oncology on further work-up and recommendations. Subjective Subjective Patient did okay overnight. Patient reportedly had become more drowsy through the day yesterday, but more alert overnight. Patient remains intermittently confused, but is only requiring 2 L nasal cannula during the day. No fevers have been noted. Patient was not reporting any abdominal pain this morning. Objective Data Objective Data Vital Signs: Vital Signs Temp Pulse Resp BP Pulse Ox O2 Del Method O2 Flow Rate 36.8 C 69 12 104/58 L 96 Bi-pap 2 06/30/22 03:51 06/30/22 05:17 06/30/22 05:17 06/30/22 03:51 06/30/22 05:17 06/30/22 03:51 06/29/22 16:00 FiO2 25 06/30/22 05:17 Oxygen Flow Rate (L/min) 2 Oxygen Delivery Method Bi-pap Weight: 124.4 kg Body Mass Index (BMI) 41.7 Intake & Output: Intake and Output for Last 24 Hours 06/28/22 06/29/22 06/30/22 23:59 23:59 23:59 Intake Total 2314.58 / 2314.58 300 / 300 100 / 100 Output Total 1775 / 1775 750 / 1050 400 / 400 Balance 539.58 / 539.58 -450 / -750 -300 / -300 Lab / Micro Data Attestation: I reviewed the patient's lab results. Result Diagrams: 06/30/22 03:40 06/30/22 03:40 Labs: Laboratory Results - last 24 hr 06/28/22 10:44: Diff Path Review Reviewed 06/29/22 05:05: Diff Path Review Reviewed 06/30/22 03:40: WBC 6.0, RBC 4.13 L, Hgb 13.4, Hct 39.6, MCV 95.9, MCH 32.4 H, MCHC 33.8 D, RDW Std Deviation 53.7 H, RDW Coeff of Anyi 15.9 H, Plt Count 45 L* , MPV 12.0, Neut % (Auto) Not Reportable, Absolute Neuts (auto) 4.8, Absolute Lymphs (auto) 0.54 L, Total Counted 100, Neutrophils % (Manual) 77 H, Band Neutrophils % 2, Lymphocytes % (Manual) 9 L, Monocytes % (Manual) 10, Metamye locytes % 1, Promyelocytes % 1 H, Nucleated RBCs/100 WBC 4, Diff Path Review May foll, Platelet Estimate MKD DEC, RBC Morphology NORM C+C 06/30/22 03:40: Sodium 140, Potassium 3.8, Chloride 103, Carbon Dioxide 33.0 H, Anion Gap 4 L, BUN 22 H, Creatinine 0.87, Estim Creat Clear Calc 57.24, Est GFR (MDRD) Af Amer 84, Est GFR (MDRD) Non-Af 69, BUN/Creatinine Ratio 25.2 H, Glucose 92, Calcium 9.3, Total Bilirubin 6.00 H, Direct Bilirubin 4.43 H, AST 221 H, ALT 86 H, Alkaline Phosphatase 234 H, Total Protein 5.6 L, Albumin 1.9 L, Globulin 3.7 Micro: Microbiology 06/27/22 00:25 Blood Culture (Wb) - Anticubital Right Blood Culture - Preliminary No growth in 48 hours. 06/26/22 20:25 Blood Culture (Wb) - Anticubital Left Blood Culture - Preliminary No growth in 48 hours. 06/26/22 15:15 Interface Orders Enteric Bacteriology - Final 06/21/22 20:30 Blood Culture (Wb) - Anticubital Right Blood Culture - Final Staphylococcus hominis 06/21/22 23:15 Blood Culture (Wb) - Anticubital Left Blood Culture - Final No growth in 5 days. 06/26/22 15:15 Stool C. difficile DNA Amplification - Final 06/26/22 20:05 Urine Catheter - Catheter Legionella Antigen - Final 06/26/22 20:05 Urine Catheter - Catheter Streptococcus pneumoniae Antigen (M - Final 06/21/22 20:30 Nasal Secretion SARS-CoV-2 & FLU Antigen (Rapid) - Final Physical Exam Const no apparent distress Constitutional Narrative: Resting comfortably on my evaluation HEENT normocephalic and head/scalp atraumatic Eyes PERRL, EOMs intact bilaterally and conjunctivae normal Eyes Narrative: Scleral icterus noted Neck full ROM and no lymphadenopathy Resp normal respiratory effort Effort and Inspection: able to speak in complete sentences Auscultation: diminished lung sounds; Negative for rales, rhonchi or wheezes Cardio regular rate, regular rhythm, S1 normal heart sound, S2 normal heart sound, no murmurs, no rub and no gallops GI normal to inspection, nondistended, normoactive bowel sounds Extremity General Extremity: Negative for clubbing or edema Skin no rashes or lesions noted Neuro CN's II-XII intact bilaterally and moves all extremities Psych Mood & Affect: labile affect and flat affect Charges/Coding Visit Charges Inpatient E&M: 88410 Subs Hosp L2
--- NOTE | 2022-06-30 07:44 | PCM.PN.HOSP ---
Reason for Visit Reason for Visit: Diagnoses Confusion/acute mental status change Subjective Subjective Ms. Pizarro is a 67-year-old white female who presented to the emergency department with worsening confusion. He patient evidently has a history of metastatic thyroid cancer and had a partial thyroidectomy about 16 years ago.? Recurrence was found in either February or March 2022.? She has metastatic disease to the lungs and is currently on radioactive iodine therapy. 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 Her primary ict support and test engineers is Dr. Tommy Sinclair at [facility] and she follows here with Dr. Humphrey oncology.? She evidently has a history of hepatitis C for which she was treated by Dr. García but ended up with resultant cirrhosis.? Abnormal liver ultrasound is back as far as 2013 as noted on our system with cirrhosis at that time. CBC at the time of admission showed mild leukocytosis but overall she looked hemoconcentrated with an elevated hemoglobin and on the a.m. of 06/22/2021 her counts are all improved other than chronic thrombocytopenia likely related to her cirrhosis.? She had JORDAN on presentation with a serum creatinine of 1.36 (baseline 0.6-0.8) renal function this morning is better and down to 1.23.? Her lactic acid on presentation was 3.4 and has trended down to 2.8 with hydration.? She had hyperbilirubinemia with transaminitis on presentation as well.? She was placed on aggressive lactulose and rifaximin. An NG tube required placement on 06/22/2022 as patient was still fairly sleepy and not able to regularly take her lactulose and other medications. She was also placed on neomycin and Flagyl by gastroenterology. He had an ultrasound which was unremarkable other than cirrhosis and an AFP was ordered and found to be 2.3. This was able to produce multiple bowel movements and her alertness level did improve, however despite her ammonia level trending down she was still fairly encephalopathic. Alertness did slowly improve following this. And she was able to be taken for an EGD and colonoscopy on 06/26/2022. EGD showed type I isolated gastric varices without bleeding, oozing of a gastric ulcer with visible vessel that was treated with heater probe, portal hypertensive gastropathy. Colonoscopy demonstrated diffuse inflammation of the entire colon secondary to ischemic colitis that was biopsied, rectal varices, colonic vascular ectasias and hemorrhoids. Given the diffuse colitis she was started on levofloxacin given ciprofloxacin shortage and IV Flagyl and lactulose was held. Following her scope she had deep responsiveness and ABG at that time showed a pH of 7.06 a PCO2 of 109 and a PO2 of 75 with a sat of 86% and she was placed on BiPAP and admitted to the ICU for further care. Her mental status improved quickly overnight. I suspect that was related to decreased medication clearance from her scopes and suspected sleep apnea. On the morning of it is documented that her NG was removed overnight and she became more lethargic and had to go back on BiPAP. Her ammonia was within normal limits and she had not been getting any other narcotics an MRI of her brain was ordered at that time and showed periventricular white matter ischemic changes without any evidence for acute infarct and no other acute findings. Mental changes were unclear at that time as her ABG was unremarkable as well. Swallow study was done yesterday via modified barium swallow by speech therapy and a pur?ed diet with regular thin liquids was ordered along with no straws, total feed due to impulsivity and sips 1 at a time. Patient was evaluated in the ICU and apparently did okay overnight. And had increased alertness through the night. Remains intermittently confused but only requiring 2 L nasal cannula and day. Needs to be compliant with her BiPAP with naps and at night. Denies any nausea vomiting. Patient's not had any fevers. Patient states she is feeling okay at this time. Objective Data Objective Data Vital Signs: Vital Signs Temp Pulse Resp BP Pulse Ox O2 Del Method O2 Flow Rate 98.2 F 75 13 104/58 L 96 Bi-pap 2 06/30/22 03:51 06/30/22 07:21 06/30/22 07:21 06/30/22 03:51 06/30/22 07:21 06/30/22 03:51 06/29/22 16:00 FiO2 25 06/30/22 07:21 Oxygen Flow Rate (L/min) 2 Oxygen Delivery Method Bi-pap Weight: 124.4 kg Body Mass Index (BMI) 41.7 Intake & Output: Intake and Output for Last 24 Hours 06/28/22 06/29/22 06/30/22 23:59 23:59 23:59 Intake Total 2314.58 / 2314.58 300 / 300 100 / 100 Output Total 1775 / 1775 750 / 1050 400 / 400 Balance 539.58 / 539.58 -450 / -750 -300 / -300 Lab / Micro Data Result Diagrams: 06/30/22 03:40 06/30/22 03:40 Labs: Laboratory Results - last 24 hr 06/28/22 10:44: Diff Path Review Reviewed 06/29/22 05:05: Diff Path Review Reviewed 06/30/22 03:40: WBC 6.0, RBC 4.13 L, Hgb 13.4, Hct 39.6, MCV 95.9, MCH 32.4 H, MCHC 33.8 D, RDW Std Deviation 53.7 H, RDW Coeff of Anyi 15.9 H, Plt Count 45 L*, MPV 12.0, Neut % (Auto) Not Reportable, Absolute Neuts (auto) 4.8, Absolute Lymphs (auto) 0.54 L, Total Counted 100, Neutrophils % (Manual) 77 H, Band Neutrophils % 2, Lymphocytes % (Manual) 9 L, Monocytes % (Manual) 10, Metamyelocytes % 1, Promyelocytes % 1 H, Nucleated RBCs/100 WBC 4, Diff Path Review May foll, Platelet Estimate MKD DEC, RBC Morphology NORM C+C 06/30/22 03:40: Sodium 140, Potassium 3.8, Chloride 103, Carbon Dioxide 33.0 H, Anion Gap 4 L, BUN 22 H, Creatinine 0.87, Estim Creat Clear Calc 57.24, Est GFR (MDRD) Af Amer 84, Est GFR (MDRD) Non-Af 69, BUN/Creatinine Ratio 25.2 H, Glucose 92, Calcium 9.3, Total Bilirubin 6.00 H, Direct Bilirubin 4.43 H, AST 221 H, ALT 86 H, Alkaline Phosphatase 234 H, Total Protein 5.6 L, Albumin 1.9 L, Globulin 3.7 Micro: Microbiology 06/27/22 00:25 Blood Culture (Wb) - Anticubital Right Blood Culture - Preliminary No growth in 48 hours. 06/26/22 20:25 Blood Culture (Wb) - Anticubital Left Blood Culture - Preliminary No growth in 48 hours. 06/26/22 15:15 Interface Orders Enteric Bacteriology - Final 06/21/22 20:30 Blood Culture (Wb) - Anticubital Right Blood Culture - Final Staphylococcus hominis 06/21/22 23:15 Blood Culture (Wb) - Anticubital Left Blood Culture - Final No growth in 5 days. 06/26/22 15:15 Stool C. difficile DNA Amplification - Final 06/26/22 20:05 Urine Catheter - Catheter Legionella Antigen - Final 06/26/22 20:05 Urine Catheter - Catheter Streptococcus pneumoniae Antigen (M - Final 06/21/22 20:30 Nasal Secretion SARS-CoV-2 & FLU Antigen (Rapid) - Final Physical Exam Const alert and no apparent distress Constitutional Narrative: Chronically ill-appearing, morbidly obese, upper middle-aged white female, appears older than stated age, sitting up in bed, nursing at bedside giving her medications in applesauce, patient is oriented to self, place, month but not year, patient appears nontoxic and comfortable at this time HEENT head/scalp atraumatic and moist oral mucous membranes HEENT Narrative: A dentulous, Mallampati is 3, no thrush Head and Scalp: normocephalic Eyes PERRL and conjunctivae normal Eyes Narrative: Patient with scleral icterus Resp normal respiratory effort, no retractions, no use of accessory muscles and clear to auscultation bilaterally Resp Narrative: Diffusely diminished but clear Auscultation: Negative for rales, rhonchi or wheezes Cardio regular rate, regular rhythm, S1 normal heart sound, S2 normal heart sound, no murmurs, no rub, no gallops and no clicks GI normal to inspection, nondistended, normoactive bowel sounds, soft to palpation and non-tender Extremity no clubbing, cyanosis or edema Extremity Narrative: 2+ pedal pulses Neuro moves all extremities and no focal motor deficits Neuro Narrative: Response times are mildly slowed, speech is somewhat garbled and although alert and oriented to self, place, and month patient remains somewhat confused Psych Psych Narrative: Mood seems depressed and affect is very flat Assessment & Plan Assessment/Plan (1) Acute on chronic respiratory failure with hypoxia and hypercapnia: (2) Cirrhosis: (3) Toxic metabolic encephalopathy: (4) Gastric ulcer: (5) Acute kidney injury: (6) Dehydration: (7) Acute colitis: (8) Debility: PLAN: Plan Acute on chronic hypoxic and hypercapnic respiratory failure -Suspect an element of baseline CO2 retention and possible hypoxia based on lab -High suspicion for ARLYN/OHS -AA gradient was elevated on her ABG however she was under the effects of anesthesia at the time -Will need room air ABG after clinical status is at baseline -Overall work-up has been unremarkable thus far -Continue BiPAP at night and with naps -Continue supplemental oxygen at 2 L and wean as able -Pulmonary/critical care medicine following-appreciate input Acute metabolic/toxic encephalopathy secondary to hepatic encephalopathy secondary to decompensated liver cirrhosis -Patient's mental status has been waxing and waning--> patient fluctuating between grade 2 and 4 hepatic encephalopathy -Ammonia level has normalized -ABG now with normal pH -MRI brain negative -Lactulose was discontinued secondary to colitis found on colonoscopy--> hold until reinitiated by GI -Continue rifaximin -Patient was on neomycin but we have on out the pharmacy and this has been substituted with Flagyl 500 mg p.o. 3 times daily -Continue Lasix 20 mg daily -Continue Aldactone 50 mg daily Acute colitis -Biopsy is pending -Enteric panel was unremarkable -C. difficile was negative -Suspect that this is ischemic colitis possibly related to lactulose use and thus lactulose has been discontinued -Continue levofloxacin and Flagyl Gastric varices -Quite large noted on EGD -Goals are recommended systolic blood pressure less than 110 and diastolic less than 160 if possible -Nadolol 10 mg p.o. twice daily as recommended JORDAN secondary to dehydration -Serum creatinine 1.36 on admission -Baseline serum creatinine is less than 1 and JORDAN is now resolved--> 0.87 this morning -Lasix reinitiated at 20 mg daily Chronic thrombocytopenia -Platelet counts are overall stable Transaminitis/hyperbilirubinemia -All are trending down -Gastroenterology is following -Appreciate input Dysphagia -MBS done yesterday -Pur?e/thin liquid diet with modifications -Speech therapy is following Debility -Continue PT/OT -Plan is for TCU at discharge once medically stable Hypothyroidism -Patient has been on 112 mcg of levothyroxine -TSH was found to be 83.8 on admission -Free T4 was low at 0.15 -Increase levothyroxine to 125 mcg -Repeat free T4 on 07/03/2022 Metastatic papillary thyroid cancer -Initially diagnosed 16 years ago -Had been in remission -History of thyroidectomy -Has metastatic disease to the mediastinum and left upper lobe -Follows with Dr. Sinclair at [facility] History of hepatitis C with resultant cirrhosis -Patient underwent treatment for hepatitis C with Dr. García GERD -Continue PPI Depression -restart home Wellbutrin -restart home citalopram Urinary incontinence -Hold home oxybutynin DVT prophylaxis -SCDs -Platelet count is less than 50,000 so we will hold chemoprophylaxis at this point CODE STATUS -Full code -Per documentation previous hospitalist did have discussion with patient and family about ongoing CODE STATUS and they were going to discuss this further -Would highly recommend DNR CCA is CODE STATUS Charges/Coding Visit Charges Inpatient E&M: 27113 Subs Hosp L2
[2022-06-30] MEDS: metroNIDAZOLE 500 MG/100 ML BAG 100 MG IV ×2 (09:35→22:46)
[2022-06-30] MEDS: Spironolactone 50 MG Tablet NG (09:45)
[2022-06-30] MEDS: Furosemide 20 MG Tablet NG (09:46)
[2022-06-30] MEDS: Nadolol 40 MG Tablet 20 MG NG ×2 (09:46→22:59)
[2022-06-30] MEDS: Pantoprazole Sodium 40 MG Tablet PO (09:46)
[2022-06-30] MEDS: Cyanocobalamin 500 MCG Tablet NG (09:47)
[2022-06-30] MEDS: rifAXIMin 550 MG Tablet NG ×2 (09:47→22:59)
[2022-06-30] MEDS: Citalopram 20 MG Tablet PO (09:48)
[2022-06-30] MEDS: buPROPion (SR) 150 MG Tablet.SA PO ×2 (09:49→22:59)
[2022-06-30] MEDS: Ensure Plus High Protein 120 ML LIQUID PO ×2 (18:23→22:59)
[2022-06-30] MEDS: levoFLOXacin IV 500 MG/100 ML BAG 100 MG IV (22:46)
--- NOTE | 2022-07-01 02:44 | NURSING ---
ASSUMED CARE OF PT AT 0145.
[2022-07-01 03:00] VITALS: BP 91/61; PULSE 71; RESP 15; TEMP 36.6; O2SAT 97
[2022-07-01 03:55] VITALS: PULSE 68; RESP 12; RESP 14; O2SAT 96
[2022-07-01 07:55] VITALS: O2SAT 96
[2022-07-01 09:00] VITALS: BP 94/59; PULSE 96; RESP 18; TEMP 36.8; O2SAT 96
[2022-07-01] MEDS: buPROPion (SR) 150 MG Tablet.SA PO ×2 (09:38→23:04)
[2022-07-01] MEDS: Pantoprazole Sodium 40 MG Tablet PO (09:38)
[2022-07-01] MEDS: rifAXIMin 550 MG Tablet NG (09:38)
[2022-07-01] MEDS: Cyanocobalamin 500 MCG Tablet NG (09:38)
[2022-07-01] MEDS: Spironolactone 50 MG Tablet NG (09:39)
[2022-07-01] MEDS: Nadolol 40 MG Tablet 20 MG NG (09:39)
[2022-07-01] MEDS: Citalopram 20 MG Tablet PO (09:39)
[2022-07-01] MEDS: Furosemide 20 MG Tablet NG (09:39)
[2022-07-01] MEDS: metroNIDAZOLE 500 MG/100 ML BAG 100 MG IV (09:41)
[2022-07-01 10:49] LABS: Hematocrit 41.5 % (37-47); Hemoglobin 13.7 g/dL (12.0-15.0); Mean Corpuscular Hgb 31.6 pg (27.0-32.0); Mean Corpuscular Volume 95.8 fL (81-99); Mean Platelet Vol. 11.9 fl (6.2-12.0); POSITIVE COUNT YES; POSITIVE MORPHOLOGY YES; Platelet Count 66 K/mm3 (150-450); RBC Distribution Width SD 54.1 fl (35.1-43.9); Red Blood Count 4.33 M/mm3 (4.2-5.4); White Blood Count 11.9 K/mm3 (4.4-11.0)
[2022-07-01 10:50] LABS: Differential Indicated MANUAL DIFF
[2022-07-01 11:07] LABS: AST(SGOT) 268 U/L (15-37); Alanine Aminotransfer ALT/SGPT 80 U/L (13-56); Alkaline Phosphatase 238 U/L (45-117); Anion Gap 7 (5-15); BUN 29 mg/dL (7-18); BUN/Creat Ratio 26.4 RATIO (10-20); Bilirubin, Direct 4.31 mg/dL (0.00-0.30); Calcium,Total 9.3 mg/dL (8.5-10.1); Chloride 98 mmol/L (98-107); EST Glomerular Filtration Rate 53 mL/min (>60); Est Glom Filt Rate - Afr Amer 64 mL/min (>60); Estimated Creatinine Clearance 45.27 ml/min; Glucose 92 mg/dL (74-106); Potassium 4.2 mmol/L (3.5-5.1); Sodium Level 137 mmol/L (136-145)
[2022-07-01 11:20] LABS: Eosinophil 1 % (0-5); Lymphocyte 9 % (19-41); Metamyelocyte 4 % (0-1); Monocyte 2 % (0-10); Myelocyte 4 % (0-0); Neutrophil-Band 3 % (0-5); Neutrophil-Segmented 77 % (47-70); Nucleated Red Bld Cells,Manual 1 % (0-5); Total Cells Counted 100 (MANUAL DIFF)
[2022-07-01 11:21] LABS: Platelet Estimate MKD DEC (ADEQ); Polychromasia 1+; Red Cell Morphology NORM C+C NORMAL (NORM C&C)
[2022-07-01 11:22] LABS: Absolute Neutrophil Count 9.4 X10^3/uL (2.0-7.7)
--- NOTE | 2022-07-01 12:50 | PCM.PN.HOSP ---
Reason for Visit Reason for Visit: Confusion/mental status change Subjective Subjective No issues overnight. Patient tried to refuse some of her pills today however took most of them with her applesauce. Mentation seems to be where it was yesterday with no change. She is oriented to self, place, and month but confused on year. P.o. intake has been poor overall. Patient is able to eat but refusing. Per family request [facility] of her doctors are there however they have no bed availability and are not wait listing any patients at this time. I will talk to her financial services officer tomorrow. Objective Data Objective Data Vital Signs: Vital Signs Temp Pulse Resp BP Pulse Ox O2 Del Method O2 Flow Rate 98.3 F 96 18 94/59 L 96 Room Air 92 07/01/22 09:00 07/01/22 09:00 07/01/22 09:00 07/01/22 09:00 07/01/22 09:00 07/01/22 09:00 07/01/22 11:19 FiO2 25 07/01/22 03:55 Oxygen Flow Rate (L/min) 92 Oxygen Delivery Method Room Air Weight: 117.4 kg Body Mass Index (BMI) 41.7 Intake & Output: Intake and Output for Last 24 Hours 06/29/22 06/30/22 07/01/22 23:59 23:59 23:59 Intake Total 300 / 300 659.25 / 659.25 780 / 780 Output Total 750 / 1050 520 / 620 100 / 100 Balance -450 / -750 139.25 / 39.25 680 / 680 Lab / Micro Data Result Diagrams: 07/01/22 10:35 07/01/22 10:35 Labs: Laboratory Results - last 24 hr 07/01/22 10:35: WBC 11.9 H, RBC 4.33, Hgb 13.7, Hct 41.5, MCV 95.8, MCH 31.6, MCHC 33.0, RDW Std Deviation 54.1 H, RDW Coeff of Anyi 17.0 H, Plt Count 66 L, MPV 11.9, Neut % (Auto) Not Reportable, Absolute Neuts (auto) 9.4 H, Absolute Lymphs (auto) 1.10, Total Counted 100, Neutrophils % (Manual) 77 H, Band Neutrophils % 3, Lymphocytes % (Manual) 9 L, Monocytes % (Manual) 2, Eosinophils % (Manual) 1, Metamyelocytes % 4 H, Myelocytes % 4 H, Nucleated RBCs/100 WBC 1, Diff Path Review May foll, Platelet Estimate MKD DEC, RBC Morphology NORM C+C, Polychromasia 1+ 07/01/22 10:35: Sodium 137, Potassium 4.2, Chloride 98, Carbon Dioxide 32.0, Anion Gap 7, BUN 29 H, Creatinine 1.10 H, Estim Creat Clear Calc 45.27, Est GFR (MDRD) Af Amer 64, Est GFR (MDRD) Non-Af 53 L, BUN/Creatinine Ratio 26.4 H, Glucose 92, Calcium 9.3, Total Bilirubin 6.70 H, Direct Bilirubin 4.31 H, AST 268 H, ALT 80 H, Alkaline Phosphatase 238 H, Total Protein 6.0 L, Albumin 2.0 L, Globulin 4.0 Micro: Microbiology 06/27/22 00:25 Blood Culture (Wb) - Anticubital Right Blood Culture - Preliminary No growth in 48 hours. 06/26/22 20:25 Blood Culture (Wb) - Anticubital Left Blood Culture - Preliminary No growth in 48 hours. 06/26/22 15:15 Interface Orders Enteric Bacteriology - Final 06/21/22 20:30 Blood Culture (Wb) - Anticubital Right Blood Culture - Final Staphylococcus hominis 06/21/22 23:15 Blood Culture (Wb) - Anticubital Left Blood Culture - Final No growth in 5 days. 06/26/22 15:15 Stool C. difficile DNA Amplification - Final 06/26/22 20:05 Urine Catheter - Catheter Legionella Antigen - Final 06/26/22 20:05 Urine Catheter - Catheter Streptococcus pneumoniae Antigen (M - Final 06/21/22 20:30 Nasal Secretion SARS-CoV-2 & FLU Antigen (Rapid) - Final Physical Exam Const alert and no apparent distress Constitutional Narrative: Chronically ill-appearing, morbidly obese, upper middle-aged white female, appears older than stated age, lying in bed, patient is awake and answers questions appropriately for the most part, oriented to self, place, and month. Confused on year. HEENT head/scalp atraumatic and moist oral mucous membranes HEENT Narrative: Mallampati is 3, edentulous, no thrush Head and Scalp: normocephalic Resp normal respiratory effort, no retractions, no use of accessory muscles and clear to auscultation bilaterally Resp Narrative: Diffusely diminished but clear Auscultation: Negative for rales, rhonchi or wheezes Cardio regular rate, regular rhythm, S1 normal heart sound, S2 normal heart sound, no murmurs, no rub, no gallops and no clicks GI normal to inspection, nondistended, normoactive bowel sounds, soft to palpation and non-tender Extremity no clubbing, cyanosis or edema Extremity Narrative: 2+ pedal pulses Neuro moves all extremities and no focal motor deficits Neuro Narrative: Response times are mildly slowed, speech is clear today and although alert and oriented to self, place, and month confused on year, significant generalized weakness Speech: speech normal Psych Psych Narrative: Mood seems depressed and affect is very flat Assessment & Plan Assessment/Plan (1) Acute on chronic respiratory failure with hypoxia and hypercapnia: (2) Cirrhosis: (3) Toxic metabolic encephalopathy: (4) Gastric ulcer: (5) Acute kidney injury: (6) Dehydration: (7) Acute colitis: (8) Debility: PLAN: Plan Acute on chronic hypoxic and hypercapnic respiratory failure -Suspect an element of baseline CO2 retention and possible hypoxia based on lab -High suspicion for ARLYN/OHS -AA gradient was elevated on her ABG however she was under the effects of anesthesia at the time -Will need room air ABG after clinical status is at baseline -Overall work-up has been unremarkable thus far -Continue BiPAP at night and with naps -Continue supplemental oxygen at 3 L and wean as able -Sats are 96% -Pulmonary/critical care medicine following-appreciate input Acute metabolic/toxic encephalopathy secondary to hepatic encephalopathy secondary to decompensated liver cirrhosis -Patient's mental status has been waxing and waning--> patient fluctuating between grade 2 and 4 hepatic encephalopathy -Ammonia level has normalized -ABG now with normal pH -MRI brain negative -Lactulose was discontinued secondary to colitis found on colonoscopy--> hold until reinitiated by GI -Mental status remained stable will reassess ammonia tomorrow was less than 10 when last assessed on 06/28/2022 -Continue rifaximin -Patient was on neomycin but we have on out the pharmacy and this has been substituted with Flagyl 500 mg p.o. 3 times daily -Continue Lasix 20 mg daily -Continue Aldactone 50 mg daily Acute colitis -Biopsy was consistent with ischemic colitis -Enteric panel was unremarkable -C. difficile was negative -Suspect that this is ischemic colitis possibly related to lactulose use and thus lactulose has been discontinued -Continue levofloxacin and Flagyl--> day 6 Gastric varices -Quite large noted on EGD -Goals are recommended systolic blood pressure less than 110 and diastolic less than 160 if possible -Nadolol 10 mg p.o. twice daily as recommended -Blood pressures have been in goal ranges JORDAN secondary to dehydration -Serum creatinine 1.36 on admission -Baseline serum creatinine is less than 1 and JORDAN is now resolved--> 1.10 this morning -Continue Lasix 20 mg daily -We will continue Aldactone but decrease dose by 50% with slight elevation in serum creatinine Chronic thrombocytopenia -Platelet counts are overall stable Transaminitis/hyperbilirubinemia -Stable today with no significant change--> ? if medication induced -Gastroenterology is following -Will discuss further with them tomorrow if remain elevated on a.m. lab -Appreciate input Dysphagia -MBS done yesterday -Pur?e/thin liquid diet with modifications -P.o. diet is extremely poor -Speech therapy is following Severe malnutrition -Patient's oral intake has been poor and she is refusing food -If this continues patient may need Dobbhoff placement for feeding -Discussed with nursing and they would address with family at the bedside later as there is no one at the time of my assessment Debility -Continue PT/OT -Plan is for TCU at discharge once medically stable Hypothyroidism -Continue levothyroxine 125 mcg -TSH was found to be 83.8 on admission -Free T4 was low at 0.15 -Repeat free T4 on 07/03/2022 -Patient had been off her levothyroxine for 1 month prior to admission as instructed by her financial services officer Metastatic papillary thyroid cancer -Initially diagnosed 16 years ago -Had been in remission -History of thyroidectomy -Has metastatic disease to the mediastinum and left upper lobe -Follows with Dr. Sinclair at [facility]--> will discuss with him further tomorrow History of hepatitis C with resultant cirrhosis -Patient underwent treatment for hepatitis C with Dr. García GERD -Continue PPI Depression -Continue home Wellbutrin -Continue home citalopram Urinary incontinence -Hold home oxybutynin DVT prophylaxis -SCDs -Platelet count is less than 50,000 so we will hold chemoprophylaxis at this point CODE STATUS -Full code -Per documentation previous hospitalist did have discussion with patient and family about ongoing CODE STATUS and they were going to discuss this further -Would highly recommend DNR CCA is CODE STATUS Charges/Coding Visit Charges Inpatient E&M: 89110 Subs Hosp L2
[2022-07-01 15:27] VITALS: BP 116/73; PULSE 70; RESP 18; TEMP 36.6; O2SAT 96
--- NOTE | 2022-07-01 15:36 | NURSING ---
Patient continues to refuse food, only wants water. Refusing ensure as well, tried to refuse oral medications this morning but this nurse convinced her to take them and patient did end up taking them.
[2022-07-01] MEDS: Ensure Plus High Protein 120 ML LIQUID PO ×2 (18:36→23:01)
[2022-07-01] MEDS: rifAXIMin 550 MG Tablet PO (23:02)
[2022-07-01] MEDS: Nadolol 40 MG Tablet 20 MG PO (23:06)
[2022-07-01 23:25] VITALS: BP 107/66; PULSE 69; RESP 18; TEMP 36.6; O2SAT 94
--- NOTE | 2022-07-01 23:42 | CPS ---
PT not ready for bipap yet. Will go check on again at midnight.
[2022-07-01] MEDS: levoFLOXacin 500 MG Tablet PO (23:45)
[2022-07-01] MEDS: metroNIDAZOLE 500 MG Tablet PO (23:45)
[2022-07-02] VITALS (13 sets, daily range): BP systolic 91–117; BP diastolic 47–72; PULSE 65–71; RESP 14–18; TEMP 36.5–37.2; O2SAT 30–97
[2022-07-02 05:54] LABS: Hematocrit 40.1 % (37-47); Hemoglobin 13.2 g/dL (12.0-15.0); Mean Corp Hgb Conc 32.9 g/dL (32-36); Mean Corpuscular Volume 97.1 fL (81-99); Mean Platelet Vol. 10.9 fl (6.2-12.0); POSITIVE COUNT YES; POSITIVE MORPHOLOGY YES; Platelet Count 52 K/mm3 (150-450); RBC Distribution Width CV 17.2 % (11.6-14.6); RBC Distribution Width SD 54.9 fl (35.1-43.9); Red Blood Count 4.13 M/mm3 (4.2-5.4); White Blood Count 10.2 K/mm3 (4.4-11.0)
[2022-07-02 05:55] LABS: Differential Indicated MANUAL DIFF
[2022-07-02 06:12] LABS: Anisocytosis 1+; Platelet Estimate MOD DEC (ADEQ); Red Cell Morphology NORM C+C NORMAL (NORM C&C)
[2022-07-02 06:17] LABS: Absolute Lymphocyte Count 1.32 X10^3/uL (0.83-4.51); Lymphocyte 13 % (19-41); Metamyelocyte 1 % (0-1); Monocyte 4 % (0-10); Myelocyte 3 % (0-0); Neutrophil-Band 3 % (0-5); Neutrophil-Segmented 76 % (47-70); Total Cells Counted 100 (MANUAL DIFF)
[2022-07-02 06:32] LABS: AST(SGOT) 262 U/L (15-37); Alanine Aminotransfer ALT/SGPT 71 U/L (13-56); Albumin, Serum 1.9 g/dL (3.2-5.0); Alkaline Phosphatase 249 U/L (45-117); Anion Gap 8 (5-15); BUN 33 mg/dL (7-18); BUN/Creat Ratio 31.4 RATIO (10-20); Bilirubin, Direct 4.92 mg/dL (0.00-0.30); Calcium,Total 9.4 mg/dL (8.5-10.1); Chloride 98 mmol/L (98-107); Creatinine, Serum 1.05 mg/dL (0.55-1.02); EST Glomerular Filtration Rate 56 mL/min (>60); Est Glom Filt Rate - Afr Amer 67 mL/min (>60); Estimated Creatinine Clearance 47.42 ml/min; Globulin 3.8 g/dL (2.2-4.2); Glucose 98 mg/dL (74-106); Potassium 3.9 mmol/L (3.5-5.1); Protein, Total 5.7 g/dL (6.4-8.2); Sodium Level 137 mmol/L (136-145)
[2022-07-02] MEDS: buPROPion (SR) 150 MG Tablet.SA PO (09:49)
[2022-07-02] MEDS: rifAXIMin 550 MG Tablet PO ×2 (09:50→21:29)
[2022-07-02] MEDS: Citalopram 20 MG Tablet PO (09:50)
[2022-07-02] MEDS: Pantoprazole Sodium 40 MG Tablet PO (09:50)
[2022-07-02] MEDS: Ensure Plus High Protein 120 ML LIQUID PO ×3 (09:57→16:33)
[2022-07-02] MEDS: Cyanocobalamin 500 MCG Tablet PO (09:57)
[2022-07-02 10:04] LABS: International Normalized Ratio 2.5; Prothrombin Time (Protime)PT. 26.8 SECONDS (11.7-14.9)
[2022-07-02 13:21] LABS: Pathologist Review Reviewed
[2022-07-02] MEDS: metroNIDAZOLE 500 MG/100 ML BAG 100 MG IV ×2 (16:02→21:28)
--- NOTE | 2022-07-02 16:43 | PCM.PN.HOSP ---
Reason for Visit Reason for Visit: Mental status change Subjective Subjective No issues overnight.. Mental status is about the same. P.o. intake has been a little bit better through the night and this morning. I did attempt to call Dr. Sinclair's office however I have not heard back from him yet. He was not in the office today. Objective Data Objective Data Vital Signs: Vital Signs Temp Pulse Resp BP Pulse Ox O2 Del Method O2 Flow Rate 97.9 F 66 18 106/72 95 Nasal Cannula 3 07/02/22 16:11 07/02/22 16:11 07/02/22 16:11 07/02/22 16:11 07/02/22 16:11 07/02/22 16:11 07/02/22 16:11 FiO2 30 07/02/22 08:06 Oxygen Flow Rate (L/min) 3 Oxygen Delivery Method Nasal Cannula Weight: 119.6 kg Body Mass Index (BMI) 41.7 Intake & Output: Intake and Output for Last 24 Hours 06/30/22 07/01/22 07/02/22 23:59 23:59 23:59 Intake Total 659.25 / 659.25 1020 / 1020 451 / 451 Output Total 520 / 620 100 / 100 Balance 139.25 / 39.25 920 / 920 451 / 451 Lab / Micro Data Result Diagrams: 07/02/22 04:37 07/02/22 04:37 Labs: Laboratory Results - last 24 hr 06/30/22 03:40: Diff Path Review Reviewed 07/02/22 04:37: WBC 10.2, RBC 4.13 L, Hgb 13.2, Hct 40.1, MCV 97.1, MCH 32.0, MCHC 32.9, RDW Std Deviation 54.9 H, RDW Coeff of Anyi 17.2 H, Plt Count 52 L, MPV 10.9, Neut % (Auto) Not Reportable, Absolute Neuts (auto) 8.0 H, Absolute Lymphs (auto) 1.32, Total Counted 100, Neutrophils % (Manual) 76 H, Band Neutrophils % 3, Lymphocytes % (Manual) 13 L, Monocytes % (Manual) 4, Metamyelocytes % 1, Myelocytes % 3 H, Diff Path Review May , Platelet Estimate MOD DEC, RBC Morphology NORM C+C, Anisocytosis 1+ 07/02/22 04:37: Sodium 137, Potassium 3.9, Chloride 98, Carbon Dioxide 31.0, Anion Gap 8, BUN 33 H, Creatinine 1.05 H, Estim Creat Clear Calc 47.42, Est GFR (MDRD) Af Amer 67, Est GFR (MDRD) Non-Af 56 L, BUN/Creatinine Ratio 31.4 H, Glucose 98, Calcium 9.4, Total Bilirubin 7.10 H, Direct Bilirubin 4.92 H, AST 262 H, ALT 71 H, Alkaline Phosphatase 249 H, Total Protein 5.7 L, Albumin 1.9 L, Globulin 3.8 07/02/22 04:37: Ammonia 26.0 07/02/22 09:35: PT 26.8 H, INR 2.5 Micro: Microbiology 06/27/22 00:25 Blood Culture (Wb) - Anticubital Right Blood Culture - Final No growth in 5 days. 06/26/22 20:25 Blood Culture (Wb) - Anticubital Left Blood Culture - Final No growth in 5 days. 06/26/22 15:15 Interface Orders Enteric Bacteriology - Final 06/21/22 20:30 Blood Culture (Wb) - Anticubital Right Blood Culture - Final Staphylococcus hominis 06/21/22 23:15 Blood Culture (Wb) - Anticubital Left Blood Culture - Final No growth in 5 days. 06/26/22 15:15 Stool C. difficile DNA Amplification - Final 06/26/22 20:05 Urine Catheter - Catheter Legionella Antigen - Final 06/26/22 20:05 Urine Catheter - Catheter Streptococcus pneumoniae Antigen (M - Final 06/21/22 20:30 Nasal Secretion SARS-CoV-2 & FLU Antigen (Rapid) - Final Physical Exam Const alert and no apparent distress Constitutional Narrative: Chronically ill-appearing, morbidly obese, upper middle-aged white female, appears older than stated age, sitting up in a chair, watching television, oriented to self, place, and month but not year HEENT head/scalp atraumatic and moist oral mucous membranes HEENT Narrative: Fabiola 3, edentulous, no thrush Head and Scalp: normocephalic Eyes Eyes Narrative: Patient with scleral icterus Resp normal respiratory effort, no retractions, no use of accessory muscles and clear to auscultation bilaterally Resp Narrative: Diffusely diminished but clear Auscultation: Negative for rales, rhonchi or wheezes Cardio regular rate, regular rhythm, S1 normal heart sound, S2 normal heart sound, no murmurs, no rub, no gallops and no clicks GI normal to inspection, nondistended, normoactive bowel sounds, soft to palpation and non-tender Extremity no clubbing, cyanosis or edema Extremity Narrative: 2+ pedal pulses Skin Skin Narrative: Jaundiced Neuro moves all extremities and no focal motor deficits Neuro Narrative: Response times were less low today, speech was clear and thought process was improved overall however still delayed Psych Psych Narrative: Mood seems depressed and affect is very flat Assessment & Plan Assessment/Plan (1) Acute on chronic respiratory failure with hypoxia and hypercapnia: (2) Cirrhosis: (3) Toxic metabolic encephalopathy: (4) Gastric ulcer: (5) Acute kidney injury: (6) Dehydration: (7) Acute colitis: (8) Debility: PLAN: Plan Acute on chronic hypoxic and hypercapnic respiratory failure -Suspect an element of baseline CO2 retention and possible hypoxia based on lab -High suspicion for ARLYN/OHS -AA gradient was elevated on her ABG however she was under the effects of anesthesia at the time -Will need room air ABG after clinical status is at baseline to confirm or rule out obesity hypoventilation syndrome -Overall work-up has been unremarkable thus far -Continue BiPAP at night and with naps -Continue supplemental oxygen at 3 L and wean as able -Sats are 96% -I do anticipate the patient will need oxygen at discharge -Pulmonary/critical care medicine following-appreciate input Acute metabolic/toxic encephalopathy secondary to hepatic encephalopathy secondary to decompensated liver cirrhosis -Patient's mental status has been waxing and waning--> patient fluctuating between grade 2 and 4 hepatic encephalopathy -Ammonia level has normalized -ABG now with normal pH -MRI brain negative -Lactulose was discontinued secondary to colitis found on colonoscopy--> hold until reinitiated by GI -Mental status remained stable will reassess ammonia tomorrow was less than 10 when last assessed on 06/28/2022 -Ammonia 26 this morning -Continue rifaximin -Patient was on neomycin but we have on out the pharmacy and this has been substituted with Flagyl 500 mg p.o. 3 times daily -Continue Lasix 20 mg daily -Aldactone decreased to 25 mg daily as blood pressures had been low and we were having to hold other medications -GI is following and will discuss possible liver biopsy with patient and family later today Acute colitis -Biopsy was consistent with ischemic colitis -Enteric panel was unremarkable -C. 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 twice daily as recommended -Blood pressures have been in goal ranges JORDAN secondary to dehydration -Serum creatinine 1.36 on admission -Baseline serum creatinine is less than 1 and JORDAN is now resolved--> 1.10 this morning -Continue Lasix 20 mg daily -We will continue Aldactone but decrease dose by 50% with slight elevation in serum creatinine Chronic thrombocytopenia -Platelet counts are overall stable Transaminitis/hyperbilirubinemia -Stable today with no significant change--> ? if medication induced -Gastroenterology is following -Will discuss further with them tomorrow if remain elevated on a.m. lab -Appreciate input Dysphagia -MBS done yesterday -Pur?e/thin liquid diet with modifications -P.o. diet is extremely poor -Speech therapy is following Severe malnutrition -Patient's oral intake has been poor and she is refusing food -P.o. intake has been a little bit better in the last 24 hours -Calorie counts -If this continues patient may need Dobbhoff placement for feeding -Cindy with patient and family Debility -Continue PT/OT -Plan is for TCU at discharge once medically stable Hypothyroidism -Continue levothyroxine 125 mcg -TSH was found to be 83.8 on admission -Free T4 was low at 0.15 -Repeat free T4 on 07/03/2022 -Patient had been off her levothyroxine for 1 month prior to admission as instructed by her fresh work wrapper layer Metastatic papillary thyroid cancer -Initially diagnosed 16 years ago -Had been in remission -History of thyroidectomy -Has metastatic disease to the mediastinum and left upper lobe -Follows with Dr. Sinclair at [facility]--> we will try to call Dr. Sinclair again tomorrow I did call today however my call was not returned History of hepatitis C with resultant cirrhosis -Patient underwent treatment for hepatitis C with Dr. García GERD -Continue PPI Depression -Continue home Wellbutrin -Continue home citalopram Urinary incontinence -Hold home oxybutynin DVT prophylaxis -SCDs -Platelet count is less than 50,000 so we will hold chemoprophylaxis at this point CODE STATUS -Full code -Per documentation previous hospitalist did have discussion with patient and family about ongoing CODE STATUS and they were going to discuss this further -Would highly recommend DNR CCA is CODE STATUS Charges/Coding Visit Charges Inpatient E&M: 92042 Subs Hosp L2
--- NOTE | 2022-07-02 17:48 | PN_ITS ---
Subjective Subjective Patient is sitting up in bed and was up in the chair. She is on liquid diet and being fed by her [id number] and sister. They are at the bedside. Objective Data Objective Data Vital Signs: Vital Signs Temp Pulse Resp BP Pulse Ox O2 Del Method O2 Flow Rate 97.9 F 66 18 106/72 95 Nasal Cannula 3 07/02/22 16:11 07/02/22 16:11 07/02/22 16:11 07/02/22 16:11 07/02/22 16:11 07/02/22 16:11 07/02/22 16:11 FiO2 30 07/02/22 08:06 Oxygen Flow Rate (L/min) 3 Oxygen Delivery Method Nasal Cannula Weight: 263 lb 10.766 oz Body Mass Index (BMI) 41.7 Intake & Output: Intake and Output for Last 24 Hours 06/30/22 07/01/22 07/02/22 23:59 23:59 23:59 Intake Total 659.25 / 659.25 1020 / 1020 551 / 551 Output Total 520 / 620 100 / 100 Balance 139.25 / 39.25 920 / 920 551 / 551 Lab / Micro Data Result Diagrams: 07/02/22 04:37 07/02/22 04:37 Labs: Laboratory Results - last 24 hr 06/30/22 03:40: Diff Path Review Reviewed 07/02/22 04:37: WBC 10.2, RBC 4.13 L, Hgb 13.2, Hct 40.1, MCV 97.1, MCH 32.0, MCHC 32.9, RDW Std Deviation 54.9 H, RDW Coeff of Anyi 17.2 H, Plt Count 52 L, MPV 10.9, Neut % (Auto) Not Reportable, Absolute Neuts (auto) 8.0 H, Absolute Lymphs (auto) 1.32, Total Counted 100, Neutrophils % (Manual) 76 H, Band Neutrophils % 3, Lymphocytes % (Manual) 13 L, Monocytes % (Manual) 4, Metamyelocytes % 1, Myelocytes % 3 H, Diff Path Review May , Platelet Estimate MOD DEC, RBC Morphology NORM C+C, Anisocytosis 1+ 07/02/22 04:37: Sodium 137, Potassium 3.9, Chloride 98, Carbon Dioxide 31.0, Anion Gap 8, BUN 33 H, Creatinine 1.05 H, Estim Creat Clear Calc 47.42, Est GFR (MDRD) Af Amer 67, Est GFR (MDRD) Non-Af 56 L, BUN/Creatinine Ratio 31.4 H, Glucose 98, Calcium 9.4, Total Bilirubin 7.10 H, Direct Bilirubin 4.92 H, AST 262 H, ALT 71 H, Alkaline Phosphatase 249 H, Total Protein 5.7 L, Albumin 1.9 L, Globulin 3.8 07/02/22 04:37: Ammonia 26.0 07/02/22 09:35: PT 26.8 H, INR 2.5 Micro: Microbiology 06/27/22 00:25 Blood Culture (Wb) - Anticubital Right Blood Culture - Final No growth in 5 days. 06/26/22 20:25 Blood Culture (Wb) - Anticubital Left Blood Culture - Final No growth in 5 days. 06/26/22 15:15 Interface Orders Enteric Bacteriology - Final 06/21/22 20:30 Blood Culture (Wb) - Anticubital Right Blood Culture - Final Staphylococcus hominis 06/21/22 23:15 Blood Culture (Wb) - Anticubital Left Blood Culture - Final No growth in 5 days. 06/26/22 15:15 Stool C. difficile DNA Amplification - Final 06/26/22 20:05 Urine Catheter - Catheter Legionella Antigen - Final 06/26/22 20:05 Urine Catheter - Catheter Streptococcus pneumoniae Antigen (M - Final 06/21/22 20:30 Nasal Secretion SARS-CoV-2 & FLU Antigen (Rapid) - Final Physical Exam Narrative Seen and examined. Patient awake and answer all questions. No fever. On 3 L of oxygen. Physical exam General: Awake. Oriented to place and person. Coherent speech. HEENT: Atraumatic, PERRLA, Normocephalic Oral: Oral mucosa moist. NG tube removed. Neck: Supple, No JVD, Negative Carotid Bruits Lungs: Air entry diminished in bilateral lung bases. No crepitation/rhonchi Cardiovascular: Regular rate, sinus rhythm, Normal S1, Normal S2, systolic mu rmur Abdomen: Bowel Sounds Present, Soft, Non Tender, Non-Distended : No renal angle tenderness. No suprapubic tenderness. Extremities: No appreciable edema, Capillary Refill Less than 3 Seconds Skin: Mild ecchymosis due to thrombocytopenia Musculoskeletal: Bilateral valgus deformity of knee, degenerative arthritis. Passive ROM restricted Neurological: No acute neurological deficit. DTR 2+. Psych/Mental Status: Flat affect awake Assessment & Plan Assessment/Plan (1) Encephalopathy acute: PLAN: Lactulose has been stopped. We will continue Xifaxan. There is no more neomycin. We will substitute that with Flagyl 500 mg p.o. 3 times daily. She is back to grade 3 grade 4 hepatic encephalopathy. This is despite normal ammonia level. MRI results of the brain did not show any signs of any acute central nervous system problem. She is more awake and alert today as per the family who is at the bedside. (2) Metastasis from thyroid cancer: (3) Acute kidney injury: (4) Pleural effusion: (5) Cirrhosis: PLAN: CT scan abdomen pelvis does show that she has cirrhosis without any lesions seen in the liver. . She currently is a child Dominguez class C with a meld of 26. She has decompensated liver disease secondary to encephalopathy, with recent lower GI bleed secondary to ischemic colitis secondary to lactulose. Enteric pathogens and C. difficile were negative from cultures taken from a colonoscopy specimen. Biopsies are pending. She was also discovered to have a large gastric varices without stigmata of bleeding. Recommend maintaining a systolic blood pressure less than 110 and a diastolic blood pressure less than 60 if possible. Recommend nadolol 10 mg p.o. twice daily. Also recommending NG tube removal in the morning and introduction of p.o. diet with clear liquids. Her sister was at the bedside said she had a history of hepatitis C which was treated and she was diagnosed with nonalcoholic steatohepatitis. Her last hepatitis C viral load was in 2018 and it was negative. I will redraw her hepatitis C PCR RNA along with hepatitis B, autoimmune hepatitis labs, labs for PBC. She may need liver biopsy. Charges/Coding Visit Charges Inpatient E&M: 91198 Subs Hosp L3
[2022-07-02] MEDS: levoFLOXacin IV 500 MG/100 ML BAG 100 MG IV (21:27)
[2022-07-02] MEDS: Ursodiol 250 MG Tablet 500 MG PO (21:28)
[2022-07-02] MEDS: Lactulose 20 GM/30 ML UDC PO (21:30)
[2022-07-02] MEDS: Nadolol 40 MG Tablet 20 MG PO (21:30)
[2022-07-02] MEDS: buPROPion 75 MG Tablet 150 MG PO (21:31)
[2022-07-03] VITALS (17 sets, daily range): BP systolic 82–126; BP diastolic 53–85; PULSE 66–93; RESP 14–20; TEMP 36.2–36.6; O2SAT 88–99; BMI 43.4
[2022-07-03 05:03] LABS: Basophil# 0.08 X10^3/uL; Basophil% 0.8 % (0-1); Eosinophil# 0.07 X10^3/uL; Eosinophils% 0.7 % (0-5); Lymphocyte % 9.6 % (19-41); Mean Corp Hgb Conc 32.5 g/dL (32-36); Mean Corpuscular Hgb 31.6 pg (27.0-32.0); Mean Corpuscular Volume 97.1 fL (81-99); Mean Platelet Vol. 11.5 fl (6.2-12.0); Monocyte# 0.78 X10^3/uL; Monocyte% 7.5 % (0-10); NRBC Flagged by Analyzer 0.7 % (0-5); Neutrophil # 7.95 X10^3/uL (2.7-7.7); Neutrophil % 76.5 % (47-70); POSITIVE COUNT YES; Platelet Count 53 K/mm3 (150-450); RBC Distribution Width CV 17.5 % (11.6-14.6); RBC Distribution Width SD 55.8 fl (35.1-43.9); Red Blood Count 4.12 M/mm3 (4.2-5.4); White Blood Count 10.4 K/mm3 (4.4-11.0)
[2022-07-03 05:31] LABS: AST(SGOT) 238 U/L (15-37); Alanine Aminotransfer ALT/SGPT 68 U/L (13-56); Albumin, Serum 1.8 g/dL (3.2-5.0); Alkaline Phosphatase 265 U/L (45-117); Anion Gap 4 (5-15); BUN 25 mg/dL (7-18); Bilirubin, Direct 5.26 mg/dL (0.00-0.30); Calcium,Total 9.5 mg/dL (8.5-10.1); Chloride 101 mmol/L (98-107); Creatinine, Serum 0.86 mg/dL (0.55-1.02); EST Glomerular Filtration Rate 70 mL/min (>60); Est Glom Filt Rate - Afr Amer 85 mL/min (>60); Glucose 108 mg/dL (74-106); Potassium 3.8 mmol/L (3.5-5.1); Protein, Total 5.8 g/dL (6.4-8.2); Sodium Level 138 mmol/L (136-145); T4 Free Direct 0.27 ng/dL (0.76-1.46)
[2022-07-03] MEDS: Levothyroxine 125 MCG Tablet PO (06:42)
[2022-07-03 09:24] LABS: Pathologist Review Reviewed
[2022-07-03] MEDS: rifAXIMin 550 MG Tablet PO ×2 (09:26→21:25)
[2022-07-03] MEDS: buPROPion 75 MG Tablet 150 MG PO ×2 (09:27→21:26)
[2022-07-03] MEDS: Citalopram 20 MG Tablet PO (09:27)
[2022-07-03] MEDS: Pantoprazole Sodium 40 MG Tablet PO (09:27)
[2022-07-03] MEDS: Ursodiol 250 MG Tablet 500 MG PO ×2 (09:28→21:25)
[2022-07-03] MEDS: Cyanocobalamin 500 MCG Tablet PO (09:28)
[2022-07-03] MEDS: Furosemide 20 MG Tablet PO (09:28)
[2022-07-03 09:33] LABS: Pathologist Review Reviewed
[2022-07-03 09:34] LABS: Hepatitis C Antibody REACTIVE (Nonreactive)
[2022-07-03] MEDS: metroNIDAZOLE 500 MG/100 ML BAG 100 MG IV (11:09)
[2022-07-03] MEDS: Ensure Plus High Protein 120 ML LIQUID PO ×3 (12:20→21:26)
--- NOTE | 2022-07-03 15:29 | PN.HOSP_ITS ---
Reason for Visit Reason for Visit: Acute mental status change Subjective Subjective No issues overnight. Patient remained stable on 3 L nasal cannula. P.o. intake was improving overall. Prognosis unclear at this time. I did discuss the case with her primary slide fastener repairer Dr. Sinclair. She is not a candidate for radioactive iodine therapy as there is no uptake on her scan. He recommended consultation to oncology and a consultation was placed. Objective Data Objective Data Vital Signs: Vital Signs Temp Pulse Resp BP Pulse Ox O2 Del Method O2 Flow Rate 97.6 F L 76 15 93/64 96 Nasal Cannula 3 07/03/22 11:57 07/03/22 11:57 07/03/22 11:57 07/03/22 11:57 07/03/22 11:57 07/03/22 11:57 07/03/22 11:57 FiO2 30 07/03/22 05:33 Oxygen Flow Rate (L/min) 3 Oxygen Delivery Method Nasal Cannula Weight: 118.5 kg Body Mass Index (BMI) 43.4 Intake & Output: Intake and Output for Last 24 Hours 07/01/22 07/02/22 07/03/22 23:59 23:59 23:59 Intake Total 1020 / 1020 751 / 851 200 / 200 Output Total 100 / 100 Balance 920 / 920 751 / 851 200 / 200 Lab / Micro Data Result Diagrams: 07/03/22 04:22 07/03/22 04:22 Labs: Laboratory Results - last 24 hr 07/01/22 10:35: Diff Path Review Reviewed 07/02/22 04:37: Diff Path Review Reviewed 07/03/22 04:22: WBC 10.4, RBC 4.12 L, Hgb 13.0, Hct 40.0, MCV 97.1, MCH 31.6, MCHC 32.5, RDW Std Deviation 55.8 H, RDW Coeff of Anyi 17.5 H, Plt Count 53 L, MPV 11.5, Immature Gran % (Auto) 4.900 H, Neut % (Auto) 76.5 H, Lymph % (Auto) 9.6 L, [place] % (Auto) 7.5, Eos % (Auto) 0.7, Baso % (Auto) 0.8, Absolute Neuts (auto) 8.0 H, Absolute Lymphs (auto) 1.00, Nucleated RBC % 0.7 07/03/22 04:22: Sodium 138, Potassium 3.8, Chloride 101, Carbon Dioxide 33.0 H, Anion Gap 4 L, BUN 25 H, Creatinine 0.86, Estim Creat Clear Calc 57.90, Est GFR (MDRD) Af Amer 85, Est GFR (MDRD) Non-Af 70, BUN/Creatinine Ratio 29.0 H, Glucose 108 H, Calcium 9.5, Total Bilirubin 7.20 H, Direct Bilirubin 5.26 H, AST 238 H, ALT 68 H, Alkaline Phosphatase 265 H, Total Protein 5.8 L, Albumin 1.8 L, Globulin 4.0, Free T4 0.27 L 07/03/22 04:22: Hepatitis C Antibody REACTIVE Micro: Microbiology 06/27/22 00:25 Blood Culture (Wb) - Anticubital Right Blood Culture - Final No growth in 5 days. 06/26/22 20:25 Blood Culture (Wb) - Anticubital Left Blood Culture - Final No growth in 5 days. 06/26/22 15:15 Interface Orders Enteric Bacteriology - Final 06/21/22 20:30 Blood Culture (Wb) - Anticubital Right Blood Culture - Final Staphylococcus hominis 06/21/22 23:15 Blood Culture (Wb) - Anticubital Left Blood Culture - Final No growth in 5 days. 06/26/22 15:15 Stool C. difficile DNA Amplification - Final 06/26/22 20:05 Urine Catheter - Catheter Legionella Antigen - Final 06/26/22 20:05 Urine Catheter - Catheter Streptococcus pneumoniae Antigen (M - Final 06/21/22 20:30 Nasal Secretion SARS-CoV-2 & FLU Antigen (Rapid) - Final Physical Exam Const alert and no apparent distress Constitutional Narrative: Chronically ill-appearing, morbidly obese, upper middle-aged white female, appears older than stated age, lying in bed, sleeping but awakens easily, oriented to self and place HEENT head/scalp atraumatic and moist oral mucous membranes Head and Scalp: normocephalic Eyes Eyes Narrative: Patient with scleral icterus Resp normal respiratory effort, no retractions and no use of accessory muscles Resp Narrative: Few scattered rhonchi however this sounds to be upper airway and patient was sleeping upon my arrival Auscultation: rhonchi; Negative for rales or wheezes Cardio regular rate, regular rhythm, S1 normal heart sound, S2 normal heart sound, no murmurs, no rub, no gallops and no clicks GI normal to inspection, nondistended, normoactive bowel sounds, soft to palpation and non-tender Extremity no clubbing, cyanosis or edema Extremity Narrative: 2+ pedal pulses Skin Skin Narrative: Jaundiced Neuro Neuro Narrative: Little bit sleepier today, no focal deficits Psych Psych Narrative: Mood seems depressed and affect is very flat Assessment & Plan Assessment/Plan (1) Acute on chronic respiratory failure with hypoxia and hypercapnia: (2) Cirrhosis: (3) Toxic metabolic encephalopathy: (4) Gastric ulcer: (5) Acute kidney injury: (6) Dehydration: (7) Acute colitis: (8) Debility: PLAN: Plan Acute on chronic hypoxic and hypercapnic respiratory failure -Suspect an element of baseline CO2 retention and possible hypoxia based on lab -High suspicion for ARLYN/OHS -AA gradient was elevated on her ABG however she was under the effects of anesthesia at the time -Will need room air ABG after clinical status is at baseline to confirm or rule out obesity hypoventilation syndrome -Overall work-up has been unremarkable thus far -Continue BiPAP at night and with naps -Continue supplemental oxygen at 3 L -Sats are stable -I do anticipate the patient will need oxygen at discharge -Pulmonary/critical care medicine following-appreciate input Acute metabolic/toxic encephalopathy secondary to hepatic encephalopathy secondary to decompensated liver cirrhosis -Patient's mental status has been waxing and waning--> patient fluctuating between grade 2 and 4 hepatic encephalopathy -Ammonia level has normalized--> will monitor periodically since she is off lactulose -MRI brain negative -Lactulose was discontinued secondary to colitis found on colonoscopy--> hold until reinitiated by GI -Follow-up ammonia level pending for tomorrow morning -Continue rifaximin -Discontinue levofloxacin and Flagyl -Continue Lasix 20 mg daily -Aldactone decreased to 25 mg daily as blood pressures had been low and we were having to hold other medications -GI is following --> possible liver biopsy but await oncology input Acute colitis -Biopsy was consistent with ischemic colitis -Enteric panel was unremarkable -C. difficile was negative -Suspect that this is ischemic colitis possibly related to lactulose use and thus lactulose has been discontinued -Patient has completed course with levofloxacin and Flagyl will discontinue today Coagulopathy -Suspect related to liver disease -INR is 2.5 -We will trial vitamin K 5 mg IV x1 dose and repeat INR in the next 48 hours to see if there is a nutritional component as well Gastric varices -Quite large noted on EGD -Goals are recommended systolic blood pressure less than 110 and diastolic less than 160 if possible -Nadolol 10 mg p.o. twice daily as recommended -Blood pressures have been in goal ranges JORDAN secondary to dehydration -Serum creatinine 1.36 on admission -Baseline serum creatinine is less than 1 and JORDAN is now resolved--> 0.86 -Continue Lasix 20 mg daily -We will continue Aldactone but decrease dose by 50% with slight elevation in serum creatinine Chronic thrombocytopenia -Platelet counts are overall stable -53,000 today Transaminitis/hyperbilirubinemia -Stable today with no significant change--> ? if medication induced -Antibiotics discontinued -Gastroenterology is following -Possible liver biopsy -Appreciate input Dysphagia -MBS done 06/29/2022 -Pur?e/thin liquid diet with modifications -P.o. diet has been extremely poor however seems to improved some recently and family has been helping feed her and encouraging p.o. intake -Speech therapy is following Severe malnutrition -Patient's oral intake has been poor overall -P.o. intake has been a little bit better -Calorie counts for 3 days -If this continues patient may need Dobbhoff placement for feeding -Discussed with patient and family on 07/02/2022 Debility -Continue PT/OT -Plan is for TCU at discharge once medically stable Hypothyroidism -Continue levothyroxine 125 mcg -TSH was found to be 83.8 on admission -Free T4 was low at 0.15 -Repeat free T4 on 07/03/2022 -Patient had been off her levothyroxine for 1 month prior to admission as instructed by her slide fastener repairer Metastatic papillary thyroid cancer -Initially diagnosed 16 years ago -Had been in remission -History of thyroidectomy -Has metastatic disease to the mediastinum and left upper lobe--> biopsy-proven -Follows with Dr. Sinclair at [facility]--> discussed with Dr. Sinclair he recommended oncology input as she is not a candidate for radioactive iodine with no uptake off of her levothyroxine on her scan he is unsure what treatment options are possible especially given her overall performance status at this time and comorbidities -If there are not any significant options we may need to discuss hospice with her overall medical conditions History of hepatitis C with resultant cirrhosis -Patient underwent treatment for hepatitis C with Dr. García -Repeat lab ordered by GI GERD -Continue PPI Depression -Continue home Wellbutrin -Continue home citalopram Urinary incontinence -Hold home oxybutynin DVT prophylaxis -SCDs -Daily counts are hovering around 50,000 so we will hold off on chemoprophylaxis at this point and monitor closely if her platelets are consistently greater than 50,000 will reinitiate subcu heparin CODE STATUS -Full code -Per documentation previous hospitalist did have discussion with patient and family about ongoing CODE STATUS and they were going to discuss this further -Would highly recommend DNR CCA is CODE STATUS Charges/Coding Visit Charges Inpatient E&M: 10639 Subs Hosp L2
[2022-07-03] MEDS: 0.9% Saline Lock 10 ML Syringe IV ×2 (17:15→23:10)
--- NOTE | 2022-07-03 17:24 | CON.PCM.ON_ITS ---
Assessment & Plan Assessment/Plan (1) Papillary thyroid carcinoma: Status: Acute Code(s): C73 - Malignant neoplasm of thyroid gland Plan: With pathology proven metastasis to lung (04/12/22). Metastatic papillary thyroid ca is the most common of differentiated thyroid malignancies and can be slow growing. Patient underwent I-131 scan on 06/18/22 which indicates radioiodine is not an effective treatment strategy. Further options for treatment would include tyrosine kinase inhibitors (such as lenvatinib) or possibly PD1 inhibitor (pembrolizumab) if further testing indicated high tumor mutational burden. Even the current severity of liver dysfunction would not necessarily preclude her from receiving oral therapy or immunotherapy, however her performance status (ECOG 4) and inability to make a personal, cognitive decision regarding treatment does. Therefore at this time intervention to treat met thyroid ca is not recommended. Thus, additional imaging to monitor disease progression such as a dedicated CT of the chest is not warranted. In light of liver disease, overall functional decline, and debility, met thyroid cancer is not the comorbid condition of highest priority. This was discussed at length and in detail with family, sister and brother in law, at the bedside. Both verbalized understanding. Discussed with Dr. Humphrey who was in agreement with aforementioned plan. [facility] will not follow further on this admission unless new problems arise. (2) Metastasis from thyroid cancer: Status: Acute Code(s): C79.9 - Secondary malignant neoplasm of unspecified site; C73 - Malignant neoplasm of thyroid gland (3) Cirrhosis: Status: Acute Code(s): K74.60 - Unspecified cirrhosis of liver (4) Toxic metabolic encephalopathy: Status: Acute Code(s): G92.8 - Other toxic encephalopathy HPI Consult Data Date of Service:: 07/03/22 PCP / Referring Provider: Dr. Campbell Dumont MD Attending: Dr. Roberta Banda DO Chief Complaint Chief Complaint: Papillary thyroid cancer History of Present Illness History of Present Illness: Ms. Leary is a 67 year old woman with a PMH positive hepatitis C, liver cirrhosis, morbid obesity and papillary thyroid ca (diagnosed approx 2006) s/p partial thyroidectomy (history has been disjointed). Patient was noted to have recurrent thyroid ca with metastatic disease in the lungs fall 2021. PET/CT obtained on 03/28/2022 showed hypermetabolic activity in L lobe of thyroid, bilateral lung nodules, L hilar and L paratracheal nodes suggestive of malignancy. Patient underwent bronchoscopy on 04/12/[address] [facility], report of procedure described RLL airway narrowing and inflamed mucosa, KRISTEN airway narrowing from extrinsic compression. FNA of LN stations 4R, 7, 4L was performed.? Pathology returned positive for metastatic papillary thyroid cancer, MMR normal, Her2 negative, PD-L1 TPS 50%, Morris-TRK negative. Patient has been following with [facility] in [place]-Dr. James. Sinclair. Had I-131 scan on 06/18/22, there was no scintigraphic evidence of IODINE avid local regional and/or distant metastatic disease, eliminating radioiodine as an effective treatment strategy. Interval History Interval History: The patient presented to [facility] ED on 06/21/22 accompanied by daughter with c/o generalized weakness, anorexia, and confusion acutely.? Labs showed mild leukocytosis, thrombocytopenia (chronic), elevated serum creatinine, lactate 3.4, hyperbilirubinemia, transaminitis and elevated ammonia level. CXR showed a left sided infiltrate vs effusion and mild cardiomegaly.? She was subsequently admitted for acute metabolic encephalopathy, acute kidney injury and inability to perform self-care at home where she resides independently. ? 06/22/21. REHAB NURSE placed; lactulose initiated. AFP WNL.GI consulted to address hepatic dysfunction.? Began Xifaxan, Flagyl. Underwent chest US, determined inadequate size of pleural effusion for safe thoracentesis. 06/25/22: CT abdomen/pelvis with contrast demonstrated left upper lobe mass with a soft tissue density in the mediastinum infiltration in the left lower love and small left pleural effusion, ?diffuse contour abnormality of the liver consistent with cirrhotic changes with small amount of perihepatic fluid sugg estive of ascites, mild splenomegaly, evidence of varices in the region of the splenic hilum and questionable apple core lesion in the cecum. ? Underwent EGD and colonoscopy. Findings included large gastric varices (no bleeding), one gastric ulcer, moderate portal hypertensive gastropathy. Diffuse inflammation and friability found through the entire colon. Lactulose discontinued. Path returned indicating ischemic colitis. Postoperatively, she was noted to have decreased responsiveness, hypoxia thus she was admitted to the ICU. 06/28/22 Became more lethargic after NG removal and had to back on BiPAP. Underwent MRI brain WWO contrast: no evidence of acute infarct, no evidence for focal enhancing lesions. 07/01/22 Transitioned back to PCU. Patient remains on supplemental oxygen and displaying varying degrees of mental status changes. Advanced Directives Power of Sports Announcer: Yes Living Will: No [facility] Medical History (Updated 07/03/22 @ 17:45 by Isabelle Marks NP, REHAB NURSE-C) Gastric varices History of thyroid cancer Liver failure Metastasis from thyroid cancer Metastasis from thyroid cancer Morbid obesity Multiple lung nodules on CT Papillary thyroid carcinoma Smoker Thyroid cancer Home Medications calcium polycarbophil 625 mg tablet (Fiber Therapy (ca polycarbophil)) 625 mg PO DAILY Check with primary doctor 07/06/14 [History Last Taken 12/10/19] furosemide 40 mg tablet 20 mg PO DAILY Check with primary doctor 07/06/14 [History Last Taken 12/10/19] multivitamin,hp-yutj-wsrtsvwm 27 mg-0.4 mg tablet (Therems-M) 1 tab PO DAILY Check with primary doctor 07/06/14 [History Last Taken 12/10/19] nadolol 40 mg tablet 40 mg PO DAILY Check with primary doctor 07/06/14 [History Last Taken 12/10/19] pantoprazole 40 mg tablet,delayed release 40 mg PO DAILY Check with primary doctor 07/06/14 [History Last Taken 12/10/19] spironolactone 50 mg tablet 25 mg PO DAILY Check with primary doctor 07/06/14 [History Last Taken 12/10/19] calcium carbonate 600 mg calcium (1,500 mg) tablet (Calcium) 600 mg PO DAILY Check with primary doctor 03/20/22 [History Last Taken Unknown] cyanocobalamin (vitamin B-12) 500 mcg chewable tablet 500 mcg PO DAILY Check with primary doctor 03/20/22 [History Last Taken Unknown] bupropion HCl 150 mg tablet,12 hr sustained-release 150 mg PO BID Check with primary doctor 06/22/22 [History Last Taken Unknown] citalopram 20 mg tablet 20 mg DAILY Check with primary doctor 06/22/22 [History Last Taken Unknown] oxybutynin chloride 15 mg tablet,extended release 24 hr 15 mg PO DAILY Check with primary doctor 06/22/22 [History Last Taken Unknown] potassium chloride 20 mEq tablet,extended release(part/cryst) 20 meq PO DAILY Check with primary doctor 06/22/22 [History Last Taken Unknown] levothyroxine 112 mcg tablet 112 mcg PO DAILY Check with primary doctor 06/25/22 [History Last Taken Unknown] Allergy/AdvReac Type Severity Reaction Status Date / Time No Known Allergies Allergy Verified 06/21/22 19:23 Family History Grandfather Cancer unknow Daughter Diabetes Hypertension Thyroid disorder Grandmother Diabetes Father Myocardial infarction Mother Hypertension Sister Hypertension Other Heart disease Surgical History Hx laparoscopic cholecystectomy S/P removal of thyroid nodule Social History Smoking Status: Light Smoker (<10/day) ROS Review of Systems ROS Unobtainable: due to encephalopathy Physical Exam Narrative ECOG 4 Const no apparent distress General Appearance: ill appearing Positive for chronically and other drowsy, follows commands but slept through most of assessment HEENT head/scalp atraumatic and moist oral mucous membranes Head and Scalp: normocephalic Eyes Sclera: sclera abnormal Positive for bilateral Details: other (icteric) Resp normal respiratory effort Auscultation: rhonchi; Negative for wheezes Cardio regular rate, regular rhythm, S1 normal heart sound and S2 normal heart sound GI normal to inspection, nondistended, normoactive bowel sounds, soft to palpation and non-tender Inspection: central obesity Extremity General Extremity: edema bilateral upper extremity and lower extremity Skin Skin Narrative: Jaundiced General Skin Exam: ecchymosis Vital Signs Temperature 97.9 F 07/03/22 17:09 Temperature Source Axillary 07/03/22 17:09 Pulse Rate 75 07/03/22 17:09 Pulse Strength Normal (2+) 07/03/22 10:30 Respiratory Rate 18 07/03/22 17:09 Respiratory Effort Non-Labored 07/03/22 15:00 Respiratory Depth Shallow 07/03/22 15:00 Respiratory Pattern Normal 07/03/22 15:00 Blood Pressure 123/79 H 07/03/22 17:09 Blood Pressure Mean 93 07/03/22 17:09 Blood Pressure Source Monitor 07/03/22 17:09 Blood Pressure Position Semi-Fowlers 07/03/22 17:09 Blood Pressure Location Right Arm 07/03/22 17:09 Baseline BP 153/88 06/26/22 17:53 Pulse Ox 96 07/03/22 17:09 Oxygen Delivery Method Nasal Cannula 07/03/22 17:09 Oxygen Flow Rate (L/min) 3 07/03/22 17:09 Fraction of Inspired Oxygen (FIO2) 30 07/03/22 05:33 Laboratory Results - last 24 hr 07/01/22 10:35: Diff Path Review Reviewed 07/02/22 04:37: Diff Path Review Reviewed 07/03/22 04:22: WBC 10.4, RBC 4.12 L, Hgb 13.0, Hct 40.0, MCV 97.1, MCH 31.6, MCHC 32.5, RDW Std Deviation 55.8 H, RDW Coeff of Anyi 17.5 H, Plt Count 53 L, MPV 11.5, Immature Gran % (Auto) 4.900 H, Neut % (Auto) 76.5 H, Lymph % (Auto) 9.6 L, [place] % (Auto) 7.5, Eos % (Auto) 0.7, Baso % (Auto) 0.8, Absolute Neuts (auto) 8.0 H, Absolute Lymphs (auto) 1.00, Nucleated RBC % 0.7 07/03/22 04:22: Sodium 138, Potassium 3.8, Chloride 101, Carbon Dioxide 33.0 H, Anion Gap 4 L, BUN 25 H, Creatinine 0.86, Estim Creat Clear Calc 57.90, Est GFR (MDRD) Af Amer 85, Est GFR (MDRD) Non-Af 70, BUN/Creatinine Ratio 29.0 H, Glucos e 108 H, Calcium 9.5, Total Bilirubin 7.20 H, Direct Bilirubin 5.26 H, AST 238 H , ALT 68 H, Alkaline Phosphatase 265 H, Total Protein 5.8 L, Albumin 1.8 L, Globulin 4.0, Free T4 0.27 L 07/03/22 04:22: Hepatitis C Antibody REACTIVE Diagnostic Data Brain CT 06/21/22 20:04 IMPRESSION: No acute intracranial or calvarial abnormality. There is no major interval change. If there is continued concern for metastatic disease, MRI is offered. Electronically Signed: Enzo House DO at 21:31 EST Reading Location ID and State: [address] [place] [address] Tel [phone], Service support , Chest Ultrasound 06/22/22 01:55 IMPRESSION: Not enough fluid for safe thoracentesis. Electronically Signed: Daniel Goodman MD at 10:36 EST , Abdomen Ultrasound 06/22/22 07:29 IMPRESSION: Limited examination due to the patient''s condition and body habitus. Status post cholecystectomy. Heterogeneous echotexture of the liver. Small amount of perihepatic fluid. Electronically Signed: Daniel Goodman MD at 14:45 EST , KUB X-Ray 06/23/22 08:54 IMPRESSION: NG tube tip and sidehole are inside the left gastric cavity facing the left hemidiaphragm. Electronically Signed: Carlos A Guillen MD at 11:43 EST Reading Location ID and State: [facility] / [place] , Service support , Abdomen/Pelvis CT 06/25/22 05:55 IMPRESSION: Left upper lobe mass with a soft tissue density in the mediastinum infiltration in the left lower lobe and small left pleural effusion. Mild increased markings in the right lung. Findings suggestive of cirrhotic changes of the liver with the splenomegaly and varices in the splenic hilum. Questionable apple core lesion in the cecum. Findings suggestive of mild sigmoid diverticulitis. Electronically Signed: Daniel Goodman MD at 10:48 EST , Chest X-Ray 06/26/22 16:50 IMPRESSION: No significant change in the appearance of the chest from the reference exam. Nasogastric tube in stable position. Electronically Signed: Gilmer Bishop MD at 17:48 EST , Brain MRI 06/28/22 13:58 IMPRESSION: Mild periventricular white matter ischemic changes without evidence for acute infarct. No definitive evidence for focal enhancing lesions following contrast administration Electronically Signed: Thee Faria MD at 16:27 EST ,
--- NOTE | 2022-07-03 17:44 | PCM.PROGNOTE ---
Subjective Subjective Patient looks a little bit better and little bit more alert today. She still read lethargic and not eating well. Oncology is scheduled to see her today. Lactulose was restarted yesterday. Objective Data Objective Data Vital Signs: Vital Signs Temp Pulse Resp BP Pulse Ox O2 Del Method O2 Flow Rate 97.9 F 75 18 123/79 H 96 Nasal Cannula 3 07/03/22 17:09 07/03/22 17:09 07/03/22 17:09 07/03/22 17:09 07/03/22 17:09 07/03/22 17:09 07/03/22 17:09 FiO2 30 07/03/22 05:33 Oxygen Flow Rate (L/min) 3 Oxygen Delivery Method Nasal Cannula Weight: 261 lb 3.964 oz Body Mass Index (BMI) 43.4 Intake & Output: Intake and Output for Last 24 Hours 07/01/22 07/02/22 07/03/22 23:59 23:59 23:59 Intake Total 1020 / 1020 751 / 851 710.5 / 710.5 Output Total 100 / 100 300 / 300 Balance 920 / 920 751 / 851 410.5 / 410.5 Lab / Micro Data Result Diagrams: 07/04/22 04:50 07/04/22 04:50 Labs: Laboratory Results - last 24 hr 07/01/22 10:35: Diff Path Review Reviewed 07/02/22 04:37: Diff Path Review Reviewed 07/03/22 04:22: WBC 10.4, RBC 4.12 L, Hgb 13.0, Hct 40.0, MCV 97.1, MCH 31.6, MCHC 32.5, RDW Std Deviation 55.8 H, RDW Coeff of Anyi 17.5 H, Plt Count 53 L, MPV 11.5, Immature Gran % (Auto) 4.900 H, Neut % (Auto) 76.5 H, Lymph % (Auto) 9.6 L, [place] % (Auto) 7.5, Eos % (Auto) 0.7, Baso % (Auto) 0.8, Absolute Neuts (auto) 8.0 H, Absolute Lymphs (auto) 1.00, Nucleated RBC % 0.7 07/03/22 04:22: Sodium 138, Potassium 3.8, Chloride 101, Carbon Dioxide 33.0 H, Anion Gap 4 L, BUN 25 H, Creatinine 0.86, Estim Creat Clear Calc 57.90, Est GFR (MDRD) Af Amer 85, Est GFR (MDRD) Non-Af 70, BUN/Creatinine Ratio 29.0 H, Glucose 108 H, Calcium 9.5, Total Bilirubin 7.20 H, Direct Bilirubin 5.26 H, AST 238 H, ALT 68 H, Alkaline Phosphatase 265 H, Total Protein 5.8 L, Albumin 1.8 L, Globulin 4.0, Free T4 0.27 L 07/03/22 04:22: Hepatitis C Antibody REACTIVE Micro: Microbiology 06/27/22 00:25 Blood Culture (Wb) - Anticubital Right Blood Culture - Final No growth in 5 days. 06/26/22 20:25 Blood Culture (Wb) - Anticubital Left Blood Culture - Final No growth in 5 days. 06/26/22 15:15 Interface Orders Enteric Bacteriology - Final 06/21/22 20:30 Blood Culture (Wb) - Anticubital Right Blood Culture - Final Staphylococcus hominis 06/21/22 23:15 Blood Culture (Wb) - Anticubital Left Blood Culture - Final No growth in 5 days. 06/26/22 15:15 Stool C. difficile DNA Amplification - Final 06/26/22 20:05 Urine Catheter - Catheter Legionella Antigen - Final 06/26/22 20:05 Urine Catheter - Catheter Streptococcus pneumoniae Antigen (M - Final 06/21/22 20:30 Nasal Secretion SARS-CoV-2 & FLU Antigen (Rapid) - Final Physical Exam Narrative Seen and examined. Patient awake and answer all questions. No fever. On 3 L of oxygen. Physical exam General: Awake. Oriented to place and person. Coherent speech. HEENT: Atraumatic, PERRLA, Normocephalic Oral: Oral mucosa moist. NG tube removed. Neck: Supple, No JVD, Negative Carotid Bruits Lungs: Air entry diminished in bilateral lung bases. No crepitation/rhonchi Cardiovascular: Regular rate, sinus rhythm, Normal S1, Normal S2, systolic murmur Abdomen: Bowel Sounds Present, Soft, Non Tender, Non-Distended : No renal angle tenderness. No suprapubic tenderness. Extremities: No appreciable edema, Capillary Refill Less than 3 Seconds Skin: Mild ecchymosis due to thrombocytopenia Musculoskeletal: Bilateral valgus deformity of knee, degenerative arthritis. Passive ROM restricted Neurological: No acute neurological deficit. DTR 2+. Psych/Mental Status: Flat affect awake Assessment & Plan Assessment/Plan (1) Cirrhosis: (2) Toxic metabolic encephalopathy: PLAN: Plan Lactulose was restarted yesterday and she continues on a bowel cleansing regimen with Flagyl and Xifaxan. We will continue that for hepatic encephalopathy. I agree with primary team that her hepatic encephalopathy was likely multifactorial secondary to decompensated liver disease, hypothyroidism, recurrent thyroid cancer. Recommended continue to monitor as she did develop lactulose induced ischemic colitis after enema and oral lactulose. She needs something for baseline encephalopathy therefore decided to is started at a lower dose. Patient still may need a liver biopsy pending oncology recommendation regarding further treatment. If she is not going to be a candidate for treatment then they may not be a benefit to liver biopsy to see if there is any reversible etiology to her current cholestatic hepatitis and jaundice associated with chronic liver disease. Charges/Coding Visit Charges Inpatient E&M: 95174 Subs Hosp L3
[2022-07-03] MEDS: Nadolol 40 MG Tablet 20 MG PO (21:25)
[2022-07-03] MEDS: Lactulose 20 GM/30 ML UDC PO (21:26)
--- NOTE | 2022-07-03 22:44 | NURSING ---
2214 rn notified this staff member that the pt spo2 was down to 65% on 3l/m and ap was tachy running from the 120-150. pt was respirations were noted to be high c-pap was placed on pt, charge nurse called to come into the room and it was decided to call a screen tacker. pt clinical findings were completed at 2113 and pt was alert and oriented x's 2, post [place] were dim with faint crackles. pt was restless in the bed and moaning intermittently but when asked pt denied pain pt took all of hs medications fine. driver at the beginning of the shift were cleaning up pt and was found to be incontinent of liquid black colored stool with some red discoloration noted as well as red fluid coming her rectum rn made aware. upon examination no obvious hemorrhoids were noted .
[2022-07-03 22:56] LABS: Base Excess 3 mmol/L (-2 to +2); Bicarbonate 32.6 mmol/L (22-26); Blood Gas Specimen Type ART; FI02 100; Mode BiLevel; O2 Delivery Device BiPAP; PO2 92 mmHG (75-100); SITE R Radial; SO2 93 % (95-99); Total Carbon Dioxide 36 mmol/L; pCO2 101.2 mmHg (35-45); pH 7.12 (7.35-7.45)
[2022-07-03 22:56] LABS: Bedside Glucose 122 mg/dL (74-106)
--- NOTE | 2022-07-03 23:01 | NURSING ---
pt transferred to ICU room 1 . amadou Pizarro notified and updated on pt condition and the transfer to ICU
[2022-07-03] MEDS: Etomidate 20 MG/10 ML Vial IV (23:09)
[2022-07-03] MEDS: Midazolam 2 MG/2 ML Syringe 4 MG IV (23:10)
[2022-07-03] MEDS: Succinylcholine Chloride 200 MG/10 ML SYRINGE 100 MG IV (23:10)
[2022-07-03] MEDS: Propofol 10MG/Ml 1,000 MG/100 ML Bottle 7.1 MG CONT INF (23:15)
--- NOTE | 2022-07-03 23:20 | RAD_ITS ---
EXAM: XR CHEST, 1 VIEW CLINICAL INDICATION: intubation TECHNIQUE: Frontal view of the chest. This report was created using [employer] report generation technology. COMPARISON: 06/26/2022 FINDINGS: LUNGS AND PLEURAL SPACES: Left basilar airspace disease and moderate pleural effusion. No pneumothorax. HEART: Unremarkable. Cardiac silhouette not enlarged. MEDIASTINUM: Left mediastinal/perihilar adenopathy/mass. BONES/JOINTS: Unremarkable. SOFT TISSUES: Unremarkable. TUBES, LINES AND DEVICES: Endotracheal tube with tip at the origin of the right mainstem bronchus. Enteric tube extending below the level of the GE junction into the stomach. RAD/Chest 1 View (Portable) IMPRESSION: 1. Endotracheal tube with tip at the origin of the right mainstem bronchus. Consider pulling back 3 to 4 cm. 2. Left basilar airspace disease and moderate pleural effusion. Findings may indicate atelectasis or pneumonia. 3. Left mediastinal/perihilar adenopathy/mass. Electronically Signed: Kristofer Arauz MD at 23:48 EST ,
--- NOTE | 2022-07-03 23:20 | RAD_ITS ---
INDICATION: OG TUBE PLACEMENT EXAMINATION/TECHNIQUE: X-RAY - XR Abdomen 1 View AP portable. 11:18 PM. COMPARISON: Concurrent chest x-ray. Prior chest x-ray 06/26/2022. FINDINGS: Single view included lower chest upper abdomen. Tip of the nasogastric tube is in the mid stomach. Tip of the endotracheal tube is in the proximal right mainstem bronchus. Left basilar opacity unchanged from prior chest x-ray. RAD/Abdomen Single View IMPRESSION: NG tube tip in stomach. ET tube tip in the right mainstem bronchus. See report of concurrent chest x-ray. Electronically Signed: Damari Calzada MD at 0:02 EST ,
--- NOTE | 2022-07-03 23:24 | PN_ITS ---
Progress Note Rapid response called. Patient was noted per RN on PCU to be found hypoxic in the 60s, nonresponsive. She also on monitor had been noted to have transient tachycardia, unclear rhythm which returned to SR quickly. BIPAP placed, ABG not severe appearing compared to evaluation. BS appropriate. Patient had recurrent tachycardia, improved with right carotid massage with no recurrent events. EKG with SR with nonspecific changes. No improvement with BIPAP. Reviewed chart with noted worsening liver fx, metastatic CA. Transitioned to ICU, intubated, labs ordered. Intubation Note: Patient with evidence of respiratory and/or impending distress. Medications administered: Etomidate 20 mg, Versed 4 mg. ETT size: 7.5 Given patient status patient transition to the ICU with ongoing consultation with the auto service advisor. Patient intubated in standard fashion with visualization of the vocal cords and passage of the ETT. Positioning verified with auscu ltation. Post-intubation CXR requested. Will initiate sedation with fentanyl and propofol with alterations as needed. Procedures Hospitalists Procedures: [id number] Insert Emergency Airway
--- NOTE | 2022-07-03 23:28 | NURSING ---
Pt arrived from PCU, prepared for RSI w/ Dr. Manzano. 2309: 20 mg etomidate IVP given. 2310: 4 mg versed IVP, 100 mg succinylcholine IVP given. Intubated w/ 7.5 tube, 23 @ lip. Positive color change, BL breath sounds. OG placed.
[2022-07-04] VITALS (58 sets, daily range): BP systolic 80–99; BP diastolic 31–70; PULSE 68–80; RESP 14–17; TEMP 36.8–37.6; O2SAT 93–100; BMI 43.2
[2022-07-04 00:01] LABS: Hematocrit 43.6 % (37-47); Hemoglobin 13.6 g/dL (12.0-15.0); Mean Corp Hgb Conc 31.2 g/dL (32-36); Mean Corpuscular Hgb 31.2 pg (27.0-32.0); Mean Platelet Vol. 11.1 fl (6.2-12.0); POSITIVE COUNT YES; POSITIVE MORPHOLOGY YES; Platelet Count 52 K/mm3 (150-450); RBC Distribution Width CV 18.3 % (11.6-14.6); RBC Distribution Width SD 58.8 fl (35.1-43.9); Red Blood Count 4.36 M/mm3 (4.2-5.4); White Blood Count 13.4 K/mm3 (4.4-11.0)
[2022-07-04 00:03] LABS: Differential Indicated MANUAL DIFF
[2022-07-04 00:17] LABS: AST(SGOT) 220 U/L (15-37); Alanine Aminotransfer ALT/SGPT 63 U/L (13-56); Alkaline Phosphatase 269 U/L (45-117); Anion Gap 6 (5-15); BUN 27 mg/dL (7-18); BUN/Creat Ratio 23.9 RATIO (10-20); Bilirubin, Direct 6.86 mg/dL (0.00-0.30); Calcium,Total 9.8 mg/dL (8.5-10.1); Chloride 101 mmol/L (98-107); Creatinine, Serum 1.13 mg/dL (0.55-1.02); EST Glomerular Filtration Rate 51 mL/min (>60); Est Glom Filt Rate - Afr Amer 62 mL/min (>60); Estimated Creatinine Clearance 44.07 ml/min; Globulin 3.9 g/dL (2.2-4.2); Glucose 140 mg/dL (74-106); Magnesium 2.1 mg/dL (1.6-2.6); Phosphorus 3.6 mg/dL (2.5-4.9); Potassium 4.1 mmol/L (3.5-5.1); Protein, Total 5.9 g/dL (6.4-8.2); Sodium Level 141 mmol/L (136-145)
--- NOTE | 2022-07-04 00:19 | RAD_ITS ---
6 INDICATION: ETT placement change EXAMINATION/TECHNIQUE: X-RAY - XR Chest 1 View AP portable. 12:34 AM. COMPARISON: 07/03/2022 at 11:17 PM. FINDINGS: LINES/DEVICES: Endotracheal tube tip is at the orifice of the right mainstem bronchus, slightly withdrawn compared to the earlier study. Withdrawing 2 cm should position the tip above the stefani. NG tube tip in stomach. LUNGS: Left basilar consolidation and left pleural effusion unchanged. No pneumothorax. MEDIASTINUM: Left perihilar/mediastinal mass unchanged. CARDIAC SILHOUETTE: Not enlarged. BONES AND SOFT TISSUES: No acute abnormalities. RAD/Chest 1 View (Portable) IMPRESSION: ET tube at the origin of the right mainstem bronchus. No other change. Electronically Signed: Damari Calzada MD at 1:48 EST ,
[2022-07-04 00:27] LABS: International Normalized Ratio 2.1; Prothrombin Time (Protime)PT. 23.1 SECONDS (11.7-14.9)
[2022-07-04 00:42] LABS: CPK Total, Creatine Kinase 193 U/L (26-192); Triglycerides 110 mg/dL
[2022-07-04 00:44] LABS: Anisocytosis 1+; Macrocytosis RARE
[2022-07-04 00:45] LABS: Platelet Estimate MOD DEC (ADEQ)
[2022-07-04 00:47] LABS: Absolute Neutrophil Count 11.4 X10^3/uL (2.0-7.7)
[2022-07-04 00:48] LABS: Absolute Lymphocyte Count 1.47 X10^3/uL (0.83-4.51); Atypical Lymphocyte 1+ %; Lymphocyte 11 % (19-41); Monocyte 3 % (0-10); Myelocyte 1 % (0-0); Neutrophil-Band 6 % (0-5); Neutrophil-Segmented 79 % (47-70); Red Cell Morphology NORM C+C NORMAL (NORM C&C); Total Cells Counted 100 (MANUAL DIFF)
[2022-07-04] MEDS: 0.9% Saline Lock 10 ML Syringe IV ×2 (00:56→08:01)
[2022-07-04 01:31] LABS: Procalcitonin 2.03 ng/mL (0.00-0.09)
[2022-07-04 05:04] LABS: Absolute Lymphocyte Count 1.52 X10^3/uL (0.83-4.51); Absolute Neutrophil Count 15.8 X10^3/uL (2.0-7.7); Basophil# 0.18 X10^3/uL; Basophil% 0.9 % (0-1); Eosinophil# 0.08 X10^3/uL; Eosinophils% 0.4 % (0-5); Hemoglobin 13.1 g/dL (12.0-15.0); Lymphocyte # 1.52 X10^3/ul (0.83-4.51); Lymphocyte % 7.6 % (19-41); Mean Corpuscular Hgb 31.4 pg (27.0-32.0); Mean Corpuscular Volume 98.3 fL (81-99); Mean Platelet Vol. 11.1 fl (6.2-12.0); Monocyte# 1.39 X10^3/uL; NRBC Flagged by Analyzer 1.3 % (0-5); Neutrophil % 79.6 % (47-70); POSITIVE COUNT YES; Platelet Count 63 K/mm3 (150-450); RBC Distribution Width CV 18.1 % (11.6-14.6); RBC Distribution Width SD 57.1 fl (35.1-43.9); Red Blood Count 4.17 M/mm3 (4.2-5.4); White Blood Count 19.9 K/mm3 (4.4-11.0)
[2022-07-04 05:17] LABS: International Normalized Ratio 2.1
[2022-07-04 05:26] LABS: AST(SGOT) 215 U/L (15-37); Alanine Aminotransfer ALT/SGPT 61 U/L (13-56); Albumin, Serum 1.8 g/dL (3.2-5.0); Alkaline Phosphatase 262 U/L (45-117); Anion Gap 6 (5-15); BUN 27 mg/dL (7-18); BUN/Creat Ratio 23.7 RATIO (10-20); Bilirubin, Direct 6.84 mg/dL (0.00-0.30); Calcium,Total 9.8 mg/dL (8.5-10.1); Chloride 101 mmol/L (98-107); Creatinine, Serum 1.14 mg/dL (0.55-1.02); EST Glomerular Filtration Rate 51 mL/min (>60); Est Glom Filt Rate - Afr Amer 61 mL/min (>60); Estimated Creatinine Clearance 43.68 ml/min; Globulin 3.7 g/dL (2.2-4.2); Glucose 122 mg/dL (74-106); Protein, Total 5.5 g/dL (6.4-8.2); Sodium Level 139 mmol/L (136-145); T4 Free Direct 0.37 ng/dL (0.76-1.46)
[2022-07-04] MEDS: Levothyroxine 125 MCG Tablet PO (05:38)
--- NOTE | 2022-07-04 06:58 | PN.CC_ITS ---
Assessment & Plan Assessment/Plan (1) Acute on chronic respiratory failure with hypoxia and hypercapnia: PLAN: Plan RECOMMENDATIONS: 1. Continue assist-control mode of mechanical ventilation. Wean FiO2 and PEEP for saturations greater than 90%. 2. Obtain follow-up ABG this morning. 3. Continue lactulose, Flagyl and rifaximin per GI recommendations. 4. Hold diuretics. 5. Limit sedation as feasible. 6. Continue PPI therapy as ordered. 7. Goals of care discussion with the patient's family. IMPRESSIONS: 1. Acute on chronic combined respiratory failure Most likely secondary to noncompliance with PAP therapy, leading to hypercapnia and the need for intubation. The patient also had an elevated ammonia level, which could have contributed to her underlying encephalopathy and subsequent CO2 retention. Plan to continue assist-control mode of mechanical ventilation. Will obtain follow-up arterial blood gas this morning. The patient is also going to be initiated on antimicrobials, pending culture results. 2. Metabolic encephalopathy Likely multifactorial in etiology with underlying decompensated cirrhosis leading to hepatic encephalopathy and noncompliance with PAP therapy leading to progressive hypercapnia. The patient is currently on appropriate medical therapy. We will continue to monitor arterial blood gases and adjust ventilatory support as needed. I would attempt to limit sedating medications, as feasible. 3. Multifactorial shock The patient decompensated overnight from a respiratory perspective and developed hemodynamic instability requiring the initiation of vasopressor support. I do suspect that her hypotension is likely multifactorial in etiology, with intravascular volume depletion in the setting of diuresis, along with the vasodilatory effects of sedation and possible sepsis contributing. No definitive source of infection has yet to be identified. However, in light of the patient's clinical decompensation, I agree with continuing antibiotics, pending culture results. The patient's diuretics have been placed on hold. 4. History of colitis/gastric varices/severe malnutrition/hypothyroidism/metastatic papillary thyroid cancer Complicates care, management, recovery and prognosis. Continue supportive measu res for now as noted above. Ongoing goals of care discussion with the patient's family. TIME: 34 minutes of critical care time, independent of procedures, was spent address ing the patient's acute on chronic combined respiratory failure, metabolic encephalopathy, multifactorial shock, review of all data and collaboration with the care team. Subjective Subjective The patient was transferred to the medical intensive care unit overnight after a rapid response team was called. The patient was noted to be hypoxic with oxygen saturations in the 60s and was nonresponsive. Although BiPAP was initially utilized, the patient was ultimately transferred to the medical intensive care unit, where she was intubated. The pulmonary consultation team had previously signed off on June 30. The patient is currently admitted with acute on chronic hypercapnic respiratory failure along with acute metabolic/toxic encephalopathy related to decompensated liver cirrhosis, acute colitis and metastatic papillary thyroid cancer. The patient is currently documented to be overall net +19 L for the hospit alization. White count is elevated at 20,000. Platelet count is low at 63,000. ABG obtained last evening demonstrated a pH of 7.12 with a PCO2 of 101 and PO2 of 92. According to nursing report, the patient was not utilizing her noninvasive positive pressure ventilatory support last night as recommended. The patient does have an elevated total bilirubin to 8.8 with an AST of 215, ALT of 61 and ammonia level of 53. Objective Data Objective Data The patient's most recent lab work, culture data and imaging studies have all been personally reviewed. Blood and sputum cultures are pending. Vital Signs: Vital Signs Temp Pulse Resp BP Pulse Ox O2 Del Method O2 Flow Rate 98.7 F 74 16 92/53 L 99 Mechanical Ventilator 3 07/04/22 04:00 07/04/22 06:00 07/04/22 06:00 07/04/22 06:00 07/04/22 06:00 07/04/22 06:00 07/03/22 21:15 FiO2 50 07/04/22 06:00 Oxygen Flow Rate (L/min) 3 Oxygen Delivery Method Mechanical Ventilator Weight: 259 lb 7.745 oz Body Mass Index (BMI) 43.2 Intake & Output: Intake and Output for Last 24 Hours 07/02/22 07/03/22 07/04/22 23:59 23:59 23:59 Intake Total 751 / 851 713.18 / 715.33 255.02 / 255.02 Output Total 300 / 300 400 / 400 Balance 751 / 851 413.18 / 415.33 -144.98 / -144.98 Lab / Micro Data Attestation: I reviewed the patient's lab results. Result Diagrams: 07/05/22 02:40 07/05/22 02:40 Labs: Laboratory Results - last 24 hr 07/01/22 10:35: Diff Path Review Reviewed 07/02/22 04:37: Diff Path Review Reviewed 07/03/22 04:22: Hepatitis C Antibody REACTIVE 07/03/22 22:31: POC Glucose 122 H 07/03/22 23:49: WBC 13.4 H, RBC 4.36, Hgb 13.6, Hct 43.6, MCV 100.0 H, MCH 31.2, MCHC 31.2 L, RDW Std Deviation 58.8 H, RDW Coeff of Anyi 18.3 H, Plt Count 52 L, MPV 11.1, Neut % (Auto) Not Reportable, Absolute Neuts (auto) 11.4 H, Absolute Lymphs (auto) 1.47, Total Counted 100, Neutrophils % (Manual) 79 H, Band Neutrophils % 6 H, Lymphocytes % (Manual) 11 L, Monocytes % (Manual) 3, Myelocytes % 1 H, Diff Path Review May foll, Atypical Lymphocytes 1+, Platelet Estimate MOD DEC, RBC Morphology NORM C+C, Anisocytosis 1+, Macrocytosis RARE 07/03/22 23:49: PT 23.1 H, INR 2.1, APTT 39.0 H 07/03/22 23:49: Sodium 141, Potassium 4.1, Chloride 101, Carbon Dioxide 34.0 H, Anion Gap 6, BUN 27 H, Creatinine 1.13 H, Estim Creat Clear Calc 44.07, Est GFR (MDRD) Af Amer 62, Est GFR (MDRD) Non-Af 51 L, BUN/Creatinine Ratio 23.9 H, Glucose 140 H, Calcium 9.8, Phosphorus 3.6, Magnesium 2.1, Total Bilirubin 8.60 H, Direct Bilirubin 6.86 H, AST 220 H, ALT 63 H, Alkaline Phosphatase 269 H, Total Protein 5.9 L, Albumin 2.0 L, Globulin 3.9 07/03/22 23:49: Ammonia 70.0 H 07/03/22 23:49: Total Creatine Kinase 193 H, Triglycerides 110 07/04/22 00:54: Procalcitonin 2.03 H 07/04/22 04:50: WBC 19.9 H, RBC 4.17 L, Hgb 13.1, Hct 41.0, MCV 98.3, MCH 31.4, MCHC 32.0, RDW Std Deviation 57.1 H, RDW Coeff of Anyi 18.1 H, Plt Count 63 L, MPV 11.1, Immature Gran % (Auto) 4.500 H, Neut % (Auto) 79.6 H, Lymph % (Auto) 7.6 L, [place]ombs % (Auto) 7.0, Eos % (Auto) 0.4, Baso % (Auto) 0.9, Absolute Neuts (auto) 15.8 H, Absolute Lymphs (auto) 1.52, Nucleated RBC % 1.3 07/04/22 04:50: Sodium 139, Potassium 4.0, Chloride 101, Carbon Dioxide 32.0, Anion Gap 6, BUN 27 H, Creatinine 1.14 H, Estim Creat Clear Calc 43.68, Est GFR (MDRD) Af Amer 61, Est GFR (MDRD) Non-Af 51 L, BUN/Creatinine Ratio 23.7 H, Glucose 122 H, Calcium 9.8, Total Bilirubin 8.80 H, Direct Bilirubin 6.84 H, AST 215 H, ALT 61 H, Alkaline Phosphatase 262 H, Total Protein 5.5 L, Albumin 1.8 L, Globulin 3.7, Free T4 0.37 L 07/04/22 04:50: PT 23.0 H, INR 2.1 07/04/22 04:50: Ammonia 53.0 H Micro: Microbiology 06/27/22 00:25 Blood Culture (Wb) - Anticubital Right Blood Culture - Final No growth in 5 days. 06/26/22 20:25 Blood Culture (Wb) - Anticubital Left Blood Culture - Final No growth in 5 days. 06/26/22 15:15 Interface Orders Enteric Bacteriology - Final 06/21/22 20:30 Blood Culture (Wb) - Anticubital Right Blood Culture - Final Staphylococcus hominis 06/21/22 23:15 Blood Culture (Wb) - Anticubital Left Blood Culture - Final No growth in 5 days. 06/26/22 15:15 Stool C. difficile DNA Amplification - Final 06/26/22 20:05 Urine Catheter - Catheter Legionella Antigen - Final 06/26/22 20:05 Urine Catheter - Catheter Streptococcus pneumoniae Antigen (M - Final 06/21/22 20:30 Nasal Secretion SARS-CoV-2 & FLU Antigen (Rapid) - Final ABG Data ABG results: ABG 07/03/22 22:47 Specimen Type ART Sample Site R Radial pH 7.12 L* Bicarbonate Actual 32.6 H Total CO2 36 Base Excess 3 H O2 Saturation 93 L O2 % 100 ABG pCO2 101.2 H* ABG pO2 92 O2 Delivery Device BiPAP Vent Mode BiLevel Crit Call To/Read Back Yes Blood Gas Notified Whom dr frazier Radiography Diagnostic Testing: Radiology Impression Chest X-Ray 07/03/22 23:20 IMPRESSION: 1. Endotracheal tube with tip at the origin of the right mainstem bronchus. Consider pulling back 3 to 4 cm. 2. Left basilar airspace disease and moderate pleural effusion. Findings may indicate atelectasis or pneumonia. 3. Left mediastinal/perihilar adenopathy/mass. Electronically Signed: Kristofer Arauz MD at 23:48 EST , ADDENDUM: 07/04/22 0013 IMPRESSION: 1. Endotracheal tube with tip at the origin of the right mainstem bronchus. Consider pulling back 3 to 4 cm. 2. Left basilar airspace disease and moderate pleural effusion. Findings may indicate atelectasis or pneumonia. 3. Left mediastinal/perihilar adenopathy/mass. N.B. : faith arevalo RN, confirmed on 07/04/2022 00:06:45 (ET) that the healthcare facility has received the radiology report. Electronically Signed: Kristofer Arauz MD at 23:48 EST , KUB X-Ray 07/03/22 23:20 IMPRESSION: NG tube tip in stomach. ET tube tip in the right mainstem bronchus. See report of concurrent chest x-ray. Electronically Signed: Damari Calzada MD at 0:02 EST , Physical Exam Const Constitutional Narrative: Intubated, sedated and mechanically ventilated. No ventilator to synchrony. Jaundiced in appearance. HEENT normocephalic and head/scalp atraumatic Mouth: endotracheal tube in place and OG tube in place Eyes PERRL Neck supple General: trachea midline Chest inspection of chest normal Resp normal respiratory effort Auscultation: Negative for rales, rhonchi or wheezes Cardio regular rate and regular rhythm GI soft to palpation and non-tender Extremity General Extremity: edema bilateral lower extremity Skin no rashes or lesions noted Skin Narrative: Cool lower extremities. Charges/Coding Procedures Hospitalists Procedures: 11432 Critial Care 1st Hr
--- NOTE | 2022-07-04 07:06 | RAD_ITS ---
EXAM: XR CHEST, 1 VIEW CLINICAL INDICATION: Respiratory Failure TECHNIQUE: Frontal view of the chest. This report was created using [employer] report generation technology. COMPARISON: 07/04/2022. FINDINGS: LUNGS AND PLEURAL SPACES: Left pleural fluid and partial atelectasis of the left lower lobe are unchanged. No pneumothorax. HEART: Unremarkable. Cardiac silhouette not enlarged. MEDIASTINUM: Central airways and mediastinal contour are unremarkable. BONES/JOINTS: Unremarkable. SOFT TISSUES: Unremarkable. LYMPH NODES: Left hilar and left suprahilar lymphadenopathy is unchanged. TUBES, LINES AND DEVICES: ET tube tip is near the stefani facing the right mainstem bronchus. This is unchanged. OG tube tip and sidehole are inside the left gastric cavity. RAD/Chest 1 View (Portable) IMPRESSION: 1. Persistent partial atelectasis of the left lung base and left pleural fluid. 2. Left hilar and left suprahilar lymphadenopathy are unchanged. 3. ET tube tip remains near the stefani and is facing the right mainstem bronchus. 4. OG tube tip and sidehole remain inside the left gastric cavity. Electronically Signed: Carlos A Guillen MD at 9:05 EST ,
[2022-07-04 08:11] LABS: Allen Test Positive; Base Excess 9 mmol/L (-2 to +2); Blood Gas Specimen Type ART; FI02 50; Mode AC; O2 Delivery Device Adult Vent; PEEP 5; PO2 78 mmHG (75-100); RR 14; SITE L Brach; SO2 96 % (95-99); Total Carbon Dioxide 33 mmol/L; Vt 450; pCO2 42.2 mmHg (35-45); pH 7.49 (7.35-7.45)
[2022-07-04 08:21] LABS: Glucose, Dipstick Normal (Normal); Ketone-Dipstick 5 mg/dl (Negative); Leukocyte Esterase-Dipstick 25 /ul (Negative); Nitrite-Dipstick Positive (Negative); Occult Blood-Urine 50 /ul (Negative); Protein-Dipstick 30 mg/dl (Negative); Specific Gravity, Urine 1.015 (1.002-1.030); Urine Urobilinogen 4 mg/dl (Normal)
[2022-07-04 08:23] LABS: Color, Urine Yellow (Yellow); Urine Bilirubin Dipstick 6 mg/dL (Negative); Urine Clarity Clear (Clear)
--- NOTE | 2022-07-04 08:53 | PHA.PHARE_ITS ---
Consult Pharmacy has been consulted to manage selected antiobiotic: Vancomycin Type of Consult: New start Labs: Sodium 139 mmol/L (136-145) 07/04/22 04:50 Potassium 4.0 mmol/L (3.5-5.1) 07/04/22 04:50 Chloride 101 mmol/L (98-107) 07/04/22 04:50 Carbon Dioxide 32.0 mmol/L (21.0-32.0) 07/04/22 04:50 Anion Gap 6 (5-15) 07/04/22 04:50 BUN 27 mg/dL (7-18) H 07/04/22 04:50 Creatinine 1.14 mg/dL (0.55-1.02) H 07/04/22 04:50 Est GFR (MDRD) Af Amer 61 mL/min (>60) 07/04/22 04:50 Est GFR (MDRD) Non-Af 51 mL/min (>60) L 07/04/22 04:50 BUN/Creatinine Ratio 23.7 RATIO (10-20) H 07/04/22 04:50 Glucose 122 mg/dL (74-106) H 07/04/22 04:50 Microbiology: Microbiology 06/27/22 00:25 Blood Culture (Wb) - Anticubital Right Blood Culture - Final No growth in 5 days. 06/26/22 20:25 Blood Culture (Wb) - Anticubital Left Blood Culture - Final No growth in 5 days. 06/26/22 15:15 Interface Orders Enteric Bacteriology - Final 06/21/22 20:30 Blood Culture (Wb) - Anticubital Right Blood Culture - Final Staphylococcus hominis 06/21/22 23:15 Blood Culture (Wb) - Anticubital Left Blood Culture - Final No growth in 5 days. 06/26/22 15:15 Stool C. difficile DNA Amplification - Final 06/26/22 20:05 Urine Catheter - Catheter Legionella Antigen - Final 06/26/22 20:05 Urine Catheter - Catheter Streptococcus pneumoniae Antigen (M - Final 06/21/22 20:30 Nasal Secretion SARS-CoV-2 & FLU Antigen (Rapid) - Final Weight used for dosin.7 kg Estimated Creatinine Clearance: 62ML/MIN Goal Trough: 15-20 mcg/mL Pharmacy Plan for Drug Dosing: Give initial standard dose of 1750mg IV x1, then continue with 1500mg IV q12h per [facility] dosing protocol. Will order a trough before the 4th total dose. The patient's CrCl of 62ml/min was calculated using an adjusted body weight. Pharmacy Service will continue to monitor and adjust dosing as required. Follow-Up Labs: Trough Vancomycin Labs to be done on [date and time ordered]: 07/04/22 19:30
[2022-07-04] MEDS: Citalopram 20 MG Tablet PO (10:12)
[2022-07-04] MEDS: Cyanocobalamin 500 MCG Tablet PO (10:12)
[2022-07-04] MEDS: rifAXIMin 550 MG Tablet PO (10:12)
[2022-07-04] MEDS: Lactulose 20 GM/30 ML UDC PO (10:12)
[2022-07-04] MEDS: Chlorhexidine 15 ML PO ×2 (10:13→20:52)
[2022-07-04] MEDS: Ursodiol 250 MG Tablet 500 MG PO (10:13)
[2022-07-04] MEDS: buPROPion 75 MG Tablet 150 MG PO (10:13)
[2022-07-04] MEDS: CHLORHEXIDINE GLUC 2% CLOTH 1 EACH TOWELETTE TOPICAL (10:13)
--- NOTE | 2022-07-04 10:37 | PN_ITS ---
Subjective Subjective Rapid response called. Patient was noted per RN on PCU to be found hypoxic in the 60s, nonresponsive. She also on monitor had been noted to have transient tachycardia, unclear rhythm which returned to SR quickly. He was placed on BiPAP last night after being found hypoxic. That was unsuccessful so she was intubated. She is unable to give history at this time due to the fact that she is intubated. Objective Data Objective Data Vital Signs: Vital Signs Temp Pulse Resp BP Pulse Ox O2 Del Method O2 Flow Rate 99.6 F H 69 14 91/55 L 100 Mechanical Ventilator 3 07/04/22 08:00 07/04/22 09:23 07/04/22 09:23 07/04/22 08:00 07/04/22 09:23 07/04/22 08:00 07/03/22 21:15 FiO2 40 07/04/22 09:23 Oxygen Flow Rate (L/min) 3 Oxygen Delivery Method Mechanical Ventilator Weight: 259 lb 7.745 oz Body Mass Index (BMI) 43.2 Intake & Output: Intake and Output for Last 24 Hours 07/02/22 07/03/22 07/04/22 23:59 23:59 23:59 Intake Total 751 / 851 713.18 / 715.33 309.82 / 309.82 Output Total 300 / 300 400 / 400 Balance 751 / 851 413.18 / 415.33 -90.18 / -90.18 Lab / Micro Data Result Diagrams: 07/04/22 04:50 07/04/22 04:50 Labs: Laboratory Results - last 24 hr 07/03/22 22:31: POC Glucose 122 H 07/03/22 23:49: WBC 13.4 H, RBC 4.36, Hgb 13.6, Hct 43.6, MCV 100.0 H, MCH 31.2, MCHC 31.2 L, RDW Std Deviation 58.8 H, RDW Coeff of Anyi 18.3 H, Plt Count 52 L, MPV 11.1, Neut % (Auto) Not Reportable, Absolute Neuts (auto) 11.4 H, Absolute Lymphs (auto) 1.47, Total Counted 100, Neutrophils % (Manual) 79 H, Band Neutrophils % 6 H, Lymphocytes % (Manual) 11 L, Monocytes % (Manual) 3, Myelocytes % 1 H, Diff Path Review May foll, Atypical Lymphocytes 1+, Platelet Estimate MOD DEC, RBC Morphology NORM C+C, Anisocytosis 1+, Macrocytosis RARE 07/03/22 23:49: PT 23.1 H, INR 2.1, APTT 39.0 H 07/03/22 23:49: Sodium 141, Potassium 4.1, Chloride 101, Carbon Dioxide 34.0 H, Anion Gap 6, BUN 27 H, Creatinine 1.13 H, Estim Creat Clear Calc 44.07, Est GFR (MDRD) Af Amer 62, Est GFR (MDRD) Non-Af 51 L, BUN/Creatinine Ratio 23.9 H, Glucose 140 H, Calcium 9.8, Phosphorus 3.6, Magnesium 2.1, Total Bilirubin 8.60 H, Direct Bilirubin 6.86 H, AST 220 H, ALT 63 H, Alkaline Phosphatase 269 H, Total Protein 5.9 L, Albumin 2.0 L, Globulin 3.9 07/03/22 23:49: Ammonia 70.0 H 07/03/22 23:49: Total Creatine Kinase 193 H, Triglycerides 110 07/04/22 00:54: Procalcitonin 2.03 H 07/04/22 04:50: WBC 19.9 H, RBC 4.17 L, Hgb 13.1, Hct 41.0, MCV 98.3, MCH 31.4, MCHC 32.0, RDW Std Deviation 57.1 H, RDW Coeff of Anyi 18.1 H, Plt Count 63 L, MP V 11.1, Immature Gran % (Auto) 4.500 H, Neut % (Auto) 79.6 H, Lymph % (Auto) 7.6 L, [place] % (Auto) 7.0, Eos % (Auto) 0.4, Baso % (Auto) 0.9, Absolute Neuts (auto) 15.8 H, Absolute Lymphs (auto) 1.52, Nucleated RBC % 1.3 07/04/22 04:50: Sodium 139, Potassium 4.0, Chloride 101, Carbon Dioxide 32.0, Anion Gap 6, BUN 27 H, Creatinine 1.14 H, Estim Creat Clear Calc 43.68, Est GFR (MDRD) Af Amer 61, Est GFR (MDRD) Non-Af 51 L, BUN/Creatinine Ratio 23.7 H, Glucose 122 H, Calcium 9.8, Total Bilirubin 8.80 H, Direct Bilirubin 6.84 H, AST 215 H, ALT 61 H, Alkaline Phosphatase 262 H, Total Protein 5.5 L, Albumin 1.8 L, Globulin 3.7, Free T4 0.37 L 07/04/22 04:50: PT 23.0 H, INR 2.1 07/04/22 04:50: Ammonia 53.0 H 07/04/22 08:10: Urine Color Yellow, Urine Clarity Clear, Urine pH 7.0, Ur Specific [place] 1.015, Urine Protein 30 H, Urine Glucose (UA) Normal, Urine Ketones 5 H, Urine Occult Blood 50 H, Urine Nitrite Positive H, Urine Bilirubin 6 H, Urine Urobilinogen 4 H, Ur Leukocyte Esterase 25 H Micro: Microbiology 06/27/22 00:25 Blood Culture (Wb) - Anticubital Right Blood Culture - Final No growth in 5 days. 06/26/22 20:25 Blood Culture (Wb) - Anticubital Left Blood Culture - Final No growth in 5 days. 06/26/22 15:15 Interface Orders Enteric Bacteriology - Final 06/21/22 20:30 Blood Culture (Wb) - Anticubital Right Blood Culture - Final Staphylococcus hominis 06/21/22 23:15 Blood Culture (Wb) - Anticubital Left Blood Culture - Final No growth in 5 days. 06/26/22 15:15 Stool C. difficile DNA Amplification - Final 06/26/22 20:05 Urine Catheter - Catheter Legionella Antigen - Final 06/26/22 20:05 Urine Catheter - Catheter Streptococcus pneumoniae Antigen (M - Final 06/21/22 20:30 Nasal Secretion SARS-CoV-2 & FLU Antigen (Rapid) - Final ABG Data ABG results: ABG 07/03/22 07/04/22 22:47 08:05 Specimen Type ART ART Sample Site R Radial L Brach pH 7.12 L* 7.49 H Bicarbonate Actual 32.6 H 32.0 H Total CO2 36 33 Base Excess 3 H 9 H O2 Saturation 93 L 96 O2 % 100 50 ABG pCO2 101.2 H* 42.2 ABG pO2 92 78 Carrington Test Positive Respiration Rate 14 O2 Delivery Device BiPAP Adult Vent Vent Mode BiLevel AC Tidal Volume 450 POC PEEP 5 Crit Call To/Read Back Yes Blood Gas Notified Whom dr frazier Radiography Diagnostic Testing: Radiology Impression Chest X-Ray 07/03/22 23:20 IMPRESSION: 1. Endotracheal tube with tip at the origin of the right mainstem bronchus. Consider pulling back 3 to 4 cm. 2. Left basilar airspace disease and moderate pleural effusion. Findings may indicate atelectasis or pneumonia. 3. Left mediastinal/perihilar adenopathy/mass. Electronically Signed: Kristofer Arauz MD at 23:48 EST , ADDENDUM: 07/04/22 0013 IMPRESSION: 1. Endotracheal tube with tip at the origin of the right mainstem bronchus. Consider pulling back 3 to 4 cm. 2. Left basilar airspace disease and moderate pleural effusion. Findings may indicate atelectasis or pneumonia. 3. Left mediastinal/perihilar adenopathy/mass. N.B. : faith arevalo RN, confirmed on 07/04/2022 00:06:45 (ET) that the healthcare facility has received the radiology report. Electronically Signed: Kristofer Arauz MD at 23:48 EST , KUB X-Ray 07/03/22 23:20 IMPRESSION: NG tube tip in stomach. ET tube tip in the right mainstem bronchus. See report of concurrent chest x-ray. Electronically Signed: Damari Calzada MD at 0:02 EST , Chest X-Ray 07/04/22 07:06 IMPRESSION: 1. Persistent partial atelectasis of the left lung base and left pleural fluid. 2. Left hilar and left suprahilar lymphadenopathy are unchanged. 3. ET tube tip remains near the stefani and is facing the right mainstem bronchus. 4. OG tube tip and sidehole remain inside the left gastric cavity. Electronically Signed: Carlos A Guillen MD at 9:05 EST , Physical Exam Const Constitutional Narrative: Intubated, sedated and mechanically ventilated. HEENT normocephalic and head/scalp atraumatic Mouth: endotracheal tube in place and OG tube in place Eyes PERRL Neck supple General: trachea midline Chest inspection of chest normal Resp normal respiratory effort Auscultation: Negative for rales, rhonchi or wheezes Cardio regular rate and regular rhythm GI soft to palpation and non-tender Extremity General Extremity: edema bilateral lower extremity Skin no rashes or lesions noted Skin Narrative: Cool lower extremities. Assessment & Plan Assessment/Plan (1) Encephalopathy acute: PLAN: Lactulose had been stopped, then so far. We will continue Xifaxan. There is no more neomycin. We will substitute that with Flagyl 500 mg p.o. 3 times daily. She is back to grade 3 grade 4 hepatic encephalopathy. Her ammonia level at 70 explain her abdominal status. I think she suffered from hypoxic respiratory failure for which resulted in her needing to be intubated. MRI results of the brain did not show any signs of any acute central nervous system problem. Continue (2) Metastasis from thyroid cancer: PLAN: Patient is seen by oncology (3) Acute kidney injury: (4) Pleural effusion: (5) Cirrhosis: PLAN: CT scan abdomen pelvis does show that she has cirrhosis without any lesions seen in the liver. . She currently is a child Dominguez class C with a meld of 26. She has decompensated liver disease secondary to encephalopathy, with recent lower GI bleed secondary to ischemic colitis secondary to lactulose. Enteric pathogens and C. difficile were negative from cultures taken from a colonoscopy specimen. Biopsies are pending. She was also discovered to have a large gastric varices without stigmata of bleeding. Recommend maintaining a systolic blood pressure less than 110 and a diastolic blood pressure less than 60 if possible. Recommend nadolol 10 mg p.o. twice daily. Also recommending NG tube removal in the morning and introduction of p.o. diet with clear liquids. Her sister was at the bedside said she had a history of hepatitis C which was treated and she was diagnosed with nonalcoholic steatohepatitis. Her last hepatitis C viral load was in 2018 and it was negative. I awaiting hepatitis C PCR RNA along with hepatitis B, autoimmune hepatitis labs, labs for PBC. She may need liver biopsy. PLAN: Plan Lactulose was restarted yesterday and she continues on a bowel cleansing regimen with Flagyl and Xifaxan. We will continue that for hepatic encephalopathy. I agree with primary team that her hepatic encephalopathy was likely multifactorial secondary to decompensated liver disease, hypothyroidism, recurrent thyroid cancer. Recommended continue to monitor as she did develop lactulose induced ischemic colitis after enema and oral lactulose. She needs something for baseline encephalopathy therefore decided to is started at a lower dose. Patient still may need a liver biopsy pending oncology recommendation regarding further treatment. If she is not going to be a candidate for treatment then they may not be a benefit to liver biopsy to see if there is any reversible etiology to her current cholestatic hepatitis and jaundice associated with chronic liver disease. Charges/Coding Visit Charges Inpatient E&M: 17805 Subs Hosp L3
--- NOTE | 2022-07-04 11:05 | CASEMGMT ---
Social Work SW spoke w/physician, she spoke w/family this morning about plan. They plan to speak w/another family member today, and are deciding about code status, extubation, and possible hospice. SW available for support to family as needed. SAMANTHA Nolan
[2022-07-04 13:40] LABS: Pathologist Review Reviewed
[2022-07-04 13:41] LABS: Pathologist Review Reviewed
[2022-07-04 14:10] LABS: Anti-Centromere B Ab <0.2 AI (0.0-0.9); Anti-Chromatin <0.2 AI (0.0-0.9); Anti-Jo <0.2 AI (0.0-0.9); Anti-Scleroderma-70 AB <0.2 AI (0.0-0.9); RNP Ab 1.1 AI (0.0-0.9); SJOGREN'S Anti-SS-A test < 0.2 AI (0.0-0.9); SJOGREN'S Anti-SS-B test < 0.2 AI (0.0-0.9); Smith Ab <0.2 AI (0.0-0.9)
--- NOTE | 2022-07-04 15:50 | PN.HOSP_ITS ---
Reason for Visit Reason for Visit: Mental status change Subjective Subjective Patient with decompensated mental status through the night. Found to be markedly acidosis with a respiratory acidosis and a PCO2 greater than 100. Ammonia level was elevated as well. Patient was transferred the ICU and intubated. Now is on pressors. Objective Data Objective Data Vital Signs: Vital Signs Temp Pulse Resp BP Pulse Ox O2 Del Method O2 Flow Rate 99.3 F H 69 14 92/63 94 Mechanical Ventilator 3 07/04/22 14:45 07/04/22 14:45 07/04/22 14:45 07/04/22 15:00 07/04/22 14:45 07/04/22 14:45 07/03/22 21:15 FiO2 50 07/04/22 14:45 Oxygen Flow Rate (L/min) 3 Oxygen Delivery Method Mechanical Ventilator Weight: 117.7 kg Body Mass Index (BMI) 43.2 Intake & Output: Intake and Output for Last 24 Hours 07/02/22 07/03/22 07/04/22 23:59 23:59 23:59 Intake Total 751 / 851 713.18 / 715.33 1173.67 / 1173.67 Output Total 300 / 300 400 / 400 Balance 751 / 851 413.18 / 415.33 773.67 / 773.67 Lab / Micro Data Result Diagrams: 07/04/22 04:50 07/04/22 04:50 Labs: Laboratory Results - last 24 hr 07/03/22 22:31: POC Glucose 122 H 07/03/22 23:49: WBC 13.4 H, RBC 4.36, Hgb 13.6, Hct 43.6, MCV 100.0 H, MCH 31.2, MCHC 31.2 L, RDW Std Deviation 58.8 H, RDW Coeff of Anyi 18.3 H, Plt Count 52 L, MPV 11.1, Neut % (Auto) Not Reportable, Absolute Neuts (auto) 11.4 H, Absolute Lymphs (auto) 1.47, Total Counted 100, Neutrophils % (Manual) 79 H, Band Neutrophils % 6 H, Lymphocytes % (Manual) 11 L, Monocytes % (Manual) 3, Myelocytes % 1 H, Diff Path Review Reviewed, Atypical Lymphocytes 1+, Platelet Estimate MOD DEC, RBC Morphology NORM C+C, Anisocytosis 1+, Macrocytosis RARE 07/03/22 23:49: PT 23.1 H, INR 2.1, APTT 39.0 H 07/03/22 23:49: Sodium 141, Potassium 4.1, Chloride 101, Carbon Dioxide 34.0 H, Anion Gap 6, BUN 27 H, Creatinine 1.13 H, Estim Creat Clear Calc 44.07, Est GFR (MDRD) Af Amer 62, Est GFR (MDRD) Non-Af 51 L, BUN/Creatinine Ratio 23.9 H, Glucose 140 H, Calcium 9.8, Phosphorus 3.6, Magnesium 2.1, Total Bilirubin 8.60 H, Direct Bilirubin 6.86 H, AST 220 H, ALT 63 H, Alkaline Phosphatase 269 H, Total Protein 5.9 L, Albumin 2.0 L, Globulin 3.9 07/03/22 23:49: Ammonia 70.0 H 07/03/22 23:49: Total Creatine Kinase 193 H, Triglycerides 110 07/04/22 00:54: Procalcitonin 2.03 H 07/04/22 04:50: WBC 19.9 H, RBC 4.17 L, Hgb 13.1, Hct 41.0, MCV 98.3, MCH 31.4, MCHC 32.0, RDW Std Deviation 57.1 H, RDW Coeff of Anyi 18.1 H, Plt Count 63 L, MPV 11.1, Immature Gran % (Auto) 4.500 H, Neut % (Auto) 79.6 H, Lymph % (Auto) 7.6 L, [place] % (Auto) 7.0, Eos % (Auto) 0.4, Baso % (Auto) 0.9, Absolute Neuts (auto) 15.8 H, Absolute Lymphs (auto) 1.52, Nucleated RBC % 1.3, Diff Path Review Reviewed 07/04/22 04:50: Sodium 139, Potassium 4.0, Chloride 101, Carbon Dioxide 32.0, Anion Gap 6, BUN 27 H, Creatinine 1.14 H, Estim Creat Clear Calc 43.68, Est GFR (MDRD) Af Amer 61, Est GFR (MDRD) Non-Af 51 L, BUN/Creatinine Ratio 23.7 H, Glucose 122 H, Calcium 9.8, Total Bilirubin 8.80 H, Direct Bilirubin 6.84 H, AST 215 H, ALT 61 H, Alkaline Phosphatase 262 H, Total Protein 5.5 L, Albumin 1.8 L, Globulin 3.7, Free T4 0.37 L 07/04/22 04:50: PT 23.0 H, INR 2.1 07/04/22 04:50: Ammonia 53.0 H 07/04/22 08:10: Urine Color Yellow, Urine Clarity Clear, Urine pH 7.0, Ur Specific [place] 1.015, Urine Protein 30 H, Urine Glucose (UA) Normal, Urine Ketones 5 H, Urine Occult Blood 50 H, Urine Nitrite Positive H, Urine Bilirubin 6 H, Urine Urobilinogen 4 H, Ur Leukocyte Esterase 25 H Micro: Microbiology 07/04/22 00:30 Sputum, Induced/Lukens Gram Stain - Final 06/27/22 00:25 Blood Culture (Wb) - Anticubital Right Blood Culture - Final No growth in 5 days. 06/26/22 20:25 Blood Culture (Wb) - Anticubital Left Blood Culture - Final No growth in 5 days. 06/26/22 15:15 Interface Orders Enteric Bacteriology - Final 06/21/22 20:30 Blood Culture (Wb) - Anticubital Right Blood Culture - Final Staphylococcus hominis 06/21/22 23:15 Blood Culture (Wb) - Anticubital Left Blood Culture - Final No growth in 5 days. 06/26/22 15:15 Stool C. difficile DNA Amplification - Final 06/26/22 20:05 Urine Catheter - Catheter Legionella Antigen - Final 06/26/22 20:05 Urine Catheter - Catheter Streptococcus pneumoniae Antigen (M - Final 06/21/22 20:30 Nasal Secretion SARS-CoV-2 & FLU Antigen (Rapid) - Final ABG Data ABG results: ABG 07/03/22 07/04/22 22:47 08:05 Specimen Type ART ART Sample Site R Radial L Brach pH 7.12 L* 7.49 H Bicarbonate Actual 32.6 H 32.0 H Total CO2 36 33 Base Excess 3 H 9 H O2 Saturation 93 L 96 O2 % 100 50 ABG pCO2 101.2 H* 42.2 ABG pO2 92 78 Carrington Test Positive Respiration Rate 14 O2 Delivery Device BiPAP Adult Vent Vent Mode BiLevel AC Tidal Volume 450 POC PEEP 5 Crit Call To/Read Back Yes Blood Gas Notified Whom dr frazier Radiography Diagnostic Testing: Radiology Impression Chest X-Ray 07/03/22 23:20 IMPRESSION: 1. Endotracheal tube with tip at the origin of the right mainstem bronchus. Consider pulling back 3 to 4 cm. 2. Left basilar airspace disease and moderate pleural effusion. Findings may indicate atelectasis or pneumonia. 3. Left mediastinal/perihilar adenopathy/mass. Electronically Signed: Kristofer Arauz MD at 23:48 EST , ADDENDUM: 07/04/22 0013 IMPRESSION: 1. Endotracheal tube with tip at the origin of the right mainstem bronchus. Consider pulling back 3 to 4 cm. 2. Left basilar airspace disease and moderate pleural effusion. Findings may indicate atelectasis or pneumonia. 3. Left mediastinal/perihilar adenopathy/mass. N.B. : faith arevalo RN, confirmed on 07/04/2022 00:06:45 (ET) that the healthcare facility has received the radiology report. Electronically Signed: Kristofer Arauz MD at 23:48 EST , KUB X-Ray 07/03/22 23:20 IMPRESSION: NG tube tip in stomach. ET tube tip in the right mainstem bronchus. See report of concurrent chest x-ray. Electronically Signed: Damari Calzada MD at 0:02 EST , Chest X-Ray 07/04/22 07:06 IMPRESSION: 1. Persistent partial atelectasis of the left lung base and left pleural fluid. 2. Left hilar and left suprahilar lymphadenopathy are unchanged. 3. ET tube tip remains near the stefani and is facing the right mainstem bronchus. 4. OG tube tip and sidehole remain inside the left gastric cavity. Electronically Signed: Carlos A Guillen MD at 9:05 EST , Physical Exam Const Constitutional Narrative: Chronically ill-appearing, morbidly obese, upper middle-aged white female, appears older than stated age, lying in bed, intubated and sedated, daughter at bedside HEENT head/scalp atraumatic and moist oral mucous membranes HEENT Narrative: ET tube and OG in place Head and Scalp: normocephalic Eyes Eyes Narrative: Conjunctiva pale, positive scleral icterus Neck no lymphadenopathy and supple Neck Narrative: Neck is short and thick, trachea midline Resp normal respiratory effort, no retractions, no use of accessory muscles and clear to auscultation bilaterally Resp Narrative: Diminished but clear, on a ventilator Auscultation: rhonchi; Negative for rales or wheezes Cardio regular rate, regular rhythm, S1 normal heart sound, S2 normal heart sound, no murmurs, no rub, no gallops and no clicks GI normal to inspection, nondistended, normoactive bowel sounds, soft to palpation and non-tender GI Narrative: Large protuberant abdomen, no significant fluid wave noted Extremity no clubbing, cyanosis or edema Extremity Narrative: 2+ pedal pulses Skin skin turgor normal, no jaundice, no petechiae and no mottling Skin Narrative: Jaundiced, skin to chemo this from thrombocytopenia Neuro Neuro Narrative: Patient grimaces intermittently, spontaneously moves with all 4 extremities, intubated and sedated so full exam difficult Psych Psych Narrative: Able to evaluate-patient intubated and sedated Assessment & Plan Assessment/Plan (1) Acute on chronic respiratory failure with hypoxia and hypercapnia: (2) Cirrhosis: (3) Toxic metabolic encephalopathy: (4) Gastric ulcer: (5) Acute kidney injury: (6) Dehydration: (7) Acute colitis: (8) Debility: PLAN: Plan Acute on chronic hypoxic and hypercapnic respiratory failure -Suspect an element of baseline CO2 retention and possible hypoxia based on lab -High suspicion for ARLYN/OHS -AA gradient was elevated on her ABG however she was under the effects of anesthesia at the time -Patient was intubated overnight for markedly elevated PCO2 and respiratory acidosis -Had refused her BiPAP -Continue AC ventilation and wean as able -Repeat ABG improved and patient now has an alkalosis as her PCO2 is likely overcorrected -Sedation Acute metabolic/toxic encephalopathy secondary to hepatic encephalopathy secondary to decompensated liver cirrhosis/respiratory acidosis -Patient's mental status has been waxing and waning--> patient fluctuating between grade 2 and 4 hepatic encephalopathy -Ammonia level has normalized--> will monitor periodically since she is off lactulose -MRI brain negative -Ammonia level is elevated again -Lactulose had to be held as it had caused ischemic colitis -Lower doses started Saturday evening and ammonia level Saturday evening was 26 -Trended up significantly -Continue rifaximin Shock -Multifactorial -Significant leukocytosis -Antibiotics initiated as procalcitonin was slightly elevated at 2 -Cultures pending -Continue pressors Acute colitis -Biopsy was consistent with ischemic colitis -Enteric panel was unremarkable -C. difficile was negative -Suspect that this is ischemic colitis possibly related to lactulose use and thus lactulose had been discontinued -Lactulose reinitiated Saturday however ammonia still did up Coagulopathy -Suspect related to liver disease -INR is 2.1 today with slight improvement being given vitamin K -Repeat INR in a.m. Gastric varices -Quite large noted on EGD -Goals are recommended systolic blood pressure less than 110 and diastolic less than 160 if possible -Nadolol 10 mg p.o. twice daily as recommended -Blood pressures have been in goal ranges JORDAN secondary to dehydration -Serum creatinine 1.36 on admission -Baseline serum creatinine is less than 1 and JORDAN is now resolved--> 0.86 -Continue Lasix 20 mg daily -We will continue Aldactone but decrease dose by 50% with slight elevation in serum creatinine Chronic thrombocytopenia -Platelet counts are overall stable - 63,000 today Transaminitis/hyperbilirubinemia -Bili Levi continues to trend up -Transaminases stable -Antibiotics discontinued -Gastroenterology is following -Possible liver biopsy however at this point it seems like family is leaning towards DNR [employer]EL[employer] with plans of terminal extubation and hospice care -Appreciate input Dysphagia -MBS done 06/29/2022 -N.p.o. with reintubation -Speech therapy is following and will follow if able to be extubated and not CCU Severe malnutrition -Patient's oral intake has been poor overall pretty much since admission Debility -PT/OT as able Hypothyroidism -Continue levothyroxine 125 mcg -TSH was found to be 83.8 on admission -Free T4 was low at 0.15 -Repeat free T4 on 07/03/2022 -Patient had been off her levothyroxine for 1 month prior to admission as instructed by her tire and tube repairer Metastatic papillary thyroid cancer -Initially diagnosed 16 years ago -Had been in remission -History of thyroidectomy -Has metastatic disease to the mediastinum and left upper lobe--> biopsy-proven -Follows with Dr. Sinclair at [facility]--> discussed with Dr. Sinclair he recommended oncology input as she is not a candidate for radioactive iodine with no uptake off of her levothyroxine on her scan he is unsure what treatment options are possible especially given her overall performance status at this time and comorbidities -Oncology has seen the patient and really no options for treatment at this point in time given her decompensated cirrhosis and other issues History of hepatitis C with resultant cirrhosis -Patient underwent treatment for hepatitis C with Dr. García -Repeat lab ordered by GI GERD -Continue PPI Depression -Continue home Wellbutrin -Continue home citalopram Urinary incontinence -Hold home oxybutynin DVT prophylaxis -SCDs -Daily counts are hovering around 50,000 so we will hold off on chemoprophylaxis at this point and monitor closely if her platelets are consistently greater than 50,000 will reinitiate subcu heparin CODE STATUS -Change CODE STATUS to DNR CCA okay for intubation at this time Extensive discussion had with the daughter today at the bedside at the time of my exam. Her overall prognosis is very poor and the daughter is realizing this. Even if were able to extubate her p.o. intake remains poor and had been prior to this when she was doing better. There were no significant options for her thyroid cancer at this time given her decompensated liver disease. She does not feel that she wants to put her mother through a liver biopsy at this time and would like her to just be comfortable. Overall plan for now is terminal extubation tomorrow with no plans for reintubation and she how she does clinically. If she decompensates clinically and passes will keep her comfortable here if at 24 hours she still stable we will consult hospice for possible IPU placement. Charges/Coding Visit Charges Inpatient E&M: 08481 Subs Hosp L3
[2022-07-04] MEDS: Propofol 10MG/Ml 1,000 MG/100 ML Bottle 3.6 MG CONT INF (16:23)
[2022-07-04 20:36] LABS: Anti-Mitochondrial AB <20.0 Units (0.0-20.0); Anti-dsDNA Ab <1 IU/mL (0-9)
[2022-07-04] MEDS: Ursodiol 250 MG Tablet 500 MG GT (20:49)
[2022-07-04] MEDS: buPROPion 75 MG Tablet 150 MG GT (20:50)
[2022-07-04] MEDS: Lactulose 20 GM/30 ML UDC GT (20:50)
[2022-07-04] MEDS: rifAXIMin 550 MG Tablet GT (20:50)
--- NOTE | 2022-07-04 22:03 | PCM.HOSP.N ---
Hospitalist Note Patient on maximum level NEP, will add vasopressin.
[2022-07-05] VITALS (17 sets, daily range): BP systolic 86–103; BP diastolic 35–73; PULSE 69–76; RESP 10–15; TEMP 37–37.5; O2SAT 90–96; BMI 43.9
[2022-07-05 02:48] LABS: Absolute Lymphocyte Count 2.02 X10^3/uL (0.83-4.51); Absolute Neutrophil Count 12.6 X10^3/uL (2.0-7.7); Basophil# 0.14 X10^3/uL; Basophil% 0.8 % (0-1); Eosinophil# 0.07 X10^3/uL; Eosinophils% 0.4 % (0-5); Hematocrit 39.4 % (37-47); Hemoglobin 13.1 g/dL (12.0-15.0); Lymphocyte # 2.02 X10^3/ul (0.83-4.51); Lymphocyte % 11.7 % (19-41); Mean Corp Hgb Conc 33.2 g/dL (32-36); Mean Corpuscular Volume 96.3 fL (81-99); Mean Platelet Vol. 10.8 fl (6.2-12.0); Monocyte# 1.86 X10^3/uL; Monocyte% 10.8 % (0-10); NRBC Flagged by Analyzer 3.6 % (0-5); Neutrophil # 12.58 X10^3/uL (2.7-7.7); Neutrophil % 72.7 % (47-70); POSITIVE COUNT YES; POSITIVE DIFFERENTIAL YES; Platelet Count 68 K/mm3 (150-450); RBC Distribution Width CV 19.2 % (11.6-14.6); RBC Distribution Width SD 55.1 fl (35.1-43.9); Red Blood Count 4.09 M/mm3 (4.2-5.4); White Blood Count 17.3 K/mm3 (4.4-11.0)
[2022-07-05 02:50] LABS: Differential Indicated SCAN CRITERIA MET
[2022-07-05 02:55] LABS: International Normalized Ratio 2.5; Prothrombin Time (Protime)PT. 26.6 SECONDS (11.7-14.9)
[2022-07-05] MEDS: CHLORHEXIDINE GLUC 2% CLOTH 1 EACH TOWELETTE TOPICAL (03:01)
[2022-07-05 03:16] LABS: Differential Comment SCANNED; Polychromasia RARE
[2022-07-05 03:19] LABS: AST(SGOT) 208 U/L (15-37); Alanine Aminotransfer ALT/SGPT 51 U/L (13-56); Albumin, Serum 1.6 g/dL (3.2-5.0); Alkaline Phosphatase 237 U/L (45-117); Anion Gap 7 (5-15); BUN 29 mg/dL (7-18); BUN/Creat Ratio 23.4 RATIO (10-20); Bilirubin, Direct 7.23 mg/dL (0.00-0.30); Calcium,Total 9.4 mg/dL (8.5-10.1); Chloride 106 mmol/L (98-107); Creatinine, Serum 1.24 mg/dL (0.55-1.02); EST Glomerular Filtration Rate 46 mL/min (>60); Est Glom Filt Rate - Afr Amer 56 mL/min (>60); Estimated Creatinine Clearance 40.16 ml/min; Globulin 3.8 g/dL (2.2-4.2); Glucose 111 mg/dL (74-106); Potassium 4.3 mmol/L (3.5-5.1); Protein, Total 5.4 g/dL (6.4-8.2); Sodium Level 141 mmol/L (136-145)
[2022-07-05] MEDS: Levothyroxine 125 MCG Tablet GT (05:19)
--- NOTE | 2022-07-05 09:48 | PN.CC_ITS ---
Assessment & Plan Assessment/Plan (1) Acute on chronic respiratory failure with hypoxia and hypercapnia: PLAN: Plan RECOMMENDATIONS: 1. Continue assist-control mode of mechanical ventilation. Wean FiO2 and PEEP for saturations greater than 90%. 2. Continue lactulose, Flagyl and rifaximin per GI recommendations. 3. Continue to hold diuretics. 4. Limit sedation as feasible. 5. Continue PPI therapy as ordered. 6. Continue vasopressor support. 7. Ongoing goals of care discussion with the patient's family. Tentatively, the patient's family is considering initiation of hospice care services. IMPRESSIONS: 1. Acute on chronic combined respiratory failure Most likely secondary to noncompliance with PAP therapy, leading to hypercapnia and the need for intubation. The patient also had an elevated ammonia level, which could have contributed to her underlying encephalopathy and subsequent CO2 retention. Plan to continue assist-control mode of mechanical ventilation. The patient will be continued on antimicrobials, pending culture results. 2. Metabolic encephalopathy Likely multifactorial in etiology with underlying decompensated cirrhosis leading to hepatic encephalopathy and noncompliance with PAP therapy leading to progressive hypercapnia. The patient is currently on appropriate medical therap y. 3. Multifactorial shock The patient decompensated overnight from a respiratory perspective and developed hemodynamic instability requiring the initiation of vasopressor support. I do suspect that her hypotension is likely multifactorial in etiology, with intravascular volume depletion in the setting of diuresis, along with the vasodilatory effects of sedation and possible sepsis contributing. No definitive source of infection has yet to be identified. However, in light of the patient's clinical decompensation, antibiotics will be continued, pending culture results. The patient's diuretics have been placed on hold. 4. History of colitis/gastric varices/severe malnutrition/hypothyroidism/metastatic papillary thyroid cancer Complicates care, management, recovery and prognosis. Continue supportive measures for now as noted above. Ongoing goals of care discussion with the patient's family. TIME: 31 minutes of critical care time, independent of procedures, was spent addressing the patient's acute on chronic combined respiratory failure, metabolic encephalopathy, multifactorial shock, review of all data and collaboration with the care team. Subjective Subjective The patient was seen and examined at the bedside this morning. Events from the last 24 hours have been reviewed. The patient currently has a low-grade fever and remains on a combination of Levophed and vasopressin in an attempt to maintain hemodynamic stability. The patient is documented to be overall net +21 L for the hospitalization. White count remains elevated at 17,000. Platelet count remains low at 68,000. Creatinine is stable at 1.24. Total bili remains elevated at 8.7. The patient's family is considering the initiation of hospice care services. Objective Data Objective Data The patient's most recent lab work, culture data and imaging studies have all been personally reviewed. Blood and sputum cultures are pending. Vital Signs: Vital Signs Temp Pulse Resp BP Pulse Ox O2 Del Method O2 Flow Rate 99.4 F H 70 14 89/60 L 93 Mechanical Ventilator 3 07/05/22 03:00 07/05/22 09:11 07/05/22 09:11 07/05/22 07:00 07/05/22 09:11 07/05/22 08:00 07/03/22 21:15 FiO2 30 07/05/22 09:11 Oxygen Flow Rate (L/min) 3 Oxygen Delivery Method Mechanical Ventilator Weight: 264 lb 1.82 oz Body Mass Index (BMI) 43.9 Intake & Output: Intake and Output for Last 24 Hours 07/03/22 07/04/22 07/05/22 23:59 23:59 23:59 Intake Total 713.18 / 715.33 2408.15 / 2473.05 561.57 / 561.57 Output Total 300 / 300 915 / 915 125 / 125 Balance 413.18 / 415.33 1493.15 / 1558.05 436.57 / 436.57 Lab / Micro Data Attestation: I reviewed the patient's lab results. Result Diagrams: 07/05/22 02:40 07/05/22 02:40 Labs: Laboratory Results - last 24 hr 07/03/22 04:22: CHARLIE-1 Antibody <0.2, SS-A/Ro IgG Antibody < 0.2, SS-B/La IgG Antibody < 0.2, Sm (Shin) Antibody <0.2, CUSTODIAL FOREMAN Antibody 1.1 H, Scl-70 Scleroderma Ab <0.2, Double Strand DNA Ab <1, Centromere B Antibody <0.2, Anti-Mitochondrial Ab <20.0 07/03/22 23:49: Diff Path Review Reviewed 07/04/22 04:50: Diff Path Review Reviewed 07/05/22 02:40: WBC 17.3 H, RBC 4.09 L, Hgb 13.1, Hct 39.4, MCV 96.3, MCH 32.0, MCHC 33.2, RDW Std Deviation 55.1 H, RDW Coeff of Anyi 19.2 H, Plt Count 68 L, MPV 10.8, Immature Gran % (Auto) 3.600 H, Neut % (Auto) 72.7 H, Lymph % (Auto) 11.7 L, [place] % (Auto) 10.8 H, Eos % (Auto) 0.4, Baso % (Auto) 0.8, Absolute Neuts (auto) 12.6 H, Absolute Lymphs (auto) 2.02, Nucleated RBC % 3.6, Differential Comment SCANNED, Diff Path Review September, Polychromasia RARE 07/05/22 02:40: Sodium 141, Potassium 4.3, Chloride 106, Carbon Dioxide 28.0, Anion Gap 7, BUN 29 H, Creatinine 1.24 H, Estim Creat Clear Calc 40.16, Est GFR (MDRD) Af Amer 56 L, Est GFR (MDRD) Non-Af 46 L, BUN/Creatinine Ratio 23.4 H, Glucose 111 H, Calcium 9.4, Total Bilirubin 8.70 H, Direct Bilirubin 7.23 H, AST 208 H, ALT 51, Alkaline Phosphatase 237 H, Total Protein 5.4 L, Albumin 1.6 L, Globulin 3.8 07/05/22 02:40: PT 26.6 H, INR 2.5 Micro: Microbiology 07/04/22 00:30 Sputum, Induced/Lukens Gram Stain - Final 06/27/22 00:25 Blood Culture (Wb) - Anticubital Right Blood Culture - Final No growth in 5 days. 06/26/22 20:25 Blood Culture (Wb) - Anticubital Left Blood Culture - Final No growth in 5 days. 06/26/22 15:15 Interface Orders Enteric Bacteriology - Final 06/21/22 20:30 Blood Culture (Wb) - Anticubital Right Blood Culture - Final Staphylococcus hominis 06/21/22 23:15 Blood Culture (Wb) - Anticubital Left Blood Culture - Final No growth in 5 days. 06/26/22 15:15 Stool C. difficile DNA Amplification - Final 06/26/22 20:05 Urine Catheter - Catheter Legionella Antigen - Final 06/26/22 20:05 Urine Catheter - Catheter Streptococcus pneumoniae Antigen (M - Final 06/21/22 20:30 Nasal Secretion SARS-CoV-2 & FLU Antigen (Rapid) - Final ABG Data ABG results: ABG 07/03/22 22:47 Specimen Type ART Sample Site R Radial pH 7.12 L* Bicarbonate Actual 32.6 H Total CO2 36 Base Excess 3 H O2 Saturation 93 L O2 % 100 ABG pCO2 101.2 H* ABG pO2 92 O2 Delivery Device BiPAP Vent Mode BiLevel Crit Call To/Read Back Yes Blood Gas Notified Whom dr frazier Radiography Diagnostic Testing: Radiology Impression Chest X-Ray 07/04/22 07:06 IMPRESSION: 1. Persistent partial atelectasis of the left lung base and left pleural fluid. 2. Left hilar and left suprahilar lymphadenopathy are unchanged. 3. ET tube tip remains near the stefani and is facing the right mainstem bronchus. 4. OG tube tip and sidehole remain inside the left gastric cavity. Electronically Signed: Carlos A Guillen MD at 9:05 EST , Physical Exam Const Constitutional Narrative: Intubated, sedated and mechanically ventilated. No ventilator to synchrony. Jaundiced in appearance. HEENT normocephalic and head/scalp atraumatic Mouth: endotracheal tube in place and OG tube in place Eyes PERRL Neck supple General: trachea midline Chest inspection of chest normal Resp normal respiratory effort Auscultation: Negative for rales, rhonchi or wheezes Cardio regular rate and regular rhythm GI soft to palpation and non-tender Extremity General Extremity: edema bilateral lower extremity Skin no rashes or lesions noted Skin Narrative: Cool lower extremities. Charges/Coding Procedures Hospitalists Procedures: 72110 Critial Care 1st Hr
[2022-07-05 12:20] LABS: Pathologist Review Reviewed
[2022-07-05] MEDS: LORazepam 2 MG/ML Syringe 1 MG IV (12:27)
[2022-07-05] MEDS: HYDROmorphone 1 MG/ML Syringe 2 MG IV (12:27)
[2022-07-05] MEDS: Glycopyrrolate 0.2 MG/ML Vial 0.1 MG IV (14:39)
[2022-07-05] MEDS: HYDROmorphone 1 MG/ML Syringe IV (14:39)
--- NOTE | 2022-07-05 14:42 | CHAPLAIN ---
Type of Pastoral Visit ___ Initial Visit ___ Follow-up Visit ___ On-call Visit ___ General Patient Visit ___ Spiritual Assessment ___ Family Conference _x__ Bereavement ___ Rapid Response ___ Code Blue ___ Other (describe below) Pastoral Care Referral From ___ Patient ___ Family _x__ Nurse ___ Physician ___ Service Planner ___ Talent Rep ___ Other (describe below) Sacrament/Intervention ___ Active listening ___ Anointing ___ Jew ___ Bereavement ___ Communion ___ Alyce exploration ___ ___ Life review _x__ Prayer ___ Reconciliation ___ Sacrament of Sick _x__ Supportive presence ___ Wedding ___ Other (describe below) Pastoral Comments patient was extubated and expected to ; many family members have gathered in the room; offered presence and support to family; family gave welcome; family welcomed a prayer to be said; gave words of comfort and validation to feelings; offer of ongoing support as desired
--- NOTE | 2022-07-05 15:45 | PCM.PN.HOSP ---
Reason for Visit Reason for Visit: Acute mental status change/confusion Subjective Subjective Patient required the addition of another pressor overnight. Now on Levophed and vasopressin. Remains on the ventilator. Is responding to stimulus with withdrawal to tactile stimulus. Patient was terminally extubated today at 1230. Family at bedside. Objective Data Objective Data Vital Signs: Vital Signs Temp Pulse Resp BP Pulse Ox O2 Del Method O2 Flow Rate 98.6 F 71 14 94/64 93 Mechanical Ventilator 2 07/05/22 12:53 07/05/22 12:53 07/05/22 12:53 07/05/22 12:53 07/05/22 12:53 07/05/22 12:53 07/05/22 12:47 FiO2 30 07/05/22 12:53 Oxygen Flow Rate (L/min) 2 Oxygen Delivery Method Mechanical Ventilator Weight: 119.8 kg Body Mass Index (BMI) 43.9 Intake & Output: Intake and Output for Last 24 Hours 07/03/22 07/04/22 07/05/22 23:59 23:59 23:59 Intake Total 713.18 / 715.33 2408.15 / 2473.05 1503.16 / 1503.16 Output Total 300 / 300 915 / 915 125 / 125 Balance 413.18 / 415.33 1493.15 / 1558.05 1378.16 / 1378.16 Lab / Micro Data Result Diagrams: 07/05/22 02:40 07/05/22 02:40 Labs: Laboratory Results - last 24 hr 07/03/22 04:22: CHARLIE-1 Antibody <0.2, SS-A/Ro IgG Antibody < 0.2, SS-B/La IgG Antibody < 0.2, Sm (Shin) Antibody <0.2, METER INSTALLER Antibody 1.1 H, Scl-70 Scleroderma Ab <0.2, Double Strand DNA Ab <1, Centromere B Antibody <0.2, Anti-Mitochondrial Ab <20.0 07/05/22 02:40: WBC 17.3 H, RBC 4.09 L, Hgb 13.1, Hct 39.4, MCV 96.3, MCH 32.0, MCHC 33.2, RDW Std Deviation 55.1 H, RDW Coeff of Anyi 19.2 H, Plt Count 68 L, MPV 10.8, Immature Gran % (Auto) 3.600 H, Neut % (Auto) 72.7 H, Lymph % (Auto) 11.7 L, Davidson % (Auto) 10.8 H, Eos % (Auto) 0.4, Baso % (Auto) 0.8, Absolute Neuts (auto) 12.6 H, Absolute Lymphs (auto) 2.02, Nucleated RBC % 3.6, Differential Comment SCANNED, Diff Path Review Reviewed, Polychromasia RARE 07/05/22 02:40: Sodium 141, Potassium 4.3, Chloride 106, Carbon Dioxide 28.0, Anion Gap 7, BUN 29 H, Creatinine 1.24 H, Estim Creat Clear Calc 40.16, Est GFR (MDRD) Af Amer 56 L, Est GFR (MDRD) Non-Af 46 L, BUN/Creatinine Ratio 23.4 H, Glucose 111 H, Calcium 9.4, Total Bilirubin 8.70 H, Direct Bilirubin 7.23 H, AST 208 H, ALT 51, Alkaline Phosphatase 237 H, Total Protein 5.4 L, Albumin 1.6 L, Globulin 3.8 07/05/22 02:40: PT 26.6 H, INR 2.5 Micro: Microbiology 07/04/22 00:30 Sputum, Induced/Lukens Gram Stain - Final 07/04/22 00:30 Sputum, Induced/Lukens Respiratory Culture - Preliminary Appears to be normal respiratory robe. Further studies to follow. 06/27/22 00:25 Blood Culture (Wb) - Anticubital Right Blood Culture - Final No growth in 5 days. 06/26/22 20:25 Blood Culture (Wb) - Anticubital Left Blood Culture - Final No growth in 5 days. 06/26/22 15:15 Interface Orders Enteric Bacteriology - Final 06/21/22 20:30 Blood Culture (Wb) - Anticubital Right Blood Culture - Final Staphylococcus hominis 06/21/22 23:15 Blood Culture (Wb) - Anticubital Left Blood Culture - Final No growth in 5 days. 06/26/22 15:15 Stool C. difficile DNA Amplification - Final 06/26/22 20:05 Urine Catheter - Catheter Legionella Antigen - Final 06/26/22 20:05 Urine Catheter - Catheter Streptococcus pneumoniae Antigen (M - Final 06/21/22 20:30 Nasal Secretion SARS-CoV-2 & FLU Antigen (Rapid) - Final Radiography Diagnostic Testing: Radiology Impression Chest X-Ray 07/04/22 07:06 IMPRESSION: 1. Persistent partial atelectasis of the left lung base and left pleural fluid. 2. Left hilar and left suprahilar lymphadenopathy are unchanged. 3. ET tube tip remains near the stefani and is facing the right mainstem bronchus. 4. OG tube tip and sidehole remain inside the left gastric cavity. Electronically Signed: Carlos A Guillen MD at 9:05 EST , Physical Exam Const alert and no apparent distress Constitutional Narrative: Chronically ill-appearing, morbidly obese, upper middle-aged white female, appears older than stated age, lying in bed, intubated and sedated HEENT head/scalp atraumatic and moist oral mucous membranes HEENT Narrative: ET tube and OG Head and Scalp: normocephalic Resp normal respiratory effort, no retractions, no use of accessory muscles and clear to auscultation bilaterally Resp Narrative: Diminished but clear, on a ventilator Auscultation: rhonchi; Negative for rales or wheezes Cardio regular rate, regular rhythm, S1 normal heart sound, S2 normal heart sound, no murmurs, no rub, no gallops and no clicks GI normal to inspection, nondistended, normoactive bowel sounds, soft to palpation and non-tender GI Narrative: Large protuberant abdomen, no significant fluid wave noted Extremity no clubbing, cyanosis or edema Extremity Narrative: 2+ pedal pulses Skin skin turgor normal, no jaundice, no petechiae and no mottling Skin Narrative: Jaundiced, skin ecchymosis from thrombocytopenia Neuro Neuro Narrative: spontaneously moves all 4 extremities with stimulus and grimaces with exam Psych Psych Narrative: Able to evaluate-patient intubated and sedated Assessment & Plan Assessment/Plan (1) Acute on chronic respiratory failure with hypoxia and hypercapnia: (2) Cirrhosis: (3) Toxic metabolic encephalopathy: (4) Gastric ulcer: (5) Acute kidney injury: (6) Dehydration: (7) Acute colitis: (8) Debility: PLAN: Plan Assessment: Acute on chronic hypoxic and hypercapnic respiratory failure Acute metabolic/toxic encephalopathy secondary to hepatic encephalopathy secondary to decompensated liver cirrhosis/respiratory acidosis Shock Acute colitis Coagulopathy Gastric varices JORDAN secondary to dehydration Chronic thrombocytopenia Transaminitis Hyperbilirubinemia Dysphagia Severe malnutrition Debility Hypothyroidism Metastatic papillary thyroid cancer History of hepatitis C with resultant cirrhosis GERD Depression Urinary incontinence Plan: -Terminally extubated today -As needed Dilaudid and Ativan in place -As needed Robinul for terminal secretions -Antibiotics and pressors discontinued -Expect hours to days -Family at bedside Charges/Coding Visit Charges Inpatient E&M: 39439 Subs Hosp L2
--- NOTE | 2022-07-05 16:01 | PCM.DEATH ---
Preliminary Cause of Preliminary Cause of Preliminary Cause of : Undifferentiated shock Date of Admission: 06/22/22 Date of : 07/05/22 Principle Diagnosis Decompensated liver cirrhosis Problem List: Active and Suspected Problems (Updated 07/03/22 @ 17:45 by Isabelle Marks [employer], [employer]) Metastasis from thyroid cancer (Acute) Papillary thyroid carcinoma (Acute) Debility (Acute) Acute colitis (Acute) Gastric ulcer (Acute) Toxic metabolic encephalopathy (Acute) Cirrhosis (Acute) Acute kidney injury (Acute) Dehydration (Acute) Hospital Course iris Pizarro is a 67-year-old white female who presented to the emergency department with worsening confusion. He patient evidently has a history of metastatic thyroid cancer and had a partial thyroidectomy about 16 years ago.? Recurrence was found in either February or March 2022.? She has metastatic disease to the lungs and is currently on radioactive iodine therapy. 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 Her primary head screen worker is Dr. Tommy Sinclair at [facility] and she follows here with Dr. Humphrey oncology.? She evidently has a history of hepatitis C for which she was treated by Dr. García but ended up with resultant cirrhosis.? Abnormal liver ultrasound is back as far as 2013 as noted on our system with cirrhosis at that time. CBC at the time of admission showed mild leukocytosis but overall she looked hemoconcentrated with an elevated hemoglobin and on the a.m. of 06/22/2021 her counts are all improved other than chronic thrombocytopenia likely related to her cirrhosis.? She had JORDAN on presentation with a serum creatinine of 1.36 (baseline 0.6-0.8) renal function this morning is better and down to 1.23.? Her lactic acid on presentation was 3.4 and has trended down to 2.8 with hydration.? She had hyperbilirubinemia with transaminitis on presentation as well.? She was placed on aggressive lactulose and rifaximin.? An NG tube required placement on 06/22/2022 as patient was still fairly sleepy and not able to regularly take her lactulose and other medications.? She was also placed on neomycin and Flagyl by gastroenterology.? He had an ultrasound which was unremarkable other than cirrhosis and an AFP was ordered and found to be 2.3.? This was able to produce multiple bowel movements and her alertness level did improve, however despite her ammonia level trending down she was still fairly encephalopathic.? Alertness did slowly improve following this.? And she was able to be taken for an EGD and colonoscopy on 06/26/2022.? EGD showed type I isolated gastric varices without bleeding, oozing of a gastric ulcer with visible vessel that was treated with heater probe, portal hypertensive gastropathy.? Colonoscopy demonstrated diffuse inflammation of the entire colon secondary to ischemic colitis that was biopsied, rectal varices, colonic vascular ectasias and hemorrhoids.? Given the diffuse colitis she was started on levofloxacin given ciprofloxacin shortage and IV Flagyl and lactulose was held. As it was felt to be related to her lactulose. Following her scope she had deep responsiveness and ABG at that time showed a pH of 7.06 a PCO2 of 109 and a PO2 of 75 with a sat of 86% and she was placed on BiPAP and admitted to the ICU for further care.? Her mental status improved quickly overnight.? I suspect that was related to decreased medication clearance from her scopes and suspected sleep apnea.? On the morning it is documented that her NG was removed overnight and she became more lethargic and had to go back on BiPAP.? Her ammonia was within normal limits and she had not been getting any other narcotics an MRI of her brain was ordered at that time and showed periventricular white matter ischemic changes without any evidence for acute infarct and no other acute findings.? Mental changes were unclear at that time as her ABG was unremarkable as well.? Swallow study was done on 06/29/2022 via modified barium swallow by speech therapy and a pur?ed diet with regular thin liquids was ordered along with no straws, total feed due to impulsivity and sips 1 at a time. Overall p.o. intake was extremely poor throughout her hospital stay. Her ammonia level on Saturday the was 26. Her lactulose was started at a lower dose at that time given her previous issues with this medication. Her mental status improved some on 07/02 and . Oncology evaluated the patient and indicated that at this time she is not a candidate for chemo based on her performance status and they felt likely that other medical issues were more problematic at this time. They agreed to reevaluate her if she clinically improved. Unfortunately, on the evening of the the patient refused her BiPAP and was found to have depressed mental status. She was found to have a severe respiratory acidosis with a PCO2 of 100 and a pH of 7.12. The decision was made to intubate her given her recurrent issues. She eventually required pressors. Antibiotics were ordered and the patient was placed on broad-spectrum antibiotics after cultures were obtained. At the time of her UA was not consistent with infection, her sputum had normal oral robe and her blood cultures were pending. After long discussion with her family based on the prognosis with regards to her liver disease and her ongoing herrera with metastatic papillary thyroid cancer the family elected to change her CODE STATUS to DNR CCA and leave her intubated until family can get here for terminal extubation. Patient was terminally extubated at 1230 on 07/05/2021 and at 1553 on 07/05/2022. Visit Charges Inpatient E&M: 50463 Disch Hosp >30min
== END 2022-07-05 18:06 | DRG 441 ==
LOC: ED 06-22 00:40 → MS3 06-22 01:05 → ICU 06-26 18:46 → PCU 06-30 15:48 → ICU 07-04 06:15
PROVIDERS: Family Medicine; Internal Medicine; Internal Medicine Critical Care Medicine; Internal Medicine Gastroenterology; Admitting Provider Hospitalist; Emergency Provider Emergency Medicine; PCP Family Medicine Geriatric Medicine; Visit Provider Internal Medicine
PROC: 0DJD8ZZ Inspection of Lower Intestinal Tract, Via Natural or Artificial Opening Endoscopic (ICD-10-PCS; CPT 45378; principal; 2022-06-26 15:10)
DX: K76.82 Hepatic encephalopathy (principal); J96.21 Acute and chronic respiratory failure with hypoxia; K55.039 Acute (reversible) ischemia of large intestine, extent unspecified; G92.8 Other toxic encephalopathy; E43 Unspecified severe protein-calorie malnutrition; K25.4 Chronic or unspecified gastric ulcer with hemorrhage; J96.22 Acute and chronic respiratory failure with hypercapnia; K83.1 Obstruction of bile duct; G93.41 Metabolic encephalopathy; K55.9 Vascular disorder of intestine, unspecified; C78.01 Secondary malignant neoplasm of right lung; C78.02 Secondary malignant neoplasm of left lung; N17.9 Acute kidney failure, unspecified; K76.6 Portal hypertension; C78.7 Secondary malignant neoplasm of liver and intrahepatic bile duct; E66.2 Morbid (severe) obesity with alveolar hypoventilation; Z68.42 Body mass index [BMI] 45.0-49.9, adult; C79.89 Secondary malignant neoplasm of other specified sites; D68.9 Coagulation defect, unspecified; J90 Pleural effusion, not elsewhere classified; E87.3 Alkalosis; E87.20 Acidosis, unspecified; R57.8 Other shock; C73 Malignant neoplasm of thyroid gland; K74.60 Unspecified cirrhosis of liver; D69.6 Thrombocytopenia, unspecified; E86.0 Dehydration; F17.210 Nicotine dependence, cigarettes, uncomplicated; R00.1 Bradycardia, unspecified; K76.9 Liver disease, unspecified; K29.70 Gastritis, unspecified, without bleeding; K21.9 Gastro-esophageal reflux disease without esophagitis; K52.9 Noninfective gastroenteritis and colitis, unspecified; D50.9 Iron deficiency anemia, unspecified; K64.9 Unspecified hemorrhoids; I86.4 Gastric varices; K75.81 Nonalcoholic steatohepatitis (NASH); E04.2 Nontoxic multinodular goiter; K76.89 Other specified diseases of liver; E89.0 Postprocedural hypothyroidism; I95.9 Hypotension, unspecified; D69.59 Other secondary thrombocytopenia; K31.89 Other diseases of stomach and duodenum; R53.81 Other malaise; Z60.2 Problems related to living alone; Z92.3 Personal history of irradiation; K25.9 Gastric ulcer, unspecified as acute or chronic, without hemorrhage or perforation; Z66 Do not resuscitate; Z91.199 Patient's noncompliance with other medical treatment and regimen due to unspecified reason; R59.1 Generalized enlarged lymph nodes; R74.01 Elevation of levels of liver transaminase levels; R13.10 Dysphagia, unspecified
CPT/HCPCS: 31500; 31720; 36415; 36569; 36600; 70450; 70553; 71045; 72110; 74018; 74177; 74230; 76604; 76705; 80048; 80053; 80061; 80074; 80076; 80307; 81001; 81002; 82105; 82140; 82248; 82306; 82550; 82607; 82803; 82945; 82962; 82977; 83516; 83605; 83615; 83735; 84100; 84145; 84156; 84157; 84439; 84443; 84478; 85025; 85610; 85730; 86038; 86225; 86235; 86256; 86803; 87040; 87070; 87077; 87186; 87205; 87428; 87449; 87493; 87506; 87522; 88305; 92526; 92610; 92611; 93005; 94002; 94003; 94640; 94762; 94799; 97110; 97116; 97162; 97166; 97530; 97535; 97802; 97803; 99252; 99285; 99406; A9575; J7030; J7040; J7050; J7120; Q9967; A4216; G0463; J1940; J2405; J3010; J3490; J7799